=== PATIENT | female | born 1960 | race Caucasian/White ===

== ENCOUNTER → 2016-09-12 | Outpatient (CLI) | payer OTHER ==
[2014-12-31 11:00] VITALS: BP 121/77
[~2016-09-12] MED LIST: SULF1TAB24 PO
--- NOTE | 2016-09-12 13:11 | KCIC ---
Left breast ultrasound: Reason for examination: Followup nodule. Comparison is made to previous study dated 10/10/2015. Ultrasound examination of the left breast was performed in the area of previous sonographic concern. At the 2 o'clock position 7 centimeters from the nipple, there continues to be a small 3.1 millimeter hypoechoic lesion consistent with some focal fibrocystic changes showing a decrease in size since previous exam. No other nodules are seen. No abnormal appearing lymph nodes are seen in the axilla. Impression: Continued presence of a small nodular lesion at the 2 o'clock position consistent with fibrocystic change and showing a slight decrease in overall size. No suspicious abnormalities were seen. Recommend routine mammographic followup. BI-RADS category 2: Benign. This patient's information has been entered into a reminder system for the patient to be notified with the results of this examination and a target date for her next mammograms. Electronically signed by: Elayne Riley MD (September 12, 2016 13:10:13)
--- NOTE | 2016-09-12 14:05 | KCIC ---
PQRS STATEMENT One or more of the following individualized dose reduction techniques were utilized for this study:1.Automated exposure control. 2.Adjustment of the mA and/orkVaccording to patient size. 3.Use of iterative reconstruction technique CT chest. Indication: Reason For Study Reason: CHRONIC SMOKER, COUGH, EVALUATE FOR LUNG CANCER / Spl. Instructions: PRIOR CTA CHEST SENT 12/28/14 / History: TECHNIQUE Multiple contiguous axial images were obtained through the chest. Coronal reformations were created. Comparison: None Findings: There is no axillary adenopathy. Evaluation of the mediastinum and day are limited in the absence of IV contrast but no gross adenopathy is identified. The heart size is normal. Coronary artery calcifications are noted. There is no pericardial effusion. The thoracic aorta is normal in caliber. There is centrilobular emphysema. The lungs are clear with no evidence for infiltrate or consolidation. There is no pleural effusion or pneumothorax. Limited subdiaphragmatic evaluation shows diffuse fatty infiltration of the liver. No destructive osseous lesion is identified. Impression: - Centrilobular emphysema. - Coronary artery disease - Diffuse fatty infiltration of the liver. Electronically signed by: Ramana Pineda (September 12, 2016 14:03:17)
== END | disposition home or self-care (01) ==
LOC: KCIC CT 12:23
PROVIDERS: ATTEND Family Medicine
DX: N63 Unspecified lump in breast (principal); F17.200 Nicotine dependence, unspecified, uncomplicated; R05 Cough; C34.90 Malignant neoplasm of unspecified part of unspecified bronchus or lung
CPT/HCPCS: 71250; 76641

== ENCOUNTER → 2016-10-22 | Outpatient (CLI) | payer OTHER ==
[2014-12-31 11:00] VITALS: BP 121/77
--- NOTE | 2016-10-22 22:10 | KCIC ---
Bilateral digital screening mammograms: Reason for examination: Routine screening. Comparison is made to previous studies dated 10/10/2015 08/16/2015. The skin and nipples show no abnormalities. No abnormal axillary lymph nodes are seen. The breast parenchyma shows scattered fibroglandular density. (Breast density: Category B.) There continues to be a small nodule posterior laterally in the left breast at the 2:00 position which has not changed. There are no new dominant masses, suspicious calcifications or architectural distortions. Impression: No evidence of malignancy. Recommend routine screening. BI-RADS Category 2: Benign. "Our facility is accredited by the [employer] Mammography Program." This patient's information has been entered into a reminder system for the patient to be notified with the results of her examination and a target date for the next mammogram. Electronically signed by: Vanessa Riley MD (10/22/2016 10:07 PM)
== END | disposition home or self-care (01) ==
LOC: KCIC MAMMO 12:33
PROVIDERS: ATTEND Family Medicine
DX: Z12.31 Encounter for screening mammogram for malignant neoplasm of breast (principal)
CPT/HCPCS: G0202; 77067

== ENCOUNTER → 2017-05-20 | Emergency (ER) | payer OTHER | END | disposition home or self-care (01) | LOC: ER 09:30 | DX: R11.0 Nausea (principal); R10.13 Epigastric pain; R13.10 Dysphagia, unspecified; J44.9 Chronic obstructive pulmonary disease, unspecified; F12.10 Cannabis abuse, uncomplicated; F10.20 Alcohol dependence, uncomplicated | CPT/HCPCS: 99283 ==

== ENCOUNTER 2018-02-25 12:10 | Inpatient (IN) | payer OTHER ==
[~2018-02-25] VITALS: Ht 154.9 cm; Wt 57.6 kg
[2018-02-25] MEDS ORDERED: IV NORMAL SALINE 1000ML BAG 1,000 ML IV ONE ×2 (12:45→14:30)
[2018-02-25] MEDS ORDERED: FAMOTIDINE 20 MG/2 ML VIAL IVP ONE (12:45)
[2018-02-25] MEDS ORDERED: HALOPERIDOL LACTATE 5 MG/ML VIAL. IVP ONE (12:45)
[2018-02-25 12:50] LABS: BASO # 0.1 x10^3/uL (0.0-0.2); BASO % 1 % (0-3); EOS % 0 % (0-3); HEMATOCRIT 43.1 % (36.0-47.0); HEMOGLOBIN 15.1 g/dL (12.0-15.5); LYMPH # 1.1 x10^3/uL (1.0-4.8); LYMPH % 4 % (24-48); MEAN CORPUSCULAR HEMOGLOBIN 33 pg (25-35); MEAN CORPUSCULAR HGB CONC 35 g/dL (31-37); MEAN CORPUSCULAR VOLUME 94 fL (79-100); MONO # 1.3 x10^3/uL (0.0-1.1); MONO % 5 % (0-9); NEUT # 23.1 x10^3uL (1.8-7.7); NEUT % 90 % (31-73); PLATELET COUNT 327 x10^3/uL (140-400); WHITE BLOOD COUNT 25.6 x10^3/uL (4.0-11.0)
--- NOTE | 2018-02-25 12:53 | PHYS DOC ---
Past Medical History Past Medical History: Asthma, COPD, Other Additional Past Medical Histor: chronic N/V seen by Dr. Suarez at [facility] Past Surgical History: Tonsillectomy, Other Additional Past Surgical Histo: L knee, infertility sx Alcohol Use: Heavy Drug Use: Marijuana Adult General Chief Complaint Chief Complaint: GI PROBLEM HPI HPI Patient is a 57 year old female with history of chronic abdominal pain, nausea and vomiting who presents with diffuse midabdominal pain for the past 3 days, daily nausea and vomiting with watery diarrhea for the past week. Patient denies fever chills, sweats. No hematemesis or coffee-ground emesis. No fever, flank pain, hematuria dysuria. Patient does report multiple episodes of watery diarrhea over the past week. No recent antibiotics. Reports generalized weakness and fatigue and poor tolerance of oral intake. Patient contacted her doctor today today see if she could be seen today was referred to the ED for further evaluation. [] Review of Systems Review of Systems Review symptoms as per history of present illness. All other review symptoms are negative. All other systems were reviewed and found to be within normal limits, except as documented in this note. Current Medications Current Medications Current Medications Medications (Trade) Dose Ordered Sig/Mohan Start Time Stop Time Status Last Admin Dose Admin Famotidine (Pepcid Vial) 20 mg 1X ONCE 02/25/18 12:45 02/25/18 12:46 DC 02/25/18 13:05 20 MG Fentanyl Citrate (Fentanyl 2ml Vial) 75 mcg 1X ONCE 02/25/18 13:45 02/25/18 13:46 DC 02/25/18 14:41 75 MCG Haloperidol Lactate (Haldol Inj) 2.5 mg 1X ONCE 02/25/18 12:45 02/25/18 12:46 DC 02/25/18 13:05 2.5 MG Info (CONTRAST GIVEN -- Rx MONITORING) 1 each PRN DAILY PRN 02/25/18 13:45 02/27/18 13:44 Iohexol (Omnipaque 300 Mg/ml) 75 ml 1X ONCE 02/25/18 13:45 02/25/18 13:46 DC 02/25/18 14:05 75 ML Potassium Chloride/Sodium Chloride 1,000 ml @ 75 mls/hr 1X ONCE 02/25/18 13:45 02/26/18 03:04 02/25/18 14:30 75 MLS/HR Sodium Chloride 1,000 ml @ 1,000 mls/hr 1X ONCE 02/25/18 14:30 02/25/18 15:29 DC 02/25/18 14:30 1,000 MLS/HR Allergies Allergies Allergies Coded Allergies Type Severity Reaction Last Updated Verified No Known Drug Allergies 12/28/14 No Physical Exam Physical Exam Constitutional: Well developed, well nourished, no acute distress, non-toxic appearance. [] HENT: Normocephalic, atraumatic, bilateral external ears normal, oropharynx moist, no oral exudates, nose normal. [] Eyes: PERRLA, EOMI, conjunctiva normal. [] Neck: Normal range of motion. [] Cardiovascular:Heart rate regular rhythm, no murmur. [] Lungs & Thorax: Bilateral breath sounds clear to auscultation. [] Abdomen: Bowel sounds normal, soft, midepigastric tenderness. [] Skin: Warm, dry. [] Back: No tenderness. [] Extremities: No tenderness. [] Neurologic: Alert and oriented X 3, normal motor function, normal sensory function, no focal deficits noted. [] Psychologic: Affect normal, judgement normal, mood normal. [] Current Patient Data Vital Signs Vital Signs Date Time Temp Pulse Resp B/P (MAP) Pulse Ox O2 Delivery O2 Flow Rate FiO2 02/25/18 13:00 80 27 151/85 (107) 95 Room Air 02/25/18 12:10 99.3 99.3 Lab Values Laboratory Tests Test 02/25/18 12:25 02/25/18 13:50 White Blood Count 25.6 x10^3/uL (4.0-11.0) H Red Blood Count 4.60 x10^6/uL (3.50-5.40) Hemoglobin 15.1 g/dL (12.0-15.5) Hematocrit 43.1 % (36.0-47.0) Mean Corpuscular Volume 94 fL (79-100) Mean Corpuscular Hemoglobin 33 pg (25-35) Mean Corpuscular Hemoglobin Concent 35 g/dL (31-37) Red Cell Distribution Width 17.0 % (11.5-14.5) H Platelet Count 327 x10^3/uL (140-400) Neutrophils (%) (Auto) 90 % (31-73) H Lymphocytes (%) (Auto) 4 % (24-48) L Monocytes (%) (Auto) 5 % (0-9) Eosinophils (%) (Auto) 0 % (0-3) Basophils (%) (Auto) 1 % (0-3) Neutrophils # (Auto) 23.1 x10^3uL (1.8-7.7) H Lymphocytes # (Auto) 1.1 x10^3/uL (1.0-4.8) Monocytes # (Auto) 1.3 x10^3/uL (0.0-1.1) H Eosinophils # (Auto) 0.0 x10^3/uL (0.0-0.7) Basophils # (Auto) 0.1 x10^3/uL (0.0-0.2) Segmented Neutrophils % 83 % (35-66) H Band Neutrophils % 5 % (0-9) Lymphocytes % 5 % (24-48) L Monocytes % 6 % (0-10) Basophils % 1 % (0-3) Platelet Estimate Adequate (ADEQUATE) Sodium Level 135 mmol/L (136-145) L Potassium Level 2.7 mmol/L (3.5-5.1) *L Chloride Level 94 mmol/L (98-107) L Carbon Dioxide Level 23 mmol/L (21-32) Anion Gap 18 (6-14) H Blood Urea Nitrogen 8 mg/dL (7-20) Creatinine 0.8 mg/dL (0.6-1.0) Estimated GFR (Cockcroft-Gault) 73.9 BUN/Creatinine Ratio 10 (6-20) Glucose Level 121 mg/dL (70-99) H Lactic Acid Level 1.4 mmol/L (0.4-2.0) Calcium Level 8.8 mg/dL (8.5-10.1) Total Bilirubin 1.2 mg/dL (0.2-1.0) H Aspartate Amino Transferase (AST) 15 U/L (15-37) Alanine Aminotransferase (ALT) 18 U/L (14-59) Alkaline Phosphatase 73 U/L (46-116) C-Reactive Protein, Quantitative 157.1 mg/L (0-3.3) H Total Protein 7.7 g/dL (6.4-8.2) Albumin 2.8 g/dL (3.4-5.0) L Albumin/Globulin Ratio 0.6 (1.0-1.7) L Lipase 78 U/L (73-393) Urine Collection Type U cath Urine Color Yellow Urine Clarity Clear Urine pH 7.0 Urine Specific [place] 1.010 Urine Protein 30 mg/dL (NEG-TRACE) Urine Glucose (UA) Negative mg/dL (NEG) Urine Ketones (Stick) 40 mg/dL (NEG) Urine Blood Negative (NEG) Urine Nitrite Negative (NEG) Urine Bilirubin Moderate (NEG) Urine Urobilinogen Dipstick 0.2 mg/dL (0.2 mg/dL) Urine Leukocyte Esterase Large (NEG) Urine RBC 0 /HPF (0-2) Urine WBC Tntc /HPF (0-4) Urine Bacteria Few /HPF (0-FEW) Urine Mucus Mod /LPF Laboratory Tests 02/25/18 12:25 Laboratory Tests 02/25/18 12:25 EKG EKG [] Radiology/Procedures Radiology/Procedures [CT abdomen/pelvis: Wall thickening involving the descending colon with sigmoid which may reflect colitis. Dilated fluid and air filled small bowel loops are seen throughout the abdomen with no definite evidence of bowel obstruction per radiology report] Course & Med Decision Making Course & Med Decision Making Pertinent Labs and Imaging studies reviewed. (See chart for details) [Patient afebrile with stable vital signs, abdomen soft with diffuse midabdominal pain, without guarding. Additional with elevated white blood cell count 26K with left shift, potassium at 2.7 with anion gap of 18. CT findings most consistent enteritis and colitis without evidence of obstruction. Cdif antigen pending. Patient also noted to have urinary tract infection. IV fluids, antibiotics given. Given the patient has poor oral tolerance and remains nauseated, IV fluids with potassium were administered. Given the totality the patient's presentation, ongoing symptoms, poor tolerance to oral intake likely failure and concern for worsening hypokalemia I feel the patient would benefit from hospital admission. Case reviewed including but not limited to vital signs , physical exam, all lab report values, CT imaging findings in detail with patient's primary care physician, Dr. Suarez with offer to treat and hold the patient in the emergency department to determine suitability of hospital admission an admission status. Dr. Suarez prefers instead to admit the patient. Case discussed with Osmin from utilization review who feels the patient qualifies for inpatient admission. Courtesy bridge orders provided. ] Dragon Disclaimer Dragon Disclaimer This electronic medical record was generated, in whole or in part, using a voice recognition dictation system. Departure Departure Impression: Primary Impression: Acute colitis Additional Impressions: Hypokalemia Urinary tract infection Condition: STABLE Referrals: MARIANA SUAREZ MD (PCP) Problem Qualifiers DHRUV MARINO DO Feb 25, 2018 12:53
[2018-02-25 13:03] LABS: ALBUMIN 2.8 g/dL (3.4-5.0); ALBUMIN/GLOBULIN RATIO 0.6 (1.0-1.7); C-REACTIVE PROTEIN 157.1 mg/L (0-3.3); CALCIUM 8.8 mg/dL (8.5-10.1); CREATININE 0.8 mg/dL (0.6-1.0); GFR 73.9; TOTAL BILIRUBIN 1.2 mg/dL (0.2-1.0); TOTAL PROTEIN 7.7 g/dL (6.4-8.2)
[2018-02-25 13:09] LABS: POTASSIUM 2.7 mmol/L (3.5-5.1)
[2018-02-25] MEDS ORDERED: fentaNYL PF VIAL 100 MCG/2 ML VIAL IV ONE (13:45)
[2018-02-25] MEDS ORDERED: IOHEXOL 300 MG/ML 100ML VIAL. IV ONE (13:45)
[2018-02-25] MEDS ORDERED: CONTRAST GIVEN. MC PRN (13:45)
[2018-02-25] MEDS ORDERED: POTASSIUM CL 40MEQ IN 0.9%NACL 1,000 ML IV ONE (13:45)
[2018-02-25 13:57] LABS: % BANDS 5 % (0-9); % BASOS 1 % (0-3); % LYMPHS 5 % (24-48); % MONOS 6 % (0-10); % SEGS 83 % (35-66); PLT ESTIMATE ADEQUATE (ADEQUATE)
[2018-02-25 14:10] LABS: BILIRUBIN,URINE MODERATE (NEG); CLARITY,URINE CLEAR; COLOR,URINE YELLOW; NITRITE,URINE NEGATIVE (NEG); PROTEIN,URINE 30 mg/dL (NEG-TRACE); UROBILINOGEN,URINE 0.2 mg/dL (0.2 mg/dL)
[2018-02-25 14:29] LABS: BACTERIA,URINE FEW /HPF (0-FEW); RBC,URINE 0 /HPF (0-2); WBC,URINE TNTC /HPF (0-4)
--- NOTE | 2018-02-25 14:30 | RAD ---
CT scan of the abdomen and pelvis with contrast 02/25/2018 CLINICAL HISTORY: Abdominal pain for one month. TECHNIQUE: After the intravenous administration of 75 cc of Omnipaque 300, contiguous, 5 mm axial sections were obtained through the abdomen and pelvis. One or more of the following individualized dose reduction techniques were utilized for this study: 1. Automated exposure control. 2. Adjustment of the mA and/or kV according to patient size. 3. Use of iterative reconstruction technique. FINDINGS: Images through the lung bases demonstrate minimal dependent subsegmental atelectasis bilaterally. The liver parenchyma has a decreased attenuation consistent with fatty infiltration. The spleen, pancreas, adrenal glands and kidneys are within normal limits. Atherosclerotic calcification of the abdominal aorta is seen. The abdominal aorta tapers normally. The gallbladder is well-distended. No free fluid or free air is seen within the abdomen. The bowel is difficult to evaluate without oral contrast. Dilated air and fluid filled small bowel loops are seen throughout the abdomen without definite evidence of bowel obstruction. Scattered diverticula are seen involving the descending and throughout the sigmoid colon. No inflammatory changes are seen in the adjacent fat. Diffuse wall thickening of the sigmoid colon is seen. This is seen to lesser extent involving the descending colon. These findings may reflect a colitis. No abnormal fluid collection is seen suggest evidence of an abscess. The appendix is not visualized. No inflammatory changes are seen adjacent to the cecum. Images through the pelvis demonstrate the urinary bladder distended with urine. Calcifications are seen within the pelvis consistent with phleboliths. No free fluid is seen. No adnexal mass is noted. Mild S-shaped curvature of the thoracolumbar spine is seen. Degenerative changes are seen involving lower thoracic and throughout the lumbar spine and both hips. IMPRESSION: Wall thickening is seen involving the descending colon along with the sigmoid colon which may reflect a colitis. Clinical correlation is recommended. Dilated fluid and air filled small bowel loops are seen throughout the abdomen without definite evidence of bowel obstruction. Electronically signed by: John Norris MD (02/25/2018 2:27 PM) [facility]-[email or web address]
[2018-02-25] MEDS ORDERED: cefTRIAXone IV Push 1 GM VIAL. IVP SCH (16:00)
--- NOTE | 2018-02-25 16:26 | EKG ---
[facility] [address] [place] [address] Test Date: 2018-02-25 Test Time: 16:21:48 Pat Name: BRITNI RAZA Department: Room: 528 1 Gender: F Cripple Chaser: : 1960 Requested By: DHRUV MARINO Order Number: [id number] Reading MD: Zan Banegas MD Measurements Intervals [place] Rate: 80 P: 0 [place]: 128 QRS: 43 QRSD: 78 T: 26 QT: 400 QTc: 465 Interpretive Statements SINUS RHYTHM Electronically Signed On 03-01-2018 11:02:49 CDT by Zan Banegas MD
[2018-02-25] MEDS ORDERED: ONDANSETRON PF 4 MG/2 ML VIAL. IV PRN (16:30)
[2018-02-25] MEDS: POTASSIUM CHLORIDE 20 MEQ in IV NORMAL SALINE 250ML 250 ML IV SCH ×2 (17:10→21:10)
[2018-02-25] MEDS: fentaNYL PF VIAL 100 MCG/2 ML VIAL IV PRN (17:31)
[2018-02-25] MEDS ORDERED: OMEP40CA5 PO (18:04)
[2018-02-25] MEDS ORDERED: BUDE10.2 IH (18:05)
[2018-02-25] MEDS ORDERED: PROAIR HFA8.5 GM INH (18:05)
[2018-02-25] MEDS ORDERED: ONDA8TAB12 PO (18:06)
[2018-02-25 18:48] VITALS: BP 144/72
[2018-02-25 19:00] VITALS: BP 117/68
[2018-02-25 23:00] VITALS: BP 151/87
[2018-02-26] MEDS: fentaNYL PF VIAL 100 MCG/2 ML VIAL IV PRN ×2 (00:35→09:47)
[2018-02-26 02:55] VITALS: BP 142/89
[2018-02-26 07:00] VITALS: BP 156/82
--- NOTE | 2018-02-26 08:58 | PDOC1 ---
History and Physical Date of Admission Date of Admission 02/25/18 Identification/Chief Complaint Chief Complaint Diarrhea Problems: (1) Acute colitis (2) Vomiting and diarrhea (3) COPD with acute exacerbation (4) Hypokalemia (5) Urinary tract infection Source Source: Patient History of Present Illness History of Present Illness Patient presents with 1 month history of vomiting and diarrhea, worsening in the last 1 week. Patient states for the last month, she has vomiting 3-4 times a day and has had profuse diarrhea, upward of >10 times per day. She did have one episode of coffee ground emesis 1 month ago along with dark tarry stools 1 month ago, but that was the only episode. Mild abdominal pain is associated with diarrhea. She has no idea how she got sick; she has had no sick contacts. She lives alone and hasn't traveled recently. She states she has had problems with nausea and vomiting for about 1 year. She was diagnosed with H.pylori about 1 year ago and was treated twice. After being treated, symptoms improved but she hasn't taken her Omeprazole in "a long time." Last alcoholic drink was 1 month ago. She does endorse dysuria and decreased urine flow. She hasn't had a normal meal in 1 week but has tried to drink water. Patient also is short of breath, slight increase in cough but without fever. Current Problem List Problem List Problems Medical Problems: (1) Hypokalemia Status: Acute (2) Urinary tract infection Status: Acute Current Medications Current Medications Current Medications Medications (Trade) Dose Ordered Sig/Mohan Start Time Stop Time Status Last Admin Dose Admin Ceftriaxone Sodium 1 gm/ Dextrose 50 ml @ 100 mls/hr Q24H 02/25/18 15:45 UNV Ceftriaxone Sodium (Rocephin) 1 gm Q24H 02/26/18 16:30 Famotidine (Pepcid Vial) 20 mg 1X ONCE 02/25/18 12:45 02/25/18 12:46 DC 02/25/18 13:05 20 MG Fentanyl Citrate (Fentanyl 2ml Vial) 50 mcg PRN Q2HR PRN 02/25/18 16:30 02/26/18 16:29 02/26/18 00:35 50 MCG Haloperidol Lactate (Haldol Inj) 2.5 mg 1X ONCE 02/25/18 12:45 02/25/18 12:46 DC 02/25/18 13:05 2.5 MG Influenza Virus Vaccine (Afluria Trivalent [id number] Syringe) 0.5 ml ONCE ONCE 02/25/18 18:00 02/25/18 18:05 DC Info (CONTRAST GIVEN -- Rx MONITORING) 1 each PRN DAILY PRN 02/25/18 13:45 02/27/18 13:44 Iohexol (Omnipaque 300 Mg/ml) 75 ml 1X ONCE 02/25/18 13:45 02/25/18 13:46 DC 02/25/18 14:05 75 ML Ondansetron HCl (Zofran) 4 mg PRN Q8HRS PRN 02/25/18 16:30 02/26/18 16:29 02/25/18 17:30 4 MG Potassium Chloride 20 meq/ Sodium Chloride 260 ml @ 130 mls/hr BID 02/25/18 17:00 02/25/18 21:10 130 MLS/HR Potassium Chloride/Sodium Chloride 1,000 ml @ 75 mls/hr 1X ONCE 02/25/18 13:45 02/26/18 03:04 DC 02/25/18 14:30 75 MLS/HR Sodium Chloride 1,000 ml @ 1,000 mls/hr 1X ONCE 02/25/18 14:30 02/25/18 15:29 DC 02/25/18 14:30 1,000 MLS/HR Allergies Allergies Allergies Coded Allergies Type Severity Reaction Last Updated Verified No Known Drug Allergies 12/28/14 No ROS Review of System CONSTITUTIONAL: No fever or chills EYES: No recent changes SKIN: No rash or itching CARDIOVASCULAR: No chest pain, syncope, palpitations, or edema RESPIRATORY: Cough and short of breath GASTROINTESTINAL: + nausea, vomiting and abdominal pain NEUROLOGICAL: No headaches or weakness ENDOCRINE: No cold or heat intolerance GENITOURINARY: +dysuria and decrease urine freq MUSCULOSKELETAL: No back pain or joint pain LYMPHATICS: No enlarged lymph nodes PSYCHIATRIC: +anxiety and depression Physical Exam Physical Exam GEN.: No apparent distress. Alert and oriented. HEENT: Head is normocephalic, atraumatic NECK: Supple. LUNGS: Diffuse wheeze bilaterally HEART: RRR, S1, S2 present. Peripheral pulses intact ABDOMEN: Soft, nontender. Positive bowel sounds. EXTREMITIES: Without any cyanosis. NEUROLOGIC: Normal speech, normal tone PSYCHIATRIC: Labile affect, anxious, emotional, depressed SKIN: No ulcerations Vitals Vitals Vital Signs Date Time Temp Pulse Resp B/P (MAP) Pulse Ox O2 Delivery O2 Flow Rate FiO2 02/26/18 02:55 98.9 76 18 142/89 (106) 96 Room Air 98.9 02/25/18 16:30 1.0 Labs Labs Laboratory Tests Test 02/25/18 12:25 02/25/18 13:50 White Blood Count 25.6 x10^3/uL (4.0-11.0) Red Blood Count 4.60 x10^6/uL (3.50-5.40) Hemoglobin 15.1 g/dL (12.0-15.5) Hematocrit 43.1 % (36.0-47.0) Mean Corpuscular Volume 94 fL (79-100) Mean Corpuscular Hemoglobin 33 pg (25-35) Mean Corpuscular Hemoglobin Concent 35 g/dL (31-37) Red Cell Distribution Width 17.0 % (11.5-14.5) Platelet Count 327 x10^3/uL (140-400) Neutrophils (%) (Auto) 90 % (31-73) Lymphocytes (%) (Auto) 4 % (24-48) Monocytes (%) (Auto) 5 % (0-9) Eosinophils (%) (Auto) 0 % (0-3) Basophils (%) (Auto) 1 % (0-3) Neutrophils # (Auto) 23.1 x10^3uL (1.8-7.7) Lymphocytes # (Auto) 1.1 x10^3/uL (1.0-4.8) Monocytes # (Auto) 1.3 x10^3/uL (0.0-1.1) Eosinophils # (Auto) 0.0 x10^3/uL (0.0-0.7) Basophils # (Auto) 0.1 x10^3/uL (0.0-0.2) Segmented Neutrophils % 83 % (35-66) Band Neutrophils % 5 % (0-9) Lymphocytes % 5 % (24-48) Monocytes % 6 % (0-10) Basophils % 1 % (0-3) Platelet Estimate Adequate (ADEQUATE) Sodium Level 135 mmol/L (136-145) Potassium Level 2.7 mmol/L (3.5-5.1) Chloride Level 94 mmol/L (98-107) Carbon Dioxide Level 23 mmol/L (21-32) Anion Gap 18 (6-14) Blood Urea Nitrogen 8 mg/dL (7-20) Creatinine 0.8 mg/dL (0.6-1.0) Estimated GFR (Cockcroft-Gault) 73.9 BUN/Creatinine Ratio 10 (6-20) Glucose Level 121 mg/dL (70-99) Lactic Acid Level 1.4 mmol/L (0.4-2.0) Calcium Level 8.8 mg/dL (8.5-10.1) Total Bilirubin 1.2 mg/dL (0.2-1.0) Aspartate Amino Transf (AST/SGOT) 15 U/L (15-37) Alanine Aminotransferase (ALT/SGPT) 18 U/L (14-59) Alkaline Phosphatase 73 U/L (46-116) C-Reactive Protein, Quantitative 157.1 mg/L (0-3.3) Total Protein 7.7 g/dL (6.4-8.2) Albumin 2.8 g/dL (3.4-5.0) Albumin/Globulin Ratio 0.6 (1.0-1.7) Lipase 78 U/L (73-393) Urine Collection Type U cath Urine Color Yellow Urine Clarity Clear Urine pH 7.0 Urine Specific [place] 1.010 Urine Protein 30 mg/dL (NEG-TRACE) Urine Glucose (UA) Negative mg/dL (NEG) Urine Ketones (Stick) 40 mg/dL (NEG) Urine Blood Negative (NEG) Urine Nitrite Negative (NEG) Urine Bilirubin Moderate (NEG) Urine Urobilinogen Dipstick 0.2 mg/dL (0.2 mg/dL) Urine Leukocyte Esterase Large (NEG) Urine RBC 0 /HPF (0-2) Urine WBC Tntc /HPF (0-4) Urine Bacteria Few /HPF (0-FEW) Urine Mucus Mod /LPF Laboratory Tests Test 02/25/18 12:25 02/25/18 13:50 White Blood Count 25.6 x10^3/uL (4.0-11.0) Red Blood Count 4.60 x10^6/uL (3.50-5.40) Hemoglobin 15.1 g/dL (12.0-15.5) Hematocrit 43.1 % (36.0-47.0) Mean Corpuscular Volume 94 fL (79-100) Mean Corpuscular Hemoglobin 33 pg (25-35) Mean Corpuscular Hemoglobin Concent 35 g/dL (31-37) Red Cell Distribution Width 17.0 % (11.5-14.5) Platelet Count 327 x10^3/uL (140-400) Neutrophils (%) (Auto) 90 % (31-73) Lymphocytes (%) (Auto) 4 % (24-48) Monocytes (%) (Auto) 5 % (0-9) Eosinophils (%) (Auto) 0 % (0-3) Basophils (%) (Auto) 1 % (0-3) Neutrophils # (Auto) 23.1 x10^3uL (1.8-7.7) Lymphocytes # (Auto) 1.1 x10^3/uL (1.0-4.8) Monocytes # (Auto) 1.3 x10^3/uL (0.0-1.1) Eosinophils # (Auto) 0.0 x10^3/uL (0.0-0.7) Basophils # (Auto) 0.1 x10^3/uL (0.0-0.2) Segmented Neutrophils % 83 % (35-66) Band Neutrophils % 5 % (0-9) Lymphocytes % 5 % (24-48) Monocytes % 6 % (0-10) Basophils % 1 % (0-3) Platelet Estimate Adequate (ADEQUATE) Sodium Level 135 mmol/L (136-145) Potassium Level 2.7 mmol/L (3.5-5.1) Chloride Level 94 mmol/L (98-107) Carbon Dioxide Level 23 mmol/L (21-32) Anion Gap 18 (6-14) Blood Urea Nitrogen 8 mg/dL (7-20) Creatinine 0.8 mg/dL (0.6-1.0) Estimated GFR (Cockcroft-Gault) 73.9 BUN/Creatinine Ratio 10 (6-20) Glucose Level 121 mg/dL (70-99) Lactic Acid Level 1.4 mmol/L (0.4-2.0) Calcium Level 8.8 mg/dL (8.5-10.1) Total Bilirubin 1.2 mg/dL (0.2-1.0) Aspartate Amino Transf (AST/SGOT) 15 U/L (15-37) Alanine Aminotransferase (ALT/SGPT) 18 U/L (14-59) Alkaline Phosphatase 73 U/L (46-116) C-Reactive Protein, Quantitative 157.1 mg/L (0-3.3) Total Protein 7.7 g/dL (6.4-8.2) Albumin 2.8 g/dL (3.4-5.0) Albumin/Globulin Ratio 0.6 (1.0-1.7) Lipase 78 U/L (73-393) Urine Collection Type U cath Urine Color Yellow Urine Clarity Clear Urine pH 7.0 Urine Specific [place] 1.010 Urine Protein 30 mg/dL (NEG-TRACE) Urine Glucose (UA) Negative mg/dL (NEG) Urine Ketones (Stick) 40 mg/dL (NEG) Urine Blood Negative (NEG) Urine Nitrite Negative (NEG) Urine Bilirubin Moderate (NEG) Urine Urobilinogen Dipstick 0.2 mg/dL (0.2 mg/dL) Urine Leukocyte Esterase Large (NEG) Urine RBC 0 /HPF (0-2) Urine WBC Tntc /HPF (0-4) Urine Bacteria Few /HPF (0-FEW) Urine Mucus Mod /LPF VTE Prophylaxis Ordered VTE Prophylaxis Devices: No VTE Pharmacological Prophylaxi: Yes Assessment/Plan Assessment/Plan 57yo F with history of depression, anxiety, COPD, GERD presents with 1 month of intractable vomiting, diarrhea, found to have acute colitis, COPD exacerbation, sepsis from UTI and severe hypokalemia. 1. Acute colitis: bowel rest, consult GI - appreciate recs, ADAT, r/o c.diff 2. Sepsis: resolved, source is UTI 3. UTI: cont ceftriaxone 4. Severe HypoK: replaced 5. COPD exacerbation: will order aerosols, prednisone burst 6. GERD: restarted pantoprazole 7. Depression/anxiety: restart her Duloxetine as outpt FEN: replete NABEEL lang PPx: LMWH Dispo: admit, cont inpt care MARIANA LÓPEZ MD Feb 26, 2018 08:58
[2018-02-26 09:24] LABS: BASO % 0 % (0-3); EOS % 0 % (0-3); HEMATOCRIT 40.3 % (36.0-47.0); HEMOGLOBIN 13.5 g/dL (12.0-15.5); LYMPH # 1.4 x10^3/uL (1.0-4.8); LYMPH % 10 % (24-48); MEAN CORPUSCULAR HEMOGLOBIN 32 pg (25-35); MEAN CORPUSCULAR HGB CONC 33 g/dL (31-37); MEAN CORPUSCULAR VOLUME 95 fL (79-100); MONO # 0.9 x10^3/uL (0.0-1.1); MONO % 6 % (0-9); NEUT # 11.4 x10^3uL (1.8-7.7); NEUT % 83 % (31-73); PLATELET COUNT 291 x10^3/uL (140-400); RED BLOOD COUNT 4.23 x10^6/uL (3.50-5.40); RED CELL DISTRIBUTION WIDTH 16.9 % (11.5-14.5); WHITE BLOOD COUNT 13.7 x10^3/uL (4.0-11.0)
[2018-02-26] MEDS: POTASSIUM CHLORIDE 20 MEQ in IV NORMAL SALINE 250ML 250 ML IV SCH ×2 (09:37→21:34)
[2018-02-26 09:41] LABS: CALCIUM 8.1 mg/dL (8.5-10.1); CREATININE 0.6 mg/dL (0.6-1.0); POTASSIUM 3.6 mmol/L (3.5-5.1)
[2018-02-26 11:00] VITALS: BP 142/83
[2018-02-26] MEDS: BUDESONIDE 0.5 MG/2 ML NEBU. NEB SCH ×2 (12:38→19:41)
[2018-02-26] MEDS: IPRATRPIUM/ALBUTEROL 0.5/2.5MG 3 ML NEBU. NEB SCH ×3 (12:38→19:40)
[2018-02-26] MEDS: predniSONE 20 MG TABLET PO SCH (12:50)
[2018-02-26] MEDS: PANTOPRAZOLE 40 MG TABLET.DR. PO SCH (12:50)
[2018-02-26] MEDS: ENOXAPARIN 40 MG/0.4 ML SYRINGE. SQ SCH (12:51)
--- NOTE | 2018-02-26 12:57 | PDOC2 ---
GI CONSULT Reason For Consult: Acute colitis HPI: HPI: 57 y/o female admitted through ER yesterday. Tells me has been ill off and on over the past 1.5 years w/ epigastric pain (ache) associated w/ vomiting. Says she tried Prilosec and two rounds of antibiotics w/ her PCP for "an intestinal infection" (?H. pylori). Hasn't taken Prilosec in awhile. Says she doesn't know what heartburn or reflux is, but does describe "vomiting acid." After taking antibiotics, had some diarrhea. This became much worse ~4 weeks ago w/o precipitating events. 10 -20 watery brown stools daily. Associated w/ BLQ pain - constant. Might have had an episode of dark emesis and dark stool prior to admission. Denies hematochezia. Has not lost weight. Has occasional dysphagia w/ solids. No previous EGD or colonoscopy. No GB or pancreas history. Thinks some chest imaging suggested fatty liver at one point. Has a tattoo, no h/o IVDU or Hepatitis. A lot of her friends have/had Hep C. Drinks a pint of straight vodka every week (usually two days). Lives alone - on disability for left knee injury. Says doesn't take any pain meds for left knee, but has been taking ibuprofen 800mg TID for epigastric pain (but stopped when diarrhea began). Crying - says she really wants 'scopes while she's here. Is on Rocephin for possible UTI. PO prednisone, and PO PPI. PMH: PMH: COPD, GERD, diverticulosis, tonsillectomy, left knee surgery x 4 FH: Family History: Cancer (mother - esophageal, breast, ?uterine) Social History: Smoke: <1 pack per day ALCOHOL: other (1 pint of vodka weekly) Drugs: Marijuana ROS: GEN: Denies fevers, chills, sweats HEENT: Denies blurred vision, sore throat CV: Denies chest pain RESP: +chronic cough GI: Per HPI : Denies hematuria, dysuria ENDO: Denies weight changes NEURO: Denies confusion, dizziness MSK: +left knee pain SKIN: Denies jaundice, pruritus Vitals: Vitals: Vital Signs Date Time Temp Pulse Resp B/P (MAP) Pulse Ox O2 Delivery O2 Flow Rate FiO2 02/26/18 12:39 95 Room Air 02/26/18 09:47 1.0 02/26/18 07:00 98.9 71 20 156/82 (106) 98.9 Labs: Labs: Laboratory Tests Test 02/25/18 13:50 02/26/18 08:35 Urine Collection Type U cath Urine Color Yellow Urine Clarity Clear Urine pH 7.0 Urine Specific [place] 1.010 Urine Protein 30 mg/dL (NEG-TRACE) Urine Glucose (UA) Negative mg/dL (NEG) Urine Ketones (Stick) 40 mg/dL (NEG) Urine Blood Negative (NEG) Urine Nitrite Negative (NEG) Urine Bilirubin Moderate (NEG) Urine Urobilinogen Dipstick 0.2 mg/dL (0.2 mg/dL) Urine Leukocyte Esterase Large (NEG) Urine RBC 0 /HPF (0-2) Urine WBC Tntc /HPF (0-4) Urine Bacteria Few /HPF (0-FEW) Urine Mucus Mod /LPF White Blood Count 13.7 x10^3/uL (4.0-11.0) Red Blood Count 4.23 x10^6/uL (3.50-5.40) Hemoglobin 13.5 g/dL (12.0-15.5) Hematocrit 40.3 % (36.0-47.0) Mean Corpuscular Volume 95 fL (79-100) Mean Corpuscular Hemoglobin 32 pg (25-35) Mean Corpuscular Hemoglobin Concent 33 g/dL (31-37) Red Cell Distribution Width 16.9 % (11.5-14.5) Platelet Count 291 x10^3/uL (140-400) Neutrophils (%) (Auto) 83 % (31-73) Lymphocytes (%) (Auto) 10 % (24-48) Monocytes (%) (Auto) 6 % (0-9) Eosinophils (%) (Auto) 0 % (0-3) Basophils (%) (Auto) 0 % (0-3) Neutrophils # (Auto) 11.4 x10^3uL (1.8-7.7) Lymphocytes # (Auto) 1.4 x10^3/uL (1.0-4.8) Monocytes # (Auto) 0.9 x10^3/uL (0.0-1.1) Eosinophils # (Auto) 0.0 x10^3/uL (0.0-0.7) Basophils # (Auto) 0.0 x10^3/uL (0.0-0.2) Sodium Level 143 mmol/L (136-145) Potassium Level 3.6 mmol/L (3.5-5.1) Chloride Level 106 mmol/L (98-107) Carbon Dioxide Level 27 mmol/L (21-32) Anion Gap 10 (6-14) Blood Urea Nitrogen 2 mg/dL (7-20) Creatinine 0.6 mg/dL (0.6-1.0) Estimated GFR (Cockcroft-Gault) 103.0 Glucose Level 116 mg/dL (70-99) Calcium Level 8.1 mg/dL (8.5-10.1) Allergies: Coded Allergies: No Known Drug Allergies (Unverified , 12/28/14) Medications: Current Medications Medications (Trade) Dose Ordered Sig/Mohan Route PRN Reason Start Time Stop Time Status Last Admin Dose Admin Haloperidol Lactate (Haldol Inj) 2.5 mg 1X ONCE IVP 02/25/18 12:45 02/25/18 12:46 DC 02/25/18 13:05 Famotidine (Pepcid Vial) 20 mg 1X ONCE IVP 02/25/18 12:45 02/25/18 12:46 DC 02/25/18 13:05 Sodium Chloride 1,000 ml @ 1,000 mls/hr 1X ONCE IV 02/25/18 12:45 02/25/18 16:17 DC 02/25/18 13:05 Fentanyl Citrate (Fentanyl 2ml Vial) 75 mcg 1X ONCE IV 02/25/18 13:45 02/25/18 13:46 DC 02/25/18 14:41 Potassium Chloride/Sodium Chloride 1,000 ml @ 75 mls/hr 1X ONCE IV 02/25/18 13:45 02/26/18 03:04 DC 02/25/18 14:30 Iohexol (Omnipaque 300 Mg/ml) 75 ml 1X ONCE IV 02/25/18 13:45 02/25/18 13:46 DC 02/25/18 14:05 Sodium Chloride 1,000 ml @ 1,000 mls/hr 1X ONCE IV 02/25/18 14:30 02/25/18 15:29 DC 02/25/18 14:30 Ondansetron HCl (Zofran) 4 mg PRN Q8HRS PRN IV NAUSEA/VOMITING 02/25/18 16:30 02/26/18 16:29 02/25/18 17:30 Fentanyl Citrate (Fentanyl 2ml Vial) 50 mcg PRN Q2HR PRN IV PAIN 02/25/18 16:30 02/26/18 10:43 DC 02/26/18 09:47 Ceftriaxone Sodium 50 ml @ 100 mls/hr 1X ONCE IV 02/25/18 16:30 02/25/18 16:59 DC 02/25/18 16:31 Potassium Chloride 20 meq/ Sodium Chloride 260 ml @ 130 mls/hr BID IV 02/25/18 17:00 02/26/18 09:37 Albuterol/ Ipratropium (Duoneb) 3 ml RTQID NEB 02/26/18 12:00 02/26/18 12:38 Budesonide (Pulmicort) 0.5 mg RTBID NEB 02/26/18 12:00 02/26/18 12:38 Imaging: Imaging: CT A/P IMPRESSION: Wall thickening is seen involving the descending colon along with the sigmoid colon which may reflect a colitis. Clinical correlation is recommended. Dilated fluid and air filled small bowel loops are seen throughout the abdomen without definite evidence of bowel obstruction. PE: GEN: NAD HEENT: Atraumatic, PERRL LUNGS: CTAB HEART: RRR ABD: BS+, soft, maybe distended, tender to light touch BLQ, some epigastric discomfort EXTREMITY: No edema SKIN: bruising BLQ - says from heating pad NEURO/PSYCH: A & O 3, tearful, also quite short w/ staff delivering lunch tray A/P: A/P: Chronic upper abd pain and vomiting Diarrhea and lower abd pain - onset [address] - wall thickening in descending and sigmoid colon, dilated SB loops w/o obstruction Leukocytosis (better), hypokalemia (resolved), elevated CRP GERD w/ occasional dysphagia - has been on PPI in the past ?h/o H. pylori - describes atbx x 2 w/ PCP for "intestinal infection" CRC screen - none Diverticulosis ?h/o fatty liver NSAID use - 800mg ibuprofen TID (stopped a few weeks ago) Substance abuse COPD FH esophageal cancer -- Reviewed w/ Dr. Henderson - await stool tests, add Flagyl for now. Agree w/ PPI. Would benefit from EGD and colonoscopy at some point - either intpt or outpt depending on clinical course. MAC KNOX Feb 26, 2018 12:57
[2018-02-26 15:00] VITALS: BP 150/80
[2018-02-26] MEDS: HYDROcodone/APAP 5/325MG 1 TAB TABLET PO PRN ×2 (15:25→21:27)
[2018-02-26] MEDS: VANCOMYCIN 125 MG/2.5 ML ORAL SOLUTION. PO SCH ×3 (15:25→21:26)
[2018-02-26] MEDS: cefTRIAXone IV Push 1 GM VIAL. IVP SCH (17:27)
[2018-02-26 19:00] VITALS: BP 106/67
[2018-02-26] MEDS: LACTOBACILLUS RHAMNOSUS GG 1 CAPSULE. PO SCH (21:26)
[2018-02-26 23:00] VITALS: BP 142/77
[2018-02-27 03:00] VITALS: BP 132/69
[2018-02-27 07:00] VITALS: BP 183/111
[2018-02-27 08:10] LABS: BASO # 0.1 x10^3/uL (0.0-0.2); BASO % 1 % (0-3); EOS % 1 % (0-3); HEMATOCRIT 35.3 % (36.0-47.0); LYMPH # 1.5 x10^3/uL (1.0-4.8); LYMPH % 18 % (24-48); MEAN CORPUSCULAR HEMOGLOBIN 33 pg (25-35); MEAN CORPUSCULAR HGB CONC 34 g/dL (31-37); MEAN CORPUSCULAR VOLUME 95 fL (79-100); MONO # 0.5 x10^3/uL (0.0-1.1); MONO % 6 % (0-9); NEUT # 6.3 x10^3uL (1.8-7.7); NEUT % 75 % (31-73); PLATELET COUNT 223 x10^3/uL (140-400); RED BLOOD COUNT 3.69 x10^6/uL (3.50-5.40); WHITE BLOOD COUNT 8.4 x10^3/uL (4.0-11.0)
[2018-02-27] MEDS: VANCOMYCIN 125 MG/2.5 ML ORAL SOLUTION. PO SCH ×4 (08:18→21:53)
[2018-02-27] MEDS: predniSONE 20 MG TABLET PO SCH (08:18)
[2018-02-27] MEDS: PANTOPRAZOLE 40 MG TABLET.DR. PO SCH (08:18)
[2018-02-27] MEDS: HYDROcodone/APAP 5/325MG 1 TAB TABLET PO PRN (08:18)
[2018-02-27] MEDS: LACTOBACILLUS RHAMNOSUS GG 1 CAPSULE. PO SCH ×2 (08:18→21:53)
[2018-02-27 08:29] LABS: ALBUMIN 2.1 g/dL (3.4-5.0); ALBUMIN/GLOBULIN RATIO 0.6 (1.0-1.7); CALCIUM 8.2 mg/dL (8.5-10.1); CREATININE 0.5 mg/dL (0.6-1.0); GFR 127.2; POTASSIUM 3.4 mmol/L (3.5-5.1); TOTAL BILIRUBIN 0.2 mg/dL (0.2-1.0); TOTAL PROTEIN 5.9 g/dL (6.4-8.2)
[2018-02-27] MEDS: IPRATRPIUM/ALBUTEROL 0.5/2.5MG 3 ML NEBU. NEB SCH ×4 (09:42→20:00)
[2018-02-27] MEDS: BUDESONIDE 0.5 MG/2 ML NEBU. NEB SCH ×2 (09:42→20:00)
[2018-02-27] MEDS ORDERED: POTASSIUM CHLORIDE 20MEQ 50 ML IV SCH (10:00)
--- NOTE | 2018-02-27 10:12 | PDOC ---
PROGRESS NOTES Subjective Subjective Patient did not sleep well last night, in a lot of pain. Diarrhea persisting but improved. Abdominal pain slightly improved but still bloated. Cough and shortness of breath improved. No urinary symptoms. Still very depressed Review of System CONSTITUTIONAL: No fever or chills CARDIOVASCULAR: No chest pain, syncope, palpitations, or edema RESPIRATORY: Cough and short of breath GASTROINTESTINAL: + nausea, vomiting and abdominal pain NEUROLOGICAL: No headaches or weakness GENITOURINARY: +dysuria and decrease urine freq PSYCHIATRIC: +anxiety and depression Objective Objective Vital Signs Date Time Temp Pulse Resp B/P (MAP) Pulse Ox O2 Delivery O2 Flow Rate FiO2 02/27/18 09:42 96 Room Air 02/27/18 03:00 98.9 81 18 132/69 (90) 2.0 98.9 Intake and Output 02/27/18 07:00 Intake Total 720 ml Balance 720 ml Intake Oral 720 ml # Voids 2 Physical Exam Physical Exam Physical Exam GEN.: No apparent distress. Alert and oriented. HEENT: Head is normocephalic, atraumatic NECK: Supple. LUNGS: Mild wheeze bilaterally HEART: RRR, S1, S2 present. Peripheral pulses intact ABDOMEN: Soft, nontender. Positive bowel sounds. EXTREMITIES: Without any cyanosis. NEUROLOGIC: Normal speech, normal tone PSYCHIATRIC: Labile affect, anxious, emotional, depressed SKIN: No ulcerations Assessment Assessment Problems Medical Problems: (1) Hypokalemia Status: Acute (2) Urinary tract infection Status: Acute Plan Plan of Care Assessment/Plan 57yo F with history of depression, anxiety, COPD, GERD presents with 1 month of intractable vomiting, diarrhea, found to have acute colitis, COPD exacerbation, sepsis from UTI and severe hypokalemia. 1. Acute c.diff colitis: bowel rest ADAT, consult GI - appreciate recs, Vanc po started 02/26/18 2. Sepsis: resolved, source is UTI/c.diff colitis 3. UTI: cont ceftriaxone 4. Severe HypoK: replaced 5. COPD exacerbation: improved, will order aerosols, prednisone burst 6. GERD: restarted pantoprazole 7. Depression/anxiety: restart her Duloxetine FEN: replete lytes, FLD - ADAT PPx: LMWH Dispo: cont inpt care Comment Review of Relevant I have reviewed the following items eagle (where applicable) has been applied. Labs Laboratory Tests Test 02/25/18 12:25 02/25/18 13:50 02/25/18 17:00 02/26/18 08:35 White Blood Count 25.6 x10^3/uL (4.0-11.0) 13.7 x10^3/uL (4.0-11.0) Red Blood Count 4.60 x10^6/uL (3.50-5.40) 4.23 x10^6/uL (3.50-5.40) Hemoglobin 15.1 g/dL (12.0-15.5) 13.5 g/dL (12.0-15.5) Hematocrit 43.1 % (36.0-47.0) 40.3 % (36.0-47.0) Mean Corpuscular Volume 94 fL (79-100) 95 fL (79-100) Mean Corpuscular Hemoglobin 33 pg (25-35) 32 pg (25-35) Mean Corpuscular Hemoglobin Concent 35 g/dL (31-37) 33 g/dL (31-37) Red Cell Distribution Width 17.0 % (11.5-14.5) 16.9 % (11.5-14.5) Platelet Count 327 x10^3/uL (140-400) 291 x10^3/uL (140-400) Neutrophils (%) (Auto) 90 % (31-73) 83 % (31-73) Lymphocytes (%) (Auto) 4 % (24-48) 10 % (24-48) Monocytes (%) (Auto) 5 % (0-9) 6 % (0-9) Eosinophils (%) (Auto) 0 % (0-3) 0 % (0-3) Basophils (%) (Auto) 1 % (0-3) 0 % (0-3) Neutrophils # (Auto) 23.1 x10^3uL (1.8-7.7) 11.4 x10^3uL (1.8-7.7) Lymphocytes # (Auto) 1.1 x10^3/uL (1.0-4.8) 1.4 x10^3/uL (1.0-4.8) Monocytes # (Auto) 1.3 x10^3/uL (0.0-1.1) 0.9 x10^3/uL (0.0-1.1) Eosinophils # (Auto) 0.0 x10^3/uL (0.0-0.7) 0.0 x10^3/uL (0.0-0.7) Basophils # (Auto) 0.1 x10^3/uL (0.0-0.2) 0.0 x10^3/uL (0.0-0.2) Segmented Neutrophils % 83 % (35-66) Band Neutrophils % 5 % (0-9) Lymphocytes % 5 % (24-48) Monocytes % 6 % (0-10) Basophils % 1 % (0-3) Platelet Estimate Adequate (ADEQUATE) Sodium Level 135 mmol/L (136-145) 143 mmol/L (136-145) Potassium Level 2.7 mmol/L (3.5-5.1) 3.6 mmol/L (3.5-5.1) Chloride Level 94 mmol/L (98-107) 106 mmol/L (98-107) Carbon Dioxide Level 23 mmol/L (21-32) 27 mmol/L (21-32) Anion Gap 18 (6-14) 10 (6-14) Blood Urea Nitrogen 8 mg/dL (7-20) 2 mg/dL (7-20) Creatinine 0.8 mg/dL (0.6-1.0) 0.6 mg/dL (0.6-1.0) Estimated GFR (Cockcroft-Gault) 73.9 103.0 BUN/Creatinine Ratio 10 (6-20) Glucose Level 121 mg/dL (70-99) 116 mg/dL (70-99) Lactic Acid Level 1.4 mmol/L (0.4-2.0) Calcium Level 8.8 mg/dL (8.5-10.1) 8.1 mg/dL (8.5-10.1) Total Bilirubin 1.2 mg/dL (0.2-1.0) Aspartate Amino Transf (AST/SGOT) 15 U/L (15-37) Alanine Aminotransferase (ALT/SGPT) 18 U/L (14-59) Alkaline Phosphatase 73 U/L (46-116) C-Reactive Protein, Quantitative 157.1 mg/L (0-3.3) Total Protein 7.7 g/dL (6.4-8.2) Albumin 2.8 g/dL (3.4-5.0) Albumin/Globulin Ratio 0.6 (1.0-1.7) Lipase 78 U/L (73-393) Urine Collection Type U cath Urine Color Yellow Urine Clarity Clear Urine pH 7.0 Urine Specific [place] 1.010 Urine Protein 30 mg/dL (NEG-TRACE) Urine Glucose (UA) Negative mg/dL (NEG) Urine Ketones (Stick) 40 mg/dL (NEG) Urine Blood Negative (NEG) Urine Nitrite Negative (NEG) Urine Bilirubin Moderate (NEG) Urine Urobilinogen Dipstick 0.2 mg/dL (0.2 mg/dL) Urine Leukocyte Esterase Large (NEG) Urine RBC 0 /HPF (0-2) Urine WBC Tntc /HPF (0-4) Urine Bacteria Few /HPF (0-FEW) Urine Mucus Mod /LPF Clostridium difficile Toxin (PCR) Positive (Negative) Test 02/27/18 07:55 White Blood Count 8.4 x10^3/uL (4.0-11.0) Red Blood Count 3.69 x10^6/uL (3.50-5.40) Hemoglobin 12.0 g/dL (12.0-15.5) Hematocrit 35.3 % (36.0-47.0) Mean Corpuscular Volume 95 fL (79-100) Mean Corpuscular Hemoglobin 33 pg (25-35) Mean Corpuscular Hemoglobin Concent 34 g/dL (31-37) Red Cell Distribution Width 17.0 % (11.5-14.5) Platelet Count 223 x10^3/uL (140-400) Neutrophils (%) (Auto) 75 % (31-73) Lymphocytes (%) (Auto) 18 % (24-48) Monocytes (%) (Auto) 6 % (0-9) Eosinophils (%) (Auto) 1 % (0-3) Basophils (%) (Auto) 1 % (0-3) Neutrophils # (Auto) 6.3 x10^3uL (1.8-7.7) Lymphocytes # (Auto) 1.5 x10^3/uL (1.0-4.8) Monocytes # (Auto) 0.5 x10^3/uL (0.0-1.1) Eosinophils # (Auto) 0.0 x10^3/uL (0.0-0.7) Basophils # (Auto) 0.1 x10^3/uL (0.0-0.2) Sodium Level 142 mmol/L (136-145) Potassium Level 3.4 mmol/L (3.5-5.1) Chloride Level 106 mmol/L (98-107) Carbon Dioxide Level 26 mmol/L (21-32) Anion Gap 10 (6-14) Blood Urea Nitrogen 4 mg/dL (7-20) Creatinine 0.5 mg/dL (0.6-1.0) Estimated GFR (Cockcroft-Gault) 127.2 BUN/Creatinine Ratio 8 (6-20) Glucose Level 108 mg/dL (70-99) Calcium Level 8.2 mg/dL (8.5-10.1) Total Bilirubin 0.2 mg/dL (0.2-1.0) Aspartate Amino Transf (AST/SGOT) 29 U/L (15-37) Alanine Aminotransferase (ALT/SGPT) 22 U/L (14-59) Alkaline Phosphatase 57 U/L (46-116) Total Protein 5.9 g/dL (6.4-8.2) Albumin 2.1 g/dL (3.4-5.0) Albumin/Globulin Ratio 0.6 (1.0-1.7) Laboratory Tests Test 02/27/18 07:55 White Blood Count 8.4 x10^3/uL (4.0-11.0) Red Blood Count 3.69 x10^6/uL (3.50-5.40) Hemoglobin 12.0 g/dL (12.0-15.5) Hematocrit 35.3 % (36.0-47.0) Mean Corpuscular Volume 95 fL (79-100) Mean Corpuscular Hemoglobin 33 pg (25-35) Mean Corpuscular Hemoglobin Concent 34 g/dL (31-37) Red Cell Distribution Width 17.0 % (11.5-14.5) Platelet Count 223 x10^3/uL (140-400) Neutrophils (%) (Auto) 75 % (31-73) Lymphocytes (%) (Auto) 18 % (24-48) Monocytes (%) (Auto) 6 % (0-9) Eosinophils (%) (Auto) 1 % (0-3) Basophils (%) (Auto) 1 % (0-3) Neutrophils # (Auto) 6.3 x10^3uL (1.8-7.7) Lymphocytes # (Auto) 1.5 x10^3/uL (1.0-4.8) Monocytes # (Auto) 0.5 x10^3/uL (0.0-1.1) Eosinophils # (Auto) 0.0 x10^3/uL (0.0-0.7) Basophils # (Auto) 0.1 x10^3/uL (0.0-0.2) Sodium Level 142 mmol/L (136-145) Potassium Level 3.4 mmol/L (3.5-5.1) Chloride Level 106 mmol/L (98-107) Carbon Dioxide Level 26 mmol/L (21-32) Anion Gap 10 (6-14) Blood Urea Nitrogen 4 mg/dL (7-20) Creatinine 0.5 mg/dL (0.6-1.0) Estimated GFR (Cockcroft-Gault) 127.2 BUN/Creatinine Ratio 8 (6-20) Glucose Level 108 mg/dL (70-99) Calcium Level 8.2 mg/dL (8.5-10.1) Total Bilirubin 0.2 mg/dL (0.2-1.0) Aspartate Amino Transf (AST/SGOT) 29 U/L (15-37) Alanine Aminotransferase (ALT/SGPT) 22 U/L (14-59) Alkaline Phosphatase 57 U/L (46-116) Total Protein 5.9 g/dL (6.4-8.2) Albumin 2.1 g/dL (3.4-5.0) Albumin/Globulin Ratio 0.6 (1.0-1.7) Medications Current Medications Haloperidol Lactate (Haldol Inj) 2.5 mg 1X ONCE IVP Last administered on 02/25at 13:05; Start 02/25/18 at 12:45; Stop 02/25/18 at 12:46; Status DC Famotidine (Pepcid Vial) 20 mg 1X ONCE IVP Last administered on 02/25/18at 13: 05; Start 02/25/18 at 12:45; Stop 02/25/18 at 12:46; Status DC Sodium Chloride 1,000 ml @ 1,000 mls/hr 1X ONCE IV Last administered on 02/25at 13:05; Start 02/25/18 at 12:45; Stop 02/25/18 at 16:17; Status DC Fentanyl Citrate (Fentanyl 2ml Vial) 75 mcg 1X ONCE IV Last administered on at 14:41; Start 02/25/18 at 13:45; Stop 02/25/18 at 13:46; Status DC Potassium Chloride/Sodium Chloride 1,000 ml @ 75 mls/hr 1X ONCE IV Last administered on 02/25/18at 14:30; Start 02/25/18 at 13:45; Stop 02/26/18 at 03 :04; Status DC Iohexol (Omnipaque 300 Mg/ml) 75 ml 1X ONCE IV Last administered on at 14:05; Start 02/25/18 at 13:45; Stop 02/25/18 at 13:46; Status DC Info (CONTRAST GIVEN -- Rx MONITORING) 1 each PRN DAILY PRN MC SEE COMMENTS; Start 02/25/18 at 13:45; Stop 02/27/18 at 13:44 Sodium Chloride 1,000 ml @ 1,000 mls/hr 1X ONCE IV Last administered on 02/25at 14:30; Start 02/25/18 at 14:30; Stop 02/25/18 at 15:29; Status DC Ceftriaxone Sodium 1 gm/ Dextrose 50 ml @ 100 mls/hr Q24H IV ; Start 02/25/18 at 15:45; Status UNV Ceftriaxone Sodium (Rocephin) 1 gm Q24H IVP ; Start 02/25/18 at 16:00; Stop at 16:21; Status DC Ceftriaxone Sodium 50 ml @ As Directed STK-MED ONCE IV ; Start 02/25/18 at 16: 11; Stop 02/25/18 at 16:12; Status DC Ondansetron HCl (Zofran) 4 mg PRN Q8HRS PRN IV NAUSEA/VOMITING Last administered on 02/25/18at 17:30; Start 02/25/18 at 16:30; Stop 02/26/18 at 16 :29; Status DC Fentanyl Citrate (Fentanyl 2ml Vial) 50 mcg PRN Q2HR PRN IV PAIN Last administered on 02/26/18at 09:47; Start 02/25/18 at 16:30; Stop 02/26/18 at 10 :43; Status DC Ceftriaxone Sodium 50 ml @ 100 mls/hr 1X ONCE IV Last administered on at 16:31; Start 02/25/18 at 16:30; Stop 02/25/18 at 16:59; Status DC Ceftriaxone Sodium (Rocephin) 1 gm Q24H IVP Last administered on 02/26/18at 17: 27; Start 02/26/18 at 16:30 Potassium Chloride 20 meq/ Sodium Chloride 260 ml @ 130 mls/hr BID IV Last administered on 02/26/18at 21:34; Start 02/25/18 at 17:00; Stop 02/27/18 at 06 :47; Status DC Influenza Virus Vaccine (Afluria Trivalent [id number] Syringe) 0.5 ml ONCE ONCE VAX IM Last administered on 02/26/18at 12:57; Start 02/25/18 at 18:00; Stop 02/25/18 at 18:05; Status DC Albuterol/ Ipratropium (Duoneb) 3 ml RTQID NEB Last administered on 02/27/18at 09:42; Start 02/26/18 at 12:00 Prednisone (Prednisone) 40 mg DAILY PO Last administered on 02/27/18at 08:18; Start 02/26/18 at 12:00 Budesonide (Pulmicort) 0.5 mg RTBID NEB Last administered on 02/27/18at 09:42; Start 02/26/18 at 12:00 Pantoprazole Sodium (Protonix) 40 mg DAILYAC PO Last administered on at 08:18; Start 02/26/18 at 12:00 Enoxaparin Sodium (Lovenox 40mg Syringe) 40 mg Q24H SQ Last administered on at 12:51; Start 02/26/18 at 12:00 Metronidazole 100 ml @ 100 mls/hr Q12HR IV ; Start 02/26/18 at 13:00; Stop at 14:06; Status DC Lactobacillus Rhamnosus (Culturelle) 1 cap BID PO Last administered on at 08:18; Start 02/26/18 at 21:00 Acetaminophen/ Hydrocodone Bitart (Lortab 5/325) 1 tab PRN Q6HRS PRN PO MODERATE PAIN Last administered on 02/27/18at 08:18; Start 02/26/18 at 13:30 Morphine Sulfate (Morphine Sulfate) 2 mg PRN Q6HRS PRN IV MODERATE TO SEVERE PAIN; Start 02/26/18 at 13:30 Vancomycin HCl (Vancomycin Oral Solution) 125 mg [id number] PO Last administered on 02/27/18at 08:18; Start 02/26/18 at 14:00 Potassium Chloride/Water 50 ml @ 50 mls/hr Q1H IV ; Start 02/27/18 at 10:00; Stop 02/27/18 at 11:59; Status UNV Potassium Chloride/Water 100 ml @ 100 mls/hr Q1H IV ; Start 02/27/18 at 10:30 ; Stop 02/27/18 at 14:29 Active Scripts Active Reported Zofran Odt (Ondansetron) 8 Mg Tab.rapdis 1 Tab PO Q6HRS PRN Symbicort 160-4.5 Mcg Inhaler (Budesonide/Formoterol Fumarate) 10.2 Gm Hfa.aer.ad 2 Puff IH DAILY Proair Hfa Inhaler (Albuterol Sulfate) 8.5 Gm Hfa.aer.ad 2 Puff INH DAILY PRN Omeprazole 40 Mg Capsule. 1 Cap PO DAILY Vitals/I & O Vital Sign - Last 24 Hours 02/26/18 02/26/18 02/26/18 02/26/18 11:00 12:39 15:00 15:25 Temp 98.4 98.5 98.4 98.5 Pulse 77 75 Resp 20 20 B/P (MAP) 142/83 (102) 150/80 (103) Pulse Ox 97 95 97 95 O2 Delivery Room Air Room Air Room Air Room Air O2 Flow Rate 1.0 02/26/18 02/26/18 02/26/18 02/26/18 16:25 17:07 19:00 19:42 Temp 98.4 98.4 Pulse 81 Resp 18 B/P (MAP) 106/67 (80) Pulse Ox 95 95 98 O2 Delivery Nasal Cannula Nasal Cannula Nasal Cannula O2 Flow Rate 1.0 2.0 2.0 2.0 02/26/18 02/26/18 02/26/18 02/26/18 19:43 20:00 21:27 22:49 O2 Delivery Nasal Cannula Room Air Room Air Room Air O2 Flow Rate 2.0 1.0 02/26/18 02/27/18 02/27/18 02/27/18 23:00 03:00 08:18 09:42 Temp 99.1 98.9 99.1 98.9 Pulse 93 81 Resp 18 18 B/P (MAP) 142/77 (98) 132/69 (90) Pulse Ox 98 96 96 O2 Delivery Nasal Cannula Nasal Cannula Room Air Room Air O2 Flow Rate 2.0 2.0 Intake and Output 02/26/18 02/26/18 02/27/18 15:00 23:00 07:00 Intake Total 540 ml 180 ml 0 ml Balance 540 ml 180 ml 0 ml MARIANA LÓPEZ MD Feb 27, 2018 10:12
[2018-02-27] MEDS ORDERED: POTASSIUM CHLORIDE 10MEQ 100 ML IV SCH (10:30)
[2018-02-27 11:00] VITALS: BP 139/86
[2018-02-27] MEDS ORDERED: POTASSIUM CHLORIDE 20 MEQ TABLET.ER. PO ONE (11:15)
[2018-02-27] MEDS: ENOXAPARIN 40 MG/0.4 ML SYRINGE. SQ SCH (12:15)
[2018-02-27] MEDS: MORPHINE SULFATE 2 MG/ML VIAL. IV PRN (12:22)
[2018-02-27] MEDS: DULoxetine HCL 30 MG CAPSULE.DR PO SCH (14:43)
[2018-02-27] MEDS: NICOTINE 21MG PATCH. TD SCH (14:43)
[2018-02-27] MEDS: HYDROcodone/APAP 7.5/325MG 1 TAB TABLET PO PRN ×2 (14:44→22:01)
[2018-02-27 15:00] VITALS: BP 150/87
[2018-02-27] MEDS: cefTRIAXone IV Push 1 GM VIAL. IVP SCH (16:28)
[2018-02-27 19:00] VITALS: BP 160/116
--- NOTE | 2018-02-27 20:36 | PDOC ---
GI PROGRESS NOTES Date Date/Time DATE: 02/27/18 TIME: 20:34 Subjective Subjective acute n/v diarrhea chronic dyspepsia stool + for C diff Objective Vitals Vital Signs Date Time Temp Pulse Resp B/P (MAP) Pulse Ox O2 Delivery O2 Flow Rate FiO2 02/27/18 20:04 Room Air 02/27/18 16:04 98 Nasal Cannula 2.0 02/27/18 15:44 Room Air 02/27/18 15:00 98.8 85 18 150/87 (108) 98 Nasal Cannula 2.0 98.8 02/27/18 14:44 Room Air 02/27/18 13:11 96 Room Air 02/27/18 12:52 Room Air 02/27/18 12:22 Room Air 02/27/18 11:00 98.3 96 20 139/86 (103) 96 Nasal Cannula 2.0 98.3 02/27/18 09:42 96 Room Air 02/27/18 09:18 Room Air 02/27/18 08:18 Room Air 02/27/18 08:00 Room Air 02/27/18 07:00 98.5 89 24 183/111 (135) 99 Nasal Cannula 2.0 98.5 02/27/18 03:00 98.9 81 18 132/69 (90) 96 Nasal Cannula 2.0 98.9 02/26/18 23:00 99.1 93 18 142/77 (98) 98 Nasal Cannula 2.0 99.1 02/26/18 21:27 Room Air Labs Labs Laboratory Tests Test 02/27/18 07:55 White Blood Count 8.4 x10^3/uL (4.0-11.0) Red Blood Count 3.69 x10^6/uL (3.50-5.40) Hemoglobin 12.0 g/dL (12.0-15.5) Hematocrit 35.3 % (36.0-47.0) Mean Corpuscular Volume 95 fL (79-100) Mean Corpuscular Hemoglobin 33 pg (25-35) Mean Corpuscular Hemoglobin Concent 34 g/dL (31-37) Red Cell Distribution Width 17.0 % (11.5-14.5) Platelet Count 223 x10^3/uL (140-400) Neutrophils (%) (Auto) 75 % (31-73) Lymphocytes (%) (Auto) 18 % (24-48) Monocytes (%) (Auto) 6 % (0-9) Eosinophils (%) (Auto) 1 % (0-3) Basophils (%) (Auto) 1 % (0-3) Neutrophils # (Auto) 6.3 x10^3uL (1.8-7.7) Lymphocytes # (Auto) 1.5 x10^3/uL (1.0-4.8) Monocytes # (Auto) 0.5 x10^3/uL (0.0-1.1) Eosinophils # (Auto) 0.0 x10^3/uL (0.0-0.7) Basophils # (Auto) 0.1 x10^3/uL (0.0-0.2) Sodium Level 142 mmol/L (136-145) Potassium Level 3.4 mmol/L (3.5-5.1) Chloride Level 106 mmol/L (98-107) Carbon Dioxide Level 26 mmol/L (21-32) Anion Gap 10 (6-14) Blood Urea Nitrogen 4 mg/dL (7-20) Creatinine 0.5 mg/dL (0.6-1.0) Estimated GFR (Cockcroft-Gault) 127.2 BUN/Creatinine Ratio 8 (6-20) Glucose Level 108 mg/dL (70-99) Calcium Level 8.2 mg/dL (8.5-10.1) Total Bilirubin 0.2 mg/dL (0.2-1.0) Aspartate Amino Transf (AST/SGOT) 29 U/L (15-37) Alanine Aminotransferase (ALT/SGPT) 22 U/L (14-59) Alkaline Phosphatase 57 U/L (46-116) Total Protein 5.9 g/dL (6.4-8.2) Albumin 2.1 g/dL (3.4-5.0) Albumin/Globulin Ratio 0.6 (1.0-1.7) Physical Exam Physical Exam chest -clear cor- rrr abd soft good bowel sounds little tenderness Assessment Assessment C diff colitis- clinically improving- less diarrhea, less nausea Chronic dyspepsia Plan Plan continue abx treatment will need elective EGD and colonoscopy- colonoscopy should wait until after infection has cleared BLAS FIGUEROA MD Feb 27, 2018 20:36
[2018-02-27 23:00] VITALS: BP 157/88
[2018-02-28 03:00] VITALS: BP 140/81
[2018-02-28] MEDS: HYDROcodone/APAP 7.5/325MG 1 TAB TABLET PO PRN ×3 (04:37→21:03)
[2018-02-28 05:21] LABS: BASO % 0 % (0-3); EOS % 0 % (0-3); HEMATOCRIT 34.9 % (36.0-47.0); HEMOGLOBIN 11.8 g/dL (12.0-15.5); LYMPH # 1.7 x10^3/uL (1.0-4.8); LYMPH % 26 % (24-48); MEAN CORPUSCULAR HEMOGLOBIN 33 pg (25-35); MEAN CORPUSCULAR HGB CONC 34 g/dL (31-37); MEAN CORPUSCULAR VOLUME 96 fL (79-100); MONO # 0.5 x10^3/uL (0.0-1.1); MONO % 8 % (0-9); NEUT # 4.4 x10^3uL (1.8-7.7); NEUT % 66 % (31-73); PLATELET COUNT 246 x10^3/uL (140-400); RED BLOOD COUNT 3.63 x10^6/uL (3.50-5.40); RED CELL DISTRIBUTION WIDTH 17.1 % (11.5-14.5); WHITE BLOOD COUNT 6.7 x10^3/uL (4.0-11.0)
[2018-02-28 05:36] LABS: CALCIUM 8.6 mg/dL (8.5-10.1); CREATININE 0.6 mg/dL (0.6-1.0); POTASSIUM 3.8 mmol/L (3.5-5.1)
[2018-02-28] MEDS: PANTOPRAZOLE 40 MG TABLET.DR. PO SCH (06:19)
[2018-02-28 07:00] VITALS: BP 171/106
[2018-02-28] MEDS: MORPHINE SULFATE 2 MG/ML VIAL. IV PRN (07:21)
[2018-02-28] MEDS: IPRATRPIUM/ALBUTEROL 0.5/2.5MG 3 ML NEBU. NEB SCH ×4 (08:01→20:01)
[2018-02-28] MEDS: BUDESONIDE 0.5 MG/2 ML NEBU. NEB SCH ×2 (08:01→20:01)
[2018-02-28] MEDS: predniSONE 20 MG TABLET PO SCH (09:29)
[2018-02-28] MEDS: VANCOMYCIN 125 MG/2.5 ML ORAL SOLUTION. PO SCH ×4 (09:29→20:45)
[2018-02-28] MEDS: LACTOBACILLUS RHAMNOSUS GG 1 CAPSULE. PO SCH ×2 (09:29→20:44)
[2018-02-28] MEDS: DULoxetine HCL 30 MG CAPSULE.DR PO SCH (09:29)
[2018-02-28] MEDS: NICOTINE 21MG PATCH. TD SCH (09:30)
--- NOTE | 2018-02-28 10:37 | PDOC ---
PROGRESS NOTES Subjective Subjective Patient improved, less nausea and diarrhea. Persistent abdominal pain but better. Had a solid stool and was able to keep her food down. Breathing better, no more cough or dyspnea. Review of System CONSTITUTIONAL: No fever or chills CARDIOVASCULAR: No chest pain, syncope, palpitations, or edema RESPIRATORY: No cough or short of breath GASTROINTESTINAL: nausea, no vomiting but abdominal pain NEUROLOGICAL: No headaches or weakness GENITOURINARY: No dysuria or change in urine freq PSYCHIATRIC: +anxiety and depression Objective Objective Vital Signs Date Time Temp Pulse Resp B/P (MAP) Pulse Ox O2 Delivery O2 Flow Rate FiO2 02/28/18 08:01 97 Room Air 02/28/18 07:21 20 2.0 02/28/18 07:00 96.6 67 171/106 (127) 96.6 Intake and Output 02/28/18 07:00 Intake Total 1140 ml Balance 1140 ml Intake Oral 1140 ml # Voids 9 Physical Exam Physical Exam Physical Exam GEN.: No apparent distress. Alert and oriented. HEENT: Head is normocephalic, atraumatic NECK: Supple. LUNGS: Mild wheeze bilaterally HEART: RRR, S1, S2 present. Peripheral pulses intact ABDOMEN: Soft, nontender. Positive bowel sounds. EXTREMITIES: Without any cyanosis. NEUROLOGIC: Normal speech, normal tone PSYCHIATRIC: Labile affect, anxious, emotional, depressed SKIN: No ulcerations Assessment Assessment Problems Medical Problems: (1) Hypokalemia Status: Acute (2) Urinary tract infection Status: Acute Plan Plan of Care Assessment/Plan 57yo F with history of depression, anxiety, COPD, GERD presents with 1 month of intractable vomiting, diarrhea, found to have acute colitis, COPD exacerbation, sepsis from UTI and severe hypokalemia. 1. Acute c.diff colitis: bowel rest ADAT, consult GI - appreciate recs, Vanc po started 02/26/18 2. Sepsis: resolved, source is UTI/c.diff colitis 3. UTI: cont ceftriaxone 4. Severe HypoK: replaced 5. COPD exacerbation: improved, will order aerosols, prednisone burst 6. GERD: restarted pantoprazole 7. Depression/anxiety: restart her Duloxetine FEN: replete lytes, FLD - ADAT PPx: LMWH Dispo: cont inpt care, anticipate dc tomorrow after possible EGD Comment Review of Relevant I have reviewed the following items eagle (where applicable) has been applied. Labs Laboratory Tests Test 02/27/18 07:55 02/28/18 04:10 White Blood Count 8.4 x10^3/uL (4.0-11.0) 6.7 x10^3/uL (4.0-11.0) Red Blood Count 3.69 x10^6/uL (3.50-5.40) 3.63 x10^6/uL (3.50-5.40) Hemoglobin 12.0 g/dL (12.0-15.5) 11.8 g/dL (12.0-15.5) Hematocrit 35.3 % (36.0-47.0) 34.9 % (36.0-47.0) Mean Corpuscular Volume 95 fL (79-100) 96 fL (79-100) Mean Corpuscular Hemoglobin 33 pg (25-35) 33 pg (25-35) Mean Corpuscular Hemoglobin Concent 34 g/dL (31-37) 34 g/dL (31-37) Red Cell Distribution Width 17.0 % (11.5-14.5) 17.1 % (11.5-14.5) Platelet Count 223 x10^3/uL (140-400) 246 x10^3/uL (140-400) Neutrophils (%) (Auto) 75 % (31-73) 66 % (31-73) Lymphocytes (%) (Auto) 18 % (24-48) 26 % (24-48) Monocytes (%) (Auto) 6 % (0-9) 8 % (0-9) Eosinophils (%) (Auto) 1 % (0-3) 0 % (0-3) Basophils (%) (Auto) 1 % (0-3) 0 % (0-3) Neutrophils # (Auto) 6.3 x10^3uL (1.8-7.7) 4.4 x10^3uL (1.8-7.7) Lymphocytes # (Auto) 1.5 x10^3/uL (1.0-4.8) 1.7 x10^3/uL (1.0-4.8) Monocytes # (Auto) 0.5 x10^3/uL (0.0-1.1) 0.5 x10^3/uL (0.0-1.1) Eosinophils # (Auto) 0.0 x10^3/uL (0.0-0.7) 0.0 x10^3/uL (0.0-0.7) Basophils # (Auto) 0.1 x10^3/uL (0.0-0.2) 0.0 x10^3/uL (0.0-0.2) Sodium Level 142 mmol/L (136-145) 142 mmol/L (136-145) Potassium Level 3.4 mmol/L (3.5-5.1) 3.8 mmol/L (3.5-5.1) Chloride Level 106 mmol/L (98-107) 106 mmol/L (98-107) Carbon Dioxide Level 26 mmol/L (21-32) 31 mmol/L (21-32) Anion Gap 10 (6-14) 5 (6-14) Blood Urea Nitrogen 4 mg/dL (7-20) 12 mg/dL (7-20) Creatinine 0.5 mg/dL (0.6-1.0) 0.6 mg/dL (0.6-1.0) Estimated GFR (Cockcroft-Gault) 127.2 103.0 BUN/Creatinine Ratio 8 (6-20) Glucose Level 108 mg/dL (70-99) 103 mg/dL (70-99) Calcium Level 8.2 mg/dL (8.5-10.1) 8.6 mg/dL (8.5-10.1) Total Bilirubin 0.2 mg/dL (0.2-1.0) Aspartate Amino Transf (AST/SGOT) 29 U/L (15-37) Alanine Aminotransferase (ALT/SGPT) 22 U/L (14-59) Alkaline Phosphatase 57 U/L (46-116) Total Protein 5.9 g/dL (6.4-8.2) Albumin 2.1 g/dL (3.4-5.0) Albumin/Globulin Ratio 0.6 (1.0-1.7) Laboratory Tests Test 02/28/18 04:10 White Blood Count 6.7 x10^3/uL (4.0-11.0) Red Blood Count 3.63 x10^6/uL (3.50-5.40) Hemoglobin 11.8 g/dL (12.0-15.5) Hematocrit 34.9 % (36.0-47.0) Mean Corpuscular Volume 96 fL (79-100) Mean Corpuscular Hemoglobin 33 pg (25-35) Mean Corpuscular Hemoglobin Concent 34 g/dL (31-37) Red Cell Distribution Width 17.1 % (11.5-14.5) Platelet Count 246 x10^3/uL (140-400) Neutrophils (%) (Auto) 66 % (31-73) Lymphocytes (%) (Auto) 26 % (24-48) Monocytes (%) (Auto) 8 % (0-9) Eosinophils (%) (Auto) 0 % (0-3) Basophils (%) (Auto) 0 % (0-3) Neutrophils # (Auto) 4.4 x10^3uL (1.8-7.7) Lymphocytes # (Auto) 1.7 x10^3/uL (1.0-4.8) Monocytes # (Auto) 0.5 x10^3/uL (0.0-1.1) Eosinophils # (Auto) 0.0 x10^3/uL (0.0-0.7) Basophils # (Auto) 0.0 x10^3/uL (0.0-0.2) Sodium Level 142 mmol/L (136-145) Potassium Level 3.8 mmol/L (3.5-5.1) Chloride Level 106 mmol/L (98-107) Carbon Dioxide Level 31 mmol/L (21-32) Anion Gap 5 (6-14) Blood Urea Nitrogen 12 mg/dL (7-20) Creatinine 0.6 mg/dL (0.6-1.0) Estimated GFR (Cockcroft-Gault) 103.0 Glucose Level 103 mg/dL (70-99) Calcium Level 8.6 mg/dL (8.5-10.1) Microbiology 02/25/18 Urine Culture - Final, Complete 02/25/18 Urine Culture Result 1 (KUSUM) - Final, Complete Medications Current Medications Haloperidol Lactate (Haldol Inj) 2.5 mg 1X ONCE IVP Last administered on 02/25at 13:05; Start 02/25/18 at 12:45; Stop 02/25/18 at 12:46; Status DC Famotidine (Pepcid Vial) 20 mg 1X ONCE IVP Last administered on 02/25/18at 13: 05; Start 02/25/18 at 12:45; Stop 02/25/18 at 12:46; Status DC Sodium Chloride 1,000 ml @ 1,000 mls/hr 1X ONCE IV Last administered on 02/25at 13:05; Start 02/25/18 at 12:45; Stop 02/25/18 at 16:17; Status DC Fentanyl Citrate (Fentanyl 2ml Vial) 75 mcg 1X ONCE IV Last administered on at 14:41; Start 02/25/18 at 13:45; Stop 02/25/18 at 13:46; Status DC Potassium Chloride/Sodium Chloride 1,000 ml @ 75 mls/hr 1X ONCE IV Last administered on 02/25/18at 14:30; Start 02/25/18 at 13:45; Stop 02/26/18 at 03 :04; Status DC Iohexol (Omnipaque 300 Mg/ml) 75 ml 1X ONCE IV Last administered on at 14:05; Start 02/25/18 at 13:45; Stop 02/25/18 at 13:46; Status DC Info (CONTRAST GIVEN -- Rx MONITORING) 1 each PRN DAILY PRN MC SEE COMMENTS; Start 02/25/18 at 13:45; Stop 02/27/18 at 13:44; Status DC Sodium Chloride 1,000 ml @ 1,000 mls/hr 1X ONCE IV Last administered on 02/25at 14:30; Start 02/25/18 at 14:30; Stop 02/25/18 at 15:29; Status DC Ceftriaxone Sodium 1 gm/ Dextrose 50 ml @ 100 mls/hr Q24H IV ; Start 02/25/18 at 15:45; Status UNV Ceftriaxone Sodium (Rocephin) 1 gm Q24H IVP ; Start 02/25/18 at 16:00; Stop at 16:21; Status DC Ceftriaxone Sodium 50 ml @ As Directed STK-MED ONCE IV ; Start 02/25/18 at 16: 11; Stop 02/25/18 at 16:12; Status DC Ondansetron HCl (Zofran) 4 mg PRN Q8HRS PRN IV NAUSEA/VOMITING Last administered on 02/25/18at 17:30; Start 02/25/18 at 16:30; Stop 02/26/18 at 16 :29; Status DC Fentanyl Citrate (Fentanyl 2ml Vial) 50 mcg PRN Q2HR PRN IV PAIN Last administered on 02/26/18at 09:47; Start 02/25/18 at 16:30; Stop 02/26/18 at 10 :43; Status DC Ceftriaxone Sodium 50 ml @ 100 mls/hr 1X ONCE IV Last administered on at 16:31; Start 02/25/18 at 16:30; Stop 02/25/18 at 16:59; Status DC Ceftriaxone Sodium (Rocephin) 1 gm Q24H IVP Last administered on 02/27/18at 16: 28; Start 02/26/18 at 16:30 Potassium Chloride 20 meq/ Sodium Chloride 260 ml @ 130 mls/hr BID IV Last administered on 02/26/18at 21:34; Start 02/25/18 at 17:00; Stop 02/27/18 at 06 :47; Status DC Influenza Virus Vaccine (Afluria Trivalent [id number] Syringe) 0.5 ml ONCE ONCE VAX IM Last administered on 02/26/18at 12:57; Start 02/25/18 at 18:00; Stop 02/25/18 at 18:05; Status DC Albuterol/ Ipratropium (Duoneb) 3 ml RTQID NEB Last administered on 02/28/18at 08:01; Start 02/26/18 at 12:00 Prednisone (Prednisone) 40 mg DAILY PO Last administered on 02/28/18at 09:29; Start 02/26/18 at 12:00 Budesonide (Pulmicort) 0.5 mg RTBID NEB Last administered on 02/28/18at 08:01; Start 02/26/18 at 12:00 Pantoprazole Sodium (Protonix) 40 mg DAILYAC PO Last administered on 06:19; Start 02/26/18 at 12:00 Enoxaparin Sodium (Lovenox 40mg Syringe) 40 mg Q24H SQ Last administered on at 12:15; Start 02/26/18 at 12:00 Metronidazole 100 ml @ 100 mls/hr Q12HR IV ; Start 02/26/18 at 13:00; Stop at 14:06; Status DC Lactobacillus Rhamnosus (Culturelle) 1 cap BID PO Last administered on at 09:29; Start 02/26/18 at 21:00 Acetaminophen/ Hydrocodone Bitart (Lortab 5/325) 1 tab PRN Q6HRS PRN PO MODERATE PAIN Last administered on 02/27/18at 08:18; Start 02/26/18 at 13:30; Stop 02/27/18 at 14:31; Status DC Morphine Sulfate (Morphine Sulfate) 2 mg PRN Q6HRS PRN IV MODERATE TO SEVERE PAIN Last administered on 02/28/18at 07:21; Start 02/26/18 at 13:30 Vancomycin HCl (Vancomycin Oral Solution) 125 mg [id number] PO Last administered on 02/28/18at 09:29; Start 02/26/18 at 14:00 Potassium Chloride/Water 50 ml @ 50 mls/hr Q1H IV ; Start 02/27/18 at 10:00; Stop 02/27/18 at 11:59; Status UNV Potassium Chloride/Water 100 ml @ 100 mls/hr Q1H IV ; Start 02/27/18 at 10:30 ; Stop 02/27/18 at 11:00; Status DC Potassium Chloride (Klor-Con) 40 meq ONCE ONCE PO Last administered on at 12:14; Start 02/27/18 at 11:15; Stop 02/27/18 at 11:16; Status DC Acetaminophen/ Hydrocodone Bitart (Lortab 7.5/325) 1 tab PRN Q6HRS PRN PO PAIN Last administered on 02/28/18at 04:37; Start 02/27/18 at 14:30 Nicotine (Nicoderm Cq 21mg) 1 patch DAILY TD Last administered on 02/28/18at 09 :30; Start 02/27/18 at 14:30 Duloxetine HCl (Cymbalta) 30 mg DAILY PO Last administered on 02/28/18at 09:29 ; Start 02/27/18 at 14:30 Active Scripts Active Reported Zofran Odt (Ondansetron) 8 Mg Tab.rapdis 1 Tab PO Q6HRS PRN Symbicort 160-4.5 Mcg Inhaler (Budesonide/Formoterol Fumarate) 10.2 Gm Hfa.aer.ad 2 Puff IH DAILY Proair Hfa Inhaler (Albuterol Sulfate) 8.5 Gm Hfa.aer.ad 2 Puff INH DAILY PRN Omeprazole 40 Mg Capsule. 1 Cap PO DAILY Vitals/I & O Vital Sign - Last 24 Hours 02/27/18 02/27/18 02/27/18 02/27/18 11:00 12:22 13:11 14:44 Temp 98.3 98.3 Pulse 96 Resp 20 B/P (MAP) 139/86 (103) Pulse Ox 96 96 O2 Delivery Nasal Cannula Room Air Room Air Room Air O2 Flow Rate 2.0 02/27/18 02/27/18 02/27/18 02/27/18 15:00 16:04 19:00 20:00 Temp 98.8 97.7 98.8 97.7 Pulse 85 79 Resp 18 18 B/P (MAP) 150/87 (108) 160/116 (131) Pulse Ox 98 98 96 O2 Delivery Nasal Cannula Nasal Cannula Nasal Cannula Room Air O2 Flow Rate 2.0 2.0 2.0 02/27/18 02/27/18 02/27/18 02/28/18 20:04 22:01 23:00 03:00 Temp 98.8 98.8 98.8 98.8 Pulse 95 90 Resp 20 18 18 B/P (MAP) 157/88 (111) 140/81 (100) Pulse Ox 96 93 94 O2 Delivery Room Air Room Air Nasal Cannula Nasal Cannula O2 Flow Rate 2.0 2.0 02/28/18 02/28/18 02/28/18 02/28/18 04:37 05:37 07:00 07:21 Temp 96.6 96.6 Pulse 67 Resp 20 18 20 20 B/P (MAP) 171/106 (127) Pulse Ox 93 93 100 93 O2 Delivery Room Air Room Air Breathing Rx Room Air O2 Flow Rate 2.0 2.0 2.0 02/28/18 02/28/18 07:51 08:01 Pulse Ox 97 O2 Delivery Room Air Room Air Intake and Output 02/27/18 02/27/18 02/28/18 15:00 23:00 07:00 Intake Total 600 ml 420 ml 120 ml Balance 600 ml 420 ml 120 ml MARIANA LÓPEZ MD Feb 28, 2018 10:37
[2018-02-28 11:00] VITALS: BP 158/86
--- NOTE | 2018-02-28 11:33 | PDOC ---
GI PROGRESS NOTES Date Date/Time DATE: 02/28/18 TIME: 11:30 Subjective Subjective improved- some mild abd pain but decreased diarrhea and no n/v Objective Vitals Vital Signs Date Time Temp Pulse Resp B/P (MAP) Pulse Ox O2 Delivery O2 Flow Rate FiO2 02/28/18 08:01 97 Room Air 02/28/18 08:00 Room Air 02/28/18 07:51 Room Air 02/28/18 07:21 20 93 Room Air 2.0 02/28/18 07:00 96.6 67 20 171/106 (127) 100 Breathing Rx 96.6 02/28/18 05:37 18 93 Room Air 2.0 02/28/18 04:37 20 93 Room Air 2.0 02/28/18 03:00 98.8 90 18 140/81 (100) 94 Nasal Cannula 2.0 98.8 02/27/18 23:00 98.8 95 18 157/88 (111) 93 Nasal Cannula 2.0 98.8 02/27/18 22:01 20 96 Room Air 02/27/18 20:04 Room Air 02/27/18 20:00 Room Air 02/27/18 19:00 97.7 79 18 160/116 (131) 96 Nasal Cannula 2.0 97.7 02/27/18 16:04 98 Nasal Cannula 2.0 02/27/18 15:00 98.8 85 18 150/87 (108) 98 Nasal Cannula 2.0 98.8 02/27/18 14:44 Room Air 02/27/18 13:11 96 Room Air 02/27/18 12:22 Room Air Labs Labs Laboratory Tests Test 02/28/18 04:10 White Blood Count 6.7 x10^3/uL (4.0-11.0) Red Blood Count 3.63 x10^6/uL (3.50-5.40) Hemoglobin 11.8 g/dL (12.0-15.5) Hematocrit 34.9 % (36.0-47.0) Mean Corpuscular Volume 96 fL (79-100) Mean Corpuscular Hemoglobin 33 pg (25-35) Mean Corpuscular Hemoglobin Concent 34 g/dL (31-37) Red Cell Distribution Width 17.1 % (11.5-14.5) Platelet Count 246 x10^3/uL (140-400) Neutrophils (%) (Auto) 66 % (31-73) Lymphocytes (%) (Auto) 26 % (24-48) Monocytes (%) (Auto) 8 % (0-9) Eosinophils (%) (Auto) 0 % (0-3) Basophils (%) (Auto) 0 % (0-3) Neutrophils # (Auto) 4.4 x10^3uL (1.8-7.7) Lymphocytes # (Auto) 1.7 x10^3/uL (1.0-4.8) Monocytes # (Auto) 0.5 x10^3/uL (0.0-1.1) Eosinophils # (Auto) 0.0 x10^3/uL (0.0-0.7) Basophils # (Auto) 0.0 x10^3/uL (0.0-0.2) Sodium Level 142 mmol/L (136-145) Potassium Level 3.8 mmol/L (3.5-5.1) Chloride Level 106 mmol/L (98-107) Carbon Dioxide Level 31 mmol/L (21-32) Anion Gap 5 (6-14) Blood Urea Nitrogen 12 mg/dL (7-20) Creatinine 0.6 mg/dL (0.6-1.0) Estimated GFR (Cockcroft-Gault) 103.0 Glucose Level 103 mg/dL (70-99) Calcium Level 8.6 mg/dL (8.5-10.1) Physical Exam Physical Exam chest -clear cor- rrr abd soft good bowel sounds little tenderness Assessment Assessment C diff colitis- clinically improving- less diarrhea, less nausea Chronic dyspepsia Plan Plan continue abx treatment\continue PPI will need elective EGD and colonoscopy- colonoscopy should wait until after infection has cleared I will discuss with Dr. Beatriz lundberg on timing of EGD- either as outpt with colonoscopy in a few weeks or tomorrow before planned d/c BLAS FIGUEROA MD Feb 28, 2018 11:33
[2018-02-28] MEDS: ENOXAPARIN 40 MG/0.4 ML SYRINGE. SQ SCH (12:02)
[2018-02-28 15:00] VITALS: BP 171/108
[2018-02-28] MEDS: cefTRIAXone IV Push 1 GM VIAL. IVP SCH (16:42)
[2018-02-28 19:00] VITALS: BP 177/106
[2018-02-28] MEDS ORDERED: LABETALOL 20 MG/4 ML DISP.SYRIN. IVP PRN (21:30)
[2018-02-28] MEDS: LISINOPRIL 10 MG TABLET PO SCH (22:56)
[2018-02-28 23:00] VITALS: BP 170/109
[2018-03-01 03:00] VITALS: BP 184/106
[2018-03-01] MEDS: MORPHINE SULFATE 2 MG/ML VIAL. IV PRN (04:30)
[2018-03-01 07:00] VITALS: BP 150/90
[2018-03-01] MEDS: IPRATRPIUM/ALBUTEROL 0.5/2.5MG 3 ML NEBU. NEB SCH ×2 (07:54→11:36)
[2018-03-01] MEDS: BUDESONIDE 0.5 MG/2 ML NEBU. NEB SCH (07:54)
[2018-03-01] MEDS: LACTOBACILLUS RHAMNOSUS GG 1 CAPSULE. PO SCH (09:19)
[2018-03-01] MEDS: predniSONE 20 MG TABLET PO SCH (09:19)
[2018-03-01] MEDS: PANTOPRAZOLE 40 MG TABLET.DR. PO SCH (09:19)
[2018-03-01] MEDS: NICOTINE 21MG PATCH. TD SCH (09:20)
[2018-03-01] MEDS: DULoxetine HCL 30 MG CAPSULE.DR PO SCH (09:20)
[2018-03-01] MEDS: VANCOMYCIN 125 MG/2.5 ML ORAL SOLUTION. PO SCH ×2 (09:20→12:52)
[2018-03-01] MEDS: LISINOPRIL 10 MG TABLET PO SCH (09:20)
[2018-03-01] MEDS: HYDROcodone/APAP 7.5/325MG 1 TAB TABLET PO PRN (09:25)
--- NOTE | 2018-03-01 10:29 | PDOC ---
Subjective: Subjective: Better overall. Thinks she could go home tomorrow. Tolerating GI soft - wants regular food including dairy products - says she tolerates dairy but just doesn't like drinking a glass of milk. No n/v. Last stool was yesterday - not diarrhea, just soft. Lower abd pain better. Objective: Objective: D/w RN earlier - kept NPO this morning in case of EGD, no procedure scheduled per GI lab - gave okay to eat. Vital Signs: Vital Signs Date Time Temp Pulse Resp B/P (MAP) Pulse Ox O2 Delivery O2 Flow Rate FiO2 03/01/18 09:25 Room Air 03/01/18 09:20 66 150/90 03/01/18 07:54 97 03/01/18 07:00 97.1 18 97.1 02/28/18 07:21 2.0 Labs: URINE CULTURE Final Final report URINE CULTURE RES 1 Final No growth PE: GEN: NAD LUNGS: CTAB HEART: RRR ABD: less BLQ soreness NEURO/PSYCH: A & O 3, tearful A/P: C Diff -vanco started 02/26 - diarrhea resolved -on CT: wall thickening in descending and sigmoid colon Chronic abd pain, vomiting/dyspepsia - better -- Advance to regular diet including dairy per her request. Continue vanco. 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 Avoid NSAIDs. Urine culture negative - stop Rocephin? Defer to primary. Improved GI-nj - DC per primary. Will plan for outpt EGD and colonoscopy after C Diff treatment complete - our office will contact to arrange as was discussed with her today. MAC KNOX Mar 01, 2018 10:29
[2018-03-01 11:00] VITALS: BP 144/78
--- NOTE | 2018-03-01 11:11 | PDOC ---
PROGRESS NOTES Subjective Subjective Patient doing well, back to baseline. Improved abdominal pain, slight nausea, no vomiting, no diarrhea. Able to keep food down. Agreeable to go home Review of System CONSTITUTIONAL: No fever or chills CARDIOVASCULAR: No chest pain, syncope, palpitations, or edema RESPIRATORY: No cough or short of breath GASTROINTESTINAL: nausea, no vomiting but abdominal pain NEUROLOGICAL: No headaches or weakness GENITOURINARY: No dysuria or change in urine freq PSYCHIATRIC: +anxiety and depression . Objective Objective Vital Signs Date Time Temp Pulse Resp B/P (MAP) Pulse Ox O2 Delivery O2 Flow Rate FiO2 03/01/18 11:07 Room Air 03/01/18 09:20 66 150/90 03/01/18 07:54 97 03/01/18 07:00 97.1 18 97.1 02/28/18 07:21 2.0 Intake and Output 03/01/18 07:00 Intake Total 690 ml Balance 690 ml Intake Oral 690 ml # Voids 5 Physical Exam Physical Exam GEN.: No apparent distress. Alert and oriented. HEENT: Head is normocephalic, atraumatic NECK: Supple. LUNGS: Mild wheeze bilaterally HEART: RRR, S1, S2 present. Peripheral pulses intact ABDOMEN: Soft, nontender. Positive bowel sounds. EXTREMITIES: Without any cyanosis. NEUROLOGIC: Normal speech, normal tone PSYCHIATRIC: Labile affect, anxious, emotional, depressed SKIN: No ulcerations Assessment Assessment Problems Medical Problems: (1) Hypokalemia Status: Acute (2) Urinary tract infection Status: Acute Plan Plan of Care Assessment/Plan 57yo F with history of depression, anxiety, COPD, GERD presents with 1 month of intractable vomiting, diarrhea, found to have acute colitis, COPD exacerbation, sepsis from UTI and severe hypokalemia. 1. Acute c.diff colitis: ADAT, consult GI - appreciate recs, Vanc po started 2. Sepsis: resolved, source is UTI/c.diff colitis 3. UTI: dc Ceftriaxone upon discharge 4. Severe HypoK: replaced 5. COPD exacerbation: improved, will order aerosols, prednisone burst 6. GERD: restarted pantoprazole 7. Depression/anxiety: restart her Duloxetine FEN: replete lytes, Reg diet PPx: LMWH Dispo: anticipate dc today Comment Review of Relevant I have reviewed the following items eagle (where applicable) has been applied. Labs Laboratory Tests Test 02/28/18 04:10 White Blood Count 6.7 x10^3/uL (4.0-11.0) Red Blood Count 3.63 x10^6/uL (3.50-5.40) Hemoglobin 11.8 g/dL (12.0-15.5) Hematocrit 34.9 % (36.0-47.0) Mean Corpuscular Volume 96 fL (79-100) Mean Corpuscular Hemoglobin 33 pg (25-35) Mean Corpuscular Hemoglobin Concent 34 g/dL (31-37) Red Cell Distribution Width 17.1 % (11.5-14.5) Platelet Count 246 x10^3/uL (140-400) Neutrophils (%) (Auto) 66 % (31-73) Lymphocytes (%) (Auto) 26 % (24-48) Monocytes (%) (Auto) 8 % (0-9) Eosinophils (%) (Auto) 0 % (0-3) Basophils (%) (Auto) 0 % (0-3) Neutrophils # (Auto) 4.4 x10^3uL (1.8-7.7) Lymphocytes # (Auto) 1.7 x10^3/uL (1.0-4.8) Monocytes # (Auto) 0.5 x10^3/uL (0.0-1.1) Eosinophils # (Auto) 0.0 x10^3/uL (0.0-0.7) Basophils # (Auto) 0.0 x10^3/uL (0.0-0.2) Sodium Level 142 mmol/L (136-145) Potassium Level 3.8 mmol/L (3.5-5.1) Chloride Level 106 mmol/L (98-107) Carbon Dioxide Level 31 mmol/L (21-32) Anion Gap 5 (6-14) Blood Urea Nitrogen 12 mg/dL (7-20) Creatinine 0.6 mg/dL (0.6-1.0) Estimated GFR (Cockcroft-Gault) 103.0 Glucose Level 103 mg/dL (70-99) Calcium Level 8.6 mg/dL (8.5-10.1) Microbiology 02/25/18 Urine Culture - Final, Complete 02/25/18 Urine Culture Result 1 (KUSUM) - Final, Complete Medications Current Medications Haloperidol Lactate (Haldol Inj) 2.5 mg 1X ONCE IVP Last administered on 02/25at 13:05; Start 02/25/18 at 12:45; Stop 02/25/18 at 12:46; Status DC Famotidine (Pepcid Vial) 20 mg 1X ONCE IVP Last administered on 02/25/18at 13: 05; Start 02/25/18 at 12:45; Stop 02/25/18 at 12:46; Status DC Sodium Chloride 1,000 ml @ 1,000 mls/hr 1X ONCE IV Last administered on 02/25at 13:05; Start 02/25/18 at 12:45; Stop 02/25/18 at 16:17; Status DC Fentanyl Citrate (Fentanyl 2ml Vial) 75 mcg 1X ONCE IV Last administered on at 14:41; Start 02/25/18 at 13:45; Stop 02/25/18 at 13:46; Status DC Potassium Chloride/Sodium Chloride 1,000 ml @ 75 mls/hr 1X ONCE IV Last administered on 02/25/18at 14:30; Start 02/25/18 at 13:45; Stop 02/26/18 at 03 :04; Status DC Iohexol (Omnipaque 300 Mg/ml) 75 ml 1X ONCE IV Last administered on at 14:05; Start 02/25/18 at 13:45; Stop 02/25/18 at 13:46; Status DC Info (CONTRAST GIVEN -- Rx MONITORING) 1 each PRN DAILY PRN MC SEE COMMENTS; Start 02/25/18 at 13:45; Stop 02/27/18 at 13:44; Status DC Sodium Chloride 1,000 ml @ 1,000 mls/hr 1X ONCE IV Last administered on 02/25at 14:30; Start 02/25/18 at 14:30; Stop 02/25/18 at 15:29; Status DC Ceftriaxone Sodium 1 gm/ Dextrose 50 ml @ 100 mls/hr Q24H IV ; Start 02/25/18 at 15:45; Status UNV Ceftriaxone Sodium (Rocephin) 1 gm Q24H IVP ; Start 02/25/18 at 16:00; Stop at 16:21; Status DC Ceftriaxone Sodium 50 ml @ As Directed STK-MED ONCE IV ; Start 02/25/18 at 16: 11; Stop 02/25/18 at 16:12; Status DC Ondansetron HCl (Zofran) 4 mg PRN Q8HRS PRN IV NAUSEA/VOMITING Last administered on 02/25/18at 17:30; Start 02/25/18 at 16:30; Stop 02/26/18 at 16 :29; Status DC Fentanyl Citrate (Fentanyl 2ml Vial) 50 mcg PRN Q2HR PRN IV PAIN Last administered on 02/26/18at 09:47; Start 02/25/18 at 16:30; Stop 02/26/18 at 10 :43; Status DC Ceftriaxone Sodium 50 ml @ 100 mls/hr 1X ONCE IV Last administered on at 16:31; Start 02/25/18 at 16:30; Stop 02/25/18 at 16:59; Status DC Ceftriaxone Sodium (Rocephin) 1 gm Q24H IVP Last administered on 02/28/18at 16: 42; Start 02/26/18 at 16:30 Potassium Chloride 20 meq/ Sodium Chloride 260 ml @ 130 mls/hr BID IV Last administered on 02/26/18at 21:34; Start 02/25/18 at 17:00; Stop 02/27/18 at 06 :47; Status DC Influenza Virus Vaccine (Afluria Trivalent [id number] Syringe) 0.5 ml ONCE ONCE VAX IM Last administered on 02/26/18at 12:57; Start 02/25/18 at 18:00; Stop 02/25/18 at 18:05; Status DC Albuterol/ Ipratropium (Duoneb) 3 ml RTQID NEB Last administered on 03/01/18at 07:54; Start 02/26/18 at 12:00 Prednisone (Prednisone) 40 mg DAILY PO Last administered on 03/01/18 09:19; Start 02/26/18 at 12:00 Budesonide (Pulmicort) 0.5 mg RTBID NEB Last administered on 03/01/18at 07:54; Start 02/26/18 at 12:00 Pantoprazole Sodium (Protonix) 40 mg DAILYAC PO Last administered on at 09:19; Start 02/26/18 at 12:00 Enoxaparin Sodium (Lovenox 40mg Syringe) 40 mg Q24H SQ Last administered on at 12:02; Start 02/26/18 at 12:00 Metronidazole 100 ml @ 100 mls/hr Q12HR IV ; Start 02/26/18 at 13:00; Stop at 14:06; Status DC Lactobacillus Rhamnosus (Culturelle) 1 cap BID PO Last administered on at 09:19; Start 02/26/18 at 21:00 Acetaminophen/ Hydrocodone Bitart (Lortab 5/325) 1 tab PRN Q6HRS PRN PO MODERATE PAIN Last administered on 02/27/18at 08:18; Start 02/26/18 at 13:30; Stop 02/27/18 at 14:31; Status DC Morphine Sulfate (Morphine Sulfate) 2 mg PRN Q6HRS PRN IV MODERATE TO SEVERE PAIN Last administered on 03/01/18at 04:30; Start 02/26/18 at 13:30 Vancomycin HCl (Vancomycin Oral Solution) 125 mg [id number] PO Last administered on 03/01/18at 09:20; Start 02/26/18 at 14:00 Potassium Chloride/Water 50 ml @ 50 mls/hr Q1H IV ; Start 02/27/18 at 10:00; Stop 02/27/18 at 11:59; Status UNV Potassium Chloride/Water 100 ml @ 100 mls/hr Q1H IV ; Start 02/27/18 at 10:30 ; Stop 02/27/18 at 11:00; Status DC Potassium Chloride (Klor-Con) 40 meq ONCE ONCE PO Last administered on at 12:14; Start 02/27/18 at 11:15; Stop 02/27/18 at 11:16; Status DC Acetaminophen/ Hydrocodone Bitart (Lortab 7.5/325) 1 tab PRN Q6HRS PRN PO PAIN Last administered on 03/01/18at 09:25; Start 02/27/18 at 14:30 Nicotine (Nicoderm Cq 21mg) 1 patch DAILY TD Last administered on 03/01/18 09 :20; Start 02/27/18 at 14:30 Duloxetine HCl (Cymbalta) 30 mg DAILY PO Last administered on 03/01/18at 09:20 ; Start 02/27/18 at 14:30 Labetalol HCl (Normodyne Iv Push) 20 mg PRN Q2HR PRN IVP HYPERTENSION, SEE COMMENTS Last administered on 03/01/18at 04:28; Start 02/28/18 at 21:30 Lisinopril (Prinivil) 10 mg DAILY PO Last administered on 03/01/18at 09:20; Start 02/28/18 at 21:30 Active Scripts Active Reported Zofran Odt (Ondansetron) 8 Mg Tab.rapdis 1 Tab PO Q6HRS PRN Symbicort 160-4.5 Mcg Inhaler (Budesonide/Formoterol Fumarate) 10.2 Gm Hfa.aer.ad 2 Puff IH DAILY Proair Hfa Inhaler (Albuterol Sulfate) 8.5 Gm Hfa.aer.ad 2 Puff INH DAILY PRN Omeprazole 40 Mg Capsule. 1 Cap PO DAILY Vitals/I & O Vital Sign - Last 24 Hours 02/28/18 02/28/18 02/28/18 02/28/18 11:41 12:00 15:00 15:42 Temp 98.5 98.5 Pulse 85 Resp 16 20 B/P (MAP) 171/108 (129) Pulse Ox 96 95 97 O2 Delivery Room Air Room Air Room Air Room Air 02/28/18 02/28/18 02/28/18 02/28/18 19:00 20:00 20:01 21:03 Temp 98.6 98.6 Pulse 84 Resp 20 17 B/P (MAP) 177/106 (129) Pulse Ox 95 O2 Delivery Room Air Room Air Room Air Room Air 02/28/18 02/28/18 02/28/18 03/01/18 22:05 22:56 23:00 03:00 Temp 98.5 98.5 98.5 98.5 Pulse 84 80 82 Resp 17 20 20 B/P (MAP) 177/106 170/109 (129) 184/106 (132) Pulse Ox 94 95 O2 Delivery Room Air Room Air 03/01/18 03/01/18 03/01/18 03/01/18 04:28 04:30 05:00 07:00 Temp 97.1 97.1 Pulse 82 66 Resp 17 17 18 B/P (MAP) 184/106 150/90 (110) Pulse Ox 91 O2 Delivery Room Air Room Air Room Air 03/01/18 03/01/18 03/01/18 03/01/18 07:54 08:30 09:20 09:25 Pulse 66 B/P (MAP) 150/90 Pulse Ox 97 O2 Delivery Room Air Room Air Room Air 03/01/18 11:07 O2 Delivery Room Air Intake and Output 02/28/18 02/28/18 03/01/18 15:00 23:00 07:00 Intake Total 360 ml 180 ml 150 ml Balance 360 ml 180 ml 150 ml MARIANA LÓPEZ MD Mar 01, 2018 11:11
[2018-03-01] MEDS: ENOXAPARIN 40 MG/0.4 ML SYRINGE. SQ SCH (12:00)
--- NOTE | 2018-03-01 13:05 | DISCH ---
DISCHARGE WITH HOME HEALTH DISCHARGE INFORMATION: Discharge Date: Mar 01, 2018 Final Diagnosis: Problems Medical Problems: (1) Hypokalemia Status: Acute (2) Urinary tract infection Status: Acute Condition on Discharge: Stable CODE STATUS: Code Status: Full HOME HEALTH: Face to Face: I certify this patient is under my care and that I, or a nurse practitioner or physician's sociology research assistant working with me, had a face to face encounter that meets the physician face to face encounter requirements with this patient on []. Medical Complications: COPD, HTN POST DISCHARGE ORDERS: Activity Instructions for Disc: No restrictions Weight Bearing Status after Di: No restrictions DIET AFTER DISCHARGE: Regular FOLLOW-UP: Follow up with: Dr. Hernando Suarez @ [facility]. Appt 03/08/18 @ 10:15am CERTIFICATION STATEMENT: Certification Statement: Certification Statement: Based on the above finding, I certify that this patient is confined to the home and needs intermittent halfway care, physical therapy and/or speech therapy, or continues to need occupational therapy.~ This patient is under my care, and I have initiated the establishment of the plan of care.~ This patient will be followed by myself or a community physician who will periodically review the plan of care. Home Meds Reported Medications Ondansetron (ZOFRAN ODT) 8 Mg Tab.rapdis, 1 TAB PO Q6HRS PRN for NAUSEA, #30 TAB 02/25/18 Budesonide/Formoterol Fumarate (SYMBICORT 160-4.5 MCG INHALER) 10.2 Gm Hfa.aer.ad, 2 PUFF IH DAILY, #10.6 GM 3 Refills 02/25/18 Albuterol Sulfate (PROAIR HFA INHALER) 8.5 Gm Hfa.aer.ad, 2 PUFF INH DAILY PRN for SHORTNESS OF BREATH, INHALER 0 Refills 02/25/18 Omeprazole (OMEPRAZOLE) 40 Mg Capsule., 1 CAP PO DAILY, #30 CAP 3 Refills 02/25/18 MARIANA SUAREZ MD Mar 01, 2018 13:05
[2018-03-01] MEDS ORDERED: DULO30CA2 PO (13:10)
[2018-03-01] MEDS ORDERED: LISI10TA2 PO (13:10)
[2018-03-01] MEDS ORDERED: VANC500V PO (13:10)
--- NOTE | 2018-03-01 21:49 | PDOC3 ---
Discharge Summary Visit Information Date of Admission: Feb 25, 2018 Date of Discharge: Mar 01, 2018 Admitting Diagnosis: Acute colitis, Urinary tract infection, hypokalemia Final Diagnosis Brief Hospital Course Allergies Allergies Coded Allergies Type Severity Reaction Last Updated Verified No Known Drug Allergies 12/28/14 No Vital Signs Vital Signs Date Time Temp Pulse Resp B/P (MAP) Pulse Ox O2 Delivery O2 Flow Rate FiO2 03/01/18 11:37 93 Room Air 03/01/18 11:00 97.9 72 18 144/78 (100) 97.9 02/28/18 07:21 2.0 Lab Results Laboratory Tests Test 02/28/18 04:10 White Blood Count 6.7 x10^3/uL (4.0-11.0) Red Blood Count 3.63 x10^6/uL (3.50-5.40) Hemoglobin 11.8 g/dL (12.0-15.5) Hematocrit 34.9 % (36.0-47.0) Mean Corpuscular Volume 96 fL (79-100) Mean Corpuscular Hemoglobin 33 pg (25-35) Mean Corpuscular Hemoglobin Concent 34 g/dL (31-37) Red Cell Distribution Width 17.1 % (11.5-14.5) Platelet Count 246 x10^3/uL (140-400) Neutrophils (%) (Auto) 66 % (31-73) Lymphocytes (%) (Auto) 26 % (24-48) Monocytes (%) (Auto) 8 % (0-9) Eosinophils (%) (Auto) 0 % (0-3) Basophils (%) (Auto) 0 % (0-3) Neutrophils # (Auto) 4.4 x10^3uL (1.8-7.7) Lymphocytes # (Auto) 1.7 x10^3/uL (1.0-4.8) Monocytes # (Auto) 0.5 x10^3/uL (0.0-1.1) Eosinophils # (Auto) 0.0 x10^3/uL (0.0-0.7) Basophils # (Auto) 0.0 x10^3/uL (0.0-0.2) Sodium Level 142 mmol/L (136-145) Potassium Level 3.8 mmol/L (3.5-5.1) Chloride Level 106 mmol/L (98-107) Carbon Dioxide Level 31 mmol/L (21-32) Anion Gap 5 (6-14) Blood Urea Nitrogen 12 mg/dL (7-20) Creatinine 0.6 mg/dL (0.6-1.0) Estimated GFR (Cockcroft-Gault) 103.0 Glucose Level 103 mg/dL (70-99) Calcium Level 8.6 mg/dL (8.5-10.1) Brief Hospital Course 57yo F with history of depression, anxiety, COPD, GERD presents with 1 month of intractable vomiting, diarrhea, found to have acute colitis, COPD exacerbation, sepsis from UTI and severe hypokalemia. 1. Acute c.diff colitis: GI consulted. Vanc po started 02/26/18. Patient's symptoms of vomiting, nausea and diarrhea resolved prior to discharge 2. Sepsis: tachycardia, tachypneic and leukocytosis with known infection. Later finding that patient was hypotensive on admission as she started having hypertension after a few doses of antibiotics. Sepsis resolved, source is UTI/ c.diff colitis 3. UTI: Ceftriaxone x 3 days and discontinued upon discharge 4. Severe HypoK: replaced 5. COPD exacerbation: resolved, pt completed prednisone burst while inpt 6. 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 Depression/anxiety: restarted her Duloxetine Discharge Information Condition at Discharge: Stable Follow Up: Weeks Disposition/Orders: D/C to Home Scheduled Duloxetine Hcl (Cymbalta) 30 Mg Capsule.dr, 30 MG PO DAILY for 30 Days, #30 Prescribed by: MARIANA LÓPEZ MD on 03/01/18 1310 Lisinopril (Lisinopril) 10 Mg Tablet, 10 MG PO DAILY for 30 Days, #30 Prescribed by: MARIANA LÓPEZ MD on 03/01/18 1310 Omeprazole (Omeprazole) 40 Mg Capsule.dr, 1 CAP PO DAILY, #30 Ref 3 (Reported) Entered as Reported by: MADALYN OVIEDO on 02/25/181803 Last Action: New Order on 02/25/181803 by MADALYN OVIEDO Vancomycin Hcl (Vancomycin Hcl) 500 Mg Vial, 125 MG PO [id number] for 7 Days, #28 Prescribed by: MARIANA LÓPEZ MD on 03/01/18 1310 Scheduled PRN Albuterol Sulfate (Proair Hfa Inhaler) 8.5 Gm Hfa.aer.ad, 2 PUFF INH DAILY PRN for SHORTNESS OF BREATH, Ref 0 (Reported) Entered as Reported by: MADALYN OVIEDO on 02/25/181804 Last Action: New Order on 02/25/181804 by MADALYN OVIEDO Discontinued Medications Budesonide/Formoterol Fumarate (Symbicort 160-4.5 Mcg Inhaler) 10.2 Gm Hfa.aer.ad, 2 PUFF IH DAILY, #10.6 Ref 3 (Reported) Entered as Reported by: MADALYN OVIEDO on 02/25/181804 Last Action: New Order on 02/25/181804 by MADALYN OVIEDO Ondansetron (Zofran Odt) 8 Mg Tab.rapdis, 1 TAB PO Q6HRS PRN for NAUSEA, #30 ( Reported) Entered as Reported by: MADALYN OVIEDO on 02/25/181805 Last Action: New Order on 02/25/181805 by MARIANA WHITMAN MD Mar 01, 2018 21:49
== END 2018-03-01 14:34 | disposition home or self-care (01) | DRG 871 ==
LOC: ER 12:10 → 5 NORTH 14:30
PROVIDERS: ADMIT Family Medicine; ATTEND Family Medicine
DX: A41.9 Sepsis, unspecified organism (principal); E43 Unspecified severe protein-calorie malnutrition; A04.72 Enterocolitis due to Clostridium difficile, not specified as recurrent; K55.9 Vascular disorder of intestine, unspecified; J44.1 Chronic obstructive pulmonary disease with (acute) exacerbation; N39.0 Urinary tract infection, site not specified; F32.9 Major depressive disorder, single episode, unspecified; F41.9 Anxiety disorder, unspecified; K21.9 Gastro-esophageal reflux disease without esophagitis; E87.6 Hypokalemia; R13.10 Dysphagia, unspecified; F17.210 Nicotine dependence, cigarettes, uncomplicated; G89.29 Other chronic pain; I10 Essential (primary) hypertension; K57.90 Diverticulosis of intestine, part unspecified, without perforation or abscess without bleeding; F19.10 Other psychoactive substance abuse, uncomplicated; R10.13 Epigastric pain; Z68.24 Body mass index [BMI] 24.0-24.9, adult; Z80.3 Family history of malignant neoplasm of breast; Z80.0 Family history of malignant neoplasm of digestive organs
CPT/HCPCS: 36415; 74177; 80048; 80053; 81001; 83605; 83690; 85007; 85025; 86140; 86803; 87045; 87086; 87493; 90471; 90756; 93005; 94640; 94760; 96361; 96365; 96375; J0690; J0696; J1630; J1650; J2270; J2405; J3010; J3480; J3490; J7030; J7050; J7512; J7620; J7626; Q9967; 99285-25; Q2035

== ENCOUNTER → 2018-07-08 | Outpatient (CLI) | payer OTHER ==
[~2018-07-08] MED LIST changes: +ALBU1.25 NEB; +ALBU2.5V8 INH; +BUDE10.2 IH; +CELE100C PO; +DULO30CA2 PO; +DULO60CA6 PO; +ERYT250T14 PO; +LISI-334 PO; +LISI10TA2 PO; +OMEP40CA5 PO; +ONDA4TAB12 PO; +ONDA8TAB12 PO; +QUET50TA5 PO; +QUET50TA79 PO; +SINCALIDE 1.22 MCG in IV NORMAL SALINE 50ML 30 ML IV ONE; +TIOT18CA IH; +TRAZ-118 PO; +TRAZ-86 PO; +VANC500V PO
--- NOTE | 2018-07-08 11:48 | RAD ---
Indication:Epigastric pain, nausea and vomiting. TECHNIQUE: Grayscale, color Doppler and spectral waveform is of the abdomen obtained. COMPARISON: CT abdomen pelvis from 02/25/2018. FINDINGS: The visualized pancreas is within normal limits. Pancreatic tail not visualized due to overlying bowel gas. IVC within normal limits. No aortic aneurysm. Liver measures 16 cm in longest dimension diffuse increased echogenicity. Main portal vein is patent with hepatopedal flow. No gallstones, pericholecystic fluid or gallbladder wall thickening. CBD measures 5 mm in diameter and is within normal limits. Right kidney measures 11 cm in length without hydronephrosis. 1.3 cm simple appearing cyst is seen in the upper pole of the right kidney. Spleen measures 9.7 cm in length and is normal in size. Left kidney measures 10.8 cm in length without hydronephrosis. IMPRESSION: 1. Hepatic steatosis. 2. No cholelithiasis or sonographic evidence of acute cholecystitis. Electronically signed by: Onur Francois DO (07/08/2018 11:45 AM) [id number]
--- NOTE | 2018-07-12 12:16 | RAD ---
EXAM: Nuclear hepatobiliary scan. HISTORY: Pain. TECHNIQUE: Following intravenous administration of 5.5 mCi Tc 99m Choletec, anterior images of the abdomen were obtained at five minute intervals through one hour. Subsequently, 1.22 mcg CCK was administered and additional images to assess gallbladder ejection fraction were obtained. FINDINGS: There is prompt radiotracer uptake by the liver. No focal defect is seen. There is normal excretion into the biliary tree. The gallbladder is visualized within 15 minutes and there is free flow into the duodenum. The gallbladder ejection fraction is 97 percent. IMPRESSION: Normal radionuclide biliary scan. Electronically signed by: Luisa Damon MD (07/12/2018 12:13 PM) [id number]
== END | disposition home or self-care (01) ==
LOC: US 09:21
PROVIDERS: ATTEND Internal Medicine Gastroenterology
DX: K76.0 Fatty (change of) liver, not elsewhere classified (principal); R11.2 Nausea with vomiting, unspecified
CPT/HCPCS: 76700; 78227; A9537; J2805

== ENCOUNTER → 2018-08-13 | Day surgery (SDC) | payer OTHER ==
[~2018-08-13] MED LIST changes: +HYDROmorphone 2 MG/ML VIAL IV PRN; +IV RINGERS,LACTATED 1000ML 1,000 ML IV SCH; +LIDOCAINE 1% PF 2 ML VIAL. ID PRN; +LIDOCAINE 2% PF 5 ML VIAL. ONE; +MORPHINE SULFATE 2 MG/ML VIAL. IV PRN; +ONDANSETRON PF 4 MG/2 ML VIAL. IV PRN; +PROCHLORPERAZINE 10 MG/2 ML VIAL. IV PRN; +PROPOFOL 60 ML IV ONE; -SINCALIDE 1.22 MCG in IV NORMAL SALINE 50ML 30 ML IV ONE; +VANCOMYCIN 1 GM VIAL. ONE; +fentaNYL PF VIAL 100 MCG/2 ML VIAL IV PRN
[2018-08-13 10:02] VITALS: BP 149/96
--- NOTE | 2018-08-14 15:23 | HP ---
ADMIT DATE: 08/13/2018 UPDATED HISTORY AND PHYSICAL: REFERRING PHYSICIAN: Santi Suarez MD. REASON: Nausea, vomiting, and abdominal pain as well as colorectal screening. HISTORY OF PRESENT ILLNESS: This is a 58-year-old female with past medical history significant for C. diff, asthma, depression, epigastric pain, hypertension, who is seen with persistent nausea and vomiting. She has an increase in her reflux as well as alcohol and nicotine use. There is a positive family history of esophageal cancer with her mother. No dysphagia is noted at this time. In addition, she has had C. diff colitis, treated back in 02/2018, continues to have several semi-formed stools daily between 2 and 3. No bleeding was encountered. Otherwise, she has been improved since hospital release. PAST MEDICAL HISTORY: Hypertension, GERD, asthma, depression. ALLERGIES: None. MEDICATIONS: Include albuterol, budesonide, Celebrex, Cymbalta, lisinopril, omeprazole, Zofran, Spiriva, vancomycin. FAMILY AND SOCIAL HISTORY: Significant for breast cancer, stomach cancer/esophageal cancer with her mother. SOCIAL HISTORY: She is a smoker and drinker. PAST SURGICAL HISTORY: Knee surgeries x 4. REVIEW OF SYSTEMS: Per records. PHYSICAL EXAMINATION: GENERAL: Reveals a well-nourished, well-developed female, who is alert and cooperative, in no acute distress. VITAL SIGNS: Temperature 99.2, pulse 68, respiratory rate 20. HEENT: Normocephalic and atraumatic head. Pupils and extraocular muscles are not tested. Sclerae anicteric. NECK: Supple. LUNGS: Clear. CARDIOVASCULAR: Reveals S1, S2 without S3, S4 or appreciable murmur. ABDOMEN: Soft abdomen, normal bowel sounds, without appreciable hepatosplenomegaly. Epigastric tenderness to deep palpation. EXTREMITIES: Reveals no cyanosis, clubbing, or edema. IMPRESSION: 1. Nausea and vomiting with reflux and family history of esophageal cancer. Upper endoscopy is recommended to further assess. Risks and benefits have been discussed. The patient is willing to proceed at this time. 2. Colorectal screening is warranted with past history of C. diff colitis, additional mucosal lesions will be searched for. Risks and benefits have been discussed with the patient including risk of hemorrhage and perforation and she is willing to proceed. ADAM VELEZ MD DR: SHEA/danica JOB#: [id number] / [id number]
--- NOTE | 2018-08-16 16:05 | PATHOLOGY ---
[facility] Accession Number: [id number] . 01 Material submitted: . PART A: esophagus - DISTAL ESOPHAGUS. Modifiers: distal PART B: colon - SIGMOID COLON POLYP. Modifiers: sigmoid . 01 Clinical history: . Pre-OP DX: Abdominal pain Post-OP DX: Reflux, rule out Johnson's . 02 Diagnosis: A. Esophageal biopsies, distal esophagus: - Segments of hyperplastic squamous esophageal mucosa consistent with reflux esophagitis. . B. Colon biopsy, sigmoid colon polyp: - Tubular adenoma. . (JPM:mm; 08/16/2018) [facility]/08/16/2018 . 02 Comment: Sections of the distal esophageal biopsy reveal segments of tangentially-oriented, hyperplastic squamous esophageal mucosa. The findings are consistent with reflux esophagitis. There is no evidence of Johnson's change, dysplasia, or malignancy. . Sections of the sigmoid colon biopsy reveal a tubular adenoma showing no high grade dysplasia or evidence of malignancy. . (JPM:mml; 08/16/2018) . 02 Electronically signed: . Luis Alberto Fajardo MD, Pathologist NPI- [id number] . 01 Gross description: . A. Received in formalin labeled "Erica, Cherie, distal esophagus," are 3 segments of hagan soft tissue measuring 1.0 x 0.9 x 0.1 cm in aggregate dimensions and ranging from 0.3 to 0.6 cm in maximum dimension. The specimen is submitted entirely in cassette A1. . B. Received in formalin labeled "Growney, Cherie, sigmoid polyp," is a single segment of hagan soft tissue measuring 0.3 cm in maximum dimension. The specimen is entirely submitted in cassette B1. (TSD; 08/13/2018) TOB/TOB . 02 Pathologist provided ICD-10: K21.0, D12.5 . 02 CPT . 542347, 016548 Specimen Comment: A courtesy copy of this report has been sent to Specimen Comment: [phone], , . Specimen Comment: Report sent to ,DR LÓPEZ / DR MARIA Performed at: 01 [facility] [address] [place] [address] [address], [place], [place] [id number] MD Garfield Noel MD Phone: [phone] Performed at: 02 [facility] [address], [place] [id number] MD Luis Alberto Fajardo MD Phone: [phone]
== END | disposition home or self-care (01) ==
LOC: ENDOS 08:24
PROVIDERS: ATTEND Internal Medicine Gastroenterology
DX: Z12.11 Encounter for screening for malignant neoplasm of colon (principal); D12.5 Benign neoplasm of sigmoid colon; K57.30 Diverticulosis of large intestine without perforation or abscess without bleeding; K64.0 First degree hemorrhoids; K21.0 Gastro-esophageal reflux disease with esophagitis; J45.909 Unspecified asthma, uncomplicated; F32.9 Major depressive disorder, single episode, unspecified; I10 Essential (primary) hypertension; Z72.89 Other problems related to lifestyle; Z80.0 Family history of malignant neoplasm of digestive organs; Z79.899 Other long term (current) drug therapy; F17.210 Nicotine dependence, cigarettes, uncomplicated; Z98.890 Other specified postprocedural states; Z80.3 Family history of malignant neoplasm of breast
CPT/HCPCS: 43239; 45380; 88305; J2001; J2704; J3370

== ENCOUNTER 2018-09-19 14:04 | Inpatient (IN) | payer OTHER ==
[~2018-09-19] VITALS: Ht 154.9 cm; Wt 62.3 kg
[~2018-09-19 14:04] MED LIST changes: -ALBU1.25 NEB; -DULO60CA6 PO; -ERYT250T14 PO; -HYDROmorphone 2 MG/ML VIAL IV PRN; -IV RINGERS,LACTATED 1000ML 1,000 ML IV SCH; -LIDOCAINE 1% PF 2 ML VIAL. ID PRN; -LIDOCAINE 2% PF 5 ML VIAL. ONE; -LISI-334 PO; -MORPHINE SULFATE 2 MG/ML VIAL. IV PRN; -ONDANSETRON PF 4 MG/2 ML VIAL. IV PRN; -PROCHLORPERAZINE 10 MG/2 ML VIAL. IV PRN; -PROPOFOL 60 ML IV ONE; -QUET50TA79 PO; -TRAZ-86 PO; -VANCOMYCIN 1 GM VIAL. ONE; -fentaNYL PF VIAL 100 MCG/2 ML VIAL IV PRN
[2018-09-19] MEDS ORDERED: IV NORMAL SALINE 1000ML BAG 1,000 ML IV SCH (14:20)
[2018-09-19 14:39] LABS: BASO % 0 % (0-3); EOS % 0 % (0-3); HEMATOCRIT 44.1 % (36.0-47.0); HEMOGLOBIN 15.2 g/dL (12.0-15.5); LYMPH # 1.4 x10^3/uL (1.0-4.8); LYMPH % 12 % (24-48); MEAN CORPUSCULAR HEMOGLOBIN 32 pg (25-35); MEAN CORPUSCULAR HGB CONC 34 g/dL (31-37); MEAN CORPUSCULAR VOLUME 92 fL (79-100); MONO # 1.1 x10^3/uL (0.0-1.1); MONO % 10 % (0-9); NEUT # 8.6 x10^3uL (1.8-7.7); NEUT % 77 % (31-73); PLATELET COUNT 182 x10^3/uL (140-400); RED CELL DISTRIBUTION WIDTH 16.3 % (11.5-14.5); WHITE BLOOD COUNT 11.1 x10^3/uL (4.0-11.0)
[2018-09-19 14:49] LABS: PROTHROMBIN TIME PATIENT 12.3 SEC (11.7-14.0)
[2018-09-19 14:54] LABS: ALBUMIN 3.7 g/dL (3.4-5.0); CREATININE 7.1 mg/dL (0.6-1.0); GFR 5.9; TOTAL BILIRUBIN 0.9 mg/dL (0.2-1.0); TOTAL PROTEIN 7.4 g/dL (6.4-8.2)
[2018-09-19 14:55] LABS: MAGNESIUM 1.7 mg/dL (1.8-2.4)
[2018-09-19 14:58] LABS: POTASSIUM 2.7 mmol/L (3.5-5.1)
--- NOTE | 2018-09-19 14:58 | RAD ---
EXAM: CHEST 1 VIEW History: Generalized weakness COMPARISON: 12/28/2014 TECHNIQUE: Single portable radiograph of the chest FINDINGS: The cardiac silhouette is unremarkable. The lungs are clear bilaterally. The costophrenic sulci are clear and well demarcated. IMPRESSION: No radiographic evidence of an acute cardiopulmonary process. Electronically signed by: Nils Reed MD (09/19/2018 2:55 PM) [facility]
--- NOTE | 2018-09-19 15:07 | PHYS DOC ---
Past Medical History Past Medical History: Asthma, COPD, Hypertension, Other Additional Past Medical Histor: chronic N/V seen by Dr. Suarez at [facility] Past Surgical History: Tonsillectomy, Other Additional Past Surgical Histo: L knee, infertility sx Smoking: Cigarettes Alcohol Use: Heavy Drug Use: Marijuana Adult General Chief Complaint Chief Complaint: HYPOTENSION HPI HPI Patient is a 58 year old female who brought in by EMS because of nausea and vomiting and weakness and low blood pressure. Patient states she had nausea and vomiting for the last 1 week and was not able to eat or drink anything and had no bowel movement or urine output for several days. Patient complaining of general weakness and dizziness. EMS was reported that patient had blood pressure as low as 40/20 IV fluid was started. Patient had blood pressure of 70s over 40s at arrival to ER that improved to more than 90s in a short time after IV fluid. Patient has history of COPD without having home oxygen and currently smoking one pack a day. Review of Systems Review of Systems Constitutional: Denies fever or chills [] Eyes: Denies change in visual acuity, redness, or eye pain [] HENT: Denies nasal congestion or sore throat [] Respiratory: Denies cough or shortness of breath [] Cardiovascular: No additional information not addressed in HPI [] GI: Denies abdominal pain,bloody stools or diarrhea, reports nausea and vomiting [] : Denies dysuria or hematuria [] Musculoskeletal: Denies back pain or joint pain [] Integument: Denies rash or skin lesions [] Neurologic: Denies headache, focal weakness or sensory changes [] Endocrine: Denies polyuria or polydipsia [] All other systems were reviewed and found to be within normal limits, except as documented in this note. Current Medications Current Medications Current Medications Medications (Trade) Dose Ordered Sig/Mohan Start Time Stop Time Status Last Admin Dose Admin Sodium Chloride 1,000 ml @ 1,000 mls/hr Q1H 09/19/18 14:20 09/19/18 15:19 DC 09/19/18 14:51 1,000 MLS/HR Allergies Allergies Allergies Coded Allergies Type Severity Reaction Last Updated Verified No Known Drug Allergies 08/13/18 No Physical Exam Physical Exam Constitutional: Well developed, moderate distress, non-toxic appearance. [] HENT: Normocephalic, atraumatic, oropharynx dry. Eyes: PERRLA, EOMI, conjunctiva normal, no discharge. [] Neck: Normal range of motion, no tenderness, supple, no stridor. [] Cardiovascular: Tachycardia, no murmur [] Lungs & Thorax: Decreased bilateral air movement without respiratory distress Abdomen: Bowel sounds normal, soft, no tenderness, no masses, no pulsatile masses. [] Skin: Warm, dry, no erythema, no rash. [] Back: No tenderness, no CVA tenderness. [] Extremities: No tenderness, no cyanosis, no clubbing, ROM intact, no edema. [] Neurologic: Alert and oriented X 3, normal motor function, normal sensory function, no focal deficits noted. [] Psychologic: Affect normal, judgement normal, mood normal. [] Current Patient Data Vital Signs Vital Signs Date Time Temp Pulse Resp B/P (MAP) Pulse Ox O2 Delivery O2 Flow Rate FiO2 09/19/18 14:46 94 22 94/57 (69) 92 Room Air 09/19/18 14:04 98.0 98.0 Lab Values Laboratory Tests Test 09/19/18 14:04 White Blood Count 11.1 x10^3/uL (4.0-11.0) H Red Blood Count 4.80 x10^6/uL (3.50-5.40) Hemoglobin 15.2 g/dL (12.0-15.5) Hematocrit 44.1 % (36.0-47.0) Mean Corpuscular Volume 92 fL (79-100) Mean Corpuscular Hemoglobin 32 pg (25-35) Mean Corpuscular Hemoglobin Concent 34 g/dL (31-37) Red Cell Distribution Width 16.3 % (11.5-14.5) H Platelet Count 182 x10^3/uL (140-400) Neutrophils (%) (Auto) 77 % (31-73) H Lymphocytes (%) (Auto) 12 % (24-48) L Monocytes (%) (Auto) 10 % (0-9) H Eosinophils (%) (Auto) 0 % (0-3) Basophils (%) (Auto) 0 % (0-3) Neutrophils # (Auto) 8.6 x10^3uL (1.8-7.7) H Lymphocytes # (Auto) 1.4 x10^3/uL (1.0-4.8) Monocytes # (Auto) 1.1 x10^3/uL (0.0-1.1) Eosinophils # (Auto) 0.0 x10^3/uL (0.0-0.7) Basophils # (Auto) 0.0 x10^3/uL (0.0-0.2) Prothrombin Time 12.3 SEC (11.7-14.0) Prothrombin Time INR 0.9 (0.8-1.1) Sodium Level 131 mmol/L (136-145) L Potassium Level 2.7 mmol/L (3.5-5.1) *L Chloride Level 89 mmol/L (98-107) L Carbon Dioxide Level 25 mmol/L (21-32) Anion Gap 17 (6-14) H Blood Urea Nitrogen 60 mg/dL (7-20) H Creatinine 7.1 mg/dL (0.6-1.0) H Estimated GFR (Cockcroft-Gault) 5.9 BUN/Creatinine Ratio 8 (6-20) Glucose Level 110 mg/dL (70-99) H Lactic Acid Level 2.6 mmol/L (0.4-2.0) H Calcium Level 8.0 mg/dL (8.5-10.1) L Phosphorus Level 6.9 mg/dL (2.6-4.7) H Magnesium Level 1.7 mg/dL (1.8-2.4) L Total Bilirubin 0.9 mg/dL (0.2-1.0) Aspartate Amino Transferase (AST) 20 U/L (15-37) Alanine Aminotransferase (ALT) 28 U/L (14-59) Alkaline Phosphatase 67 U/L (46-116) Creatine Kinase 190 U/L (26-192) Troponin I Quantitative 0.028 ng/mL (0.000-0.055) Total Protein 7.4 g/dL (6.4-8.2) Albumin 3.7 g/dL (3.4-5.0) Albumin/Globulin Ratio 1.0 (1.0-1.7) Lipase 163 U/L (73-393) Ethyl Alcohol Level < 10 mg/dL (0-10) Laboratory Tests 09/19/18 14:04 Laboratory Tests 09/19/18 14:04 EKG EKG EKG Interpreted by me. EKG at 1404 showed sinus tachycardia at rate of 110 and drainage, normal MI and QT intervals, no acute ST and T-wave abnormalities. Radiology/Procedures Radiology/Procedures [id number] [place] [address] IMAGING REPORT Signed PATIENT: BRITNI RAZA ACCOUNT: [id number] : 1960 LOCATION: ER AGE: 58 SEX: F EXAM STATUS: REG ER ORD. PHYSICIAN: WILIAN UMANZOR MD REASON: generalized weakness PROCEDURE: PORTABLE CHEST 1V EXAM: CHEST 1 VIEW History: Generalized weakness COMPARISON: 12/28/2014 TECHNIQUE: Single portable radiograph of the chest FINDINGS: The cardiac silhouette is unremarkable. The lungs are clear bilaterally. The costophrenic sulci are clear and well demarcated. IMPRESSION: No radiographic evidence of an acute cardiopulmonary process. Electronically signed by: Nils Reed MD (09/19/2018 2:55 PM) [facility] DICTATED and SIGNED BY: NILS REED MD DATE: 09/19/18 1455 [facility] [address] [place] [address] IMAGING REPORT Signed PATIENT: BRITNI RAZA ACCOUNT: [id number] : 1960 LOCATION: [address] [place] [address] AGE: 58 SEX: F EXAM STATUS: ADM IN ORD. PHYSICIAN: WILIAN UMANZOR MD REASON: abdominal pain PROCEDURE: CT ABDOMEN PELVIS WO CONTRAST Examination: CT of the abdomen pelvis without contrast HISTORY: History of abdominal pain COMPARISON: 02/25/2018 TECHNIQUE: Axial CT images of the abdomen pelvis were performed without contrast. Coronal and sagittal reformats are performed. Exposure: One or more of the following individualized dose reduction techniques were utilized for this examination: 1. Automated exposure control 2. Adjustment of the mA and/or kV according to patient size 3. Use of iterative reconstruction technique FINDINGS: Minimal left lung base atelectasis. No evidence of free air identified in the abdomen. The evaluation of the solid organs is limited due to lack of IV contrast. The evaluation of bowel is limited due to lack of oral contrast. The visualized noncontrasted liver demonstrates mild decreased attenuation likely mild hepatic steatosis. The visualized spleen, adrenals grossly appears unremarkable. The gallbladder is mildly distended. The stomach is mildly distended. The visualized pancreas grossly appears unremarkable few fluid distended small bowel loops identified in the abdomen. The appendix is normal. Feces and gas noted in the colon. Multiple sigmoid colon diverticulosis identified. Goldstein catheter balloon identified in the urinary bladder. No evidence of intrarenal collecting system calculi or hydronephrosis. Moderate degenerative changes lumbar spine. IMPRESSION: 1. Few fluid distended small bowel loops identified in the abdomen, nonspecific, mild enteritis is a possibility. 2. Sigmoid colon diverticulosis. 3. Hepatic steatosis. Electronically signed by: Nils Reed MD (09/19/2018 3:42 PM) [facility] DICTATED and SIGNED BY: NILS REED MD DATE: 09/19/18 154 Course & Med Decision Making Course & Med Decision Making Pertinent Labs and Imaging studies reviewed. (See chart for details) . Evaluation of the patient in ER showed 58-year-old male patient brought in by EMS because of nausea and vomiting and hypertension and generalized weakness. Patient had blood pressure of 70s and after IV fluids more than 90s in ER with tachycardia. Patient had potassium of 2.7 and elevation of creatinine of 7.1 albumin of 60 without history of renal insufficiency. Patient treated with oral potassium and IV fluid. She had mild elevation of lactic acid was related to elevation of lactic acid could be related to acute renal year. Patient requiring admission for further evaluation and treatment. Discussed with Dr. Costello who is in agreement with admission. Discussed findings and plan with patient and family, who acknowledge understanding and agreement. Admitting physician did not comment nephrology consult at this time. Dragon Disclaimer Dragon Disclaimer This electronic medical record was generated, in whole or in part, using a voice recognition dictation system. Departure Departure Impression: Primary Impression: Acute renal failure Additional Impressions: Nausea and vomiting Hypotension Hyponatremia SIRS (systemic inflammatory response syndrome) Tobacco abuse Tobacco abuse counseling Disposition: 09 ADMITTED INPATIENT (at 1510) Admitting Physician: Marie Costello (accepted admission at 1509) Condition: GUARDED Referrals: JULIUS MARIA MD (PCP) Critical Care Time Critical care time was 70 minutes exclusive of procedures. Problem Qualifiers Primary Impression: Acute renal failure Acute renal failure type: unspecified Qualified Codes: N17.9 - Acute kidney failure, unspecified Additional Impressions: Nausea and vomiting Vomiting type: unspecified Vomiting Intractability: unspecified Qualified Codes: R11.2 - Nausea with vomiting, unspecified Hypotension Hypotension type: unspecified hypotension type Qualified Codes: I95.9 - Hypotension, unspecified WILIAN UMANZOR MD September 19, 2018 15:07
[2018-09-19] MEDS ORDERED: POTASSIUM CHLORIDE 20 MEQ/15 ML ORAL LIQUID. PO ONE (15:15)
[2018-09-19] MEDS ORDERED: IV NORMAL SALINE 1000ML BAG 1,000 ML IV ONE (15:15)
[2018-09-19 15:28] LABS: BILIRUBIN,URINE MODERATE (NEG); CLARITY,URINE CLOUDY; COLOR,URINE AMBER; NITRITE,URINE NEGATIVE (NEG); PH,URINE 5.5; PROTEIN,URINE 100 mg/dL (NEG-TRACE)
[2018-09-19 15:33] LABS: AMPHETAMINE/METHAMPHETAMINE NEG (NEG); BARBITURATES NEG (NEG); BENZODIAZEPINES NEG (NEG); CANNABINOIDS POS (NEG); COCAINE NEG (NEG); METHADONE NEG (NEG); OPIATES NEG (NEG); PHENCYCLIDINE NEG (NEG)
[2018-09-19 15:36] LABS: RBC,URINE 0 /HPF (0-2)
[2018-09-19 15:37] LABS: BACTERIA,URINE 0 /HPF (0-FEW); HYALINE CASTS, URINE MANY /HPF; SQUAMOUS EPITHELIAL CELL,UR OCC /LPF; WBC,URINE OCC /HPF (0-4)
[2018-09-19 15:38] LABS: AMORPHOUS SEDIMENT,UR PRESENT /HPF
[2018-09-19] MEDS: ONDANSETRON PF 4 MG/2 ML VIAL. IV PRN (15:38)
[2018-09-19] MEDS: IV NORMAL SALINE 1000ML BAG 1,000 ML IV SCH ×4 (15:39→23:55)
--- NOTE | 2018-09-19 15:44 | RAD ---
Examination: CT of the abdomen pelvis without contrast HISTORY: History of abdominal pain COMPARISON: 02/25/2018 TECHNIQUE: Axial CT images of the abdomen pelvis were performed without contrast. Coronal and sagittal reformats are performed. Exposure: One or more of the following individualized dose reduction techniques were utilized for this examination: 1. Automated exposure control 2. Adjustment of the mA and/or kV according to patient size 3. Use of iterative reconstruction technique FINDINGS: Minimal left lung base atelectasis. No evidence of free air identified in the abdomen. The evaluation of the solid organs is limited due to lack of IV contrast. The evaluation of bowel is limited due to lack of oral contrast. The visualized noncontrasted liver demonstrates mild decreased attenuation likely mild hepatic steatosis. The visualized spleen, adrenals grossly appears unremarkable. The gallbladder is mildly distended. The stomach is mildly distended. The visualized pancreas grossly appears unremarkable few fluid distended small bowel loops identified in the abdomen. The appendix is normal. Feces and gas noted in the colon. Multiple sigmoid colon diverticulosis identified. Goldstein catheter balloon identified in the urinary bladder. No evidence of intrarenal collecting system calculi or hydronephrosis. Moderate degenerative changes lumbar spine. IMPRESSION: 1. Few fluid distended small bowel loops identified in the abdomen, nonspecific, mild enteritis is a possibility. 2. Sigmoid colon diverticulosis. 3. Hepatic steatosis. Electronically signed by: Nils Reed MD (09/19/2018 3:42 PM) [facility]
[2018-09-19 16:36] LABS: BASE EXCESS ABG -5 mmol/L (-3-3); HCO3 ABG 19 mmol/L (21-28); PCO2 ABG 35 mmHg (35-46); PO2 ABG 60 mmHg (75-108); SAT O2 ABG 89 % (92-99)
[2018-09-19] MEDS ORDERED: DULO60CA6 PO ×2 (16:53→22:47)
[2018-09-19] MEDS ORDERED: LISI-334 PO (16:53)
[2018-09-19 17:05] LABS: FIO2 ABG 21
[2018-09-19 17:34] LABS: FECAL OB PT NEGATIVE (NEG)
[2018-09-19] MEDS: ONDANSETRON ODT 4 MG TAB.RAPDIS. PO PRN (18:05)
[2018-09-19 18:22] VITALS: BP 111/73
[2018-09-19 19:40] VITALS: BP 92/55
[2018-09-19] MEDS ORDERED: BUDE10.2 IH (22:47)
[2018-09-19] MEDS ORDERED: ALBU1.25 NEB (22:47)
[2018-09-19] MEDS ORDERED: QUET50TA79 PO (22:47)
[2018-09-19] MEDS ORDERED: TRAZ-86 PO (22:47)
[2018-09-19 22:50] VITALS: BP 96/46
[2018-09-19] MEDS ORDERED: ALBUTEROL SULFATE 2.5 MG/3 ML NEBU. INH PRN (23:15)
[2018-09-19] MEDS ORDERED: QUEtiapine 25 MG TABLET. PO ONE (23:45)
[2018-09-19] MEDS ORDERED: traZODone 100 MG TABLET. PO ONE (23:45)
[2018-09-20] MEDS: IV NORMAL SALINE 1000ML BAG 1,000 ML IV SCH ×6 (03:10→16:11)
[2018-09-20 03:45] VITALS: BP 99/57
[2018-09-20 05:35] LABS: CALCIUM 7.4 mg/dL (8.5-10.1); POTASSIUM 3.3 mmol/L (3.5-5.1)
--- NOTE | 2018-09-20 06:58 | EKG ---
[facility] [address] [place] [address] Test Date: 2018-09-19 Test Time: 14:04:03 Pat Name: BRITNI RAZA Department: Room: 262 1 Gender: F [employer]: : 1960 Requested By: WILIAN UMANZOR Order Number: [id number] Reading MD: Kike Carson Measurements Intervals [place] Rate: 110 P: 40 IN: 134 QRS: 72 QRSD: 96 T: 59 QT: 344 QTc: 471 Interpretive Statements SINUS TACHYCARDIA Electronically Signed On 10-08-2018 12:48:49 CDT by Kike Carson
[2018-09-20 07:00] VITALS: BP 115/61
--- NOTE | 2018-09-20 07:41 | PDOC1 ---
History and Physical Date of Admission Date of Admission 09/19/18 Identification/Chief Complaint Chief Complaint Nausea, vomiting Source Source: Patient History of Present Illness History of Present Illness Pt has been seen by myself once at the end of July. She has a 2 year history of ongoing nausea and vomiting. Pt states that she had recent upper and lower GI by Dr. Henderson and was told that everything was okay. She was supposed to f/u with him 2 weeks ago but was not feeling well so canceled her appointment. She says that she can sometimes go a month and do well, but then starts to get epigastric pain and the nausea and vomiting starts. This last bout started about a week ago. Says that she has not really eaten anything for the past week. Tried to wait it out at home. By Thursday morning pt was feeling very weak, dizzy and having muscle cramps. Called EMS; pt had BP reportedly in the 40s-60s systolic. Said that she had not urinated for 24 hours or really had a bowel movement. Starting to have diarrhea now. Starting to feel hungry, would like to try eating. Past Medical History Cardiovascular: HTN Pulmonary: COPD GI: GERD Heme/Onc: No pertinent hx Hepatobiliary: No pertinent hx Psych: Anxiety, Depression Rheumatologic: No pertinent hx Infectious disease: No pertinent hx ENT: No pertinent hx Renal/: No pertinent hx Endocrine: No pertinent hx Dermatology: No pertinent hx Past Surgical History Past Surgical History: Total knee replacement, Tonsillectomy, Other (Endometriosis) Family History Family History: Cancer (Breast cancer, esophageal cancer), Other (Suicide) Social History Smoke: 1 pack per day ALCOHOL: other Drugs: Marijuana Current Problem List Problem List Problems Medical Problems: (1) Acute renal failure Status: Acute (2) Hyponatremia Status: Acute (3) Hypotension Status: Acute (4) Nausea and vomiting Status: Acute (5) SIRS (systemic inflammatory response syndrome) Status: Acute (6) Tobacco abuse Status: Acute (7) Tobacco abuse counseling Status: Acute Current Medications Current Medications Current Medications Medications (Trade) Dose Ordered Sig/Mohan Start Time Stop Time Status Last Admin Dose Admin Albuterol Sulfate (Ventolin Neb Soln) 2.5 mg RTQID 09/20/18 08:00 Budesonide (Pulmicort) 0.5 mg RTBID 09/20/18 08:00 Non-Formulary Medication (Budesonide/ Formoterol Fumarate (Symbicort 160-4.5 Mcg Inhaler)) 2 puff BID 09/20/18 09:00 UNV Ondansetron HCl (Zofran Odt) 8 mg PRN Q6HRS PRN 09/19/18 17:15 09/19/18 18:05 8 MG Ondansetron HCl (Zofran) 4 mg PRN Q8HRS PRN 09/19/18 15:15 09/20/18 15:14 09/19/18 15:38 4 MG Potassium Chloride (KCl Oral Soln) 40 meq 1X ONCE 09/19/18 15:15 09/19/18 15:16 DC 09/19/18 15:38 40 MEQ Quetiapine Fumarate (SEROquel) 50 mg 1X ONCE 09/19/18 23:45 09/19/18 23:46 DC 09/19/18 23:52 50 MG Sodium Chloride 1,000 ml @ 100 mls/hr Q10H 09/19/18 17:15 09/20/18 03:22 100 MLS/HR Trazodone HCl (Desyrel) 100 mg 1X ONCE 09/19/18 23:45 09/19/18 23:46 DC 09/19/18 23:52 100 MG Allergies Allergies Allergies Coded Allergies Type Severity Reaction Last Updated Verified No Known Drug Allergies 08/13/18 No ROS Review of System CONSTITUTIONAL: + fever/chills when she gets abdominal pain EYES: No recent changes SKIN: No rash or itching CARDIOVASCULAR: No chest pain, syncope, palpitations, or edema RESPIRATORY: No SOB, chronic cough with clear sputum GASTROINTESTINAL: No current nausea, vomiting or abdominal pain NEUROLOGICAL: No headaches or weakness ENDOCRINE: No cold or heat intolerance GENITOURINARY: No urgency or frequency of urination MUSCULOSKELETAL: No back pain or joint pain LYMPHATICS: No enlarged lymph nodes PSYCHIATRIC: + anxiety/depression Physical Exam Physical Exam GEN.: Mild distress. Alert and oriented. HEENT: Head is normocephalic, atraumatic NECK: Supple. LUNGS: coarse end expiratory wheezing in bases HEART: RRR, S1, S2 present. Peripheral pulses intact ABDOMEN: Soft, nontender. Positive bowel sounds. EXTREMITIES: Without any cyanosis. NEUROLOGIC: Normal speech, normal tone PSYCHIATRIC: Normal affect, normal mood. SKIN: No ulcerations Vitals Vitals Vital Signs Date Time Temp Pulse Resp B/P (MAP) Pulse Ox O2 Delivery O2 Flow Rate FiO2 09/20/18 03:45 98.5 70 18 99/57 (71) 92 Room Air 98.5 Labs Labs Laboratory Tests Test 09/19/18 14:04 09/19/18 15:18 09/19/18 16:15 09/19/18 17:00 White Blood Count 11.1 x10^3/uL (4.0-11.0) Red Blood Count 4.80 x10^6/uL (3.50-5.40) Hemoglobin 15.2 g/dL (12.0-15.5) Hematocrit 44.1 % (36.0-47.0) Mean Corpuscular Volume 92 fL (79-100) Mean Corpuscular Hemoglobin 32 pg (25-35) Mean Corpuscular Hemoglobin Concent 34 g/dL (31-37) Red Cell Distribution Width 16.3 % (11.5-14.5) Platelet Count 182 x10^3/uL (140-400) Neutrophils (%) (Auto) 77 % (31-73) Lymphocytes (%) (Auto) 12 % (24-48) Monocytes (%) (Auto) 10 % (0-9) Eosinophils (%) (Auto) 0 % (0-3) Basophils (%) (Auto) 0 % (0-3) Neutrophils # (Auto) 8.6 x10^3uL (1.8-7.7) Lymphocytes # (Auto) 1.4 x10^3/uL (1.0-4.8) Monocytes # (Auto) 1.1 x10^3/uL (0.0-1.1) Eosinophils # (Auto) 0.0 x10^3/uL (0.0-0.7) Basophils # (Auto) 0.0 x10^3/uL (0.0-0.2) Prothrombin Time 12.3 SEC (11.7-14.0) Prothromb Time International Ratio 0.9 (0.8-1.1) Sodium Level 131 mmol/L (136-145) Potassium Level 2.7 mmol/L (3.5-5.1) Chloride Level 89 mmol/L (98-107) Carbon Dioxide Level 25 mmol/L (21-32) Anion Gap 17 (6-14) Blood Urea Nitrogen 60 mg/dL (7-20) Creatinine 7.1 mg/dL (0.6-1.0) Estimated GFR (Cockcroft-Gault) 5.9 BUN/Creatinine Ratio 8 (6-20) Glucose Level 110 mg/dL (70-99) Lactic Acid Level 2.6 mmol/L (0.4-2.0) 1.3 mmol/L (0.4-2.0) Calcium Level 8.0 mg/dL (8.5-10.1) Phosphorus Level 6.9 mg/dL (2.6-4.7) Magnesium Level 1.7 mg/dL (1.8-2.4) Total Bilirubin 0.9 mg/dL (0.2-1.0) Aspartate Amino Transf (AST/SGOT) 20 U/L (15-37) Alanine Aminotransferase (ALT/SGPT) 28 U/L (14-59) Alkaline Phosphatase 67 U/L (46-116) Creatine Kinase 190 U/L (26-192) Troponin I Quantitative 0.028 ng/mL (0.000-0.055) Total Protein 7.4 g/dL (6.4-8.2) Albumin 3.7 g/dL (3.4-5.0) Albumin/Globulin Ratio 1.0 (1.0-1.7) Lipase 163 U/L (73-393) Ethyl Alcohol Level < 10 mg/dL (0-10) Urine Collection Type Unknown Urine Color Faviola Urine Clarity Cloudy Urine pH 5.5 Urine Specific [place] 1.020 Urine Protein 100 mg/dL (NEG-TRACE) Urine Glucose (UA) Negative mg/dL (NEG) Urine Ketones (Stick) Negative mg/dL (NEG) Urine Blood Moderate (NEG) Urine Nitrite Negative (NEG) Urine Bilirubin Moderate (NEG) Urine Urobilinogen Dipstick 1.0 mg/dL (0.2 mg/dL) Urine Leukocyte Esterase Small (NEG) Urine RBC 0 /HPF (0-2) Urine WBC Occ /HPF (0-4) Urine Squamous Epithelial Cells Occ /LPF Urine Amorphous Sediment Present /HPF Urine Bacteria 0 /HPF (0-FEW) Urine Hyaline Casts Many /HPF Urine Opiates Screen Neg (NEG) Urine Methadone Screen Neg (NEG) Urine Barbiturates Neg (NEG) Urine Phencyclidine Screen Neg (NEG) Urine Amphetamine/Methamphetamine Neg (NEG) Urine Benzodiazepines Screen Neg (NEG) Urine Cocaine Screen Neg (NEG) Urine Cannabinoids Screen Pos (NEG) Urine Ethyl Alcohol Neg (NEG) O2 Saturation 89 % (92-99) Arterial Blood pH 7.36 (7.35-7.45) Arterial Blood pCO2 at Patient Temp 35 mmHg (35-46) Arterial Blood pO2 at Patient Temp 60 mmHg (75-108) Arterial Blood HCO3 19 mmol/L (21-28) Arterial Blood Base Excess -5 mmol/L (-3-3) FiO2 21 Test 09/19/18 17:16 09/20/18 04:05 Stool Occult Blood Negative (NEG) Sodium Level 139 mmol/L (136-145) Potassium Level 3.3 mmol/L (3.5-5.1) Chloride Level 104 mmol/L (98-107) Carbon Dioxide Level 22 mmol/L (21-32) Anion Gap 13 (6-14) Blood Urea Nitrogen 46 mg/dL (7-20) Creatinine 3.0 mg/dL (0.6-1.0) Estimated GFR (Cockcroft-Gault) 16.0 Glucose Level 98 mg/dL (70-99) Calcium Level 7.4 mg/dL (8.5-10.1) Laboratory Tests Test 09/19/18 14:04 09/19/18 15:18 09/19/18 16:15 09/19/18 17:00 White Blood Count 11.1 x10^3/uL (4.0-11.0) Red Blood Count 4.80 x10^6/uL (3.50-5.40) Hemoglobin 15.2 g/dL (12.0-15.5) Hematocrit 44.1 % (36.0-47.0) Mean Corpuscular Volume 92 fL (79-100) Mean Corpuscular Hemoglobin 32 pg (25-35) Mean Corpuscular Hemoglobin Concent 34 g/dL (31-37) Red Cell Distribution Width 16.3 % (11.5-14.5) Platelet Count 182 x10^3/uL (140-400) Neutrophils (%) (Auto) 77 % (31-73) Lymphocytes (%) (Auto) 12 % (24-48) Monocytes (%) (Auto) 10 % (0-9) Eosinophils (%) (Auto) 0 % (0-3) Basophils (%) (Auto) 0 % (0-3) Neutrophils # (Auto) 8.6 x10^3uL (1.8-7.7) Lymphocytes # (Auto) 1.4 x10^3/uL (1.0-4.8) Monocytes # (Auto) 1.1 x10^3/uL (0.0-1.1) Eosinophils # (Auto) 0.0 x10^3/uL (0.0-0.7) Basophils # (Auto) 0.0 x10^3/uL (0.0-0.2) Prothrombin Time 12.3 SEC (11.7-14.0) Prothromb Time International Ratio 0.9 (0.8-1.1) Sodium Level 131 mmol/L (136-145) Potassium Level 2.7 mmol/L (3.5-5.1) Chloride Level 89 mmol/L (98-107) Carbon Dioxide Level 25 mmol/L (21-32) Anion Gap 17 (6-14) Blood Urea Nitrogen 60 mg/dL (7-20) Creatinine 7.1 mg/dL (0.6-1.0) Estimated GFR (Cockcroft-Gault) 5.9 BUN/Creatinine Ratio 8 (6-20) Glucose Level 110 mg/dL (70-99) Lactic Acid Level 2.6 mmol/L (0.4-2.0) 1.3 mmol/L (0.4-2.0) Calcium Level 8.0 mg/dL (8.5-10.1) Phosphorus Level 6.9 mg/dL (2.6-4.7) Magnesium Level 1.7 mg/dL (1.8-2.4) Total Bilirubin 0.9 mg/dL (0.2-1.0) Aspartate Amino Transf (AST/SGOT) 20 U/L (15-37) Alanine Aminotransferase (ALT/SGPT) 28 U/L (14-59) Alkaline Phosphatase 67 U/L (46-116) Creatine Kinase 190 U/L (26-192) Troponin I Quantitative 0.028 ng/mL (0.000-0.055) Total Protein 7.4 g/dL (6.4-8.2) Albumin 3.7 g/dL (3.4-5.0) Albumin/Globulin Ratio 1.0 (1.0-1.7) Lipase 163 U/L (73-393) Ethyl Alcohol Level < 10 mg/dL (0-10) Urine Collection Type Unknown Urine Color [place]aviola Urine Clarity Cloudy Urine pH 5.5 Urine Specific [place] 1.020 Urine Protein 100 mg/dL (NEG-TRACE) Urine Glucose (UA) Negative mg/dL (NEG) Urine Ketones (Stick) Negative mg/dL (NEG) Urine Blood Moderate (NEG) Urine Nitrite Negative (NEG) Urine Bilirubin Moderate (NEG) Urine Urobilinogen Dipstick 1.0 mg/dL (0.2 mg/dL) Urine Leukocyte Esterase Small (NEG) Urine RBC 0 /HPF (0-2) Urine WBC Occ /HPF (0-4) Urine Squamous Epithelial Cells Occ /LPF Urine Amorphous Sediment Present /HPF Urine Bacteria 0 /HPF (0-FEW) Urine Hyaline Casts Many /HPF Urine Opiates Screen Neg (NEG) Urine Methadone Screen Neg (NEG) Urine Barbiturates Neg (NEG) Urine Phencyclidine Screen Neg (NEG) Urine Amphetamine/Methamphetamine Neg (NEG) Urine Benzodiazepines Screen Neg (NEG) Urine Cocaine Screen Neg (NEG) Urine Cannabinoids Screen Pos (NEG) Urine Ethyl Alcohol Neg (NEG) O2 Saturation 89 % (92-99) Arterial Blood pH 7.36 (7.35-7.45) Arterial Blood pCO2 at Patient Temp 35 mmHg (35-46) Arterial Blood pO2 at Patient Temp 60 mmHg (75-108) Arterial Blood HCO3 19 mmol/L (21-28) Arterial Blood Base Excess -5 mmol/L (-3-3) FiO2 21 Test 09/19/18 17:16 09/20/18 04:05 Stool Occult Blood Negative (NEG) Sodium Level 139 mmol/L (136-145) Potassium Level 3.3 mmol/L (3.5-5.1) Chloride Level 104 mmol/L (98-107) Carbon Dioxide Level 22 mmol/L (21-32) Anion Gap 13 (6-14) Blood Urea Nitrogen 46 mg/dL (7-20) Creatinine 3.0 mg/dL (0.6-1.0) Estimated GFR (Cockcroft-Gault) 16.0 Glucose Level 98 mg/dL (70-99) Calcium Level 7.4 mg/dL (8.5-10.1) VTE Prophylaxis Ordered VTE Prophylaxis Devices: Yes VTE Pharmacological Prophylaxi: No Assessment/Plan Assessment/Plan Pt is a 58yo CF admitted with hypotension 1)Hypotension- 2/2 dehydration. Improving with IVF hydration. Pt currently has zofran available for nausea. Will consult Dr. Henderson for continued input on pt's chronic nausea and vomiting 2)Hx of hypertension- Lisinopril being held 3)CATHY- prerenal, improving with IVF hydration. 4)Hypokalemia- improving. Continue with replacement 5)SIRS- with no current source of infection. CTM 6)COPD- with current wheezing. Pt is asymptomatic. Has breathing treatments available, CTM 7)Hyponatremia- resolved with IVF hydration 8)Lactic acidosis- resolved 9)Depression/Anxiety- pt continued on Seroquel and duloxetine JULIUS MARIA MD September 20, 2018 07:41
[2018-09-20] MEDS ORDERED: POTASSIUM CHLORIDE 20 MEQ TABLET.ER. PO ONE (07:45)
[2018-09-20] MEDS ORDERED: PANTOPRAZOLE 40 MG TABLET.DR. PO SCH (08:00)
[2018-09-20] MEDS: BUDESONIDE 0.5 MG/2 ML NEBU. NEB SCH ×2 (08:23→19:14)
[2018-09-20] MEDS: ALBUTEROL SULFATE 2.5 MG/3 ML NEBU. NEB SCH ×4 (08:23→19:14)
[2018-09-20] MEDS: DULoxetine HCL 30 MG CAPSULE.DR PO SCH ×2 (08:37→21:21)
[2018-09-20] MEDS: ONDANSETRON PF 4 MG/2 ML VIAL. IV PRN (08:38)
[2018-09-20] MEDS ORDERED: NON FORMULARY ITEM (Budesonide/Formoterol Fumarate (Symbicort 160-4.5 Mcg Inhaler) 2 PUFF) IH SCH (09:00)
--- NOTE | 2018-09-20 09:36 | PDOC2 ---
GI CONSULT Reason For Consult: Uncontrolled n/v HPI: HPI: 58 y/o female who we saw in 02/2018 for chronic abd pain, vomiting, dyspepsia, and diarrhea. Had wall thickening in descending and sigmoid colon on CT. + C Diff. Improved w/ vanco. Since then, has followed-up as outpt for testing as follows: Hep C negative 02/2018. Abd US 07/08/18: hepatic steatosis, no cholelithiasis or cholecystitis. PIPIDA 07/08/18: normal w/ GB EF 97%. EGD and colonoscopy 08/13/18: LA Grade A reflux esophagitis (no Johnson's on biopsy), normal stomach, normal duodenum, 7mm adenomatous sigmoid colon polyp, sigmoid diverticulosis, non-bleeding internal hemorrhoids. Was apparently doing better until 8 days ago - n/v recurred (sometimes food, sometimes bilious) with a "feeling" in her upper abdomen/central chest. Denies precipitating events. Unable to tolerate PO, noted decreased urine and stool output. Called EMS, was hypotensive, admitted through ER w/ hypokalemia and CATHY. She is eating eggs this morning and says this is the first solid food she has eaten in many days. The "feeling" has improved. Had some soft stools yesterday. Concerned w/ weight loss and ongoing symptoms. Takes Prilosec 40mg QD, Zofran "more than I'm supposed to," and Celebrex. Denies dysphagia, hematemesis, hematochezia, melena, diarrhea, and constipation. No pancreas history. CT noted mildly distended stomach and possible mild enteritis. PMH: PMH: COPD, GERD, colon polyp, diverticulosis, hemorrhoids tonsillectomy, left knee surgery x 4 FH: Family History: Cancer (mother - esophageal, breast, ?uterine) Social History: Smoke: 1 pack per day ALCOHOL: other (1 pint of vodka weeky) Drugs: Marijuana ROS: GEN: Denies fevers, chills, sweats HEENT: Denies blurred vision, sore throat CV: +chest pain RESP: +cough GI: Per HPI : Denies hematuria, dysuria ENDO: +weight changes NEURO: Denies confusion, dizziness MSK: Denies weakness, joint pain/swelling SKIN: Denies jaundice, pruritus Vitals: Vitals: Vital Signs Date Time Temp Pulse Resp B/P (MAP) Pulse Ox O2 Delivery O2 Flow Rate FiO2 09/20/18 08:27 94 Room Air 09/20/18 07:00 97.6 77 18 115/61 (79) 97.6 Labs: Labs: Laboratory Tests Test 09/19/18 14:04 09/19/18 15:18 09/19/18 16:15 09/19/18 17:00 White Blood Count 11.1 x10^3/uL (4.0-11.0) Red Blood Count 4.80 x10^6/uL (3.50-5.40) Hemoglobin 15.2 g/dL (12.0-15.5) Hematocrit 44.1 % (36.0-47.0) Mean Corpuscular Volume 92 fL (79-100) Mean Corpuscular Hemoglobin 32 pg (25-35) Mean Corpuscular Hemoglobin Concent 34 g/dL (31-37) Red Cell Distribution Width 16.3 % (11.5-14.5) Platelet Count 182 x10^3/uL (140-400) Neutrophils (%) (Auto) 77 % (31-73) Lymphocytes (%) (Auto) 12 % (24-48) Monocytes (%) (Auto) 10 % (0-9) Eosinophils (%) (Auto) 0 % (0-3) Basophils (%) (Auto) 0 % (0-3) Neutrophils # (Auto) 8.6 x10^3uL (1.8-7.7) Lymphocytes # (Auto) 1.4 x10^3/uL (1.0-4.8) Monocytes # (Auto) 1.1 x10^3/uL (0.0-1.1) Eosinophils # (Auto) 0.0 x10^3/uL (0.0-0.7) Basophils # (Auto) 0.0 x10^3/uL (0.0-0.2) Prothrombin Time 12.3 SEC (11.7-14.0) Prothromb Time International Ratio 0.9 (0.8-1.1) Sodium Level 131 mmol/L (136-145) Potassium Level 2.7 mmol/L (3.5-5.1) Chloride Level 89 mmol/L (98-107) Carbon Dioxide Level 25 mmol/L (21-32) Anion Gap 17 (6-14) Blood Urea Nitrogen 60 mg/dL (7-20) Creatinine 7.1 mg/dL (0.6-1.0) Estimated GFR (Cockcroft-Gault) 5.9 BUN/Creatinine Ratio 8 (6-20) Glucose Level 110 mg/dL (70-99) Lactic Acid Level 2.6 mmol/L (0.4-2.0) 1.3 mmol/L (0.4-2.0) Calcium Level 8.0 mg/dL (8.5-10.1) Phosphorus Level 6.9 mg/dL (2.6-4.7) Magnesium Level 1.7 mg/dL (1.8-2.4) Total Bilirubin 0.9 mg/dL (0.2-1.0) Aspartate Amino Transf (AST/SGOT) 20 U/L (15-37) Alanine Aminotransferase (ALT/SGPT) 28 U/L (14-59) Alkaline Phosphatase 67 U/L (46-116) Creatine Kinase 190 U/L (26-192) Troponin I Quantitative 0.028 ng/mL (0.000-0.055) Total Protein 7.4 g/dL (6.4-8.2) Albumin 3.7 g/dL (3.4-5.0) Albumin/Globulin Ratio 1.0 (1.0-1.7) Lipase 163 U/L (73-393) Ethyl Alcohol Level < 10 mg/dL (0-10) Urine Collection Type Unknown Urine Color [place] Urine Clarity Cloudy Urine pH 5.5 Urine Specific [place] 1.020 Urine Protein 100 mg/dL (NEG-TRACE) Urine Glucose (UA) Negative mg/dL (NEG) Urine Ketones (Stick) Negative mg/dL (NEG) Urine Blood Moderate (NEG) Urine Nitrite Negative (NEG) Urine Bilirubin Moderate (NEG) Urine Urobilinogen Dipstick 1.0 mg/dL (0.2 mg/dL) Urine Leukocyte Esterase Small (NEG) Urine RBC 0 /HPF (0-2) Urine WBC Occ /HPF (0-4) Urine Squamous Epithelial Cells Occ /LPF Urine Amorphous Sediment Present /HPF Urine Bacteria 0 /HPF (0-FEW) Urine Hyaline Casts Many /HPF Urine Opiates Screen Neg (NEG) Urine Methadone Screen Neg (NEG) Urine Barbiturates Neg (NEG) Urine Phencyclidine Screen Neg (NEG) Urine Amphetamine/Methamphetamine Neg (NEG) Urine Benzodiazepines Screen Neg (NEG) Urine Cocaine Screen Neg (NEG) Urine Cannabinoids Screen Pos (NEG) Urine Ethyl Alcohol Neg (NEG) O2 Saturation 89 % (92-99) Arterial Blood pH 7.36 (7.35-7.45) Arterial Blood pCO2 at Patient Temp 35 mmHg (35-46) Arterial Blood pO2 at Patient Temp 60 mmHg (75-108) Arterial Blood HCO3 19 mmol/L (21-28) Arterial Blood Base Excess -5 mmol/L (-3-3) FiO2 21 Test 09/19/18 17:16 09/20/18 04:05 Stool Occult Blood Negative (NEG) Sodium Level 139 mmol/L (136-145) Potassium Level 3.3 mmol/L (3.5-5.1) Chloride Level 104 mmol/L (98-107) Carbon Dioxide Level 22 mmol/L (21-32) Anion Gap 13 (6-14) Blood Urea Nitrogen 46 mg/dL (7-20) Creatinine 3.0 mg/dL (0.6-1.0) Estimated GFR (Cockcroft-Gault) 16.0 Glucose Level 98 mg/dL (70-99) Calcium Level 7.4 mg/dL (8.5-10.1) Allergies: Coded Allergies: No Known Drug Allergies (Unverified , 08/13/18) Medications: Current Medications Medications (Trade) Dose Ordered Sig/Mohan Route PRN Reason Start Time Stop Time Status Last Admin Dose Admin Sodium Chloride 1,000 ml @ 1,000 mls/hr Q1H IV 09/19/18 14:20 09/19/18 15:19 DC 09/19/18 14:51 Potassium Chloride (KCl Oral Soln) 40 meq 1X ONCE PO 09/19/18 15:15 09/19/18 15:16 DC 09/19/18 15:38 Ondansetron HCl (Zofran) 4 mg PRN Q8HRS PRN IV NAUSEA/VOMITING 09/19/18 15:15 09/20/18 15:14 09/20/18 08:38 Sodium Chloride 1,000 ml @ 250 mls/hr Q4H IV 09/19/18 15:10 09/20/18 15:09 09/20/18 08:42 Sodium Chloride 1,000 ml @ 100 mls/hr Q10H IV 09/19/18 17:15 09/20/18 03:22 Ondansetron HCl (Zofran Odt) 8 mg PRN Q6HRS PRN PO NAUSEA/VOMITING 09/19/18 17:15 09/19/18 18:05 Quetiapine Fumarate (SEROquel) 50 mg 1X ONCE PO 09/19/18 23:45 09/19/18 23:46 DC 09/19/18 23:52 Trazodone HCl (Desyrel) 100 mg 1X ONCE PO 09/19/18 23:45 09/19/18 23:46 DC 09/19/18 23:52 Budesonide (Pulmicort) 0.5 mg RTBID NEB 09/20/18 08:00 09/20/18 08:23 Albuterol Sulfate (Ventolin Neb Soln) 2.5 mg RTQID NEB 09/20/18 08:00 09/20/18 08:23 Potassium Chloride (Klor-Con) 40 meq 1X ONCE PO 09/20/18 07:45 09/20/18 07:46 DC 09/20/18 08:36 Duloxetine HCl (Cymbalta) 60 mg BID PO 09/20/18 09:00 09/20/18 08:37 Pantoprazole Sodium (Protonix) 40 mg DAILYAC PO 09/20/18 08:00 09/20/18 08:36 Imaging: Imaging: CXR IMPRESSION: No radiographic evidence of an acute cardiopulmonary process. CT A/P IMPRESSION: 1. Few fluid distended small bowel loops identified in the abdomen, nonspecific, mild enteritis is a possibility. 2. Sigmoid colon diverticulosis. 3. Hepatic steatosis. PE: GEN: NAD HEENT: Atraumatic, PERRL LUNGS: CTAB HEART: RRR ABD: NABS, S/ND/NT EXTREMITY: No edema SKIN: No rashes, no jaundice NEURO/PSYCH: A & O 3, tearful A/P: A/P: Hypotension, hypokalemia, CATHY - improving Recurrent n/v, epigastric/chest discomfort, weight loss GERD - on PPI CRC screen, h/o adenomatous colon polyp - UTD (08/2018) Diverticulosis, hemorrhoids H/o C Diff Hepatic steatosis NSAID use -- She wants a hamburger for lunch. Workup per HPI. GES tomorrow. ?component of cannabis hyperemesis Agree w/ PPI - will increase to BID for now. MAC KNOX September 20, 2018 09:36
[2018-09-20 11:00] VITALS: BP 97/56
[2018-09-20] MEDS: ONDANSETRON ODT 4 MG TAB.RAPDIS. PO PRN ×2 (12:38→17:44)
--- NOTE | 2018-09-20 12:44 | NUR ---
SS following for discharge planning. SS reviewed pt chart. Pt is from home and is currently on room air. No discharge needs noted at this time. SS will continue to follow for discharge planning.
[2018-09-20 15:00] VITALS: BP 102/57
[2018-09-20] MEDS: PANTOPRAZOLE 40 MG TABLET.DR. PO SCH (16:13)
[2018-09-20 19:50] VITALS: BP 120/62
--- NOTE | 2018-09-20 20:40 | NUR ---
Patient is vomiting, with diarrhea. Too soon for her Zofran. Patient is crying, and miserable. RN paged [employer] Dr Arellano. New order received.
[2018-09-20] MEDS: traZODone 100 MG TABLET. PO SCH (21:21)
[2018-09-20] MEDS: QUEtiapine 25 MG TABLET. PO SCH (21:21)
[2018-09-20] MEDS: METOCLOPRAMIDE HCL 10 MG/2 ML VIAL. IV PRN (21:22)
[2018-09-20 21:44] LABS: AMYLASE 43 U/L (25-115); LIPASE 181 U/L (73-393)
[2018-09-20 23:40] VITALS: BP 99/52
[2018-09-21 03:25] VITALS: BP 110/57
[2018-09-21 03:50] LABS: BASO % 0 % (0-3); EOS # 0.1 x10^3/uL (0.0-0.7); EOS % 1 % (0-3); HEMATOCRIT 36.4 % (36.0-47.0); LYMPH # 1.4 x10^3/uL (1.0-4.8); LYMPH % 22 % (24-48); MEAN CORPUSCULAR HEMOGLOBIN 31 pg (25-35); MEAN CORPUSCULAR HGB CONC 33 g/dL (31-37); MEAN CORPUSCULAR VOLUME 95 fL (79-100); MONO # 0.6 x10^3/uL (0.0-1.1); MONO % 9 % (0-9); NEUT # 4.5 x10^3uL (1.8-7.7); NEUT % 68 % (31-73); PLATELET COUNT 130 x10^3/uL (140-400); RED BLOOD COUNT 3.82 x10^6/uL (3.50-5.40); RED CELL DISTRIBUTION WIDTH 16.7 % (11.5-14.5); WHITE BLOOD COUNT 6.6 x10^3/uL (4.0-11.0)
[2018-09-21 04:20] LABS: ALBUMIN 2.6 g/dL (3.4-5.0); ALBUMIN/GLOBULIN RATIO 0.8 (1.0-1.7); CALCIUM 7.6 mg/dL (8.5-10.1); CREATININE 1.1 mg/dL (0.6-1.0); POTASSIUM 3.6 mmol/L (3.5-5.1); TOTAL BILIRUBIN 0.4 mg/dL (0.2-1.0); TOTAL PROTEIN 5.8 g/dL (6.4-8.2)
[2018-09-21 07:00] VITALS: BP 122/66
--- NOTE | 2018-09-21 07:01 | PDOC ---
SUBJECTIVE Subjective Pt states that she was doing a little bit better yesterday until around dinner time. Had eaten eggs for breakfast and a hamburger for lunch. Ate chicken fried steak for dinner, small bites. Feeling in her stomach and nausea started prior to eating. Was eating a few bites at a time and ended up vomiting. Discussed with pt in the future when she goes through these bouts of nausea and vomiting, keeping food light and bland for a minimum of 24-48 hours until nausea and vomiting has resolved. Pt requesting to start Ensure today after her GES. OBJECTIVE Vital Signs Vital Signs Date Time Temp Pulse Resp B/P (MAP) Pulse Ox O2 Delivery O2 Flow Rate FiO2 09/21/18 03:25 97.6 67 20 110/57 (74) 94 Room Air 97.6 09/20/18 23:40 98.3 74 18 99/52 (68) 94 Room Air 98.3 09/20/18 20:00 Room Air 09/20/18 19:50 98.6 73 20 120/62 (81) 98 Room Air 98.6 09/20/18 19:15 97 Room Air 09/20/18 16:26 Room Air 09/20/18 15:00 98.3 75 16 102/57 (72) 97 Room Air 98.3 09/20/18 12:13 Room Air 09/20/18 11:00 98.4 68 18 97/56 (70) 96 Room Air 98.4 09/20/18 08:27 94 Room Air 09/20/18 08:25 94 Room Air 09/20/18 08:00 Room Air 09/20/18 07:00 97.6 77 18 115/61 (79) 93 Room Air 97.6 I & O Intake and Output 09/21/18 07:00 Intake Total 630 ml Output Total 1600 ml Balance -970 ml Intake Oral 630 ml Output Urine Total 1600 ml # Bowel Movements 2 PHYSICAL EXAM Physical Exam GEN.: NAD. Alert and oriented. HEENT: Head is normocephalic, atraumatic NECK: Supple. LUNGS: CTAB, regular breathing rate and effort HEART: RRR, S1, S2 present. Peripheral pulses intact ABDOMEN: Soft, nontender. Positive bowel sounds. EXTREMITIES: Without any cyanosis. NEUROLOGIC: Normal speech, normal tone PSYCHIATRIC: Normal affect, normal mood. SKIN: No ulcerations ASSESSMENT/PLAN Assessment/Plan Pt is a 58yo CF admitted with hypotension 1)Hypotension- 2/2 dehydration from uncontrolled nausea and vomiting. Improved with IVF hydration. Pt currently has zofran po and Reglan IV available for nausea. GI following, planning on GES today. Will D/C IVF 2)Hx of hypertension- Lisinopril being held 3)CATHY- prerenal, continuing to improve with IVF hydration. 4)Hypokalemia- resolved 5)SIRS- with no current source of infection, resolved 6)COPD- had wheezing on admission, this has resolved. Breathing treatments available, CTM 7)Hyponatremia- resolved with IVF hydration 8)Lactic acidosis- resolved 9)Depression/Anxiety- pt continued on Seroquel and duloxetine 10)Thrombocytopenia- mild, CTM 11)PEM- moderate COMMENT Lab Laboratory Tests Test 09/21/18 03:10 White Blood Count 6.6 x10^3/uL (4.0-11.0) Red Blood Count 3.82 x10^6/uL (3.50-5.40) Hemoglobin 12.0 g/dL (12.0-15.5) Hematocrit 36.4 % (36.0-47.0) Mean Corpuscular Volume 95 fL (79-100) Mean Corpuscular Hemoglobin 31 pg (25-35) Mean Corpuscular Hemoglobin Concent 33 g/dL (31-37) Red Cell Distribution Width 16.7 % (11.5-14.5) Platelet Count 130 x10^3/uL (140-400) Neutrophils (%) (Auto) 68 % (31-73) Lymphocytes (%) (Auto) 22 % (24-48) Monocytes (%) (Auto) 9 % (0-9) Eosinophils (%) (Auto) 1 % (0-3) Basophils (%) (Auto) 0 % (0-3) Neutrophils # (Auto) 4.5 x10^3uL (1.8-7.7) Lymphocytes # (Auto) 1.4 x10^3/uL (1.0-4.8) Monocytes # (Auto) 0.6 x10^3/uL (0.0-1.1) Eosinophils # (Auto) 0.1 x10^3/uL (0.0-0.7) Basophils # (Auto) 0.0 x10^3/uL (0.0-0.2) Sodium Level 142 mmol/L (136-145) Potassium Level 3.6 mmol/L (3.5-5.1) Chloride Level 110 mmol/L (98-107) Carbon Dioxide Level 21 mmol/L (21-32) Anion Gap 11 (6-14) Blood Urea Nitrogen 26 mg/dL (7-20) Creatinine 1.1 mg/dL (0.6-1.0) Estimated GFR (Cockcroft-Gault) 51.0 BUN/Creatinine Ratio 24 (6-20) Glucose Level 108 mg/dL (70-99) Calcium Level 7.6 mg/dL (8.5-10.1) Total Bilirubin 0.4 mg/dL (0.2-1.0) Aspartate Amino Transf (AST/SGOT) 48 U/L (15-37) Alanine Aminotransferase (ALT/SGPT) 32 U/L (14-59) Alkaline Phosphatase 48 U/L (46-116) Total Protein 5.8 g/dL (6.4-8.2) Albumin 2.6 g/dL (3.4-5.0) Albumin/Globulin Ratio 0.8 (1.0-1.7) JULIUS MARIA MD September 21, 2018 07:01
[2018-09-21] MEDS: ALBUTEROL SULFATE 2.5 MG/3 ML NEBU. NEB SCH ×4 (08:00→19:54)
[2018-09-21] MEDS: DULoxetine HCL 30 MG CAPSULE.DR PO SCH ×2 (08:16→20:44)
--- NOTE | 2018-09-21 09:50 | PDOC ---
Objective: Objective: Reviewed w/ RN - tolerated PO yesterday until the evening, then vomited. Having loose stools. Was tearful throughout the day yesterday but better today. Reviewed primary note - ate eggs, a hamburger, chicken fried steak yesterday. Got IV Reglan last night. Vital Signs: Vital Signs Date Time Temp Pulse Resp B/P (MAP) Pulse Ox O2 Delivery O2 Flow Rate FiO2 09/21/18 08:00 Room Air 09/21/18 07:00 97.7 66 18 122/66 (84) 97 97.7 Labs: Laboratory Tests Test 09/21/18 03:10 White Blood Count 6.6 x10^3/uL Red Blood Count 3.82 x10^6/uL Hemoglobin 12.0 g/dL Hematocrit 36.4 % Mean Corpuscular Volume 95 fL Mean Corpuscular Hemoglobin 31 pg Mean Corpuscular Hemoglobin Concent 33 g/dL Red Cell Distribution Width 16.7 % Platelet Count 130 x10^3/uL Neutrophils (%) (Auto) 68 % Lymphocytes (%) (Auto) 22 % Monocytes (%) (Auto) 9 % Eosinophils (%) (Auto) 1 % Basophils (%) (Auto) 0 % Neutrophils # (Auto) 4.5 x10^3uL Lymphocytes # (Auto) 1.4 x10^3/uL Monocytes # (Auto) 0.6 x10^3/uL Eosinophils # (Auto) 0.1 x10^3/uL Basophils # (Auto) 0.0 x10^3/uL Sodium Level 142 mmol/L Potassium Level 3.6 mmol/L Chloride Level 110 mmol/L Carbon Dioxide Level 21 mmol/L Anion Gap 11 Blood Urea Nitrogen 26 mg/dL Creatinine 1.1 mg/dL Estimated GFR (Cockcroft-Gault) 51.0 BUN/Creatinine Ratio 24 Glucose Level 108 mg/dL Calcium Level 7.6 mg/dL Total Bilirubin 0.4 mg/dL Aspartate Amino Transf (AST/SGOT) 48 U/L Alanine Aminotransferase (ALT/SGPT) 32 U/L Alkaline Phosphatase 48 U/L Total Protein 5.8 g/dL Albumin 2.6 g/dL Albumin/Globulin Ratio 0.8 PE: GEN: NAD - in WC with transportation going to [facility] LUNGS: room air NEURO/PSYCH: A & O 3, smiling and waving A/P: Hypotension, CATHY - improved Recurrent n/v, epigastric/chest discomfort - h/o GERD, recent 'scopes and GB testing unrevealing, +marijuana Loose stools, h/o C Diff -- Await GES, try bland diet. Continue PPI. Stop marijuana. MAC KNOX September 21, 2018 09:50
[2018-09-21 10:50] VITALS: BP 127/77
[2018-09-21] MEDS: BUDESONIDE 0.5 MG/2 ML NEBU. NEB SCH ×2 (12:41→19:54)
--- NOTE | 2018-09-21 13:47 | RAD ---
Gastric Emptying Study 09/21/2018 Indication: Nausea, vomiting Procedure: Anterior and posterior projection static images are obtained over the stomach following oral administration of 2 mCi of 99 M technetium sulfur colloid in a solid meal (egg and toast). Time points include an immediate baseline, and 1, 2, 3, and 4 hours post ingestion. Findings: There is progressive emptying of the stomach on sequential images. Percentage retention at... One hour is 67% (normal 34.8-91%). Two hours 36% (normal 2.7-60%). Three hours 21% (normal 0.5-28%). Four hours 12% (normal 0-10%). Impression: Mildly elevated gastric retention at the 4 hour time point. In the appropriate setting, findings consistent with mildly delayed gastric emptying. Consensus Recommendations for Gastric Emptying Scintigraphy: A Joint Report of the [place] [employer]astro[employer] Society and the Society of Nuclear Medicine: J. Nucl. Med. Technol. July 2007 vol. 36 no. 1 44-54 Grading for severity of delayed GE based on the 4-h value: grade 1 (mild): 11?20% retention at 4 h grade 2 (moderate): 21?35% retention at 4 h grade 3 (severe): 36?50% retention at 4 h grade 4 (very severe): >50% retention at 4 h. Electronically signed by: Jose Francisco Kim MD (09/21/2018 1:44 PM) [facility]
[2018-09-21] MEDS: PANTOPRAZOLE 40 MG TABLET.DR. PO SCH ×2 (13:53→18:10)
[2018-09-21] MEDS: METOCLOPRAMIDE HCL 10 MG/2 ML VIAL. IV PRN (13:54)
[2018-09-21 14:56] VITALS: BP 138/75
[2018-09-21 19:30] VITALS: BP 139/87
[2018-09-21] MEDS: traZODone 100 MG TABLET. PO SCH (20:43)
[2018-09-21] MEDS: QUEtiapine 25 MG TABLET. PO SCH (20:43)
[2018-09-21 22:50] VITALS: BP 145/81
[2018-09-22 03:40] VITALS: BP 129/72
[2018-09-22 06:39] LABS: BASO % 1 % (0-3); EOS # 0.1 x10^3/uL (0.0-0.7); EOS % 2 % (0-3); HEMOGLOBIN 11.8 g/dL (12.0-15.5); LYMPH # 1.3 x10^3/uL (1.0-4.8); LYMPH % 18 % (24-48); MEAN CORPUSCULAR HEMOGLOBIN 32 pg (25-35); MEAN CORPUSCULAR HGB CONC 34 g/dL (31-37); MEAN CORPUSCULAR VOLUME 95 fL (79-100); MONO # 0.9 x10^3/uL (0.0-1.1); MONO % 12 % (0-9); NEUT # 5.1 x10^3uL (1.8-7.7); NEUT % 68 % (31-73); PLATELET COUNT 186 x10^3/uL (140-400); WHITE BLOOD COUNT 7.5 x10^3/uL (4.0-11.0)
[2018-09-22 07:27] VITALS: BP 155/84
[2018-09-22 07:32] LABS: ALBUMIN 2.7 g/dL (3.4-5.0); ALBUMIN/GLOBULIN RATIO 0.8 (1.0-1.7); CALCIUM 8.4 mg/dL (8.5-10.1); GFR 56.9; POTASSIUM 4.7 mmol/L (3.5-5.1); TOTAL BILIRUBIN 0.4 mg/dL (0.2-1.0); TOTAL PROTEIN 6.1 g/dL (6.4-8.2)
[2018-09-22] MEDS: DULoxetine HCL 30 MG CAPSULE.DR PO SCH (08:28)
[2018-09-22] MEDS: PANTOPRAZOLE 40 MG TABLET.DR. PO SCH (08:28)
[2018-09-22] MEDS ORDERED: ERYTHROMYCIN BASE 250 MG TABLET PO SCH (09:00)
[2018-09-22] MEDS: ALBUTEROL SULFATE 2.5 MG/3 ML NEBU. NEB SCH (09:28)
[2018-09-22] MEDS: BUDESONIDE 0.5 MG/2 ML NEBU. NEB SCH (09:28)
[2018-09-22 11:11] VITALS: BP 146/89
--- NOTE | 2018-09-22 13:27 | PDOC ---
Subjective: Subjective: Has been eating a lot (ate dinner yesterday, 11:00 p.m. turkey sandwich, "double eggs" this morning) without issue. Wants to go home. She needs meds sent to pharmacy because they are delivered to her. Objective: Objective: D/w RN - primary okay w/ DC if okay w/ GI. Vital Signs: Vital Signs Date Time Temp Pulse Resp B/P (MAP) Pulse Ox O2 Delivery O2 Flow Rate FiO2 09/22/18 12:09 100 Room Air 09/22/18 11:11 98.6 73 18 146/89 (108) 98.6 Labs: Laboratory Tests Test 09/22/18 05:33 White Blood Count 7.5 x10^3/uL Red Blood Count 3.70 x10^6/uL Hemoglobin 11.8 g/dL Hematocrit 35.0 % Mean Corpuscular Volume 95 fL Mean Corpuscular Hemoglobin 32 pg Mean Corpuscular Hemoglobin Concent 34 g/dL Red Cell Distribution Width 16.0 % Platelet Count 186 x10^3/uL Neutrophils (%) (Auto) 68 % Lymphocytes (%) (Auto) 18 % Monocytes (%) (Auto) 12 % Eosinophils (%) (Auto) 2 % Basophils (%) (Auto) 1 % Neutrophils # (Auto) 5.1 x10^3uL Lymphocytes # (Auto) 1.3 x10^3/uL Monocytes # (Auto) 0.9 x10^3/uL Eosinophils # (Auto) 0.1 x10^3/uL Basophils # (Auto) 0.0 x10^3/uL Sodium Level 144 mmol/L Potassium Level 4.7 mmol/L Chloride Level 107 mmol/L Carbon Dioxide Level 28 mmol/L Anion Gap 9 Blood Urea Nitrogen 21 mg/dL Creatinine 1.0 mg/dL Estimated GFR (Cockcroft-Gault) 56.9 BUN/Creatinine Ratio 21 Glucose Level 119 mg/dL Calcium Level 8.4 mg/dL Total Bilirubin 0.4 mg/dL Aspartate Amino Transf (AST/SGOT) 71 U/L Alanine Aminotransferase (ALT/SGPT) 81 U/L Alkaline Phosphatase 54 U/L Total Protein 6.1 g/dL Albumin 2.7 g/dL Albumin/Globulin Ratio 0.8 Imaging: GES 09/21 One hour is 67% (normal 34.8-91%). Two hours 36% (normal 2.7-60%). Three hours 21% (normal 0.5-28%). Four hours 12% (normal 0-10%). Impression: Mildly elevated gastric retention at the 4 hour time point. In the appropriate setting, findings consistent with mildly delayed gastric emptying. PE: GEN: NAD LUNGS: CTAB HEART: RRR ABD: NABS, S/ND/NT NEURO/PSYCH: A & O 3 A/P: Recurrent n/v, epigastric/chest discomfort - resolved, extensive GI workup w/ very slightly delayed gastric emptying as above -- DC per primary - recs to continue e-mycin. Would also stop marijuana. MAC KNOX September 22, 2018 13:27
[2018-09-22] MEDS ORDERED: ERYT250T14 PO (14:59)
[2018-09-22 15:34] VITALS: BP 160/89
--- NOTE | 2018-09-22 16:14 | NUR ---
Discharge Note: [facility] Discharge instructions and discharge home medications reviewed with Patient and a copy given. All questions have been answered and understanding verbalized. The following instructions and handouts were given: gastroparesis and abd pain Discontinued iv lines and catheter intact. Patient discharged to home with self-care via private vehicle.
--- NOTE | 2018-10-04 10:57 | PDOC3 ---
Discharge Summary FINAL DIAGNOSIS Problems Medical Problems: (1) Acute renal failure Status: Acute (2) Hyponatremia Status: Acute (3) Hypotension Status: Acute (4) Nausea and vomiting Status: Acute (5) SIRS (systemic inflammatory response syndrome) Status: Acute (6) Tobacco abuse Status: Acute (7) Tobacco abuse counseling Status: Acute Brief Hospital Course Ms. Maldonado is a 58 old [sex] who presented with [ ] Discharge Medications Current Medications Sodium Chloride 1,000 ml @ 1,000 mls/hr Q1H IV Last administered on 09/19/18at 14:51; Start 09/19/18 at 14:20; Stop 09/19/18 at 15:19; Status DC Sodium Chloride 1,000 ml @ 1,000 mls/hr 1X ONCE IV ; Start 09/19/18 at 15:15; Stop 09/19/18 at 16:14; Status DC Potassium Chloride (KCl Oral Soln) 40 meq 1X ONCE PO Last administered on 09/19/18at 15:38; Start 09/19/18 at 15:15; Stop 09/19/18 at 15:16; Status DC Ondansetron HCl (Zofran) 4 mg PRN Q8HRS PRN IV NAUSEA/VOMITING Last administered on 09/20/18at 08:38; Start 09/19/18 at 15:15; Stop 09/20/18 at 15:14; Status DC Sodium Chloride 1,000 ml @ 250 mls/hr Q4H IV Last administered on 09/20/18at 08:42; Start 09/19/18 at 15:10; Stop 09/20/18 at 09:35; Status DC Sodium Chloride 1,000 ml @ 100 mls/hr Q10H IV Last administered on 09/20/18at 16:11; Start 09/19/18 at 17:15; Stop 09/21/18 at 07:03; Status DC Ondansetron HCl (Zofran Odt) 8 mg PRN Q6HRS PRN PO NAUSEA/VOMITING Last administered on 09/20/18at 17:44; Start 09/19/18 at 17:15; Stop 09/22/18 at 16:58; Status DC Albuterol Sulfate (Ventolin Neb Soln) 2.5 mg PRN DAILY PRN INH SHORTNESS OF BREATH; Start 09/19/18 at 23:15; Stop 09/22/18 at 16:58; Status DC Trazodone HCl (Desyrel) 100 mg HS PO Last administered on 09/21/18at 20:43; Start 09/20/18 at 21:00; Stop 09/22/18 at 16:58; Status DC Non-Formulary Medication (Budesonide/ Formoterol Fumarate (Symbicort 160-4.5 Mcg Inhaler)) 2 puff BID IH ; Start 09/20/18 at 09:00; Status UNV Quetiapine Fumarate (SEROquel) 50 mg HS PO Last administered on 09/21/18at 20:43; Start 09/20/18 at 21:00; Stop 09/22/18 at 16:58; Status DC Quetiapine Fumarate (SEROquel) 50 mg 1X ONCE PO Last administered on 09/19/18at 23:52; Start 09/19/18 at 23:45; Stop 09/19/18 at 23:46; Status DC Trazodone HCl (Desyrel) 100 mg 1X ONCE PO Last administered on 09/19/18at 23:52; Start 09/19/18 at 23:45; Stop 09/19/18 at 23:46; Status DC Budesonide (Pulmicort) 0.5 mg RTBID NEB Last administered on 09/22/18 09:28; Start 09/20/18 at 08:00; Stop 09/22/18 at 16:58; Status DC Albuterol Sulfate (Ventolin Neb Soln) 2.5 mg RTQID NEB Last administered on 09/22/18at 09:28; Start 09/20/18 at 08:00; Stop 09/22/18 at 16:58; Status DC Potassium Chloride (Klor-Con) 40 meq 1X ONCE PO Last administered on 09/20/18at 08:36; Start 09/20/18 at 07:45; Stop 09/20/18 at 07:46; Status DC Duloxetine HCl (Cymbalta) 60 mg BID PO Last administered on 09/22/18 08:28; Start 09/20/18 at 09:00; Stop 09/22/18 at 16:58; Status DC Pantoprazole Sodium (Protonix) 40 mg DAILYAC PO Last administered on 09/20/18at 08:36; Start 09/20/18 at 08:00; Stop 09/20/18 at 09:34; Status DC Pantoprazole Sodium (Protonix) 40 mg BIDAC PO Last administered on 09/22/18at 08:28; Start 09/20/18 at 16:30; Stop 09/22/18 at 16:58; Status DC Metoclopramide HCl (Reglan Vial) 5 mg PRN Q6HRS PRN IV NAUSEA/VOMITING Last administered on 09/21/18at 13:54; Start 09/20/18 at 21:00; Stop 09/21/18 at 16:04; Status DC Erythromycin (E-Mycin) 250 mg DAILY PO Last administered on 09/22/18at 08:27; Start 09/22/18 at 09:00; Stop 09/22/18 at 16:58; Status DC Active Scripts Active Erythromycin (Erythromycin Base) 250 Mg Tablet 250 Mg PO DAILY 30 Days Reported Symbicort 160-4.5 Mcg Inhaler (Budesonide/Formoterol Fumarate) 10.2 Gm Hfa.aer.ad 2 Puff IH BID Trazodone Hcl 100 Mg Tablet 100 Mg PO HS Cymbalta (Duloxetine Hcl) 60 Mg Capsule. 1 Cap PO BID Lisinopril 20 Mg Tablet 1 Tab PO DAILY Seroquel (Quetiapine Fumarate) 50 Mg Tablet 50 Mg PO HS Ondansetron Odt (Ondansetron) 4 Mg Tab.rapdis 8 Mg PO BID PRN Proair Hfa Inhaler (Albuterol Sulfate) 8.5 Gm Hfa.aer.ad 2 Puff INH DAILY PRN Omeprazole 40 Mg Capsule. 1 Cap PO DAILY Allergies Allergies Coded Allergies Type Severity Reaction Last Updated Verified No Known Drug Allergies 08/13/18 JULIUS Fu MD Oct 04, 2018 10:57
== END 2018-09-22 16:00 | disposition home or self-care (01) | DRG 683 ==
LOC: ER 14:04 → 2 SOUTH 15:02
PROVIDERS: ADMIT Family Medicine; ATTEND Family Medicine
DX: N17.9 Acute kidney failure, unspecified (principal); R65.10 Systemic inflammatory response syndrome (SIRS) of non-infectious origin without acute organ dysfunction; E87.1 Hypo-osmolality and hyponatremia; E87.2 Acidosis; E86.0 Dehydration; E87.6 Hypokalemia; I95.9 Hypotension, unspecified; D69.6 Thrombocytopenia, unspecified; F17.210 Nicotine dependence, cigarettes, uncomplicated; F32.9 Major depressive disorder, single episode, unspecified; F41.9 Anxiety disorder, unspecified; G89.29 Other chronic pain; I10 Essential (primary) hypertension; J44.9 Chronic obstructive pulmonary disease, unspecified; K21.9 Gastro-esophageal reflux disease without esophagitis; K57.30 Diverticulosis of large intestine without perforation or abscess without bleeding; K63.5 Polyp of colon; K76.0 Fatty (change of) liver, not elsewhere classified; Z96.659 Presence of unspecified artificial knee joint; Z80.0 Family history of malignant neoplasm of digestive organs; Z80.3 Family history of malignant neoplasm of breast; F12.90 Cannabis use, unspecified, uncomplicated; K21.0 Gastro-esophageal reflux disease with esophagitis; Z79.899 Other long term (current) drug therapy; Z90.49 Acquired absence of other specified parts of digestive tract
CPT/HCPCS: 36415; 36600; 71045; 74176; 78264; 80048; 80053; 80307; 81001; 82150; 82274; 82550; 82805; 83605; 83690; 83735; 84100; 84484; 85025; 85610; 87040; 87086; 93005; 94640; 94760; 96360; A9541; G0480; J2405; J2765; J7030; J7613; J7626; Q0162; 99285-25

== ENCOUNTER 2019-01-12 11:44 | Inpatient (IN) | payer MEDICAID, OTHER ==
[~2019-01-12] VITALS: Ht 154.9 cm; Wt 63.0 kg
[~2019-01-12 11:44] MED LIST changes: +ALBU1.25 NEB; +DULO60CA6 PO; +ERYT250T14 PO; +LISI-334 PO; +QUET50TA79 PO; +TRAZ-86 PO
[2019-01-12] MEDS ORDERED: IV NORMAL SALINE 1000ML BAG 1,000 ML IV SCH (12:31)
--- NOTE | 2019-01-12 12:40 | PHYS DOC ---
Past Medical History Past Medical History: Asthma, COPD, Hypertension, Other Additional Past Medical Histor: chronic N/V seen by Dr. Suarez at [facility] Past Surgical History: Tonsillectomy, Other Additional Past Surgical Histo: L knee, infertility sx Alcohol Use: Heavy Drug Use: Marijuana Adult General Chief Complaint Chief Complaint: ABDOMINAL PAIN HPI HPI Patient is a 58 year old female who presents with chronic nausea and vomiting. Patient states she's not been able to keep down fluids or food. Patient states she has not been already done any fluids since Thursday. Patient states she has not been able to eat any food for the last week. Patient states she's been diagnosed with gastroparesis. Patient states has not gotten any better. She seen Dr. Roberson for this. Patient states she is not taken any of her medications for the last 3 days because of this. Patient states now she is having cramping in her hands, upper rib cages, feet and legs. Patient rates her cramping/sharp abdominal pain an 8 out of 10. Patient is very nauseated and dry heaving in the room. Patient also has a history of acute renal failure, hyponatremia, Sirs, COPD, smoking, hypertension. Patient states that she is are he taking Zofran 8 mg today and she has been taking it but she is still vomiting. Patient states she is probably taking more of it that she supposed to. Patient medications are Cymbalta, omeprazole, Celebrex, Seroquel, erythromycin, lisinopril, Zofran. Review of Systems Review of Systems Constitutional: Denies fever or chills [] GI: abdominal pain, nausea, vomiting, denies bloody stools or diarrhea [] Musculoskeletal: Muscle cramps. Denies back pain or joint pain [] All other systems were reviewed and found to be within normal limits, except as documented in this note. Current Medications Current Medications Current Medications Medications (Trade) Dose Ordered Sig/Mohan Start Time Stop Time Status Last Admin Dose Admin Famotidine (Pepcid Vial) 20 mg 1X ONCE 01/12/19 12:45 01/12/19 12:46 DC 01/12/19 13:20 20 MG Fentanyl Citrate (Fentanyl 2ml Vial) 50 mcg 1X ONCE 01/12/19 12:45 01/12/19 12:46 DC 01/12/19 13:09 50 MCG Prochlorperazine Edisylate (Compazine) 10 mg 1X ONCE 01/12/19 12:45 01/12/19 12:46 DC 01/12/19 13:09 10 MG Sodium Chloride 1,000 ml @ 1,000 mls/hr Q1H 01/12/19 12:31 01/12/19 13:30 DC 01/12/19 12:57 1,000 MLS/HR Allergies Allergies Allergies Coded Allergies Type Severity Reaction Last Updated Verified No Known Drug Allergies 08/13/18 No Physical Exam Physical Exam Constitutional: Well developed, well nourished, no acute distress, non-toxic appearance. [] Eyes: PERRLA, EOMI, conjunctiva normal, no discharge. [] Cardiovascular:Heart rate Tachy regular rhythm, no murmur [] Lungs & Thorax: Bilateral breath sounds clear to auscultation [] Abdomen: Bowel sounds normal, soft, RUQ, LUQ tenderness, no masses, no pulsatile masses. [] Skin: Warm, dry, no erythema, no rash. [] Back: No tenderness, no CVA tenderness. [] Extremities: No tenderness, no cyanosis, no clubbing, ROM intact, no edema. [] Neurologic: Alert and oriented X 3, normal motor function, normal sensory function, no focal deficits noted. [] Psychologic: Anxious, Affect normal, judgement normal, mood normal. [] Current Patient Data Vital Signs Vital Signs Date Time Temp Pulse Resp B/P (MAP) Pulse Ox O2 Delivery O2 Flow Rate FiO2 01/12/19 13:09 16 96 Room Air 01/12/19 12:47 99.1 102 138/87 (104) 99.1 Lab Values Laboratory Tests Test 01/12/19 12:02 01/12/19 12:45 Urine Collection Type Unknown Urine Color Faviola Urine Clarity Cloudy Urine pH 5.0 Urine Specific [place] 1.025 Urine Protein 100 mg/dL (NEG-TRACE) Urine Glucose (UA) Negative mg/dL (NEG) Urine Ketones (Stick) Trace mg/dL (NEG) Urine Blood Negative (NEG) Urine Nitrite Negative (NEG) Urine Bilirubin Large (NEG) Urine Urobilinogen Dipstick 1.0 mg/dL (0.2 mg/dL) Urine Leukocyte Esterase Moderate (NEG) Urine RBC 3-5 /HPF (0-2) Urine WBC 1-4 /HPF (0-4) Urine Squamous Epithelial Cells Mod /LPF Urine Amorphous Sediment Present /HPF Urine Bacteria Few /HPF (0-FEW) Urine Hyaline Casts Many /HPF Urine Mucus Marked /LPF Urine Opiates Screen Neg (NEG) Urine Methadone Screen Neg (NEG) Urine Barbiturates Neg (NEG) Urine Phencyclidine Screen Neg (NEG) Urine Amphetamine/Methamphetamine Neg (NEG) Urine Benzodiazepines Screen Neg (NEG) Urine Cocaine Screen Neg (NEG) Urine Cannabinoids Screen Pos (NEG) Urine Ethyl Alcohol Neg (NEG) White Blood Count 8.4 x10^3/uL (4.0-11.0) Red Blood Count 4.93 x10^6/uL (3.50-5.40) Hemoglobin 15.9 g/dL (12.0-15.5) H Hematocrit 46.5 % (36.0-47.0) Mean Corpuscular Volume 94 fL (79-100) Mean Corpuscular Hemoglobin 32 pg (25-35) Mean Corpuscular Hemoglobin Concent 34 g/dL (31-37) Red Cell Distribution Width 14.6 % (11.5-14.5) H Platelet Count 331 x10^3/uL (140-400) Neutrophils (%) (Auto) 70 % (31-73) Lymphocytes (%) (Auto) 19 % (24-48) L Monocytes (%) (Auto) 10 % (0-9) H Eosinophils (%) (Auto) 0 % (0-3) Basophils (%) (Auto) 1 % (0-3) Neutrophils # (Auto) 5.9 x10^3/uL (1.8-7.7) Lymphocytes # (Auto) 1.6 x10^3/uL (1.0-4.8) Monocytes # (Auto) 0.8 x10^3/uL (0.0-1.1) Eosinophils # (Auto) 0.0 x10^3/uL (0.0-0.7) Basophils # (Auto) 0.0 x10^3/uL (0.0-0.2) Sodium Level 136 mmol/L (136-145) Potassium Level 4.2 mmol/L (3.5-5.1) Chloride Level 94 mmol/L (98-107) L Carbon Dioxide Level 28 mmol/L (21-32) Anion Gap 14 (6-14) Blood Urea Nitrogen 30 mg/dL (7-20) H Creatinine 2.6 mg/dL (0.6-1.0) H Estimated GFR (Cockcroft-Gault) 18.9 BUN/Creatinine Ratio 12 (6-20) Glucose Level 131 mg/dL (70-99) H Lactic Acid Level 1.7 mmol/L (0.4-2.0) Calcium Level 10.4 mg/dL (8.5-10.1) H Total Bilirubin 0.8 mg/dL (0.2-1.0) Aspartate Amino Transferase (AST) 27 U/L (15-37) Alanine Aminotransferase (ALT) 24 U/L (14-59) Alkaline Phosphatase 79 U/L (46-116) Troponin I Quantitative < 0.017 ng/mL (0.000-0.055) Total Protein 9.1 g/dL (6.4-8.2) H Albumin 4.2 g/dL (3.4-5.0) Albumin/Globulin Ratio 0.9 (1.0-1.7) L Lipase 241 U/L (73-393) Laboratory Tests 01/12/19 12:45 Laboratory Tests 01/12/19 12:45 EKG EKG Sinus Rhythm and no STEMI[] Interpretation Time: [address] Benson Radiology/Procedures Radiology/Procedures [] Impressions: [facility] [address] [place] [address] IMAGING REPORT Signed PATIENT: BRITNI RAZA ACCOUNT: [id number] : 1960 LOCATION: ER AGE: 58 SEX: F EXAM STATUS: REG ER ORD. PHYSICIAN: MAIRA BENNETT APRN REASON: nausea, vomiting, pain PROCEDURE: CT ABDOMEN PELVIS WO CONTRAST CT Abdomen and Pelvis without contrast History: Nausea, vomiting, pain Technique: Noncontrast CT imaging was performed of the abdomen and pelvis. Multiplanar images are reviewed. Exposure: One or more of the following individualized dose reduction techniques were utilized for this examination: 1. Automated exposure control 2. Adjustment of the mA and/or kV according to patient size 3. Use of iterative reconstruction technique. Comparison: September 19, 2018 Findings: There is no urolithiasis or hydronephrosis. There is a small hypodense lesion superior right kidney about 1 cm, density measurements suggestive of cyst 10 Hounsfield units. Accurate evaluation of abdominal visceral organs is limited without intravenous contrast. Gallbladder is present without obvious intraluminal abnormality by CT. There is no obvious abnormality of the spleen, liver, or pancreas. There is no adrenal nodularity. Accurate evaluation of bowel is limited without oral contrast. Bowel is not significantly dilated. There are some nonspecific air-fluid levels in segments of small bowel. No free air or significant free fluid is identified. There is again moderate to severe sigmoid diverticulosis, to lesser degree of the descending colon. There may be a degree of sigmoid colonic wall thickening although poorly evaluated without oral contrast and incompletely distended during exam. There is some gas distention of rectum. There is scattered calcified plaque of the abdominal aorta and right iliac artery. 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 There is again bony deformity of the lateral aspect of the right inferior pubic ramus likely due to previous trauma. There is mild dextroscoliosis centered near the thoracolumbar junction. Impression: 1. There is colonic diverticulosis greatest of the sigmoid colon, difficult to exclude sigmoid colonic wall thickening as could be seen with diverticulitis in the appropriate clinical setting. Electronically signed by: Shannon Schwartz MD (01/12/2019 1:43 PM) [id number] DICTATED and SIGNED BY: SHANNON SCHWARTZ MD DATE: 01/12/19 1343 [facility] [address] [place] [address] IMAGING REPORT Signed PATIENT: BRITNI RAZA ACCOUNT: [id number] : 1960 LOCATION: ER AGE: 58 SEX: F EXAM STATUS: REG ER ORD. PHYSICIAN: MAIRA BENNETT APRN REASON: upper abd pain PROCEDURE: PORTABLE CHEST 1V PORTABLE CHEST 1V History: Upper abdominal pain. Comparison: October 04, 2018. Findings: No consolidation or pleural effusion. Normal heart size. Left midlung calcified granuloma. Chronic right posterior fourth rib fracture. Bilateral acromioclavicular DJD. Impression: 1. No acute cardiopulmonary process. Electronically signed by: Evgeny Cooper DO (01/12/2019 1:17 PM) [facility] DICTATED and SIGNED BY: EVGENY COOPER DO DATE: 01/12/19 2452 Course & Med Decision Making Course & Med Decision Making Patient is a 58 year old female who presents with chronic nausea and vomiting. Patient states she's not been able to keep down fluids or food. Patient states she has not been already done any fluids since Thursday. Patient states she has not been able to eat any food for the last week. Patient states she's been diagnosed with gastroparesis. Patient states has not gotten any better. She seen Dr. Roberson for this. Patient states she is not taken any of her medications for the last 3 days because of this. Patient states now she is having cramping in her hands, upper rib cages, feet and legs. Patient rates her cramping/sharp abdominal pain an 8 out of 10. Patient is very nauseated and dry heaving in the room. Patient also has a history of acute renal failure, hyponatremia, Sirs, COPD, smoking, hypertension. Patient states that she is are he taking Zofran 8 mg today and she has been taking it but she is still vomiting. Patient states she is probably taking more of it that she supposed to. Patient medications are Cymbalta, omeprazole, Celebrex, Seroquel, erythromycin, lisinopril, Zofran. Right upper and left upper quadrant tenderness with palpation. Abdomen is otherwise soft. Lungs are clear to auscultation in all lobes. Alert and diego ented. Speaks in full clear sentences. PERRLA. Patient denies numbness or tingling, flank pain, headache, chest pain, shortness of air, fevers, diarrhea, constipation. No extremity swelling. Ambulatory with a steady gait. No CVA tenderness. Skin pink warm and dry. Patient denies any blood in her vomitus or stools. CT ABD PELV 1. There is colonic diverticulosis greatest of the sigmoid colon, difficult to exclude sigmoid colonic wall thickening as could be seen with diverticulitis in the appropriate clinical setting. BUN elevated at 30 and creatinine elevated at 2.6 which is increased from September 22, 2018. Spoken to Dr. Anguiano and told him of the results for this patient. He states to treat the patient with Zosyn and I will consult GI and nephrology. Dragon Disclaimer Dragon Disclaimer This electronic medical record was generated, in whole or in part, using a voice recognition dictation system. Departure Departure Impression: Primary Impression: Urinary tract infection Disposition: ADMITTED INPATIENT Admitting Physician: SHARYN Condition: STABLE Referrals: JULIUS MARIA MD (PCP) Problem Qualifiers Primary Impression: Urinary tract infection Urinary tract infection type: acute cystitis Hematuria presence: without hematuria Qualified Codes: N30.00 - Acute cystitis without hematuria MAIRA BENNETT CADDY/CADDIE SUPERVISOR Jan 12, 2019 12:40
[2019-01-12] MEDS ORDERED: FAMOTIDINE 20 MG/2 ML VIAL IVP ONE (12:45)
[2019-01-12] MEDS ORDERED: fentaNYL PF VIAL 100 MCG/2 ML VIAL IV ONE (12:45)
[2019-01-12] MEDS ORDERED: PROCHLORPERAZINE 10 MG/2 ML VIAL. IV ONE (12:45)
[2019-01-12 12:58] LABS: BASO % 1 % (0-3); EOS % 0 % (0-3); HEMATOCRIT 46.5 % (36.0-47.0); HEMOGLOBIN 15.9 g/dL (12.0-15.5); LYMPH # 1.6 x10^3/uL (1.0-4.8); LYMPH % 19 % (24-48); MEAN CORPUSCULAR HEMOGLOBIN 32 pg (25-35); MEAN CORPUSCULAR HGB CONC 34 g/dL (31-37); MEAN CORPUSCULAR VOLUME 94 fL (79-100); MONO # 0.8 x10^3/uL (0.0-1.1); MONO % 10 % (0-9); NEUT # 5.9 x10^3/uL (1.8-7.7); NEUT % 70 % (31-73); PLATELET COUNT 331 x10^3/uL (140-400); RED BLOOD COUNT 4.93 x10^6/uL (3.50-5.40); RED CELL DISTRIBUTION WIDTH 14.6 % (11.5-14.5); WHITE BLOOD COUNT 8.4 x10^3/uL (4.0-11.0)
[2019-01-12 13:07] LABS: CALCIUM 10.4 mg/dL (8.5-10.1); CREATININE 2.6 mg/dL (0.6-1.0); GFR 18.9; POTASSIUM 4.2 mmol/L (3.5-5.1)
[2019-01-12 13:12] LABS: ALBUMIN 4.2 g/dL (3.4-5.0); ALBUMIN/GLOBULIN RATIO 0.9 (1.0-1.7); TOTAL BILIRUBIN 0.8 mg/dL (0.2-1.0); TOTAL PROTEIN 9.1 g/dL (6.4-8.2)
--- NOTE | 2019-01-12 13:14 | EKG ---
[facility] [address] [place] [address] Test Date: 2019-01-12 Test Time: 12:52:53 Pat Name: BRITNI RAZA Department: Room: Gender: F [employer] Operator: : 1960 Requested By: MAIRA BENNETT Order Number: [id number] Reading MD: Measurements Intervals [place] Rate: 100 P: -28 NC: 118 QRS: 53 QRSD: 72 T: 56 QT: 326 QTc: 423 Interpretive Statements SINUS RHYTHM OTHERWISE NORMAL ECG RI6.01 No previous ECG available for comparison
[2019-01-12 13:15] LABS: BILIRUBIN,URINE LARGE (NEG); CLARITY,URINE CLOUDY; COLOR,URINE AMBER; NITRITE,URINE NEGATIVE (NEG); PROTEIN,URINE 100 mg/dL (NEG-TRACE)
--- NOTE | 2019-01-12 13:20 | RAD ---
PORTABLE CHEST 1V History: Upper abdominal pain. Comparison: October 04, 2018. Findings: No consolidation or pleural effusion. Normal heart size. Left midlung calcified granuloma. Chronic right posterior fourth rib fracture. Bilateral acromioclavicular DJD. Impression: 1. No acute cardiopulmonary process. Electronically signed by: Evgeny Romano DO (01/12/2019 1:17 PM) [facility]
[2019-01-12 13:22] LABS: AMPHETAMINE/METHAMPHETAMINE NEG (NEG); BARBITURATES NEG (NEG); BENZODIAZEPINES NEG (NEG); CANNABINOIDS POS (NEG); COCAINE NEG (NEG); METHADONE NEG (NEG); OPIATES NEG (NEG); PHENCYCLIDINE NEG (NEG)
[2019-01-12 13:34] LABS: HYALINE CASTS, URINE MANY /HPF; SQUAMOUS EPITHELIAL CELL,UR MOD /LPF
[2019-01-12 13:35] LABS: AMORPHOUS SEDIMENT,UR PRESENT /HPF; BACTERIA,URINE FEW /HPF (0-FEW)
--- NOTE | 2019-01-12 13:46 | RAD ---
CT Abdomen and Pelvis without contrast History: Nausea, vomiting, pain Technique: Noncontrast CT imaging was performed of the abdomen and pelvis. Multiplanar images are reviewed. Exposure: One or more of the following individualized dose reduction techniques were utilized for this examination: 1. Automated exposure control 2. Adjustment of the mA and/or kV according to patient size 3. Use of iterative reconstruction technique. Comparison: September 19, 2018 Findings: There is no urolithiasis or hydronephrosis. There is a small hypodense lesion superior right kidney about 1 cm, density measurements suggestive of cyst 10 Hounsfield units. Accurate evaluation of abdominal visceral organs is limited without intravenous contrast. Gallbladder is present without obvious intraluminal abnormality by CT. There is no obvious abnormality of the spleen, liver, or pancreas. There is no adrenal nodularity. Accurate evaluation of bowel is limited without oral contrast. Bowel is not significantly dilated. There are some nonspecific air-fluid levels in segments of small bowel. No free air or significant free fluid is identified. There is again moderate to severe sigmoid diverticulosis, to lesser degree of the descending colon. There may be a degree of sigmoid colonic wall thickening although poorly evaluated without oral contrast and incompletely distended during exam. There is some gas distention of rectum. There is scattered calcified plaque of the abdominal aorta and right iliac artery. 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 There is again bony deformity of the lateral aspect of the right inferior pubic ramus likely due to previous trauma. There is mild dextroscoliosis centered near the thoracolumbar junction. Impression: 1. There is colonic diverticulosis greatest of the sigmoid colon, difficult to exclude sigmoid colonic wall thickening as could be seen with diverticulitis in the appropriate clinical setting. Electronically signed by: Germain Glover MD (01/12/2019 1:43 PM) [facility]
[2019-01-12] MEDS ORDERED: ACETAMINOPHEN 325 MG TABLET. PO PRN (15:00)
[2019-01-12] MEDS ORDERED: ONDANSETRON PF 4 MG/2 ML VIAL. IV PRN (15:00)
[2019-01-12] MEDS ORDERED: fentaNYL PF VIAL 100 MCG/2 ML VIAL IV PRN (15:00)
[2019-01-12] MEDS ORDERED: PIP/TAZO PER PHARMACY MC PRN (15:00)
[2019-01-12] MEDS ORDERED: PROCHLORPERAZINE 10 MG/2 ML VIAL. IV PRN (15:00)
[2019-01-12] MEDS ORDERED: PIPERACILLIN/TAZOBACTAM 2.25 GM in IV NORMAL SALINE 50ML 50 ML IV ONE (15:15)
--- NOTE | 2019-01-12 16:07 | PDOC2 ---
GI CONSULT Reason For Consult: Diverticulitis HPI: HPI: 58 y/o female who we have seen several times for chronic abd pain, vomiting, and dyspepsia H/o C Diff treated w/ vanco. CT 02/2018: that time showed wall thickening in descending and sigmoid colon. Hep C negative 02/2018. Abd US 07/2018: hepatic steatosis, no cholelithiasis or cholecystitis. PIPIDA 07/2018: normal w/ GB EF 97%. EGD and colonoscopy 08/2018: LA Grade A reflux esophagitis (no Johnson's on biopsy), normal stomach, normal duodenum, 7mm adneomatous polyp in sigmoid colon, sigmoid diverticulosis, non-bleeding internal hemorrhoids. CT 09/2018: mildly distended stomach and possible mild enteritis. GES 09/2018: 12% gastric retention at 4 hours c/w mildly delayed gastric emptying. Takes pantoprazole QD, e-mycin 250mg QD, and Zofran PRN. Also takes Celebrex. Intermittent abd pain and vomiting since we have last seen. This time ill since Thursday - no precipitating events. Can't tell me what she throws up - crying and saying "I just can't eat and can't drink water." Has "nausea pain" in epigastrium tracking to LUQ, hasn't stooled in a few days because not eating. Clothes fit differently so assumes weight loss. Makes her feel better to sit in a really hot bath. No hematemesis, hematochezia, melena. No dysphagia/odynophagia. PMH: PMH: COPD, GERD, adenomatous colon polyp, diverticulosis, hemorrhoids, gastroparesis tonsillectomy, left knee surgery x 4 FH: Family History: Cancer (mother - esophageal, breast, ?uterine) Social History: Smoke: 1 pack per day ALCOHOL: other (1 pint of vodka weekly - less recently) Drugs: Marijuana ROS: GEN: Denies fevers, chills, sweats HEENT: Denies blurred vision, sore throat CV: Denies chest pain RESP: +cough GI: Per HPI : Denies hematuria, dysuria ENDO: +weight loss NEURO: Denies confusion, dizziness MSK: +chronic knee pain SKIN: Denies jaundice, pruritus Vitals: Vitals: Vital Signs Date Time Temp Pulse Resp B/P (MAP) Pulse Ox O2 Delivery O2 Flow Rate FiO2 01/12/19 13:09 16 96 Room Air 01/12/19 13:00 118 122/80 (94) 96.0 01/12/19 12:47 99.1 99.1 Labs: Labs: Laboratory Tests Test 01/12/19 12:02 01/12/19 12:45 Urine Collection Type Unknown Urine Color Faviola Urine Clarity Cloudy Urine pH 5.0 Urine Specific [place] 1.025 Urine Protein 100 mg/dL (NEG-TRACE) Urine Glucose (UA) Negative mg/dL (NEG) Urine Ketones (Stick) Trace mg/dL (NEG) Urine Blood Negative (NEG) Urine Nitrite Negative (NEG) Urine Bilirubin Large (NEG) Urine Urobilinogen Dipstick 1.0 mg/dL (0.2 mg/dL) Urine Leukocyte Esterase Moderate (NEG) Urine RBC 3-5 /HPF (0-2) Urine WBC 1-4 /HPF (0-4) Urine Squamous Epithelial Cells Mod /LPF Urine Amorphous Sediment Present /HPF Urine Bacteria Few /HPF (0-FEW) Urine Hyaline Casts Many /HPF Urine Mucus Marked /LPF Urine Opiates Screen Neg (NEG) Urine Methadone Screen Neg (NEG) Urine Barbiturates Neg (NEG) Urine Phencyclidine Screen Neg (NEG) Urine Amphetamine/Methamphetamine Neg (NEG) Urine Benzodiazepines Screen Neg (NEG) Urine Cocaine Screen Neg (NEG) Urine Cannabinoids Screen Pos (NEG) Urine Ethyl Alcohol Neg (NEG) White Blood Count 8.4 x10^3/uL (4.0-11.0) Red Blood Count 4.93 x10^6/uL (3.50-5.40) Hemoglobin 15.9 g/dL (12.0-15.5) Hematocrit 46.5 % (36.0-47.0) Mean Corpuscular Volume 94 fL (79-100) Mean Corpuscular Hemoglobin 32 pg (25-35) Mean Corpuscular Hemoglobin Concent 34 g/dL (31-37) Red Cell Distribution Width 14.6 % (11.5-14.5) Platelet Count 331 x10^3/uL (140-400) Neutrophils (%) (Auto) 70 % (31-73) Lymphocytes (%) (Auto) 19 % (24-48) Monocytes (%) (Auto) 10 % (0-9) Eosinophils (%) (Auto) 0 % (0-3) Basophils (%) (Auto) 1 % (0-3) Neutrophils # (Auto) 5.9 x10^3/uL (1.8-7.7) Lymphocytes # (Auto) 1.6 x10^3/uL (1.0-4.8) Monocytes # (Auto) 0.8 x10^3/uL (0.0-1.1) Eosinophils # (Auto) 0.0 x10^3/uL (0.0-0.7) Basophils # (Auto) 0.0 x10^3/uL (0.0-0.2) Sodium Level 136 mmol/L (136-145) Potassium Level 4.2 mmol/L (3.5-5.1) Chloride Level 94 mmol/L (98-107) Carbon Dioxide Level 28 mmol/L (21-32) Anion Gap 14 (6-14) Blood Urea Nitrogen 30 mg/dL (7-20) Creatinine 2.6 mg/dL (0.6-1.0) Estimated GFR (Cockcroft-Gault) 18.9 BUN/Creatinine Ratio 12 (6-20) Glucose Level 131 mg/dL (70-99) Lactic Acid Level 1.7 mmol/L (0.4-2.0) Calcium Level 10.4 mg/dL (8.5-10.1) Total Bilirubin 0.8 mg/dL (0.2-1.0) Aspartate Amino Transf (AST/SGOT) 27 U/L (15-37) Alanine Aminotransferase (ALT/SGPT) 24 U/L (14-59) Alkaline Phosphatase 79 U/L (46-116) Troponin I Quantitative < 0.017 ng/mL (0.000-0.055) Total Protein 9.1 g/dL (6.4-8.2) Albumin 4.2 g/dL (3.4-5.0) Albumin/Globulin Ratio 0.9 (1.0-1.7) Lipase 241 U/L (73-393) Allergies: Coded Allergies: No Known Drug Allergies (Unverified , 08/13/18) Medications: Current Medications Medications (Trade) Dose Ordered Sig/Mohan Route PRN Reason Start Time Stop Time Status Last Admin Dose Admin Sodium Chloride 1,000 ml @ 1,000 mls/hr Q1H IV 01/12/19 12:31 01/12/19 13:30 DC 01/12/19 12:57 Fentanyl Citrate (Fentanyl 2ml Vial) 50 mcg 1X ONCE IV 01/12/19 12:45 01/12/19 12:46 DC 01/12/19 13:09 Prochlorperazine Edisylate (Compazine) 10 mg 1X ONCE IV 01/12/19 12:45 01/12/19 12:46 DC 01/12/19 13:09 Famotidine (Pepcid Vial) 20 mg 1X ONCE IVP 01/12/19 12:45 01/12/19 12:46 DC 01/12/19 13:20 Piperacillin Sod/ Tazobactam Sod 2.25 gm/Sodium Chloride 50 ml @ 100 mls/hr 1X ONCE IV 01/12/19 15:15 01/12/19 15:44 DC 01/12/19 15:31 Imaging: Imaging: CXR Impression: 1. No acute cardiopulmonary process. CT A/P w/o contrast Findings: There is no urolithiasis or hydronephrosis. There is a small hypodense lesion superior right kidney about 1 cm, density measurements suggestive of cyst 10 Hounsfield units. Accurate evaluation of abdominal visceral organs is limited without intravenous contrast. Gallbladder is present without obvious intraluminal abnormality by CT. There is no obvious abnormality of the spleen, liver, or pancreas. There is no adrenal nodularity. Accurate evaluation of bowel is limited without oral contrast. Bowel is not significantly dilated. There are some nonspecific air-fluid levels in segments of small bowel. No free air or significant free fluid is identified. There is again moderate to severe sigmoid diverticulosis, to lesser degree of the descending colon. There may be a degree of sigmoid colonic wall thickening although poorly evaluated without oral contrast and incompletely distended during exam. There is some gas distention of rectum. There is scattered calcified plaque of the abdominal aorta and right iliac artery. 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 There is again bony deformity of the lateral aspect of the right inferior pubic ramus likely due to previous trauma. There is mild dextroscoliosis centered near the thoracolumbar junction. Impression: 1. There is colonic diverticulosis greatest of the sigmoid colon, difficult to exclude sigmoid colonic wall thickening as could be seen with diverticulitis in the appropriate clinical setting. PE: GEN: NAD HEENT: Atraumatic, PERRL LUNGS: CTAB HEART: tachycardic ABD: NABS, S/ND, epigastric to LUQ discomfort - not really noted in LLQ though has diffuse discomfort but exam difficult w/ crying EXTREMITY: No edema SKIN: No rashes, no jaundice NEURO/PSYCH: A & O �3, sobbing A/P: A/P: Recurrent n/v, abd pain, weight loss CATHY, ?UTI Abnormal CT - diverticulosis - "difficult to exclude sigmoid colonic wall thickening" GERD - Grade A reflux on EGD this year Mildly delayed gastric emptying CRC screen, h/o adenomatous polyp - UTD Diverticulosis, hemorrhoids H/o C Diff Hepatic steatosis Chronic pain, NSAID use +marijuana -- Not sure significance of CT - symptoms seem more upper GI than lower - ER has started IV atbx. IV PPI for now - has been on e-mycin 250mg QD as outpt - will review this w/ Dr. Henderson - ?give along w/ other antibiotic - prolonged QT risk/interaction w/ other meds - Reglan trial not pursued in the past due to possible side effects. Has had lots of workup over the past year (per HPI) - hasn't had UGI/SBS - probably couldn't tolerate right now w/ vomiting. ?marijuana contributing MAC KNOX Jan 12, 2019 16:07
[2019-01-12] MEDS ORDERED: LIDO:MAALOX 1:1 20 ML SINGLE DOSE. PO PRN (16:15)
[2019-01-12 16:40] VITALS: BP 127/82
--- NOTE | 2019-01-12 17:50 | NUR ---
PATIENT ARRIVES ON THE UNIT PER CART, ADMISSION COMPLETED, PATIENT ALERT AND VERBALLY RESPONSIVE, PERSONAL BELONGINGS ACCOUNTED FOR AND DOCUMENTED IN COMPUTER CHARTING, PATIENTS' HOME MEDICATIONS SENT TO THE PHARMACY PER THIS [facility], PATIENT ON CLEAR LIQUID DIET AT THIS TIME BUT SHOULD BE NPO AT MIDNIGHT FOR SMALL BOWEL SERIES ON 01/13/19.
[2019-01-12 19:30] VITALS: BP 99/66
--- NOTE | 2019-01-12 22:09 | HP ---
ADMIT DATE: 01/12/2019 CHIEF COMPLAINT: Abdominal pain, nausea, vomiting. HISTORY OF PRESENT ILLNESS: The patient is a pleasant middle-aged female who has chronic nausea, vomiting. She actually has gastroparesis. She states she sees Dr. Henderson quite a bit, but they have not been able to get her symptoms under control. Once again, she has intractable nausea, vomiting, abdominal pain. It is in the epigastric region, rated at 10/10 now, she is tearful. While in the ER, we scanned her. She also has diverticulitis and acute renal failure with creatinine of 2.6. She also has a UTI. I discussed the case with ER physician. We are going to admit the patient and consult GI and give her IV antibiotics, fluids. PAST MEDICAL HISTORY: Gastroparesis, COPD, asthma, hypertension, tonsillectomy, left knee surgery, infertility surgery, marijuana use. ALLERGIES: None. FAMILY HISTORY: Diabetes. SOCIAL HISTORY: She does not drink. She does smoke. Uses marijuana. MEDICATIONS: Reviewed, please refer to the [facility]AD. REVIEW OF SYSTEMS: GENERAL: No history of weight change, weakness or fevers. SKIN: No bruising, hair changes or rashes. EYES: No blurred, double or loss of vision. NOSE AND THROAT: No history of nosebleeds, hoarseness or sore throat. HEART: No history of palpitations, chest pain or shortness of breath on exertion. LUNGS: Denies cough, hemoptysis, wheezing or shortness of breath. GASTROINTESTINAL: She complains of epigastric pain, nausea and vomiting. GENITOURINARY: No history of frequency, urgency, hesitancy or nocturia. NEUROLOGIC: Denies history of numbness, tingling, tremor or weakness. PSYCHIATRIC: No history of panic, anxiety or depression. ENDOCRINE: No history of heat or cold intolerance, polyuria or polydipsia. EXTREMITIES: Denies muscle weakness, joint pain, pain on walking or stiffness. PHYSICAL EXAMINATION: VITALS: Within normal limits and are stable. GENERAL: No apparent distress. Alert and oriented. HEENT: Head is normocephalic, atraumatic, pupils were equally round and reactive to light and accommodation. NECK: Supple, no JVD, no thyromegaly was noted. LUNGS: Clear to auscultation in all lung cortes without rhonchi or wheezing. HEART: RRR, S1, S2 present. Peripheral pulses intact, no obvious murmurs were noted. ABDOMEN: Soft, nontender. Positive bowel sounds no organomegaly, normal bowel sounds. EXTREMITIES: Without any cyanosis, clubbing, or edema. Pedal pulses intact, Homans sign is negative. NEUROLOGIC: Normal speech, normal tone. A & O x3, moves all extremities, no obvious focal deficits. PSYCHIATRIC: She is crying. SKIN: No ulcerations or rashes, good skin turgor, no jaundice. VASCULAR: Good capillary refill, neurovascular bundle appears to be intact. HEENT: No history stiffness. LABORATORY DATA: Creatinine is 2.6. White count is 8.4. CAT scan shows some possible diverticulitis. ASSESSMENT AND PLAN: Nausea, vomiting, abdominal pain, diverticulitis, acute renal failure. The patient has been admitted. We will consult Gastrointestinal, consult Nephrology. IV antibiotics, IV fluids, p.r.n. antiemetics, home meds, deep venous thrombosis prophylaxis. Full code. TORSTEN AGUILERA DO DR: JASON/danica JOB#: [id number] / [id number]
[2019-01-12 23:30] VITALS: BP 118/85
[2019-01-13] MEDS: PIPERACILLIN/TAZOBACTAM 2.25 GM in IV NORMAL SALINE 50ML 50 ML IV SCH ×4 (00:03→18:40)
[2019-01-13] MEDS: IV NORMAL SALINE 1000ML BAG 1,000 ML IV SCH ×3 (00:09→23:32)
[2019-01-13 03:26] VITALS: BP 108/69
[2019-01-13 03:53] LABS: HEMATOCRIT 41.1 % (36.0-47.0); RED BLOOD COUNT 4.33 x10^6/uL (3.50-5.40); RED CELL DISTRIBUTION WIDTH 14.7 % (11.5-14.5); WHITE BLOOD COUNT 6.6 x10^3/uL (4.0-11.0)
[2019-01-13 04:05] LABS: ALBUMIN 3.3 g/dL (3.4-5.0); ALBUMIN/GLOBULIN RATIO 0.8 (1.0-1.7); CALCIUM 9.2 mg/dL (8.5-10.1); CREATININE 1.3 mg/dL (0.6-1.0); GFR 42.1; POTASSIUM 3.8 mmol/L (3.5-5.1); TOTAL BILIRUBIN 0.7 mg/dL (0.2-1.0); TOTAL PROTEIN 7.4 g/dL (6.4-8.2)
[2019-01-13 07:00] VITALS: BP 127/85
[2019-01-13] MEDS ORDERED: PANTOPRAZOLE IV PUSH 40 MG VIAL. IVP SCH (07:30)
[2019-01-13] MEDS ORDERED: BARIUM SULFATE 60% 355 ML SUSP PO ONE (07:45)
[2019-01-13] MEDS ORDERED: ALPRAZolam 0.5 MG TABLET PO ONE (09:15)
[2019-01-13] MEDS ORDERED: ALBUTEROL SULFATE 2.5 MG/3 ML NEBU. INH PRN ×2 (09:15→09:18)
[2019-01-13] MEDS ORDERED: LISINOPRIL 20 MG TABLET PO SCH (09:30)
[2019-01-13] MEDS: DULoxetine HCL 30 MG CAPSULE.DR PO SCH ×2 (09:37→21:29)
--- NOTE | 2019-01-13 09:42 | PDOC ---
Objective: Vital Signs: Vital Signs Date Time Temp Pulse Resp B/P (MAP) Pulse Ox O2 Delivery O2 Flow Rate FiO2 01/13/19 08:00 Room Air 01/13/19 07:00 98.4 94 16 127/85 (99) 99 98.4 01/12/19 13:00 96.0 Labs: Laboratory Tests Test 01/12/19 12:02 01/12/19 12:45 01/13/19 03:25 Urine Collection Type Unknown Urine Color [place] Urine Clarity Cloudy Urine pH 5.0 Urine Specific [place] 1.025 Urine Protein 100 mg/dL Urine Glucose (UA) Negative mg/dL Urine Ketones (Stick) Trace mg/dL Urine Blood Negative Urine Nitrite Negative Urine Bilirubin Large Urine Urobilinogen Dipstick 1.0 mg/dL Urine Leukocyte Esterase Moderate Urine RBC 3-5 /HPF Urine WBC 1-4 /HPF Urine Squamous Epithelial Cells Mod /LPF Urine Amorphous Sediment Present /HPF Urine Bacteria Few /HPF Urine Hyaline Casts Many /HPF Urine Mucus Marked /LPF Urine Opiates Screen Neg Urine Methadone Screen Neg Urine Barbiturates Neg Urine Phencyclidine Screen Neg Urine Amphetamine/Methamphetamine Neg Urine Benzodiazepines Screen Neg Urine Cocaine Screen Neg Urine Cannabinoids Screen Pos Urine Ethyl Alcohol Neg White Blood Count 8.4 x10^3/uL 6.6 x10^3/uL Red Blood Count 4.93 x10^6/uL 4.33 x10^6/uL Hemoglobin 15.9 g/dL 14.0 g/dL Hematocrit 46.5 % 41.1 % Mean Corpuscular Volume 94 fL 95 fL Mean Corpuscular Hemoglobin 32 pg 32 pg Mean Corpuscular Hemoglobin Concent 34 g/dL 34 g/dL Red Cell Distribution Width 14.6 % 14.7 % Platelet Count 331 x10^3/uL 252 x10^3/uL Neutrophils (%) (Auto) 70 % Lymphocytes (%) (Auto) 19 % Monocytes (%) (Auto) 10 % Eosinophils (%) (Auto) 0 % Basophils (%) (Auto) 1 % Neutrophils # (Auto) 5.9 x10^3/uL Lymphocytes # (Auto) 1.6 x10^3/uL Monocytes # (Auto) 0.8 x10^3/uL Eosinophils # (Auto) 0.0 x10^3/uL Basophils # (Auto) 0.0 x10^3/uL Sodium Level 136 mmol/L 143 mmol/L Potassium Level 4.2 mmol/L 3.8 mmol/L Chloride Level 94 mmol/L 103 mmol/L Carbon Dioxide Level 28 mmol/L 30 mmol/L Anion Gap 14 10 Blood Urea Nitrogen 30 mg/dL 22 mg/dL Creatinine 2.6 mg/dL 1.3 mg/dL Estimated GFR (Cockcroft-Gault) 18.9 42.1 BUN/Creatinine Ratio 12 17 Glucose Level 131 mg/dL 98 mg/dL Lactic Acid Level 1.7 mmol/L Calcium Level 10.4 mg/dL 9.2 mg/dL Total Bilirubin 0.8 mg/dL 0.7 mg/dL Aspartate Amino Transf (AST/SGOT) 27 U/L 19 U/L Alanine Aminotransferase (ALT/SGPT) 24 U/L 19 U/L Alkaline Phosphatase 79 U/L 63 U/L Troponin I Quantitative < 0.017 ng/mL Total Protein 9.1 g/dL 7.4 g/dL Albumin 4.2 g/dL 3.3 g/dL Albumin/Globulin Ratio 0.9 0.8 Lipase 241 U/L PE: out of room for SBS A/P: Recurrent n/v and abd pain - previous GI workup per consult note 01/12/19 [facility] - better GERD, mildly delayed gastric emptying, +marijuana Abnormal CT - diverticulosis and "difficult to exclude sigmoid colonic wall th ickening" - on Zosyn per ER -- Await SBS. Continue PPI. MAC KNOX Jan 13, 2019 09:42
[2019-01-13] MEDS: ALBUTEROL SULFATE 2.5 MG/3 ML NEBU. NEB SCH ×3 (10:24→20:35)
[2019-01-13 11:00] VITALS: BP 102/62
--- NOTE | 2019-01-13 11:13 | PDOC ---
PROGRESS NOTES History of Present Illness History of Present Illness ASSESSMENT AND PLAN: Nausea, vomiting, abdominal pain, diverticulitis, acute colonic diverticulosis greatest of the sigmoid colon, difficult to exclude sigmoid colonic wall thickening as could be seen with diverticulitis renal failure. admitted. consult Gastroenterology consult Nephrology. IV antibiotics, IV fluids, p.r.n.antiemetics, home meds, deep venous thrombosis prophylaxis. Full code. 01/13 Chronic cholecystitis likely. Surgical consult for possible lap pily 38 min pt exam, chart review,> 50% of time spent with exam, chart review, pt care coordination Vitals Vitals Vital Signs Date Time Temp Pulse Resp B/P (MAP) Pulse Ox O2 Delivery O2 Flow Rate FiO2 01/13/19 10:26 96 Room Air 01/13/19 09:41 94 127/85 01/13/19 07:00 98.4 16 98.4 01/12/19 13:00 96.0 Physical Exam Physical Exam GENERAL: No apparent distress. Alert and oriented. HEENT: Head is normocephalic, atraumatic, pupils were equally round and reactive to light and accommodation. NECK: Supple, no JVD, no thyromegaly was noted. LUNGS: Clear to auscultation in all lung cortes without rhonchi or wheezing. HEART: RRR, S1, S2 present. Peripheral pulses intact, no obvious murmurs were noted. ABDOMEN: Soft, nontender. Positive bowel sounds no organomegaly, normal bowel sounds. EXTREMITIES: Without any cyanosis, clubbing, or edema. Pedal pulses intact, Homans sign is negative. NEUROLOGIC: Normal speech, normal tone. A & O x3, moves all extremities, no obvious focal deficits. PSYCHIATRIC: She is crying. SKIN: No ulcerations or rashes, good skin turgor, no jaundice. VASCULAR: Good capillary refill, neurovascular bundle appears to be intact. General: Oriented X3, Cooperative Heart: Regular rate Lungs: Clear Extremities: No cyanosis Labs LABS Examination: SMALL BOWEL SERIES History: Diverticulitis. Abdominal pain. Nausea and vomiting. Comparison/Correlation: CT abdomen and pelvis without contrast 01/12/2019 Findings: Captain'S Assistant view is unremarkable. Fluoroscopy was utilized for 1.3 minutes. 12 fluoroscopic images were acquired. Oral contrast was administered. On the initial image, large quantity of contrast is noted to distend the stomach. Contrast is noted throughout small bowel extending to the right lower quadrant. On the 20 minute image, contrast is noted within the proximal transverse colon. Spot compression imaging was performed. Fluoroscopic images were acquired. No suspicious filling defects. No evidence of stricture involving the right lower quadrant small bowel. Small bowel fold pattern is unremarkable. Impression: Rapid transit of contrast through the small bowel is evident. No suspicious filling defects or evidence of stricture. Electronically signed by: Elvis Romero MD (01/13/2019 11:16 AM) [facility] CT Abdomen and Pelvis without contrast History: Nausea, vomiting, pain Technique: Noncontrast CT imaging was performed of the abdomen and pelvis. Multiplanar images are reviewed. Exposure: One or more of the following individualized dose reduction techniques were utilized for this examination: 1. Automated exposure control 2. Adjustment of the mA and/or kV according to patient size 3. Use of iterative reconstruction technique. Comparison: September 19, 2018 Findings: There is no urolithiasis or hydronephrosis. There is a small hypodense lesion superior right kidney about 1 cm, density measurements suggestive of cyst 10 Hounsfield units. Accurate evaluation of abdominal visceral organs is limited without intravenous contrast. Gallbladder is present without obvious intraluminal abnormality by CT. There is no obvious abnormality of the spleen, liver, or pancreas. There is no adrenal nodularity. Accurate evaluation of bowel is limited without oral contrast. Bowel is not significantly dilated. There are some nonspecific air-fluid levels in segments of small bowel. No free air or significant free fluid is identified. There is again moderate to severe sigmoid diverticulosis, to lesser degree of the descending colon. There may be a degree of sigmoid colonic wall thickening although poorly evaluated without oral contrast and incompletely distended during exam. There is some gas distention of rectum. There is scattered calcified plaque of the abdominal aorta and right iliac artery. 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 There is again bony deformity of the lateral aspect of the right inferior pubic ramus likely due to previous trauma. There is mild dextroscoliosis centered near the thoracolumbar junction. Impression: 1. There is colonic diverticulosis greatest of the sigmoid colon, difficult to exclude sigmoid colonic wall thickening as could be seen with diverticulitis in the appropriate clinical setting. Electronically signed by: Germain Glover MD (01/12/2019 1:43 PM) [facility] Laboratory Tests Test 01/12/19 12:02 01/12/19 12:45 01/13/19 03:25 Urine Collection Type Unknown Urine Color Faviola Urine Clarity Cloudy Urine pH 5.0 Urine Specific [place] 1.025 Urine Protein 100 mg/dL (NEG-TRACE) Urine Glucose (UA) Negative mg/dL (NEG) Urine Ketones (Stick) Trace mg/dL (NEG) Urine Blood Negative (NEG) Urine Nitrite Negative (NEG) Urine Bilirubin Large (NEG) Urine Urobilinogen Dipstick 1.0 mg/dL (0.2 mg/dL) Urine Leukocyte Esterase Moderate (NEG) Urine RBC 3-5 /HPF (0-2) Urine WBC 1-4 /HPF (0-4) Urine Squamous Epithelial Cells Mod /LPF Urine Amorphous Sediment Present /HPF Urine Bacteria Few /HPF (0-FEW) Urine Hyaline Casts Many /HPF Urine Mucus Marked /LPF Urine Opiates Screen Neg (NEG) Urine Methadone Screen Neg (NEG) Urine Barbiturates Neg (NEG) Urine Phencyclidine Screen Neg (NEG) Urine Amphetamine/Methamphetamine Neg (NEG) Urine Benzodiazepines Screen Neg (NEG) Urine Cocaine Screen Neg (NEG) Urine Cannabinoids Screen Pos (NEG) Urine Ethyl Alcohol Neg (NEG) White Blood Count 8.4 x10^3/uL (4.0-11.0) 6.6 x10^3/uL (4.0-11.0) Red Blood Count 4.93 x10^6/uL (3.50-5.40) 4.33 x10^6/uL (3.50-5.40) Hemoglobin 15.9 g/dL (12.0-15.5) 14.0 g/dL (12.0-15.5) Hematocrit 46.5 % (36.0-47.0) 41.1 % (36.0-47.0) Mean Corpuscular Volume 94 fL (79-100) 95 fL (79-100) Mean Corpuscular Hemoglobin 32 pg (25-35) 32 pg (25-35) Mean Corpuscular Hemoglobin Concent 34 g/dL (31-37) 34 g/dL (31-37) Red Cell Distribution Width 14.6 % (11.5-14.5) 14.7 % (11.5-14.5) Platelet Count 331 x10^3/uL (140-400) 252 x10^3/uL (140-400) Neutrophils (%) (Auto) 70 % (31-73) Lymphocytes (%) (Auto) 19 % (24-48) Monocytes (%) (Auto) 10 % (0-9) Eosinophils (%) (Auto) 0 % (0-3) Basophils (%) (Auto) 1 % (0-3) Neutrophils # (Auto) 5.9 x10^3/uL (1.8-7.7) Lymphocytes # (Auto) 1.6 x10^3/uL (1.0-4.8) Monocytes # (Auto) 0.8 x10^3/uL (0.0-1.1) Eosinophils # (Auto) 0.0 x10^3/uL (0.0-0.7) Basophils # (Auto) 0.0 x10^3/uL (0.0-0.2) Sodium Level 136 mmol/L (136-145) 143 mmol/L (136-145) Potassium Level 4.2 mmol/L (3.5-5.1) 3.8 mmol/L (3.5-5.1) Chloride Level 94 mmol/L (98-107) 103 mmol/L (98-107) Carbon Dioxide Level 28 mmol/L (21-32) 30 mmol/L (21-32) Anion Gap 14 (6-14) 10 (6-14) Blood Urea Nitrogen 30 mg/dL (7-20) 22 mg/dL (7-20) Creatinine 2.6 mg/dL (0.6-1.0) 1.3 mg/dL (0.6-1.0) Estimated GFR (Cockcroft-Gault) 18.9 42.1 BUN/Creatinine Ratio 12 (6-20) 17 (6-20) Glucose Level 131 mg/dL (70-99) 98 mg/dL (70-99) Lactic Acid Level 1.7 mmol/L (0.4-2.0) Calcium Level 10.4 mg/dL (8.5-10.1) 9.2 mg/dL (8.5-10.1) Total Bilirubin 0.8 mg/dL (0.2-1.0) 0.7 mg/dL (0.2-1.0) Aspartate Amino Transf (AST/SGOT) 27 U/L (15-37) 19 U/L (15-37) Alanine Aminotransferase (ALT/SGPT) 24 U/L (14-59) 19 U/L (14-59) Alkaline Phosphatase 79 U/L (46-116) 63 U/L (46-116) Troponin I Quantitative < 0.017 ng/mL (0.000-0.055) Total Protein 9.1 g/dL (6.4-8.2) 7.4 g/dL (6.4-8.2) Albumin 4.2 g/dL (3.4-5.0) 3.3 g/dL (3.4-5.0) Albumin/Globulin Ratio 0.9 (1.0-1.7) 0.8 (1.0-1.7) Lipase 241 U/L (73-393) Assessment and Plan Assessmemt and Plan Problems Medical Problems: (1) Abdominal pain Status: Acute (2) Acute renal failure Status: Acute (3) Nausea & vomiting Status: Acute Comment Review of Relevant I have reviewed the following items eagle (where applicable) has been applied. Labs Laboratory Tests Test 01/12/19 12:02 01/12/19 12:45 01/13/19 03:25 Urine Collection Type Unknown Urine Color Faviola Urine Clarity Cloudy Urine pH 5.0 Urine Specific [place] 1.025 Urine Protein 100 mg/dL (NEG-TRACE) Urine Glucose (UA) Negative mg/dL (NEG) Urine Ketones (Stick) Trace mg/dL (NEG) Urine Blood Negative (NEG) Urine Nitrite Negative (NEG) Urine Bilirubin Large (NEG) Urine Urobilinogen Dipstick 1.0 mg/dL (0.2 mg/dL) Urine Leukocyte Esterase Moderate (NEG) Urine RBC 3-5 /HPF (0-2) Urine WBC 1-4 /HPF (0-4) Urine Squamous Epithelial Cells Mod /LPF Urine Amorphous Sediment Present /HPF Urine Bacteria Few /HPF (0-FEW) Urine Hyaline Casts Many /HPF Urine Mucus Marked /LPF Urine Opiates Screen Neg (NEG) Urine Methadone Screen Neg (NEG) Urine Barbiturates Neg (NEG) Urine Phencyclidine Screen Neg (NEG) Urine Amphetamine/Methamphetamine Neg (NEG) Urine Benzodiazepines Screen Neg (NEG) Urine Cocaine Screen Neg (NEG) Urine Cannabinoids Screen Pos (NEG) Urine Ethyl Alcohol Neg (NEG) White Blood Count 8.4 x10^3/uL (4.0-11.0) 6.6 x10^3/uL (4.0-11.0) Red Blood Count 4.93 x10^6/uL (3.50-5.40) 4.33 x10^6/uL (3.50-5.40) Hemoglobin 15.9 g/dL (12.0-15.5) 14.0 g/dL (12.0-15.5) Hematocrit 46.5 % (36.0-47.0) 41.1 % (36.0-47.0) Mean Corpuscular Volume 94 fL (79-100) 95 fL (79-100) Mean Corpuscular Hemoglobin 32 pg (25-35) 32 pg (25-35) Mean Corpuscular Hemoglobin Concent 34 g/dL (31-37) 34 g/dL (31-37) Red Cell Distribution Width 14.6 % (11.5-14.5) 14.7 % (11.5-14.5) Platelet Count 331 x10^3/uL (140-400) 252 x10^3/uL (140-400) Neutrophils (%) (Auto) 70 % (31-73) Lymphocytes (%) (Auto) 19 % (24-48) Monocytes (%) (Auto) 10 % (0-9) Eosinophils (%) (Auto) 0 % (0-3) Basophils (%) (Auto) 1 % (0-3) Neutrophils # (Auto) 5.9 x10^3/uL (1.8-7.7) Lymphocytes # (Auto) 1.6 x10^3/uL (1.0-4.8) Monocytes # (Auto) 0.8 x10^3/uL (0.0-1.1) Eosinophils # (Auto) 0.0 x10^3/uL (0.0-0.7) Basophils # (Auto) 0.0 x10^3/uL (0.0-0.2) Sodium Level 136 mmol/L (136-145) 143 mmol/L (136-145) Potassium Level 4.2 mmol/L (3.5-5.1) 3.8 mmol/L (3.5-5.1) Chloride Level 94 mmol/L (98-107) 103 mmol/L (98-107) Carbon Dioxide Level 28 mmol/L (21-32) 30 mmol/L (21-32) Anion Gap 14 (6-14) 10 (6-14) Blood Urea Nitrogen 30 mg/dL (7-20) 22 mg/dL (7-20) Creatinine 2.6 mg/dL (0.6-1.0) 1.3 mg/dL (0.6-1.0) Estimated GFR (Cockcroft-Gault) 18.9 42.1 BUN/Creatinine Ratio 12 (6-20) 17 (6-20) Glucose Level 131 mg/dL (70-99) 98 mg/dL (70-99) Lactic Acid Level 1.7 mmol/L (0.4-2.0) Calcium Level 10.4 mg/dL (8.5-10.1) 9.2 mg/dL (8.5-10.1) Total Bilirubin 0.8 mg/dL (0.2-1.0) 0.7 mg/dL (0.2-1.0) Aspartate Amino Transf (AST/SGOT) 27 U/L (15-37) 19 U/L (15-37) Alanine Aminotransferase (ALT/SGPT) 24 U/L (14-59) 19 U/L (14-59) Alkaline Phosphatase 79 U/L (46-116) 63 U/L (46-116) Troponin I Quantitative < 0.017 ng/mL (0.000-0.055) Total Protein 9.1 g/dL (6.4-8.2) 7.4 g/dL (6.4-8.2) Albumin 4.2 g/dL (3.4-5.0) 3.3 g/dL (3.4-5.0) Albumin/Globulin Ratio 0.9 (1.0-1.7) 0.8 (1.0-1.7) Lipase 241 U/L (73-393) Laboratory Tests Test 01/12/19 12:02 01/12/19 12:45 01/13/19 03:25 Urine Collection Type Unknown Urine Color Faviola Urine Clarity Cloudy Urine pH 5.0 Urine Specific [place] 1.025 Urine Protein 100 mg/dL (NEG-TRACE) Urine Glucose (UA) Negative mg/dL (NEG) Urine Ketones (Stick) Trace mg/dL (NEG) Urine Blood Negative (NEG) Urine Nitrite Negative (NEG) Urine Bilirubin Large (NEG) Urine Urobilinogen Dipstick 1.0 mg/dL (0.2 mg/dL) Urine Leukocyte Esterase Moderate (NEG) Urine RBC 3-5 /HPF (0-2) Urine WBC 1-4 /HPF (0-4) Urine Squamous Epithelial Cells Mod /LPF Urine Amorphous Sediment Present /HPF Urine Bacteria Few /HPF (0-FEW) Urine Hyaline Casts Many /HPF Urine Mucus Marked /LPF Urine Opiates Screen Neg (NEG) Urine Methadone Screen Neg (NEG) Urine Barbiturates Neg (NEG) Urine Phencyclidine Screen Neg (NEG) Urine Amphetamine/Methamphetamine Neg (NEG) Urine Benzodiazepines Screen Neg (NEG) Urine Cocaine Screen Neg (NEG) Urine Cannabinoids Screen Pos (NEG) Urine Ethyl Alcohol Neg (NEG) White Blood Count 8.4 x10^3/uL (4.0-11.0) 6.6 x10^3/uL (4.0-11.0) Red Blood Count 4.93 x10^6/uL (3.50-5.40) 4.33 x10^6/uL (3.50-5.40) Hemoglobin 15.9 g/dL (12.0-15.5) 14.0 g/dL (12.0-15.5) Hematocrit 46.5 % (36.0-47.0) 41.1 % (36.0-47.0) Mean Corpuscular Volume 94 fL (79-100) 95 fL (79-100) Mean Corpuscular Hemoglobin 32 pg (25-35) 32 pg (25-35) Mean Corpuscular Hemoglobin Concent 34 g/dL (31-37) 34 g/dL (31-37) Red Cell Distribution Width 14.6 % (11.5-14.5) 14.7 % (11.5-14.5) Platelet Count 331 x10^3/uL (140-400) 252 x10^3/uL (140-400) Neutrophils (%) (Auto) 70 % (31-73) Lymphocytes (%) (Auto) 19 % (24-48) Monocytes (%) (Auto) 10 % (0-9) Eosinophils (%) (Auto) 0 % (0-3) Basophils (%) (Auto) 1 % (0-3) Neutrophils # (Auto) 5.9 x10^3/uL (1.8-7.7) Lymphocytes # (Auto) 1.6 x10^3/uL (1.0-4.8) Monocytes # (Auto) 0.8 x10^3/uL (0.0-1.1) Eosinophils # (Auto) 0.0 x10^3/uL (0.0-0.7) Basophils # (Auto) 0.0 x10^3/uL (0.0-0.2) Sodium Level 136 mmol/L (136-145) 143 mmol/L (136-145) Potassium Level 4.2 mmol/L (3.5-5.1) 3.8 mmol/L (3.5-5.1) Chloride Level 94 mmol/L (98-107) 103 mmol/L (98-107) Carbon Dioxide Level 28 mmol/L (21-32) 30 mmol/L (21-32) Anion Gap 14 (6-14) 10 (6-14) Blood Urea Nitrogen 30 mg/dL (7-20) 22 mg/dL (7-20) Creatinine 2.6 mg/dL (0.6-1.0) 1.3 mg/dL (0.6-1.0) Estimated GFR (Cockcroft-Gault) 18.9 42.1 BUN/Creatinine Ratio 12 (6-20) 17 (6-20) Glucose Level 131 mg/dL (70-99) 98 mg/dL (70-99) Lactic Acid Level 1.7 mmol/L (0.4-2.0) Calcium Level 10.4 mg/dL (8.5-10.1) 9.2 mg/dL (8.5-10.1) Total Bilirubin 0.8 mg/dL (0.2-1.0) 0.7 mg/dL (0.2-1.0) Aspartate Amino Transf (AST/SGOT) 27 U/L (15-37) 19 U/L (15-37) Alanine Aminotransferase (ALT/SGPT) 24 U/L (14-59) 19 U/L (14-59) Alkaline Phosphatase 79 U/L (46-116) 63 U/L (46-116) Troponin I Quantitative < 0.017 ng/mL (0.000-0.055) Total Protein 9.1 g/dL (6.4-8.2) 7.4 g/dL (6.4-8.2) Albumin 4.2 g/dL (3.4-5.0) 3.3 g/dL (3.4-5.0) Albumin/Globulin Ratio 0.9 (1.0-1.7) 0.8 (1.0-1.7) Lipase 241 U/L (73-393) Medications Current Medications Sodium Chloride 1,000 ml @ 1,000 mls/hr Q1H IV Last administered on 01/12/19at 12:57; Start 01/12/19 at 12:31; Stop 01/12/19 at 13:30; Status DC Fentanyl Citrate (Fentanyl 2ml Vial) 50 mcg 1X ONCE IV Last administered on 01/12/19at 13:09; Start 01/12/19 at 12:45; Stop 01/12/19 at 12:46; Status DC Prochlorperazine Edisylate (Compazine) 10 mg 1X ONCE IV Last administered on 01/12/19at 13:09; Start 01/12/19 at 12:45; Stop 01/12/19 at 12:46; Status DC Famotidine (Pepcid Vial) 20 mg 1X ONCE IVP Last administered on 01/12/19at 13:20; Start 01/12/19 at 12:45; Stop 01/12/19 at 12:46; Status DC Piperacillin Sod/ Tazobactam Sod (Zosyn Per Pharmacy) 1 each PRN DAILY PRN MC SEE COMMENTS; Start 01/12/19 at 15:00 Ondansetron HCl (Zofran) 4 mg PRN Q8HRS PRN IV NAUSEA/VOMITING Last administered on 01/13/19at 09:41; Start 01/12/19 at 15:00; Stop 01/13/19 at 14:59 Fentanyl Citrate (Fentanyl 2ml Vial) 50 mcg PRN Q1HR PRN IV PAIN; Start 01/12/19 at 15:00; Stop 01/13/19 at 14:59 Acetaminophen (Tylenol) 650 mg PRN Q4HRS PRN PO FEVER; Start 01/12/19 at 15:00; Stop 01/13/19 at 14:59 Prochlorperazine Edisylate (Compazine) 10 mg PRN Q6HRS PRN IV NAUSEA, VOMITING (USE 2ND); Start 01/12/19 at 15:00 Piperacillin Sod/ Tazobactam Sod 2.25 gm/Sodium Chloride 50 ml @ 100 mls/hr 1X ONCE IV Last administered on 01/12/19at 15:31; Start 01/12/19 at 15:15; Stop 01/12/19 at 15:44; Status DC Piperacillin Sod/ Tazobactam Sod 2.25 gm/Sodium Chloride 50 ml @ 100 mls/hr Q6HRS IV Last administered on 01/13/19at 06:05; Start 01/13/19 at 00:00 Pantoprazole Sodium (PROTONIX VIAL for IV PUSH) 40 mg DAILYAC IVP ; Start 01/13/19 at 07:30 Multi-Ingredient Mouthwash/Gargle (Gi Cocktail) 20 ml PRN QID PRN PO abd pain; Start 01/12/19 at 16:15 Polyethylene Glycol (miraLAX PACKET) 17 gm DAILY PO ; Start 01/13/19 at 09:00 Sodium Chloride 1,000 ml @ 100 mls/hr Q10H IV Last administered on 01/13/19at 00:09; Start 01/13/19 at 00:15 Barium Sulfate (Liquid E-Z Paque) 710 ml 1X ONCE PO Last administered on 01/13/19at 08:31; Start 01/13/19 at 07:45; Stop 01/13/19 at 07:46; Status DC Alprazolam (Xanax) 0.5 mg 1X ONCE PO Last administered on 01/13/19at 09:41; Start 01/13/19 at 09:15; Stop 01/13/19 at 09:16; Status DC Albuterol Sulfate (Ventolin Neb Soln) 1 mg PRN Q4HRS PRN INH SHORTNESS OF BREATH; Start 01/13/19 at 09:15; Stop 01/13/19 at 09:18; Status DC Lisinopril (Prinivil) 20 mg DAILY PO Last administered on 01/13/19at 09:41; Start 01/13/19 at 09:30 Ondansetron HCl (Zofran Odt) 8 mg PRN BID PRN PO NAUSEA/VOMITING; Start 01/13/19 at 09:15 Trazodone HCl (Desyrel) 100 mg HS PO ; Start 01/13/19 at 21:00 Albuterol Sulfate (Ventolin Neb Soln) 2.5 mg RTQID NEB Last administered on 04/21at 10:24; Start 01/13/19 at 12:00 Duloxetine HCl (Cymbalta) 60 mg BID PO Last administered on 01/13/19at 09:41; Start 01/13/19 at 09:30 Non-Formulary Medication (Omeprazole ) 1 cap DAILY PO ; Start 01/14/19 at 09:00; Stop 01/13/19 at 09:12; Status DC Quetiapine Fumarate (SEROquel) 50 mg QHS PO ; Start 01/13/19 at 21:00 Albuterol Sulfate (Ventolin Neb Soln) 2.5 mg PRN Q4HRS PRN INH SHORTNESS OF BREATH; Start 01/13/19 at 09:18 Budesonide (Pulmicort) 0.5 mg RTBID NEB ; Start 01/13/19 at 20:00 Active Scripts Active Erythromycin (Erythromycin Base) 250 Mg Tablet 250 Mg PO DAILY 30 Days Reported Symbicort 160-4.5 Mcg Inhaler (Budesonide/Formoterol Fumarate) 10.2 Gm Hfa.aer.ad 2 Puff IH BID Trazodone Hcl 100 Mg Tablet 100 Mg PO HS Cymbalta (Duloxetine Hcl) 60 Mg Capsule. 1 Cap PO BID Lisinopril 20 Mg Tablet 1 Tab PO DAILY Seroquel (Quetiapine Fumarate) 50 Mg Tablet 50 Mg PO HS Ondansetron Odt (Ondansetron) 4 Mg Tab.rapdis 8 Mg PO BID PRN Proair Hfa Inhaler (Albuterol Sulfate) 8.5 Gm Hfa.aer.ad 2 Puff INH DAILY PRN Omeprazole 40 Mg Capsule. 1 Cap PO DAILY Vitals/I & O Vital Sign - Last 24 Hours 01/12/19 01/12/19 01/12/19 01/12/19 12:30 12:47 13:00 13:09 Temp 99.1 99.1 Pulse 94 102 118 Resp 20 20 20 16 B/P (MAP) 137/76 (96) 138/87 (104) 122/80 (94) Pulse Ox 94 96 O2 Delivery Room Air Room Air Room Air Room Air O2 Flow Rate 96.0 96.0 01/12/19 01/12/19 01/12/19 01/12/19 14:41 15:11 15:41 16:40 Temp 98.7 98.7 Pulse 84 62 82 79 Resp 18 18 18 18 B/P (MAP) 106/66 (79) 105/79 (88) 136/78 (97) 127/82 (97) Pulse Ox 95 95 95 94 O2 Delivery Room Air Room Air Room Air Room Air 01/12/19 01/12/19 01/12/19 01/12/19 17:40 19:30 20:56 23:30 Temp 98.4 98.6 98.4 98.6 Pulse 73 96 Resp 16 16 B/P (MAP) 99/66 (77) 118/85 (96) Pulse Ox 97 92 O2 Delivery Room Air Room Air Room Air Room Air 01/13/19 01/13/19 01/13/19 01/13/19 03:26 07:00 08:00 09:41 Temp 98.2 98.4 98.2 98.4 Pulse 69 94 94 Resp 16 16 B/P (MAP) 108/69 (82) 127/85 (99) 127/85 Pulse Ox 91 99 O2 Delivery Room Air Room Air Room Air 01/13/19 10:26 Pulse Ox 96 O2 Delivery Room Air Intake and Output 01/12/19 01/12/19 01/13/19 14:59 22:59 06:59 Intake Total 1470 ml 420 ml Balance 1470 ml 420 ml AMANDA OCHOA MD Jan 13, 2019 11:13
--- NOTE | 2019-01-13 11:19 | RAD ---
Examination: SMALL BOWEL SERIES History: Diverticulitis. Abdominal pain. Nausea and vomiting. Comparison/Correlation: CT abdomen and pelvis without contrast 01/12/2019 Findings: Manager Oncology view is unremarkable. Fluoroscopy was utilized for 1.3 minutes. 12 fluoroscopic images were acquired. Oral contrast was administered. On the initial image, large quantity of contrast is noted to distend the stomach. Contrast is noted throughout small bowel extending to the right lower quadrant. On the 20 minute image, contrast is noted within the proximal transverse colon. Spot compression imaging was performed. Fluoroscopic images were acquired. No suspicious filling defects. No evidence of stricture involving the right lower quadrant small bowel. Small bowel fold pattern is unremarkable. Impression: Rapid transit of contrast through the small bowel is evident. No suspicious filling defects or evidence of stricture. Electronically signed by: Elvis Romero MD (01/13/2019 11:16 AM) [facility]
--- NOTE | 2019-01-13 11:24 | PDOC2 ---
CONSULT Date of Consult Date of Consult DATE: 01/13/19 TIME: 11:20 Reason for Consult Reason for Consult: CATHY Referring Physician Referring Physician: WILLY Identification/Chief Complaint Chief Complaint N/V ABD PAIN Source Source: Chart review, Patient History of Present Illness Reason for Visit: THIS IS A 58 YR OLD WITH N/V AND ABD PAIN. UNABLE TO EAT OR DRINK. HAS HAD THIS PROBLEMS BEFORE. CR OF 2.6. NO CKD NOTED. NO HX REPORTED. 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 PT IS HEMODYNAMICALLY STABLE BELOW HX IS FROM GI 58 y/o female who we have seen several times for chronic abd pain, vomiting, and dyspepsia H/o C Diff treated w/ vanco. CT 02/2018: that time showed wall thickening in descending and sigmoid colon. Hep C negative 02/2018. Abd US 07/2018: hepatic steatosis, no cholelithiasis or cholecystitis. PIPIDA 07/2018: normal w/ GB EF 97%. EGD and colonoscopy 08/2018: LA Grade A reflux esophagitis (no Johnson's on biopsy), normal stomach, normal duodenum, 7mm adneomatous polyp in sigmoid colon, sigmoid diverticulosis, non-bleeding internal hemorrhoids. CT 09/2018: mildly distended stomach and possible mild enteritis. GES 09/2018: 12% gastric retention at 4 hours c/w mildly delayed gastric emptying. Takes pantoprazole QD, e-mycin 250mg QD, and Zofran PRN. Also takes Celebrex. Intermittent abd pain and vomiting since we have last seen. This time ill since Thursday - no precipitating events. Can't tell me what she throws up - crying and saying "I just can't eat and can't drink water." Has "nausea pain" in epigastrium tracking to LUQ, hasn't stooled in a few days because not eating. Clothes fit differently so assumes weight loss. Makes her feel better to sit in a really hot bath. No hematemesis, hematochezia, melena. No dysphagia/odynophagia. Past Medical History Cardiovascular: HTN Pulmonary: COPD GI: GERD Heme/Onc: No pertinent hx Hepatobiliary: No pertinent hx Psych: Anxiety, Depression Rheumatologic: No pertinent hx Infectious disease: No pertinent hx Renal/: No pertinent hx Endocrine: No pertinent hx Past Surgical History Past Surgical History: Total knee replacement, Tonsillectomy, Other Family History Family History: Cancer, Other Social History No ALCOHOL: none Drugs: Marijuana Lives: with Family Current Problem List Problem List Problems Medical Problems: (1) Abdominal pain Status: Acute (2) Acute renal failure Status: Acute (3) Nausea & vomiting Status: Acute Current Medications Current Medications Current Medications Sodium Chloride 1,000 ml @ 1,000 mls/hr Q1H IV Last administered on 01/12/19at 12:57; Start 01/12/19 at 12:31; Stop 01/12/19 at 13:30; Status DC Fentanyl Citrate (Fentanyl 2ml Vial) 50 mcg 1X ONCE IV Last administered on 01/12/19at 13:09; Start 01/12/19 at 12:45; Stop 01/12/19 at 12:46; Status DC Prochlorperazine Edisylate (Compazine) 10 mg 1X ONCE IV Last administered on 01/12/19at 13:09; Start 01/12/19 at 12:45; Stop 01/12/19 at 12:46; Status DC Famotidine (Pepcid Vial) 20 mg 1X ONCE IVP Last administered on 01/12/19at 13:20; Start 01/12/19 at 12:45; Stop 01/12/19 at 12:46; Status DC Piperacillin Sod/ Tazobactam Sod (Zosyn Per Pharmacy) 1 each PRN DAILY PRN MC SEE COMMENTS; Start 01/12/19 at 15:00 Ondansetron HCl (Zofran) 4 mg PRN Q8HRS PRN IV NAUSEA/VOMITING Last administered on 01/13/19at 09:41; Start 01/12/19 at 15:00; Stop 01/13/19 at 14:59 Fentanyl Citrate (Fentanyl 2ml Vial) 50 mcg PRN Q1HR PRN IV PAIN; Start 01/12/19 at 15:00; Stop 01/13/19 at 14:59 Acetaminophen (Tylenol) 650 mg PRN Q4HRS PRN PO FEVER; Start 01/12/19 at 15:00; Stop 01/13/19 at 14:59 Prochlorperazine Edisylate (Compazine) 10 mg PRN Q6HRS PRN IV NAUSEA, VOMITING (USE 2ND); Start 01/12/19 at 15:00 Piperacillin Sod/ Tazobactam Sod 2.25 gm/Sodium Chloride 50 ml @ 100 mls/hr 1X ONCE IV Last administered on 01/12/19at 15:31; Start 01/12/19 at 15:15; Stop 01/12/19 at 15:44; Status DC Piperacillin Sod/ Tazobactam Sod 2.25 gm/Sodium Chloride 50 ml @ 100 mls/hr Q6HRS IV Last administered on 01/13/19at 06:05; Start 01/13/19 at 00:00 Pantoprazole Sodium (PROTONIX VIAL for IV PUSH) 40 mg DAILYAC IVP ; Start 01/13/19 at 07:30 Multi-Ingredient Mouthwash/Gargle (Gi Cocktail) 20 ml PRN QID PRN PO abd pain; Start 01/12/19 at 16:15 Polyethylene Glycol (miraLAX PACKET) 17 gm DAILY PO ; Start 01/13/19 at 09:00 Sodium Chloride 1,000 ml @ 100 mls/hr Q10H IV Last administered on 01/13/19at 00:09; Start 01/13/19 at 00:15 Barium Sulfate (Liquid E-Z Paque) 710 ml 1X ONCE PO Last administered on 01/13/19at 08:31; Start 01/13/19 at 07:45; Stop 01/13/19 at 07:46; Status DC Alprazolam (Xanax) 0.5 mg 1X ONCE PO Last administered on 01/13/19at 09:41; Start 01/13/19 at 09:15; Stop 01/13/19 at 09:16; Status DC Albuterol Sulfate (Ventolin Neb Soln) 1 mg PRN Q4HRS PRN INH SHORTNESS OF BREATH; Start 01/13/19 at 09:15; Stop 01/13/19 at 09:18; Status DC Lisinopril (Prinivil) 20 mg DAILY PO Last administered on 01/13/19at 09:41; Start 01/13/19 at 09:30 Ondansetron HCl (Zofran Odt) 8 mg PRN BID PRN PO NAUSEA/VOMITING; Start 01/13/19 at 09:15 Trazodone HCl (Desyrel) 100 mg HS PO ; Start 01/13/19 at 21:00 Albuterol Sulfate (Ventolin Neb Soln) 2.5 mg RTQID NEB Last administered on 01/13/19at 10:24; Start 01/13/19 at 12:00 Duloxetine HCl (Cymbalta) 60 mg BID PO Last administered on 01/13/19at 09:41; Start 01/13/19 at 09:30 Non-Formulary Medication (Omeprazole ) 1 cap DAILY PO ; Start 01/14/19 at 09:00; Stop 01/13/19 at 09:12; Status DC Quetiapine Fumarate (SEROquel) 50 mg QHS PO ; Start 01/13/19 at 21:00 Albuterol Sulfate (Ventolin Neb Soln) 2.5 mg PRN Q4HRS PRN INH SHORTNESS OF BREATH; Start 01/13/19 at 09:18 Budesonide (Pulmicort) 0.5 mg RTBID NEB ; Start 01/13/19 at 20:00 Active Scripts Active Erythromycin (Erythromycin Base) 250 Mg Tablet 250 Mg PO DAILY 30 Days Reported Symbicort 160-4.5 Mcg Inhaler (Budesonide/Formoterol Fumarate) 10.2 Gm Hf a.aer.ad 2 Puff IH BID Trazodone Hcl 100 Mg Tablet 100 Mg PO HS Cymbalta (Duloxetine Hcl) 60 Mg Capsule. 1 Cap PO BID Lisinopril 20 Mg Tablet 1 Tab PO DAILY Seroquel (Quetiapine Fumarate) 50 Mg Tablet 50 Mg PO HS Ondansetron Odt (Ondansetron) 4 Mg Tab.rapdis 8 Mg PO BID PRN Proair Hfa Inhaler (Albuterol Sulfate) 8.5 Gm Hfa.aer.ad 2 Puff INH DAILY PRN Omeprazole 40 Mg Capsule. 1 Cap PO DAILY Allergies Allergies: Coded Allergies: No Known Drug Allergies (Unverified , 08/13/18) ROS General: YES: Fatigue, Malaise, Appetite PSYCHOLOGICAL ROS: YES: Anxiety Eyes: Yes Decreased vision HEENT: YES: Heacaches ALLERGY AND IMMUNOLOGY: YES: Seasonal Allergies Respiratory: YES: Cough Gastrointestinal: Yes Nausea, Yes Vomiting, Yes Abdominal Pain, Yes Diarrhea Genitourinary: YES Frequency Musculoskeletal: Yes Muscular Weakness Neurological: Yes Weakness Skin: Yes Dry Skin Physical Exam General: Alert, Oriented X3, Cooperative, No acute distress HEENT: Atraumatic, PERRLA, EOMI Lungs: Clear to auscultation, Normal air movement Heart: Regular rate, Normal S1, Normal S2 Abdomen: Normal bowel sounds, Soft Extremities: No clubbing, No cyanosis Skin: No breakdown Neuro: Normal speech, Sensation intact Psych/Mental Status: Mental status NL, Mood NL MUSCULOSKELETAL: No joint tenderness, No deformity, No swelling Vitals VITALS Vital Signs Date Time Temp Pulse Resp B/P (MAP) Pulse Ox O2 Delivery O2 Flow Rate FiO2 01/13/19 10:26 96 Room Air 01/13/19 09:41 94 127/85 01/13/19 07:00 98.4 16 98.4 01/12/19 13:00 96.0 Labs Labs Laboratory Tests Test 01/12/19 12:02 01/12/19 12:45 01/13/19 03:25 Urine Collection Type Unknown Urine Color [place] Urine Clarity Cloudy Urine pH 5.0 Urine Specific [place] 1.025 Urine Protein 100 mg/dL (NEG-TRACE) Urine Glucose (UA) Negative mg/dL (NEG) Urine Ketones (Stick) Trace mg/dL (NEG) Urine Blood Negative (NEG) Urine Nitrite Negative (NEG) Urine Bilirubin Large (NEG) Urine Urobilinogen Dipstick 1.0 mg/dL (0.2 mg/dL) Urine Leukocyte Esterase Moderate (NEG) Urine RBC 3-5 /HPF (0-2) Urine WBC 1-4 /HPF (0-4) Urine Squamous Epithelial Cells Mod /LPF Urine Amorphous Sediment Present /HPF Urine Bacteria Few /HPF (0-FEW) Urine Hyaline Casts Many /HPF Urine Mucus Marked /LPF Urine Opiates Screen Neg (NEG) Urine Methadone Screen Neg (NEG) Urine Barbiturates Neg (NEG) Urine Phencyclidine Screen Neg (NEG) Urine Amphetamine/Methamphetamine Neg (NEG) Urine Benzodiazepines Screen Neg (NEG) Urine Cocaine Screen Neg (NEG) Urine Cannabinoids Screen Pos (NEG) Urine Ethyl Alcohol Neg (NEG) White Blood Count 8.4 x10^3/uL (4.0-11.0) 6.6 x10^3/uL (4.0-11.0) Red Blood Count 4.93 x10^6/uL (3.50-5.40) 4.33 x10^6/uL (3.50-5.40) Hemoglobin 15.9 g/dL (12.0-15.5) 14.0 g/dL (12.0-15.5) Hematocrit 46.5 % (36.0-47.0) 41.1 % (36.0-47.0) Mean Corpuscular Volume 94 fL (79-100) 95 fL (79-100) Mean Corpuscular Hemoglobin 32 pg (25-35) 32 pg (25-35) Mean Corpuscular Hemoglobin Concent 34 g/dL (31-37) 34 g/dL (31-37) Red Cell Distribution Width 14.6 % (11.5-14.5) 14.7 % (11.5-14.5) Platelet Count 331 x10^3/uL (140-400) 252 x10^3/uL (140-400) Neutrophils (%) (Auto) 70 % (31-73) Lymphocytes (%) (Auto) 19 % (24-48) Monocytes (%) (Auto) 10 % (0-9) Eosinophils (%) (Auto) 0 % (0-3) Basophils (%) (Auto) 1 % (0-3) Neutrophils # (Auto) 5.9 x10^3/uL (1.8-7.7) Lymphocytes # (Auto) 1.6 x10^3/uL (1.0-4.8) Monocytes # (Auto) 0.8 x10^3/uL (0.0-1.1) Eosinophils # (Auto) 0.0 x10^3/uL (0.0-0.7) Basophils # (Auto) 0.0 x10^3/uL (0.0-0.2) Sodium Level 136 mmol/L (136-145) 143 mmol/L (136-145) Potassium Level 4.2 mmol/L (3.5-5.1) 3.8 mmol/L (3.5-5.1) Chloride Level 94 mmol/L (98-107) 103 mmol/L (98-107) Carbon Dioxide Level 28 mmol/L (21-32) 30 mmol/L (21-32) Anion Gap 14 (6-14) 10 (6-14) Blood Urea Nitrogen 30 mg/dL (7-20) 22 mg/dL (7-20) Creatinine 2.6 mg/dL (0.6-1.0) 1.3 mg/dL (0.6-1.0) Estimated GFR (Cockcroft-Gault) 18.9 42.1 BUN/Creatinine Ratio 12 (6-20) 17 (6-20) Glucose Level 131 mg/dL (70-99) 98 mg/dL (70-99) Lactic Acid Level 1.7 mmol/L (0.4-2.0) Calcium Level 10.4 mg/dL (8.5-10.1) 9.2 mg/dL (8.5-10.1) Total Bilirubin 0.8 mg/dL (0.2-1.0) 0.7 mg/dL (0.2-1.0) Aspartate Amino Transf (AST/SGOT) 27 U/L (15-37) 19 U/L (15-37) Alanine Aminotransferase (ALT/SGPT) 24 U/L (14-59) 19 U/L (14-59) Alkaline Phosphatase 79 U/L (46-116) 63 U/L (46-116) Troponin I Quantitative < 0.017 ng/mL (0.000-0.055) Total Protein 9.1 g/dL (6.4-8.2) 7.4 g/dL (6.4-8.2) Albumin 4.2 g/dL (3.4-5.0) 3.3 g/dL (3.4-5.0) Albumin/Globulin Ratio 0.9 (1.0-1.7) 0.8 (1.0-1.7) Lipase 241 U/L (73-393) Laboratory Tests Test 01/12/19 12:02 01/12/19 12:45 01/13/19 03:25 Urine Collection Type Unknown Urine Color [place] Urine Clarity Cloudy Urine pH 5.0 Urine Specific [place] 1.025 Urine Protein 100 mg/dL (NEG-TRACE) Urine Glucose (UA) Negative mg/dL (NEG) Urine Ketones (Stick) Trace mg/dL (NEG) Urine Blood Negative (NEG) Urine Nitrite Negative (NEG) Urine Bilirubin Large (NEG) Urine Urobilinogen Dipstick 1.0 mg/dL (0.2 mg/dL) Urine Leukocyte Esterase Moderate (NEG) Urine RBC 3-5 /HPF (0-2) Urine WBC 1-4 /HPF (0-4) Urine Squamous Epithelial Cells Mod /LPF Urine Amorphous Sediment Present /HPF Urine Bacteria Few /HPF (0-FEW) Urine Hyaline Casts Many /HPF Urine Mucus Marked /LPF Urine Opiates Screen Neg (NEG) Urine Methadone Screen Neg (NEG) Urine Barbiturates Neg (NEG) Urine Phencyclidine Screen Neg (NEG) Urine Amphetamine/Methamphetamine Neg (NEG) Urine Benzodiazepines Screen Neg (NEG) Urine Cocaine Screen Neg (NEG) Urine Cannabinoids Screen Pos (NEG) Urine Ethyl Alcohol Neg (NEG) White Blood Count 8.4 x10^3/uL (4.0-11.0) 6.6 x10^3/uL (4.0-11.0) Red Blood Count 4.93 x10^6/uL (3.50-5.40) 4.33 x10^6/uL (3.50-5.40) Hemoglobin 15.9 g/dL (12.0-15.5) 14.0 g/dL (12.0-15.5) Hematocrit 46.5 % (36.0-47.0) 41.1 % (36.0-47.0) Mean Corpuscular Volume 94 fL (79-100) 95 fL (79-100) Mean Corpuscular Hemoglobin 32 pg (25-35) 32 pg (25-35) Mean Corpuscular Hemoglobin Concent 34 g/dL (31-37) 34 g/dL (31-37) Red Cell Distribution Width 14.6 % (11.5-14.5) 14.7 % (11.5-14.5) Platelet Count 331 x10^3/uL (140-400) 252 x10^3/uL (140-400) Neutrophils (%) (Auto) 70 % (31-73) Lymphocytes (%) (Auto) 19 % (24-48) Monocytes (%) (Auto) 10 % (0-9) Eosinophils (%) (Auto) 0 % (0-3) Basophils (%) (Auto) 1 % (0-3) Neutrophils # (Auto) 5.9 x10^3/uL (1.8-7.7) Lymphocytes # (Auto) 1.6 x10^3/uL (1.0-4.8) Monocytes # (Auto) 0.8 x10^3/uL (0.0-1.1) Eosinophils # (Auto) 0.0 x10^3/uL (0.0-0.7) Basophils # (Auto) 0.0 x10^3/uL (0.0-0.2) Sodium Level 136 mmol/L (136-145) 143 mmol/L (136-145) Potassium Level 4.2 mmol/L (3.5-5.1) 3.8 mmol/L (3.5-5.1) Chloride Level 94 mmol/L (98-107) 103 mmol/L (98-107) Carbon Dioxide Level 28 mmol/L (21-32) 30 mmol/L (21-32) Anion Gap 14 (6-14) 10 (6-14) Blood Urea Nitrogen 30 mg/dL (7-20) 22 mg/dL (7-20) Creatinine 2.6 mg/dL (0.6-1.0) 1.3 mg/dL (0.6-1.0) Estimated GFR (Cockcroft-Gault) 18.9 42.1 BUN/Creatinine Ratio 12 (6-20) 17 (6-20) Glucose Level 131 mg/dL (70-99) 98 mg/dL (70-99) Lactic Acid Level 1.7 mmol/L (0.4-2.0) Calcium Level 10.4 mg/dL (8.5-10.1) 9.2 mg/dL (8.5-10.1) Total Bilirubin 0.8 mg/dL (0.2-1.0) 0.7 mg/dL (0.2-1.0) Aspartate Amino Transf (AST/SGOT) 27 U/L (15-37) 19 U/L (15-37) Alanine Aminotransferase (ALT/SGPT) 24 U/L (14-59) 19 U/L (14-59) Alkaline Phosphatase 79 U/L (46-116) 63 U/L (46-116) Troponin I Quantitative < 0.017 ng/mL (0.000-0.055) Total Protein 9.1 g/dL (6.4-8.2) 7.4 g/dL (6.4-8.2) Albumin 4.2 g/dL (3.4-5.0) 3.3 g/dL (3.4-5.0) Albumin/Globulin Ratio 0.9 (1.0-1.7) 0.8 (1.0-1.7) Lipase 241 U/L (73-393) Assessment/Plan Assessment/Plan IMP N/V/DIARRHEA ABD PAIN DEHYDRATION CATHY PLAN HYDRATION HOLD HER CHITO-I GI EVAL AND TX EXPECT RENAL RECOVERY WITH HYDRATION AVOID CELEBREX WILL FOLLOW AALIYAH BECKER MD Jan 13, 2019 11:24
[2019-01-13] MEDS: POLYETHYLENE GLYCOL 3350 17 GM PACKET. PO SCH (12:00)
[2019-01-13 15:00] VITALS: BP 120/73
[2019-01-13 18:47] VITALS: BP 135/75
[2019-01-13] MEDS: BUDESONIDE 0.5 MG/2 ML NEBU. NEB SCH (20:35)
[2019-01-13] MEDS: LACTOBACILLUS RHAMNOSUS GG 1 CAPSULE. PO SCH (21:29)
[2019-01-13] MEDS: QUEtiapine 25 MG TABLET. PO SCH (21:29)
[2019-01-13] MEDS: traZODone 100 MG TABLET. PO SCH (21:29)
[2019-01-13] MEDS ORDERED: fentaNYL PF VIAL 100 MCG/2 ML VIAL IV PRN (22:00)
[2019-01-13 23:25] VITALS: BP 85/52
[2019-01-13] MEDS ORDERED: IV NORMAL SALINE 1000ML BAG 1,000 ML IV ONE (23:45)
[2019-01-14] VITALS (7 sets, daily range): BP systolic 90–135; BP diastolic 52–79
[2019-01-14] MEDS: PIPERACILLIN/TAZOBACTAM 2.25 GM in IV NORMAL SALINE 50ML 50 ML IV SCH ×4 (00:14→17:14)
[2019-01-14] MEDS: IV NORMAL SALINE 1000ML BAG 1,000 ML IV SCH (00:34)
[2019-01-14 07:36] LABS: CALCIUM 8.5 mg/dL (8.5-10.1); CREATININE 0.8 mg/dL (0.6-1.0); GFR 73.7; POTASSIUM 3.7 mmol/L (3.5-5.1)
--- NOTE | 2019-01-14 07:48 | PDOC ---
PROGRESS NOTES History of Present Illness History of Present Illness ASSESSMENT AND PLAN: Nausea, vomiting, abdominal pain, diverticulitis, acute colonic diverticulosis greatest of the sigmoid colon, difficult to exclude sigmoid colonic wall thickening as could be seen with diverticulitis renal failure., IMPROVING extensive problems with endometriosis. admitted. consult Gastroenterology consult Nephrology. IV antibiotics, IV fluids, p.r.n.antiemetics, home meds, deep venous thrombosis prophylaxis. Full code. SURGERY FOLLOWING [employer] INTERFACE DEVELOPER CONSULTED 01/13 Chronic cholecystitis likely. Surgical consult for possible lap pily 36 min pt exam, chart review,> 50% of time spent with exam, chart review, pt care coordination Vitals Vitals Vital Signs Date Time Temp Pulse Resp B/P (MAP) Pulse Ox O2 Delivery O2 Flow Rate FiO2 01/14/19 07:00 98.5 68 20 124/71 (88) 97 Room Air 98.5 Physical Exam Physical Exam GENERAL: No apparent distress. Alert and oriented. HEENT: Head is normocephalic, atraumatic, pupils were equally round and reactive to light and accommodation. NECK: Supple, no JVD, no thyromegaly was noted. LUNGS: Clear to auscultation in all lung cortes without rhonchi or wheezing. HEART: RRR, S1, S2 present. Peripheral pulses intact, no obvious murmurs were noted. ABDOMEN: Soft, nontender. Positive bowel sounds no organomegaly, normal bowel sounds. EXTREMITIES: Without any cyanosis, clubbing, or edema. Pedal pulses intact, Homans sign is negative. NEUROLOGIC: Normal speech, normal tone. A & O x3, moves all extremities, no obvious focal deficits. PSYCHIATRIC: She is crying. SKIN: No ulcerations or rashes, good skin turgor, no jaundice. VASCULAR: Good capillary refill, neurovascular bundle appears to be intact. General: Alert, Oriented X3, Cooperative, No acute distress Heart: Regular rate Lungs: Clear Abdomen: Normal bowel sounds, Soft Extremities: No clubbing, No cyanosis Skin: No breakdown Labs LABS Laboratory Tests Test 01/14/19 06:45 Sodium Level 149 mmol/L (136-145) Potassium Level 3.7 mmol/L (3.5-5.1) Chloride Level 112 mmol/L (98-107) Carbon Dioxide Level 28 mmol/L (21-32) Anion Gap 9 (6-14) Blood Urea Nitrogen 13 mg/dL (7-20) Creatinine 0.8 mg/dL (0.6-1.0) Estimated GFR (Cockcroft-Gault) 73.7 Glucose Level 81 mg/dL (70-99) Calcium Level 8.5 mg/dL (8.5-10.1) Assessment and Plan Assessmemt and Plan Problems Medical Problems: (1) Abdominal pain Status: Acute (2) Acute renal failure Status: Acute (3) Nausea & vomiting Status: Acute Comment Review of Relevant I have reviewed the following items eagle (where applicable) has been applied. Labs Laboratory Tests Test 01/12/19 12:02 01/12/19 12:45 01/13/19 03:25 01/14/19 06:45 Urine Collection Type Unknown Urine Color Faviola Urine Clarity Cloudy Urine pH 5.0 Urine Specific [place] 1.025 Urine Protein 100 mg/dL (NEG-TRACE) Urine Glucose (UA) Negative mg/dL (NEG) Urine Ketones (Stick) Trace mg/dL (NEG) Urine Blood Negative (NEG) Urine Nitrite Negative (NEG) Urine Bilirubin Large (NEG) Urine Urobilinogen Dipstick 1.0 mg/dL (0.2 mg/dL) Urine Leukocyte Esterase Moderate (NEG) Urine RBC 3-5 /HPF (0-2) Urine WBC 1-4 /HPF (0-4) Urine Squamous Epithelial Cells Mod /LPF Urine Amorphous Sediment Present /HPF Urine Bacteria Few /HPF (0-FEW) Urine Hyaline Casts Many /HPF Urine Mucus Marked /LPF Urine Opiates Screen Neg (NEG) Urine Methadone Screen Neg (NEG) Urine Barbiturates Neg (NEG) Urine Phencyclidine Screen Neg (NEG) Urine Amphetamine/Methamphetamine Neg (NEG) Urine Benzodiazepines Screen Neg (NEG) Urine Cocaine Screen Neg (NEG) Urine Cannabinoids Screen Pos (NEG) Urine Ethyl Alcohol Neg (NEG) White Blood Count 8.4 x10^3/uL (4.0-11.0) 6.6 x10^3/uL (4.0-11.0) Red Blood Count 4.93 x10^6/uL (3.50-5.40) 4.33 x10^6/uL (3.50-5.40) Hemoglobin 15.9 g/dL (12.0-15.5) 14.0 g/dL (12.0-15.5) Hematocrit 46.5 % (36.0-47.0) 41.1 % (36.0-47.0) Mean Corpuscular Volume 94 fL (79-100) 95 fL (79-100) Mean Corpuscular Hemoglobin 32 pg (25-35) 32 pg (25-35) Mean Corpuscular Hemoglobin Concent 34 g/dL (31-37) 34 g/dL (31-37) Red Cell Distribution Width 14.6 % (11.5-14.5) 14.7 % (11.5-14.5) Platelet Count 331 x10^3/uL (140-400) 252 x10^3/uL (140-400) Neutrophils (%) (Auto) 70 % (31-73) Lymphocytes (%) (Auto) 19 % (24-48) Monocytes (%) (Auto) 10 % (0-9) Eosinophils (%) (Auto) 0 % (0-3) Basophils (%) (Auto) 1 % (0-3) Neutrophils # (Auto) 5.9 x10^3/uL (1.8-7.7) Lymphocytes # (Auto) 1.6 x10^3/uL (1.0-4.8) Monocytes # (Auto) 0.8 x10^3/uL (0.0-1.1) Eosinophils # (Auto) 0.0 x10^3/uL (0.0-0.7) Basophils # (Auto) 0.0 x10^3/uL (0.0-0.2) Sodium Level 136 mmol/L (136-145) 143 mmol/L (136-145) 149 mmol/L (136-145) Potassium Level 4.2 mmol/L (3.5-5.1) 3.8 mmol/L (3.5-5.1) 3.7 mmol/L (3.5-5.1) Chloride Level 94 mmol/L (98-107) 103 mmol/L (98-107) 112 mmol/L (98-107) Carbon Dioxide Level 28 mmol/L (21-32) 30 mmol/L (21-32) 28 mmol/L (21-32) Anion Gap 14 (6-14) 10 (6-14) 9 (6-14) Blood Urea Nitrogen 30 mg/dL (7-20) 22 mg/dL (7-20) 13 mg/dL (7-20) Creatinine 2.6 mg/dL (0.6-1.0) 1.3 mg/dL (0.6-1.0) 0.8 mg/dL (0.6-1.0) Estimated GFR (Cockcroft-Gault) 18.9 42.1 73.7 BUN/Creatinine Ratio 12 (6-20) 17 (6-20) Glucose Level 131 mg/dL (70-99) 98 mg/dL (70-99) 81 mg/dL (70-99) Lactic Acid Level 1.7 mmol/L (0.4-2.0) Calcium Level 10.4 mg/dL (8.5-10.1) 9.2 mg/dL (8.5-10.1) 8.5 mg/dL (8.5-10.1) Total Bilirubin 0.8 mg/dL (0.2-1.0) 0.7 mg/dL (0.2-1.0) Aspartate Amino Transf (AST/SGOT) 27 U/L (15-37) 19 U/L (15-37) Alanine Aminotransferase (ALT/SGPT) 24 U/L (14-59) 19 U/L (14-59) Alkaline Phosphatase 79 U/L (46-116) 63 U/L (46-116) Troponin I Quantitative < 0.017 ng/mL (0.000-0.055) Total Protein 9.1 g/dL (6.4-8.2) 7.4 g/dL (6.4-8.2) Albumin 4.2 g/dL (3.4-5.0) 3.3 g/dL (3.4-5.0) Albumin/Globulin Ratio 0.9 (1.0-1.7) 0.8 (1.0-1.7) Lipase 241 U/L (73-393) Laboratory Tests Test 01/14/19 06:45 Sodium Level 149 mmol/L (136-145) Potassium Level 3.7 mmol/L (3.5-5.1) Chloride Level 112 mmol/L (98-107) Carbon Dioxide Level 28 mmol/L (21-32) Anion Gap 9 (6-14) Blood Urea Nitrogen 13 mg/dL (7-20) Creatinine 0.8 mg/dL (0.6-1.0) Estimated GFR (Cockcroft-Gault) 73.7 Glucose Level 81 mg/dL (70-99) Calcium Level 8.5 mg/dL (8.5-10.1) Microbiology 01/12/19 Blood Culture - Preliminary, Resulted NO GROWTH AFTER 1 DAY 01/12/19 Urine Culture - Final, Complete 01/12/19 Urine Culture Result 1 ([facility]) - Final, Complete Medications Current Medications Sodium Chloride 1,000 ml @ 1,000 mls/hr Q1H IV Last administered on 01/12/19at 12:57; Start 01/12/19 at 12:31; Stop 01/12/19 at 13:30; Status DC Fentanyl Citrate (Fentanyl 2ml Vial) 50 mcg 1X ONCE IV Last administered on 01/12/19at 13:09; Start 01/12/19 at 12:45; Stop 01/12/19 at 12:46; Status DC Prochlorperazine Edisylate (Compazine) 10 mg 1X ONCE IV Last administered on 01/12/19at 13:09; Start 01/12/19 at 12:45; Stop 01/12/19 at 12:46; Status DC Famotidine (Pepcid Vial) 20 mg 1X ONCE IVP Last administered on 01/12/19at 13:20; Start 01/12/19 at 12:45; Stop 01/12/19 at 12:46; Status DC Piperacillin Sod/ Tazobactam Sod (Zosyn Per Pharmacy) 1 each PRN DAILY PRN MC SEE COMMENTS; Start 01/12/19 at 15:00 Ondansetron HCl (Zofran) 4 mg PRN Q8HRS PRN IV NAUSEA/VOMITING Last administere d on 01/13/19at 09:41; Start 01/12/19 at 15:00; Stop 01/13/19 at 14:59; Status DC Fentanyl Citrate (Fentanyl 2ml Vial) 50 mcg PRN Q1HR PRN IV PAIN; Start 01/12/19 at 15:00; Stop 01/13/19 at 14:59; Status DC Acetaminophen (Tylenol) 650 mg PRN Q4HRS PRN PO FEVER; Start 01/12/19 at 15:00; Stop 01/13/19 at 14:59; Status DC Prochlorperazine Edisylate (Compazine) 10 mg PRN Q6HRS PRN IV NAUSEA, VOMITING (USE 2ND) Last administered on 01/13/19at 22:01; Start 01/12/19 at 15:00 Piperacillin Sod/ Tazobactam Sod 2.25 gm/Sodium Chloride 50 ml @ 100 mls/hr 1X ONCE IV Last administered on 01/12/19at 15:31; Start 01/12/19 at 15:15; Stop 01/12/19 at 15:44; Status DC Piperacillin Sod/ Tazobactam Sod 2.25 gm/Sodium Chloride 50 ml @ 100 mls/hr Q6HRS IV Last administered on 01/14/19at 06:29; Start 01/13/19 at 00:00 Pantoprazole Sodium (PROTONIX VIAL for IV PUSH) 40 mg DAILYAC IVP Last administered on 01/13/19at 12:00; Start 01/13/19 at 07:30; Stop 01/13/19 at 15:46; Status DC Multi-Ingredient Mouthwash/Gargle (Gi Cocktail) 20 ml PRN QID PRN PO abd pain; Start 01/12/19 at 16:15 Polyethylene Glycol (miraLAX PACKET) 17 gm DAILY PO Last administered on 01/13/19at 12:00; Start 01/13/19 at 09:00 Sodium Chloride 1,000 ml @ 100 mls/hr Q10H IV Last administered on 01/14/19at 00:34; Start 01/13/19 at 00:15 Barium Sulfate (Liquid E-Z Paque) 710 ml 1X ONCE PO Last administered on 01/13/19at 08:31; Start 01/13/19 at 07:45; Stop 01/13/19 at 07:46; Status DC Alprazolam (Xanax) 0.5 mg 1X ONCE PO Last administered on 01/13/19at 09:41; Start 01/13/19 at 09:15; Stop 01/13/19 at 09:16; Status DC Albuterol Sulfate (Ventolin Neb Soln) 1 mg PRN Q4HRS PRN INH SHORTNESS OF BREATH; Start 01/13/19 at 09:15; Stop 01/13/19 at 09:18; Status DC Lisinopril (Prinivil) 20 mg DAILY PO Last administered on 01/13/19at 09:41; Start 01/13/19 at 09:30; Stop 01/13/19 at 11:25; Status DC Ondansetron HCl (Zofran Odt) 8 mg PRN BID PRN PO NAUSEA/VOMITING; Start 01/13/19 at 09:15 Trazodone HCl (Desyrel) 100 mg HS PO Last administered on 01/13/19 21:31; Start 01/13/19 at 21:00 Albuterol Sulfate (Ventolin Neb Soln) 2.5 mg RTQID NEB Last administered on 01/13/19 20:35; Start 01/13/19 at 12:00 Duloxetine HCl (Cymbalta) 60 mg BID PO Last administered on 01/13/19 21:31; Start 01/13/19 at 09:30 Non-Formulary Medication (Omeprazole ) 1 cap DAILY PO ; Start 01/14/19 at 09:00; Stop 01/13/19 at 09:12; Status DC Quetiapine Fumarate (SEROquel) 50 mg QHS PO Last administered on 01/13/19 21:31; Start 01/13/19 at 21:00 Albuterol Sulfate (Ventolin Neb Soln) 2.5 mg PRN Q4HRS PRN INH SHORTNESS OF BREATH; Start 01/13/19 at 09:18 Budesonide (Pulmicort) 0.5 mg RTBID NEB Last administered on 01/13/19at 20:35; Start 01/13/19 at 20:00 Lactobacillus Rhamnosus (Culturelle) 1 cap BID PO Last administered on 01/13/19 21:31; Start 01/13/19 at 21:00 Pantoprazole Sodium (Protonix) 40 mg DAILYAC PO ; Start 01/14/19 at 07:30 Fentanyl Citrate (Fentanyl 2ml Vial) 50 mcg PRN Q4HRS PRN IV SEVERE PAIN 7-10; Start 01/13/19 at 22:00; Stop 01/14/19 at 10:00 Sodium Chloride 1,000 ml @ 999 mls/hr 1X ONCE IV Last administered on 01/14/19at 00:14; Start 01/13/19 at 23:45; Stop 01/14/19 at 00:45; Status DC Active Scripts Active Erythromycin (Erythromycin Base) 250 Mg Tablet 250 Mg PO DAILY 30 Days Reported Symbicort 160-4.5 Mcg Inhaler (Budesonide/Formoterol Fumarate) 10.2 Gm Hfa.aer.ad 2 Puff IH BID Trazodone Hcl 100 Mg Tablet 100 Mg PO HS Cymbalta (Duloxetine Hcl) 60 Mg Capsule.dr [place] Cap PO BID Lisinopril 20 Mg Tablet 1 Tab PO DAILY Seroquel (Quetiapine Fumarate) 50 Mg Tablet 50 Mg PO HS Ondansetron Odt (Ondansetron) 4 Mg Tab.rapdis 8 Mg PO BID PRN Proair Hfa Inhaler (Albuterol Sulfate) 8.5 Gm Hfa.aer.ad 2 Puff INH DAILY PRN Omeprazole 40 Mg Capsule.dr [place] Cap PO DAILY Vitals/I & O Vital Sign - Last 24 Hours 01/13/19 01/13/19 01/13/19 01/13/19 08:00 09:41 10:26 11:00 Temp 98.2 98.2 Pulse 94 84 Resp 16 B/P (MAP) 127/85 102/62 (75) Pulse Ox 96 96 O2 Delivery Room Air Room Air Room Air 01/13/19 01/13/19 01/13/19 01/13/19 15:00 15:36 18:47 18:47 Temp 98.1 98.7 98.1 98.7 Pulse 78 58 Resp 18 20 B/P (MAP) 120/73 (89) 135/75 (95) Pulse Ox 96 96 O2 Delivery Room Air Room Air Room Air Room Air 01/13/19 01/13/19 01/14/19 01/14/19 20:36 23:25 03:25 07:00 Temp 98.2 98.5 98.5 98.2 98.5 98.5 Pulse 76 65 68 Resp 16 16 20 B/P (MAP) 85/52 (63) 90/52 (65) 124/71 (88) Pulse Ox 93 94 97 O2 Delivery Room Air Room Air Room Air Room Air Intake and Output 01/13/19 01/13/19 01/14/19 14:59 22:59 06:59 Intake Total 3290 ml Output Total 600 ml Balance 2690 ml AMANDA OCHOA MD Jan 14, 2019 07:48
--- NOTE | 2019-01-14 08:13 | PDOC2 ---
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 Symptoms have been worsening, however she can not relate how often. Develops epigastric pain, radiates to left side. Associated nausea and emesis, dehydration. Only alleviating factor is laying in warm tub with ice packs. Unable to keep anything down, attempted supper last night with emesis. SBFT normal, CT showed some questionable sigmoid wall thickening Previous US, [facility] normal in July Previous -[facility]--showed mildly delayed, previous endoscopy [place] Grade A reflux esophagitis (no Johnson's on biopsy), normal stomach, normal duodenum, 7mm adneomatous polyp in sigmoid colon, sigmoid diverticulosis, non-bleeding internal hemorrhoids very tearful, just wants fixed, issues "make me almost suicidal" Past Medical History Cardiovascular: HTN Pulmonary: COPD GI: GERD Heme/Onc: No pertinent hx Hepatobiliary: No pertinent hx Psych: Anxiety, Depression Rheumatologic: No pertinent hx Infectious disease: No pertinent hx Renal/: No pertinent hx Endocrine: No pertinent hx Past Surgical History Past Surgical History: Total knee replacement, Tonsillectomy Family History Family History: Cancer, Other Social History No ALCOHOL: none Drugs: Marijuana Lives: with Family Current Problem List Problem List Problems Medical Problems: (1) Abdominal pain Status: Acute (2) Acute renal failure Status: Acute (3) Nausea & vomiting Status: Acute Current Medications Current Medications Current Medications Sodium Chloride 1,000 ml @ 1,000 mls/hr Q1H IV Last administered on 01/12/19at 12:57; Start 01/12/19 at 12:31; Stop 01/12/19 at 13:30; Status DC Fentanyl Citrate (Fentanyl 2ml Vial) 50 mcg 1X ONCE IV Last administered on 01/12/19at 13:09; Start 01/12/19 at 12:45; Stop 01/12/19 at 12:46; Status DC Prochlorperazine Edisylate (Compazine) 10 mg 1X ONCE IV Last administered on 01/12/19at 13:09; Start 01/12/19 at 12:45; Stop 01/12/19 at 12:46; Status DC Famotidine (Pepcid Vial) 20 mg 1X ONCE IVP Last administered on 01/12/19at 1 3:20; Start 01/12/19 at 12:45; Stop 01/12/19 at 12:46; Status DC Piperacillin Sod/ Tazobactam Sod (Zosyn Per Pharmacy) 1 each PRN DAILY PRN MC SEE COMMENTS; Start 01/12/19 at 15:00 Ondansetron HCl (Zofran) 4 mg PRN Q8HRS PRN IV NAUSEA/VOMITING Last admi nistered on 01/13/19at 09:41; Start 01/12/19 at 15:00; Stop 01/13/19 at 14:59; Status DC Fentanyl Citrate (Fentanyl 2ml Vial) 50 mcg PRN Q1HR PRN IV PAIN; Start 01/12/19 at 15:00; Stop 01/13/19 at 14:59; Status DC Acetaminophen (Tylenol) 650 mg PRN Q4HRS PRN PO FEVER; Start 01/12/19 at 15:00; Stop 01/13/19 at 14:59; Status DC Prochlorperazine Edisylate (Compazine) 10 mg PRN Q6HRS PRN IV NAUSEA, VOMITING (USE 2ND) Last administered on 01/13/19at 22:01; Start 01/12/19 at 15:00 Piperacillin Sod/ Tazobactam Sod 2.25 gm/Sodium Chloride 50 ml @ 100 mls/hr 1X ONCE IV Last administered on 01/12/19at 15:31; Start 01/12/19 at 15:15; Stop 01/12/19 at 15:44; Status DC Piperacillin Sod/ Tazobactam Sod 2.25 gm/Sodium Chloride 50 ml @ 100 mls/hr Q6HRS IV Last administered on 01/14/19at 06:29; Start 01/13/19 at 00:00 Pantoprazole Sodium (PROTONIX VIAL for IV PUSH) 40 mg DAILYAC IVP Last adm inistered on 01/13/19at 12:00; Start 01/13/19 at 07:30; Stop 01/13/19 at 15:46; Status DC Multi-Ingredient Mouthwash/Gargle (Gi Cocktail) 20 ml PRN QID PRN PO abd pain; Start 01/12/19 at 16:15 Polyethylene Glycol (miraLAX PACKET) 17 gm DAILY PO Last administered on 01/13/19at 12:00; Start 01/13/19 at 09:00 Sodium Chloride 1,000 ml @ 100 mls/hr Q10H IV Last administered on 01/14/19at 00:34; Start 01/13/19 at 00:15 Barium Sulfate (Liquid E-Z Paque) 710 ml 1X ONCE PO Last administered on 01/13/19at 08:31; Start 01/13/19 at 07:45; Stop 01/13/19 at 07:46; Status DC Alprazolam (Xanax) 0.5 mg 1X ONCE PO Last administered on 01/13/19at 09:41; Start 01/13/19 at 09:15; Stop 01/13/19 at 09:16; Status DC Albuterol Sulfate (Ventolin Neb Soln) 1 mg PRN Q4HRS PRN INH SHORTNESS OF BREATH; Start 01/13/19 at 09:15; Stop 01/13/19 at 09:18; Status DC Lisinopril (Prinivil) 20 mg DAILY PO Last administered on 01/13/19at 09:41; Start 01/13/19 at 09:30; Stop 01/13/19 at 11:25; Status DC Ondansetron HCl (Zofran Odt) 8 mg PRN BID PRN PO NAUSEA/VOMITING; Start 01/13/19 at 09:15 Trazodone HCl (Desyrel) 100 mg HS PO Last administered on 01/13/19at 21:31; Start 01/13/19 at 21:00 Albuterol Sulfate (Ventolin Neb Soln) 2.5 mg RTQID NEB Last administered on 01/13/19at 20:35; Start 01/13/19 at 12:00 Duloxetine HCl (Cymbalta) 60 mg BID PO Last administered on 01/13/19 21:31; Start 01/13/19 at 09:30 Non-Formulary Medication (Omeprazole ) 1 cap DAILY PO ; Start 01/14/19 at 09:00; Stop 01/13/19 at 09:12; Status DC Quetiapine Fumarate (SEROquel) 50 mg QHS PO Last administered on 01/13/19at 21:31; Start 01/13/19 at 21:00 Albuterol Sulfate (Ventolin Neb Soln) 2.5 mg PRN Q4HRS PRN INH SHORTNESS OF BREATH; Start 01/13/19 at 09:18 Budesonide (Pulmicort) 0.5 mg RTBID NEB Last administered on 01/13/19at 20:35; Start 01/13/19 at 20:00 Lactobacillus Rhamnosus (Culturelle) 1 cap BID PO Last administered on 01/13/19at 21:31; Start 01/13/19 at 21:00 Pantoprazole Sodium (Protonix) 40 mg DAILYAC PO ; Start 01/14/19 at 07:30 Fentanyl Citrate (Fentanyl 2ml Vial) 50 mcg PRN Q4HRS PRN IV SEVERE PAIN 7-10; Start 01/13/19 at 22:00; Stop 01/14/19 at 10:00 Sodium Chloride 1,000 ml @ 999 mls/hr 1X ONCE IV Last administered on 01/14/19at 00:14; Start 01/13/19 at 23:45; Stop 01/14/19 at 00:45; Status DC Active Scripts Active Erythromycin (Erythromycin Base) 250 Mg Tablet 250 Mg PO DAILY 30 Days Reported Symbicort 160-4.5 Mcg Inhaler (Budesonide/Formoterol Fumarate) 10.2 Gm Hfa.aer.ad 2 Puff IH BID Trazodone Hcl 100 Mg Tablet 100 Mg PO HS Cymbalta (Duloxetine Hcl) 60 Mg Capsule.dr 1 Cap PO BID Lisinopril 20 Mg Tablet 1 Tab PO DAILY Seroquel (Quetiapine Fumarate) 50 Mg Tablet 50 Mg PO HS Ondansetron Odt (Ondansetron) 4 Mg Tab.rapdis 8 Mg PO BID PRN Proair Hfa Inhaler (Albuterol Sulfate) 8.5 Gm Hfa.aer.ad 2 Puff INH DAILY PRN Omeprazole 40 Mg Capsule.dr 1 Cap PO DAILY Allergies Allergies: Coded Allergies: No Known Drug Allergies (Unverified , 08/13/18) ROS General: YES: Fatigue, Appetite (loss); No: Chills PSYCHOLOGICAL ROS: YES: Anxiety, Depression Eyes: No Blurry vision, No Double vision HEENT: YES: Heacaches; No: Sore Throat Hematological and Lymphatic: No: Bleeding Problems, Blood Clots Respiratory: No: Cough, Shortness of breath Cardiovascular: No Chest Pain, No Palpitations Gastrointestinal: Yes Other (see hpi) Genitourinary: No Dysuria, No Hematuria Musculoskeletal: No Joint Pain, No Muscle Pain Neurological: No Impaired Coord/balance, No Numbness/Tingling Skin: No Pruritus, No Rash Physical Exam General: Alert, Oriented X3, Other (very tearful during exam) HEENT: PERRLA, Mucous membr. moist/pink Lungs: Clear to auscultation, Normal air movement Heart: Regular rate, Normal S1, Normal S2 Abdomen: Soft, No tenderness, Other (ND) Extremities: No clubbing, No cyanosis Skin: No rashes, No breakdown Neuro: Normal gait, Normal speech Psych/Mental Status: Mental status NL, Mood NL MUSCULOSKELETAL: No deformity, No swelling Vitals VITALS Vital Signs Date Time Temp Pulse Resp B/P (MAP) Pulse Ox O2 Delivery O2 Flow Rate FiO2 01/14/19 07:00 98.5 68 20 124/71 (88) 97 Room Air 98.5 Labs Labs Laboratory Tests Test 01/12/19 12:02 01/12/19 12:45 01/13/19 03:25 01/14/19 06:45 Urine Collection Type Unknown Urine Color [place] Urine Clarity Cloudy Urine pH 5.0 Urine Specific [place] 1.025 Urine Protein 100 mg/dL (NEG-TRACE) Urine Glucose (UA) Negative mg/dL (NEG) Urine Ketones (Stick) Trace mg/dL (NEG) Urine Blood Negative (NEG) Urine Nitrite Negative (NEG) Urine Bilirubin Large (NEG) Urine Urobilinogen Dipstick 1.0 mg/dL (0.2 mg/dL) Urine Leukocyte Esterase Moderate (NEG) Urine RBC 3-5 /HPF (0-2) Urine WBC 1-4 /HPF (0-4) Urine Squamous Epithelial Cells Mod /LPF Urine Amorphous Sediment Present /HPF Urine Bacteria Few /HPF (0-FEW) Urine Hyaline Casts Many /HPF Urine Mucus Marked /LPF Urine Opiates Screen Neg (NEG) Urine Methadone Screen Neg (NEG) Urine Barbiturates Neg (NEG) Urine Phencyclidine Screen Neg (NEG) Urine Amphetamine/Methamphetamine Neg (NEG) Urine Benzodiazepines Screen Neg (NEG) Urine Cocaine Screen Neg (NEG) Urine Cannabinoids Screen Pos (NEG) Urine Ethyl Alcohol Neg (NEG) White Blood Count 8.4 x10^3/uL (4.0-11.0) 6.6 x10^3/uL (4.0-11.0) Red Blood Count 4.93 x10^6/uL (3.50-5.40) 4.33 x10^6/uL (3.50-5.40) Hemoglobin 15.9 g/dL (12.0-15.5) 14.0 g/dL (12.0-15.5) Hematocrit 46.5 % (36.0-47.0) 41.1 % (36.0-47.0) Mean Corpuscular Volume 94 fL (79-100) 95 fL (79-100) Mean Corpuscular Hemoglobin 32 pg (25-35) 32 pg (25-35) Mean Corpuscular Hemoglobin Concent 34 g/dL (31-37) 34 g/dL (31-37) Red Cell Distribution Width 14.6 % (11.5-14.5) 14.7 % (11.5-14.5) Platelet Count 331 x10^3/uL (140-400) 252 x10^3/uL (140-400) Neutrophils (%) (Auto) 70 % (31-73) Lymphocytes (%) (Auto) 19 % (24-48) Monocytes (%) (Auto) 10 % (0-9) Eosinophils (%) (Auto) 0 % (0-3) Basophils (%) (Auto) 1 % (0-3) Neutrophils # (Auto) 5.9 x10^3/uL (1.8-7.7) Lymphocytes # (Auto) 1.6 x10^3/uL (1.0-4.8) Monocytes # (Auto) 0.8 x10^3/uL (0.0-1.1) Eosinophils # (Auto) 0.0 x10^3/uL (0.0-0.7) Basophils # (Auto) 0.0 x10^3/uL (0.0-0.2) Sodium Level 136 mmol/L (136-145) 143 mmol/L (136-145) 149 mmol/L (136-145) Potassium Level 4.2 mmol/L (3.5-5.1) 3.8 mmol/L (3.5-5.1) 3.7 mmol/L (3.5-5.1) Chloride Level 94 mmol/L (98-107) 103 mmol/L (98-107) 112 mmol/L (98-107) Carbon Dioxide Level 28 mmol/L (21-32) 30 mmol/L (21-32) 28 mmol/L (21-32) Anion Gap 14 (6-14) 10 (6-14) 9 (6-14) Blood Urea Nitrogen 30 mg/dL (7-20) 22 mg/dL (7-20) 13 mg/dL (7-20) Creatinine 2.6 mg/dL (0.6-1.0) 1.3 mg/dL (0.6-1.0) 0.8 mg/dL (0.6-1.0) Estimated GFR (Cockcroft-Gault) 18.9 42.1 73.7 BUN/Creatinine Ratio 12 (6-20) 17 (6-20) Glucose Level 131 mg/dL (70-99) 98 mg/dL (70-99) 81 mg/dL (70-99) Lactic Acid Level 1.7 mmol/L (0.4-2.0) Calcium Level 10.4 mg/dL (8.5-10.1) 9.2 mg/dL (8.5-10.1) 8.5 mg/dL (8.5-10.1) Total Bilirubin 0.8 mg/dL (0.2-1.0) 0.7 mg/dL (0.2-1.0) Aspartate Amino Transf (AST/SGOT) 27 U/L (15-37) 19 U/L (15-37) Alanine Aminotransferase (ALT/SGPT) 24 U/L (14-59) 19 U/L (14-59) Alkaline Phosphatase 79 U/L (46-116) 63 U/L (46-116) Troponin I Quantitative < 0.017 ng/mL (0.000-0.055) Total Protein 9.1 g/dL (6.4-8.2) 7.4 g/dL (6.4-8.2) Albumin 4.2 g/dL (3.4-5.0) 3.3 g/dL (3.4-5.0) Albumin/Globulin Ratio 0.9 (1.0-1.7) 0.8 (1.0-1.7) Lipase 241 U/L (73-393) Laboratory Tests Test 01/14/19 06:45 Sodium Level 149 mmol/L (136-145) Potassium Level 3.7 mmol/L (3.5-5.1) Chloride Level 112 mmol/L (98-107) Carbon Dioxide Level 28 mmol/L (21-32) Anion Gap 9 (6-14) Blood Urea Nitrogen 13 mg/dL (7-20) Creatinine 0.8 mg/dL (0.6-1.0) Estimated GFR (Cockcroft-Gault) 73.7 Glucose Level 81 mg/dL (70-99) Calcium Level 8.5 mg/dL (8.5-10.1) Assessment/Plan Assessment/Plan abdominal pain, chronic ? chronic cholecystitis symptoms, imaging has been unrevealing will have Dr Hutchinson review ANGELICA HUTCHINSON MD 01/14/19 0850: CONSULT Assessment/Plan Assessment/Plan Pt seen and examined. Agree with Liss Esteves's note Pt frustrated with health issues and lack of definitive findings. We discussed extensively etiology and possible therapy. Agree with GI possible benefit of laparoscopic exploration and cholecystectomy with cholangiogram. R/R/B/A d/w pt. Risks, including, but not limited to: bleeding, infection, damage to surrounding structures, risk of anesthesia, risk of open, risk of , and the possibility that this may not resolve her pain. She appears to understand, her questions are answered and she elects to proceed, although she will d/w other physicians and family first. Will tentatively schedule for 01/17 Pt reports previous extensive problems with endometriosis. Will ask for ribbon inker evaluation as well. Thanks for consult! BLU ESTEVES APRN Jan 14, 2019 08:13 ANGELICA HUTCHINSON MD Jan 14, 2019 08:50
[2019-01-14] MEDS: PANTOPRAZOLE 40 MG TABLET.DR. PO SCH (08:40)
[2019-01-14] MEDS: DULoxetine HCL 30 MG CAPSULE.DR PO SCH ×2 (08:40→20:32)
[2019-01-14] MEDS: ONDANSETRON ODT 4 MG TAB.RAPDIS. PO PRN (08:40)
[2019-01-14] MEDS: POLYETHYLENE GLYCOL 3350 17 GM PACKET. PO SCH ×2 (08:40→08:47)
[2019-01-14] MEDS: LACTOBACILLUS RHAMNOSUS GG 1 CAPSULE. PO SCH ×2 (08:40→20:32)
[2019-01-14] MEDS: BUDESONIDE 0.5 MG/2 ML NEBU. NEB SCH ×2 (08:57→20:55)
[2019-01-14] MEDS: ALBUTEROL SULFATE 2.5 MG/3 ML NEBU. NEB SCH ×4 (08:57→20:55)
[2019-01-14] MEDS ORDERED: NON FORMULARY ITEM (Omeprazole 1 CAP) PO SCH (09:00)
--- NOTE | 2019-01-14 10:14 | PDOC ---
Renal-Progress Notes Subjective Notes Notes NO NEW COMPLAINTS History of Present Illness Hx of present illness STABLE Vitals Vitals Vital Signs Date Time Temp Pulse Resp B/P (MAP) Pulse Ox O2 Delivery O2 Flow Rate FiO2 01/14/19 09:00 96 Room Air 01/14/19 07:00 98.5 68 20 124/71 (88) 98.5 Weight Weight [ ] I.O. Intake and Output Intake and Output 01/14/19 06:59 Intake Total 3290 ml Output Total 600 ml Balance 2690 ml Intake Oral 200 ml IV Total 3090 ml Output Urine Total 600 ml # Voids 5 # Bowel Movements 3 Labs Labs Laboratory Tests Test 01/14/19 06:45 Sodium Level 149 mmol/L (136-145) Potassium Level 3.7 mmol/L (3.5-5.1) Chloride Level 112 mmol/L (98-107) Carbon Dioxide Level 28 mmol/L (21-32) Anion Gap 9 (6-14) Blood Urea Nitrogen 13 mg/dL (7-20) Creatinine 0.8 mg/dL (0.6-1.0) Estimated GFR (Cockcroft-Gault) 73.7 Glucose Level 81 mg/dL (70-99) Calcium Level 8.5 mg/dL (8.5-10.1) Micro Micro Microbiology 01/12/19 Blood Culture - Preliminary, Resulted NO GROWTH AFTER 1 DAY 01/12/19 Urine Culture - Final, Complete 01/12/19 Urine Culture Result 1 ([facility]) - Final, Complete Review of Systems Constitutional: yes: weakness, alert Ears/Nose/Throat: Yes: no symptom reported Pulmonary: Yes no symptom reported Cardiovascular: Yes no symptom reported Gastrointestional: Yes: nausea, abdominal pain Genitourinary: Yes: no symptom reported Musculoskeletal: Yes: no symptom reported Skin: Yes no symptom reported Psychiatric/Neurological: Yes: no symptom reported Endocrine: Yes: no symptom reported Physical Exam General Appearance: no apparent distress Skin: warm Respiratory: bilateral CTA Heart: S1S2 Abdomen: bowel sounds present Genitourinary: bladder flat Extremities: pulses present Neurology: alert Assessment Assessment IMP N/V/DIARRHEA ABD PAIN DEHYDRATION CATHY-RESOLVED MILD HYPERNATREMIA PLAN HYDRATION-CHANGE TO HYPOTONIC SALINE HOLD HER CHITO-I AVOID CELEBREX WILL FOLLOW AALIYAH BECKER MD Jan 14, 2019 10:14
--- NOTE | 2019-01-14 10:30 | NUR ---
SW following pt for dc planning. Chart reviewed and pt lives at home. GI and nephrology following pt. No SW needs noted at this time. Will continue to follow pending dc needs.
[2019-01-14] MEDS: IV 1/2 NORMAL SALINE 1,000 ML IV SCH ×2 (10:39→20:15)
--- NOTE | 2019-01-14 12:13 | PDOC ---
Subjective: Subjective: Had a rough night - felt sick after eating dinner, then wanted jello overnight but "she wouldn't bring it," tolerated breakfast this morning. Really wants her gallbladder out - says had a good discussion w/ Dr. Hutchinson. Objective: Objective: Reviewed chart - possible cholecystectomy next week. D/w nurse - she has requested to take hot showers. Vital Signs: Vital Signs Date Time Temp Pulse Resp B/P (MAP) Pulse Ox O2 Delivery O2 Flow Rate FiO2 01/14/19 11:00 98.2 85 20 119/72 (88) 96 Room Air 98.2 Labs: Laboratory Tests Test 01/14/19 06:45 Sodium Level 149 mmol/L Potassium Level 3.7 mmol/L Chloride Level 112 mmol/L Carbon Dioxide Level 28 mmol/L Anion Gap 9 Blood Urea Nitrogen 13 mg/dL Creatinine 0.8 mg/dL Estimated GFR (Cockcroft-Gault) 73.7 Glucose Level 81 mg/dL Calcium Level 8.5 mg/dL URINE CULTURE Final Final report URINE CULTURE RES 1 Final No growth BLOOD CULTURE Preliminary NO GROWTH AFTER 1 DAY PE: GEN: NAD - walking from restroom to bed w/ IV pole LUNGS: room air NEURO/PSYCH: A & O �3 - less tearful today A/P: Recurrent n/v and abd pain GERD, mildly delayed gastric emptying, +marijuana -- Plans as above. Continue PPI. ?need for Deepali HENRIQUEZ-MAC DOVE Jan 14, 2019 12:13
[2019-01-14] MEDS ORDERED: ALPRAZolam 0.5 MG TABLET PO ONE (13:15)
[2019-01-14] MEDS: NICOTINE 21MG PATCH. TD PRN (17:14)
--- NOTE | 2019-01-14 18:02 | PDOC2 ---
CONSULT Date of Consult Date of Consult DATE: 01/14/19 TIME: 17:57 Reason for Consult Reason for Consult: Abd pain Referring Physician Referring Physician: Dr. Hutchinson Identification/Chief Complaint Chief Complaint Abd pain Source Source: Chart review, Patient History of Present Illness Reason for Visit: 58 y/o A1 presented to ED with c/o continuous upper abd pain that continued to worsen. The pain is worse with eating solids or liquids. LMP was 8 years ago. She is not on HRT. PT. reports night sweats. She has h/o gastritis. Past Medical History Cardiovascular: HTN Pulmonary: COPD GI: Diverticulosis, GERD Heme/Onc: No pertinent hx Hepatobiliary: No pertinent hx Psych: Anxiety, Depression Rheumatologic: No pertinent hx Infectious disease: No pertinent hx Renal/: No pertinent hx Endocrine: No pertinent hx Past Surgical History Past Surgical History: Total knee replacement, Tonsillectomy, Other (LPSC resection endometriosis, cannualization of mariah. fallopian tubes for fertility) Family History Family History: Cancer, Other Social History No ALCOHOL: none Drugs: Marijuana Lives: with Family Current Problem List Problem List Problems Medical Problems: (1) Abdominal pain Status: Acute (2) Acute renal failure Status: Acute (3) Nausea & vomiting Status: Acute Current Medications Current Medications Current Medications Sodium Chloride 1,000 ml @ 1,000 mls/hr Q1H IV Last administered on 01/12/19at 12:57; Start 01/12/19 at 12:31; Stop 01/12/19 at 13:30; Status DC Fentanyl Citrate (Fentanyl 2ml Vial) 50 mcg 1X ONCE IV Last administered on 01/12/19at 13:09; Start 01/12/19 at 12:45; Stop 01/12/19 at 12:46; Status DC Prochlorperazine Edisylate (Compazine) 10 mg 1X ONCE IV Last administered on 01/12/19at 13:09; Start 01/12/19 at 12:45; Stop 01/12/19 at 12:46; Status DC Famotidine (Pepcid Vial) 20 mg 1X ONCE IVP Last administered on 01/12/19at 13:20; Start 01/12/19 at 12:45; Stop 01/12/19 at 12:46; Status DC Piperacillin Sod/ Tazobactam Sod (Zosyn Per Pharmacy) 1 each PRN DAILY PRN MC SEE COMMENTS; Start 01/12/19 at 15:00 Ondansetron HCl (Zofran) 4 mg PRN Q8HRS PRN IV NAUSEA/VOMITING Last administered on 01/13/19at 09:41; Start 01/12/19 at 15:00; Stop 01/13/19 at 14:59; Status DC Fentanyl Citrate (Fentanyl 2ml Vial) 50 mcg PRN Q1HR PRN IV PAIN; Start 01/12/19 at 15:00; Stop 01/13/19 at 14:59; Status DC Acetaminophen (Tylenol) 650 mg PRN Q4HRS PRN PO FEVER; Start 01/12/19 at 15:00; Stop 01/13/19 at 14:59; Status DC Prochlorperazine Edisylate (Compazine) 10 mg PRN Q6HRS PRN IV NAUSEA, VOMITING (USE 2ND) Last administered on 01/13/19at 22:01; Start 01/12/19 at 15:00 Piperacillin Sod/ Tazobactam Sod 2.25 gm/Sodium Chloride 50 ml @ 100 mls/hr 1X ONCE IV Last administered on 01/12/19at 15:31; Start 01/12/19 at 15:15; Stop 01/12/19 at 15:44; Status DC Piperacillin Sod/ Tazobactam Sod 2.25 gm/Sodium Chloride 50 ml @ 100 mls/hr Q6HRS IV Last administered on 01/14/19at 17:14; Start 01/13/19 at 00:00 Pantoprazole Sodium (PROTONIX VIAL for IV PUSH) 40 mg DAILYAC IVP Last administered on 01/13/19at 12:00; Start 01/13/19 at 07:30; Stop 01/13/19 at 15:46; Status DC Multi-Ingredient Mouthwash/Gargle (Gi Cocktail) 20 ml PRN QID PRN PO abd pain; Start 01/12/19 at 16:15 Polyethylene Glycol (miraLAX PACKET) 17 gm DAILY PO Last administered on 01/13/19at 12:00; Start 01/13/19 at 09:00 Sodium Chloride 1,000 ml @ 100 mls/hr Q10H IV Last administered on 01/14/19at 00:34; Start 01/13/19 at 00:15; Stop 01/14/19 at 10:15; Status DC Barium Sulfate (Liquid E-Z Paque) 710 ml 1X ONCE PO Last administered on 01/13/19 08:31; Start 01/13/19 at 07:45; Stop 01/13/19 at 07:46; Status DC Alprazolam (Xanax) 0.5 mg 1X ONCE PO Last administered on 01/13/19 09:41; Start 01/13/19 at 09:15; Stop 01/13/19 at 09:16; Status DC Albuterol Sulfate (Ventolin Neb Soln) 1 mg PRN Q4HRS PRN INH SHORTNESS OF BREATH; Start 01/13/19 at 09:15; Stop 01/13/19 at 09:18; Status DC Lisinopril (Prinivil) 20 mg DAILY PO Last administered on 01/13/19 09:41; Start 01/13/19 at 09:30; Stop 01/13/19 at 11:25; Status DC Ondansetron HCl (Zofran Odt) 8 mg PRN BID PRN PO NAUSEA/VOMITING Last administered on 01/14/19 08:42; Start 01/13/19 at 09:15 Trazodone HCl (Desyrel) 100 mg HS PO Last administered on 01/13/19 21:31; Start 01/13/19 at 21:00 Albuterol Sulfate (Ventolin Neb Soln) 2.5 mg RTQID NEB Last administered on 01/14/19at 16:39; Start 01/13/19 at 12:00 Duloxetine HCl (Cymbalta) 60 mg BID PO Last administered on 01/14/19at 08:42; Start 01/13/19 at 09:30 Non-Formulary Medication (Omeprazole ) 1 cap DAILY PO ; Start 01/14/19 at 09:00; Stop 01/13/19 at 09:12; Status DC Quetiapine Fumarate (SEROquel) 50 mg QHS PO Last administered on 01/13/19at 21:31; Start 01/13/19 at 21:00 Albuterol Sulfate (Ventolin Neb Soln) 2.5 mg PRN Q4HRS PRN INH SHORTNESS OF BREATH; Start 01/13/19 at 09:18 Budesonide (Pulmicort) 0.5 mg RTBID NEB Last administered on 01/14/19at 08:57; Start 01/13/19 at 20:00 Lactobacillus Rhamnosus (Culturelle) 1 cap BID PO Last administered on 01/14/19at 08:42; Start 01/13/19 at 21:00 Pantoprazole Sodium (Protonix) 40 mg DAILYAC PO Last administered on 01/14/19at 08:42; Start 01/14/19 at 07:30 Fentanyl Citrate (Fentanyl 2ml Vial) 50 mcg PRN Q4HRS PRN IV SEVERE PAIN 7-10; Start 01/13/19 at 22:00; Stop 01/14/19 at 10:00; Status DC Sodium Chloride 1,000 ml @ 999 mls/hr 1X ONCE IV Last administered on 01/14/19at 00:14; Start 01/13/19 at 23:45; Stop 01/14/19 at 00:45; Status DC Sodium Chloride 1,000 ml @ 100 mls/hr Q10H IV Last administered on 01/14/19at 10:39; Start 01/14/19 at 10:15 Alprazolam (Xanax) 0.5 mg 1X ONCE PO Last administered on 01/14/19at 13:22; Start 01/14/19 at 13:15; Stop 01/14/19 at 13:16; Status DC Nicotine (Nicoderm Cq 21mg) 1 patch PRN DAILY PRN TD SMOKING CESSATION Last administered on 01/14/19at 17:14; Start 01/14/19 at 16:00 Active Scripts Active Erythromycin (Erythromycin Base) 250 Mg Tablet 250 Mg PO DAILY 30 Days Reported Symbicort 160-4.5 Mcg Inhaler (Budesonide/Formoterol Fumarate) 10.2 Gm Hfa.ae r.ad 2 Puff IH BID Trazodone Hcl 100 Mg Tablet 100 Mg PO HS Cymbalta (Duloxetine Hcl) 60 Mg Capsule.dr 1 Cap PO BID Lisinopril 20 Mg Tablet 1 Tab PO DAILY Seroquel (Quetiapine Fumarate) 50 Mg Tablet 50 Mg PO HS Ondansetron Odt (Ondansetron) 4 Mg Tab.rapdis 8 Mg PO BID PRN Proair Hfa Inhaler (Albuterol Sulfate) 8.5 Gm Hfa.aer.ad 2 Puff INH DAILY PRN Omeprazole 40 Mg Capsule. 1 Cap PO DAILY Allergies Allergies: Coded Allergies: No Known Drug Allergies (Unverified , 08/13/18) ROS General: YES: Night Sweats, Fatigue, Malaise, Appetite; No: Chills, Other PSYCHOLOGICAL ROS: YES: Anxiety; No: Behavioral Disorder, Concentration difficultie, Decreased libido, Depression, Disorientation, Hallucinations, Hostility, Irritablity, Memory difficulties, Mood Swings, Obsessive thoughts, Physical abuse, Sexual abuse, Sleep disturbances, Suicidal ideation, Other Eyes: No Blurry vision, No Decreased vision, No Double vision, No Dry eyes, No Excessive tearing, No Eye Pain, No Itchy Eyes, No Loss of vision, No Photophobia, No Scotomata, No Uses contacts, No Uses glasses, No Other ALLERGY AND IMMUNOLOGY: No: Hives, Insect Bite Sensitivity, Itchy/Watery Eyes, Nasal Congestion, Post Nasal Drip, Seasonal Allergies, Other Breast: No New/Changing Breast Lumps, No Nipple changes, No Nipple discharge, No Other Respiratory: No: Cough, Hemoptysis, Orthopnea, Pleuritic Pain, Shortness of breath, SOB with excertion, Sputum Changes, Stridor, Tachypnea, Wheezing, Other Cardiovascular: No Chest Pain, No Palpitations, No Orthopnea, No Paroxysmal Noc. Dyspnea, No Edema, No Lt Headedness, No Other Gastrointestinal: Yes Abdominal Pain Skin: No Dry Skin, No Eczema, No Hair Changes, No Lumps, No Mole Changes, No Mottling, No Nail Changes, No Pruritus, No Rash, No Skin Lesion Changes, No Other, No Acne Physical Exam General: Alert, Oriented X3, Cooperative HEENT: Atraumatic Lungs: Clear to auscultation Heart: Regular rate Abdomen: Normal bowel sounds, Soft, No masses, Other (upper abd tenderness to palpation. No rebound tenderness.) Psych/Mental Status: Mental status NL Vitals VITALS Vital Signs Date Time Temp Pulse Resp B/P (MAP) Pulse Ox O2 Delivery O2 Flow Rate FiO2 01/14/19 16:40 Room Air 01/14/19 15:00 98.1 73 20 118/69 (85) 99 98.1 Labs Labs Laboratory Tests Test 01/13/19 03:25 01/14/19 06:45 White Blood Count 6.6 x10^3/uL (4.0-11.0) Red Blood Count 4.33 x10^6/uL (3.50-5.40) Hemoglobin 14.0 g/dL (12.0-15.5) Hematocrit 41.1 % (36.0-47.0) Mean Corpuscular Volume 95 fL (79-100) Mean Corpuscular Hemoglobin 32 pg (25-35) Mean Corpuscular Hemoglobin Concent 34 g/dL (31-37) Red Cell Distribution Width 14.7 % (11.5-14.5) Platelet Count 252 x10^3/uL (140-400) Sodium Level 143 mmol/L (136-145) 149 mmol/L (136-145) Potassium Level 3.8 mmol/L (3.5-5.1) 3.7 mmol/L (3.5-5.1) Chloride Level 103 mmol/L (98-107) 112 mmol/L (98-107) Carbon Dioxide Level 30 mmol/L (21-32) 28 mmol/L (21-32) Anion Gap 10 (6-14) 9 (6-14) Blood Urea Nitrogen 22 mg/dL (7-20) 13 mg/dL (7-20) Creatinine 1.3 mg/dL (0.6-1.0) 0.8 mg/dL (0.6-1.0) Estimated GFR (Cockcroft-Gault) 42.1 73.7 BUN/Creatinine Ratio 17 (6-20) Glucose Level 98 mg/dL (70-99) 81 mg/dL (70-99) Calcium Level 9.2 mg/dL (8.5-10.1) 8.5 mg/dL (8.5-10.1) Total Bilirubin 0.7 mg/dL (0.2-1.0) Aspartate Amino Transf (AST/SGOT) 19 U/L (15-37) Alanine Aminotransferase (ALT/SGPT) 19 U/L (14-59) Alkaline Phosphatase 63 U/L (46-116) Total Protein 7.4 g/dL (6.4-8.2) Albumin 3.3 g/dL (3.4-5.0) Albumin/Globulin Ratio 0.8 (1.0-1.7) Laboratory Tests Test 01/14/19 06:45 Sodium Level 149 mmol/L (136-145) Potassium Level 3.7 mmol/L (3.5-5.1) Chloride Level 112 mmol/L (98-107) Carbon Dioxide Level 28 mmol/L (21-32) Anion Gap 9 (6-14) Blood Urea Nitrogen 13 mg/dL (7-20) Creatinine 0.8 mg/dL (0.6-1.0) Estimated GFR (Cockcroft-Gault) 73.7 Glucose Level 81 mg/dL (70-99) Calcium Level 8.5 mg/dL (8.5-10.1) Assessment/Plan Assessment/Plan A: Gastritis No evidence endometriosis or [employer] problems at this time P: Continue current care and f/u GI recommendations. Thank you for consult. THU FERNANDEZ Jr, MD Jan 14, 2019 18:02
[2019-01-14] MEDS: traZODone 100 MG TABLET. PO SCH (20:32)
[2019-01-14] MEDS: QUEtiapine 25 MG TABLET. PO SCH (20:32)
[2019-01-15] MEDS: IV 1/2 NORMAL SALINE 1,000 ML IV SCH ×2 (01:33→16:38)
[2019-01-15] MEDS: PIPERACILLIN/TAZOBACTAM 2.25 GM in IV NORMAL SALINE 50ML 50 ML IV SCH ×5 (01:34→23:10)
[2019-01-15 03:09] VITALS: BP 138/88
[2019-01-15 04:56] LABS: CALCIUM 8.8 mg/dL (8.5-10.1); CREATININE 0.7 mg/dL (0.6-1.0); GFR 85.9; MAGNESIUM 1.4 mg/dL (1.8-2.4); PHOSPHORUS 4.6 mg/dL (2.6-4.7); POTASSIUM 3.9 mmol/L (3.5-5.1)
[2019-01-15 07:00] VITALS: BP 158/96
--- NOTE | 2019-01-15 07:10 | PDOC ---
PROGRESS NOTES History of Present Illness History of Present Illness ASSESSMENT AND PLAN: Nausea, vomiting, abdominal pain, diverticulitis, acute colonic diverticulosis greatest of the sigmoid colon, difficult to exclude sigmoid colonic wall thickening as could be seen with diverticulitis renal failure., IMPROVING extensive problems with endometriosis. copd THC ABUSE HX admitted. consult Gastroenterology consult Nephrology. IV antibiotics, IV fluids, p.r.n.antiemetics, home meds, deep venous thrombosis prophylaxis. Full code. SURGERY FOLLOWING COMPLIANCE TESTER CONSULTED MIKEY DUNLAP 01/13 Chronic cholecystitis likely. Surgical consult for possible lap pily 01/17 28 min pt exam, chart review,> 50% of time spent with exam, chart review, pt care coordination Vitals Vitals Vital Signs Date Time Temp Pulse Resp B/P (MAP) Pulse Ox O2 Delivery O2 Flow Rate FiO2 01/15/19 03:09 98.2 71 20 138/88 (105) 97 Room Air 98.2 Physical Exam Physical Exam GENERAL: No apparent distress. Alert and oriented. HEENT: Head is normocephalic, atraumatic, pupils were equally round and reactive to light and accommodation. NECK: Supple, no JVD, no thyromegaly was noted. LUNGS: Clear to auscultation in all lung cortes without rhonchi or wheezing. HEART: RRR, S1, S2 present. Peripheral pulses intact, no obvious murmurs were noted. ABDOMEN: Soft, nontender. Positive bowel sounds no organomegaly, normal bowel sounds. EXTREMITIES: Without any cyanosis, clubbing, or edema. Pedal pulses intact, Homans sign is negative. NEUROLOGIC: Normal speech, normal tone. A & O x3, moves all extremities, no obvious focal deficits. PSYCHIATRIC: She is crying. SKIN: No ulcerations or rashes, good skin turgor, no jaundice. VASCULAR: Good capillary refill, neurovascular bundle appears to be intact. General: Alert, Oriented X3, Cooperative, No acute distress Heart: Regular rate, Normal S1 Lungs: Clear, Other (DIMINISHED) Abdomen: Normal bowel sounds, Soft, No masses, Other (upper abd tenderness to palpation. No rebound tenderness.) Extremities: No clubbing, No cyanosis, No edema Skin: No rashes, No breakdown Labs LABS PATIENT: BRITNI RAZA ACCT: [id number] LOC: [address] [place] [address] U: [id number] AGE/SX: 58/F ROOM: [facility] RE01/12/[address]: TORSTEN AGUILERA III, DO : 1960 BED: 1 DIS: STATUS: ADM IN TLOC: SPEC #: [id number] SVEN: 01/12/19 STATUS: RES REQ #: [id number] RECD: 01/12/19 [facility] DR: MAIRA BENNETT APRN SOURCE: BLOOD ENTR: 01/12/19-49[address] [facility] [address]: JULIUS MARIA MD SPDC: JENNI DAVEY MD,ADAM Dee MD ORDERED: BCULT Procedure Result BLOOD CULTURE Preliminary NO GROWTH AFTER 2 DAYS AGE/SX: 58/F ROOM: [facility] RE01/12/[address]: TORSTEN AGUILERA III, DO : 1960 BED: 1 DIS: STATUS: ADM IN TLOC: SPEC #: [id number] SVEN: 01/12/19 STATUS: COMP REQ #: [id number] RECD: 01/12/[address]: MAIRA BENNETT APRN SOURCE: VOID ENTR: 01/12/[address]: JULIUS MARIA MD SPDESC: NON,STAFF ORDERED: URINE CULTURE Procedure Result URINE CULTURE Final Final report URINE CULTURE RES 1 Final No growth Performed at: [facility] [address], [place], [place] [id number] Fleet Assistant: NILE Spain MD, Phone: [phone] CT Abdomen and Pelvis without contrast History: Nausea, vomiting, pain Technique: Noncontrast CT imaging was performed of the abdomen and pelvis. Multiplanar images are reviewed. Exposure: One or more of the following individualized dose reduction techniques were utilized for this examination: 1. Automated exposure control 2. Adjustment of the mA and/or kV according to patient size 3. Use of iterative reconstruction technique. Comparison: September 19, 2018 Findings: There is no urolithiasis or hydronephrosis. There is a small hypodense lesion superior right kidney about 1 cm, density measurements suggestive of cyst 10 Hounsfield units. Accurate evaluation of abdominal visceral organs is limited without intravenous contrast. Gallbladder is present without obvious intraluminal abnormality by CT. There is no obvious abnormality of the spleen, liver, or pancreas. There is no adrenal nodularity. Accurate evaluation of bowel is limited without oral contrast. Bowel is not significantly dilated. There are some nonspecific air-fluid levels in segments of small bowel. No free air or significant free fluid is identified. There is again moderate to severe sigmoid diverticulosis, to lesser degree of the descending colon. There may be a degree of sigmoid colonic wall thickening although poorly evaluated without oral contrast and incompletely distended during exam. There is some gas distention of rectum. There is scattered calcified plaque of the abdominal aorta and right iliac artery. 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 There is again bony deformity of the lateral aspect of the right inferior pubic ramus likely due to previous trauma. There is mild dextroscoliosis centered near the thoracolumbar junction. Impression: 1. There is colonic diverticulosis greatest of the sigmoid colon, difficult to exclude sigmoid colonic wall thickening as could be seen with diverticulitis in the appropriate clinical setting. Electronically signed by: Germain Glover MD (01/12/2019 1:43 PM) [id number] Laboratory Tests Test 01/15/19 04:05 Sodium Level 144 mmol/L (136-145) Potassium Level 3.9 mmol/L (3.5-5.1) Chloride Level 110 mmol/L (98-107) Carbon Dioxide Level 26 mmol/L (21-32) Anion Gap 8 (6-14) Blood Urea Nitrogen 13 mg/dL (7-20) Creatinine 0.7 mg/dL (0.6-1.0) Estimated GFR (Cockcroft-Gault) 85.9 Glucose Level 94 mg/dL (70-99) Calcium Level 8.8 mg/dL (8.5-10.1) Phosphorus Level 4.6 mg/dL (2.6-4.7) Magnesium Level 1.4 mg/dL (1.8-2.4) Assessment and Plan Assessmemt and Plan Problems Medical Problems: (1) Abdominal pain Status: Acute (2) Acute renal failure Status: Acute (3) Nausea & vomiting Status: Acute PAST MEDICAL HISTORY: Gastroparesis, COPD, asthma, hypertension, tonsillectomy, left knee surgery, infertility surgery, marijuana use. ALLERGIES: None. FAMILY HISTORY: Diabetes. SOCIAL HISTORY: She does not drink. She does smoke. Uses marijuana. Comment Review of Relevant I have reviewed the following items eagle (where applicable) has been applied. Labs Laboratory Tests Test 01/14/19 06:45 01/15/19 04:05 Sodium Level 149 mmol/L (136-145) 144 mmol/L (136-145) Potassium Level 3.7 mmol/L (3.5-5.1) 3.9 mmol/L (3.5-5.1) Chloride Level 112 mmol/L (98-107) 110 mmol/L (98-107) Carbon Dioxide Level 28 mmol/L (21-32) 26 mmol/L (21-32) Anion Gap 9 (6-14) 8 (6-14) Blood Urea Nitrogen 13 mg/dL (7-20) 13 mg/dL (7-20) Creatinine 0.8 mg/dL (0.6-1.0) 0.7 mg/dL (0.6-1.0) Estimated GFR (Cockcroft-Gault) 73.7 85.9 Glucose Level 81 mg/dL (70-99) 94 mg/dL (70-99) Calcium Level 8.5 mg/dL (8.5-10.1) 8.8 mg/dL (8.5-10.1) Phosphorus Level 4.6 mg/dL (2.6-4.7) Magnesium Level 1.4 mg/dL (1.8-2.4) Laboratory Tests Test 01/15/19 04:05 Sodium Level 144 mmol/L (136-145) Potassium Level 3.9 mmol/L (3.5-5.1) Chloride Level 110 mmol/L (98-107) Carbon Dioxide Level 26 mmol/L (21-32) Anion Gap 8 (6-14) Blood Urea Nitrogen 13 mg/dL (7-20) Creatinine 0.7 mg/dL (0.6-1.0) Estimated GFR (Cockcroft-Gault) 85.9 Glucose Level 94 mg/dL (70-99) Calcium Level 8.8 mg/dL (8.5-10.1) Phosphorus Level 4.6 mg/dL (2.6-4.7) Magnesium Level 1.4 mg/dL (1.8-2.4) Microbiology 01/12/19 Blood Culture - Preliminary, Resulted NO GROWTH AFTER 2 DAYS 01/12/19 Urine Culture - Final, Complete 01/12/19 Urine Culture Result 1 (KUSUM) - Final, Complete Medications Current Medications Sodium Chloride 1,000 ml @ 1,000 mls/hr Q1H IV Last administered on 01/12/19at 12:57; Start 01/12/19 at 12:31; Stop 01/12/19 at 13:30; Status DC Fentanyl Citrate (Fentanyl 2ml Vial) 50 mcg 1X ONCE IV Last administered on 01/12/19at 13:09; Start 01/12/19 at 12:45; Stop 01/12/19 at 12:46; Status DC Prochlorperazine Edisylate (Compazine) 10 mg 1X ONCE IV Last administered on 01/12/19at 13:09; Start 01/12/19 at 12:45; Stop 01/12/19 at 12:46; Status DC Famotidine (Pepcid Vial) 20 mg 1X ONCE IVP Last administered on 01/12/19at 13:20; Start 01/12/19 at 12:45; Stop 01/12/19 at 12:46; Status DC Piperacillin Sod/ Tazobactam Sod (Zosyn Per Pharmacy) 1 each PRN DAILY PRN MC SEE COMMENTS; Start 01/12/19 at 15:00 Ondansetron HCl (Zofran) 4 mg PRN Q8HRS PRN IV NAUSEA/VOMITING Last administered on 01/13/19at 09:41; Start 01/12/19 at 15:00; Stop 01/13/19 at 14:59; Status DC Fentanyl Citrate (Fentanyl 2ml Vial) 50 mcg PRN Q1HR PRN IV PAIN; Start 01/12/19 at 15:00; Stop 01/13/19 at 14:59; Status DC Acetaminophen (Tylenol) 650 mg PRN Q4HRS PRN PO FEVER; Start 01/12/19 at 15:00; Stop 01/13/19 at 14:59; Status DC Prochlorperazine Edisylate (Compazine) 10 mg PRN Q6HRS PRN IV NAUSEA, VOMITING (USE 2ND) Last administered on 01/13/19at 22:01; Start 01/12/19 at 15:00 Piperacillin Sod/ Tazobactam Sod 2.25 gm/Sodium Chloride 50 ml @ 100 mls/hr 1X ONCE IV Last administered on 01/12/19at 15:31; Start 01/12/19 at 15:15; Stop 01/12/19 at 15:44; Status DC Piperacillin Sod/ Tazobactam Sod 2.25 gm/Sodium Chloride 50 ml @ 100 mls/hr Q6HRS IV Last administered on 01/15/19at 06:00; Start 01/13/19 at 00:00 Pantoprazole Sodium (PROTONIX VIAL for IV PUSH) 40 mg DAILYAC IVP Last administered on 01/13/19at 12:00; Start 01/13/19 at 07:30; Stop 01/13/19 at 15:46; Status DC Multi-Ingredient Mouthwash/Gargle (Gi Cocktail) 20 ml PRN QID PRN PO abd pain; Start 01/12/19 at 16:15 Polyethylene Glycol (miraLAX PACKET) 17 gm DAILY PO Last administered on 01/13/19at 12:00; Start 01/13/19 at 09:00 Sodium Chloride 1,000 ml @ 100 mls/hr Q10H IV Last administered on 01/14/19 00:34; Start 01/13/19 at 00:15; Stop 01/14/19 at 10:15; Status DC Barium Sulfate (Liquid E-Z Paque) 710 ml 1X ONCE PO Last administered on 01/13/19at 08:31; Start 01/13/19 at 07:45; Stop 01/13/19 at 07:46; Status DC Alprazolam (Xanax) 0.5 mg 1X ONCE PO Last administered on 01/13/19at 09:41; Start 01/13/19 at 09:15; Stop 01/13/19 at 09:16; Status DC Albuterol Sulfate (Ventolin Neb Soln) 1 mg PRN Q4HRS PRN INH SHORTNESS OF BREATH; Start 01/13/19 at 09:15; Stop 01/13/19 at 09:18; Status DC Lisinopril (Prinivil) 20 mg DAILY PO Last administered on 01/13/19at 09:41; St art 01/13/19 at 09:30; Stop 01/13/19 at 11:25; Status DC Ondansetron HCl (Zofran Odt) 8 mg PRN BID PRN PO NAUSEA/VOMITING Last administered on 01/14/19 08:42; Start 01/13/19 at 09:15 Trazodone HCl (Desyrel) 100 mg HS PO Last administered on 01/14/19at 20:37; Start 01/13/19 at 21:00 Albuterol Sulfate (Ventolin Neb Soln) 2.5 mg RTQID NEB Last administered on 01/14/19at 20:55; Start 01/13/19 at 12:00 Duloxetine HCl (Cymbalta) 60 mg BID PO Last administered on 01/14/19at 20:37; Start 01/13/19 at 09:30 Non-Formulary Medication (Omeprazole ) 1 cap DAILY PO ; Start 01/14/19 at 09:00; Stop 01/13/19 at 09:12; Status DC Quetiapine Fumarate (SEROquel) 50 mg QHS PO Last administered on 01/14/19at 20:37; Start 01/13/19 at 21:00 Albuterol Sulfate (Ventolin Neb Soln) 2.5 mg PRN Q4HRS PRN INH SHORTNESS OF BREATH; Start 01/13/19 at 09:18 Budesonide (Pulmicort) 0.5 mg RTBID NEB Last administered on 01/14/19at 20:55; Start 01/13/19 at 20:00 Lactobacillus Rhamnosus (Culturelle) 1 cap BID PO Last administered on 01/14/19at 20:37; Start 01/13/19 at 21:00 Pantoprazole Sodium (Protonix) 40 mg DAILYAC PO Last administered on 01/14/19at 08:42; Start 01/14/19 at 07:30 Fentanyl Citrate (Fentanyl 2ml Vial) 50 mcg PRN Q4HRS PRN IV SEVERE PAIN 7-10; Start 01/13/19 at 22:00; Stop 01/14/19 at 10:00; Status DC Sodium Chloride 1,000 ml @ 999 mls/hr 1X ONCE IV Last administered on 01/14/19at 00:14; Start 01/13/19 at 23:45; Stop 01/14/19 at 00:45; Status DC Sodium Chloride 1,000 ml @ 100 mls/hr Q10H IV Last administered on 01/15/19at 01:34; Start 01/14/19 at 10:15 Alprazolam (Xanax) 0.5 mg 1X ONCE PO Last administered on 01/14/19at 13:22; Start 01/14/19 at 13:15; Stop 01/14/19 at 13:16; Status DC Nicotine (Nicoderm Cq 21mg) 1 patch PRN DAILY PRN TD SMOKING CESSATION Last administered on 01/14/19at 17:14; Start 01/14/19 at 16:00 Active Scripts Active Erythromycin (Erythromycin Base) 250 Mg Tablet 250 Mg PO DAILY 30 Days Reported Symbicort 160-4.5 Mcg Inhaler (Budesonide/Formoterol Fumarate) 10.2 Gm Hfa.aer.ad 2 Puff IH BID Trazodone Hcl 100 Mg Tablet 100 Mg PO HS Cymbalta (Duloxetine Hcl) 60 Mg Capsule.dr 1 Cap PO BID Lisinopril 20 Mg Tablet 1 Tab PO DAILY Seroquel (Quetiapine Fumarate) 50 Mg Tablet 50 Mg PO HS Ondansetron Odt (Ondansetron) 4 Mg Tab.rapdis 8 Mg PO BID PRN Proair Hfa Inhaler (Albuterol Sulfate) 8.5 Gm Hfa.aer.ad 2 Puff INH DAILY PRN Omeprazole 40 Mg Capsule. 1 Cap PO DAILY Vitals/I & O Vital Sign - Last 24 Hours 01/14/19 01/14/19 01/14/19 01/14/19 08:00 08:59 09:00 11:00 Temp 98.2 98.2 Pulse 85 Resp 20 B/P (MAP) 119/72 (88) Pulse Ox 96 96 96 O2 Delivery Room Air Room Air Room Air Room Air 01/14/19 01/14/19 01/14/19 01/14/19 12:32 15:00 16:40 19:00 Temp 98.1 98.9 98.1 98.9 Pulse 73 73 Resp 20 20 B/P (MAP) 118/69 (85) 125/79 (94) Pulse Ox 99 96 O2 Delivery Room Air Room Air Room Air Room Air 01/14/19 01/14/19 01/14/19 01/15/19 20:56 20:56 23:03 03:09 Temp 98.5 98.2 98.5 98.2 Pulse 87 71 Resp 20 20 B/P (MAP) 135/69 (91) 138/88 (105) Pulse Ox 97 97 91 97 O2 Delivery Room Air Room Air Room Air Room Air Intake and Output 01/14/19 01/14/19 01/15/19 14:59 22:59 06:59 Intake Total 300 ml 1304 ml Output Total 500 ml 200 ml Balance -200 ml 1104 ml AMANDA OCHOA MD Jan 15, 2019 07:10
[2019-01-15] MEDS ORDERED: METHYL SALICYLATE/MENTHOL TOPICAL OINTMENT 29GM TUBE. TP PRN (07:30)
[2019-01-15] MEDS: PANTOPRAZOLE 40 MG TABLET.DR. PO SCH (07:58)
[2019-01-15] MEDS: ONDANSETRON ODT 4 MG TAB.RAPDIS. PO PRN (07:58)
[2019-01-15] MEDS: ALBUTEROL SULFATE 2.5 MG/3 ML NEBU. NEB SCH ×4 (07:58→20:30)
[2019-01-15] MEDS: BUDESONIDE 0.5 MG/2 ML NEBU. NEB SCH ×2 (07:59→20:30)
[2019-01-15] MEDS: LACTOBACILLUS RHAMNOSUS GG 1 CAPSULE. PO SCH ×2 (08:14→20:47)
[2019-01-15] MEDS: DULoxetine HCL 30 MG CAPSULE.DR PO SCH ×2 (08:14→20:48)
[2019-01-15] MEDS: POLYETHYLENE GLYCOL 3350 17 GM PACKET. PO SCH (08:14)
[2019-01-15] MEDS: NICOTINE 21MG PATCH. TD PRN (09:39)
[2019-01-15 11:00] VITALS: BP 169/85
--- NOTE | 2019-01-15 11:28 | PDOC ---
G I PROGRESS NOTE Subjective Few complaints at present. Awaiting pily Thursday. Physical Exam Lungs clear. RRR Abdomen soft, not tender nor distended. Review of Relevant I have reviewed the following items eagle (where applicable) has been applied. Labs Laboratory Tests Test 01/14/19 06:45 01/15/19 04:05 Sodium Level 149 mmol/L (136-145) 144 mmol/L (136-145) Potassium Level 3.7 mmol/L (3.5-5.1) 3.9 mmol/L (3.5-5.1) Chloride Level 112 mmol/L (98-107) 110 mmol/L (98-107) Carbon Dioxide Level 28 mmol/L (21-32) 26 mmol/L (21-32) Anion Gap 9 (6-14) 8 (6-14) Blood Urea Nitrogen 13 mg/dL (7-20) 13 mg/dL (7-20) Creatinine 0.8 mg/dL (0.6-1.0) 0.7 mg/dL (0.6-1.0) Estimated GFR (Cockcroft-Gault) 73.7 85.9 Glucose Level 81 mg/dL (70-99) 94 mg/dL (70-99) Calcium Level 8.5 mg/dL (8.5-10.1) 8.8 mg/dL (8.5-10.1) Phosphorus Level 4.6 mg/dL (2.6-4.7) Magnesium Level 1.4 mg/dL (1.8-2.4) Laboratory Tests Test 01/15/19 04:05 Sodium Level 144 mmol/L (136-145) Potassium Level 3.9 mmol/L (3.5-5.1) Chloride Level 110 mmol/L (98-107) Carbon Dioxide Level 26 mmol/L (21-32) Anion Gap 8 (6-14) Blood Urea Nitrogen 13 mg/dL (7-20) Creatinine 0.7 mg/dL (0.6-1.0) Estimated GFR (Cockcroft-Gault) 85.9 Glucose Level 94 mg/dL (70-99) Calcium Level 8.8 mg/dL (8.5-10.1) Phosphorus Level 4.6 mg/dL (2.6-4.7) Magnesium Level 1.4 mg/dL (1.8-2.4) Microbiology 01/12/19 Blood Culture - Preliminary, Resulted NO GROWTH AFTER 2 DAYS 01/12/19 Urine Culture - Final, Complete 01/12/19 Urine Culture Result 1 (KUSUM) - Final, Complete Vitals/I & O Vital Sign - Last 24 Hours 01/14/19 01/14/19 01/14/19 01/14/19 12:32 15:00 16:40 19:00 Temp 98.1 98.9 98.1 98.9 Pulse 73 73 Resp 20 20 B/P (MAP) 118/69 (85) 125/79 (94) Pulse Ox 99 96 O2 Delivery Room Air Room Air Room Air Room Air 01/14/19 01/14/19 01/14/19 01/15/19 20:56 20:56 23:03 03:09 Temp 98.5 98.2 98.5 98.2 Pulse 87 71 Resp 20 20 B/P (MAP) 135/69 (91) 138/88 (105) Pulse Ox 97 97 91 97 O2 Delivery Room Air Room Air Room Air Room Air 01/15/19 01/15/19 07:00 08:00 Temp 98.5 98.5 Pulse 74 Resp 16 B/P (MAP) 158/96 (116) Pulse Ox 95 O2 Delivery Room Air Room Air Intake and Output 01/14/19 01/14/19 01/15/19 14:59 22:59 06:59 Intake Total 300 ml 1304 ml Output Total 500 ml 200 ml Balance -200 ml 1104 ml Problem List Problems Medical Problems: (1) Abdominal pain Status: Acute (2) Acute renal failure Status: Acute (3) Nausea & vomiting Status: Acute Assessment Diverticulitis, improved. N, V, likely multifactorial. Plan of Care: Continue current Tx, Mgmt Plan of Care Note Await pily. CAL SHERMAN MD Jan 15, 2019 11:28
[2019-01-15] MEDS ORDERED: MAGNESIUM SULFATE 2GM 50 ML IV ONE (12:30)
--- NOTE | 2019-01-15 12:49 | PDOC ---
Renal-Progress Notes Subjective Notes Notes NOTHING NEW History of Present Illness Hx of present illness NO CHANGE Vitals Vitals Vital Signs Date Time Temp Pulse Resp B/P (MAP) Pulse Ox O2 Delivery O2 Flow Rate FiO2 01/15/19 11:53 95 Room Air 01/15/19 11:00 98.5 65 12 169/85 (113) 98.5 Weight Weight [ ] I.O. Intake and Output Intake and Output 01/15/19 06:59 Intake Total 1604 ml Output Total 700 ml Balance 904 ml Intake Oral 300 ml IV Total 1304 ml Output Urine Total 700 ml # Voids 3 Labs Labs Laboratory Tests Test 01/15/19 04:05 Sodium Level 144 mmol/L (136-145) Potassium Level 3.9 mmol/L (3.5-5.1) Chloride Level 110 mmol/L (98-107) Carbon Dioxide Level 26 mmol/L (21-32) Anion Gap 8 (6-14) Blood Urea Nitrogen 13 mg/dL (7-20) Creatinine 0.7 mg/dL (0.6-1.0) Estimated GFR (Cockcroft-Gault) 85.9 Glucose Level 94 mg/dL (70-99) Calcium Level 8.8 mg/dL (8.5-10.1) Phosphorus Level 4.6 mg/dL (2.6-4.7) Magnesium Level 1.4 mg/dL (1.8-2.4) Micro Micro Microbiology 01/12/19 Blood Culture - Preliminary, Resulted NO GROWTH AFTER 2 DAYS 01/12/19 Urine Culture - Final, Complete 01/12/19 Urine Culture Result 1 (KUSUM) - Final, Complete Review of Systems Constitutional: yes: weakness, alert Ears/Nose/Throat: Yes: no symptom reported Pulmonary: Yes no symptom reported Cardiovascular: Yes no symptom reported Gastrointestional: Yes: nausea, abdominal pain Genitourinary: Yes: no symptom reported Musculoskeletal: Yes: no symptom reported Skin: Yes no symptom reported Psychiatric/Neurological: Yes: no symptom reported Endocrine: Yes: no symptom reported Physical Exam General Appearance: no apparent distress Skin: warm Respiratory: bilateral CTA Heart: S1S2 Abdomen: bowel sounds present Genitourinary: bladder flat Extremities: pulses present Neurology: alert Assessment Assessment IMP N/V/DIARRHEA ABD PAIN DEHYDRATION CATHY-RESOLVED MILD HYPERNATREMIA-IMPROVED PLAN CONT TO HER CHITO-I AVOID CELEBREX WILL SIGN OFF AALIYAH BECKER MD Jan 15, 2019 12:49
[2019-01-15 15:00] VITALS: BP 153/82
[2019-01-15 19:00] VITALS: BP 173/99
[2019-01-15] MEDS: traZODone 100 MG TABLET. PO SCH (20:47)
[2019-01-15] MEDS: QUEtiapine 25 MG TABLET. PO SCH (20:48)
[2019-01-15] MEDS ORDERED: LABETALOL 20 MG/4 ML DISP.SYRIN. IVP PRN (22:00)
[2019-01-15 22:57] VITALS: BP 155/86
[2019-01-15] MEDS: LISINOPRIL 20 MG TABLET PO SCH (23:09)
[2019-01-16] VITALS (7 sets, daily range): BP systolic 140–177; BP diastolic 82–96
[2019-01-16 05:09] LABS: BASO % 1 % (0-3); EOS # 0.2 x10^3/uL (0.0-0.7); EOS % 2 % (0-3); HEMATOCRIT 32.1 % (36.0-47.0); HEMOGLOBIN 10.9 g/dL (12.0-15.5); LYMPH # 1.5 x10^3/uL (1.0-4.8); LYMPH % 21 % (24-48); MEAN CORPUSCULAR HEMOGLOBIN 33 pg (25-35); MEAN CORPUSCULAR HGB CONC 34 g/dL (31-37); MEAN CORPUSCULAR VOLUME 96 fL (79-100); MONO # 0.7 x10^3/uL (0.0-1.1); MONO % 10 % (0-9); NEUT # 4.7 x10^3/uL (1.8-7.7); NEUT % 66 % (31-73); PLATELET COUNT 212 x10^3/uL (140-400); RED BLOOD COUNT 3.34 x10^6/uL (3.50-5.40); RED CELL DISTRIBUTION WIDTH 15.4 % (11.5-14.5); WHITE BLOOD COUNT 7.1 x10^3/uL (4.0-11.0)
[2019-01-16 05:35] LABS: ALBUMIN 2.6 g/dL (3.4-5.0); ALBUMIN/GLOBULIN RATIO 0.8 (1.0-1.7); CREATININE 0.8 mg/dL (0.6-1.0); GFR 73.7; POTASSIUM 3.8 mmol/L (3.5-5.1); TOTAL BILIRUBIN 0.2 mg/dL (0.2-1.0)
[2019-01-16] MEDS: IV 1/2 NORMAL SALINE 1,000 ML IV SCH ×3 (05:42→22:59)
[2019-01-16] MEDS: PIPERACILLIN/TAZOBACTAM 2.25 GM in IV NORMAL SALINE 50ML 50 ML IV SCH ×4 (05:42→23:00)
[2019-01-16] MEDS: PANTOPRAZOLE 40 MG TABLET.DR. PO SCH (06:58)
[2019-01-16] MEDS: ALBUTEROL SULFATE 2.5 MG/3 ML NEBU. NEB SCH ×4 (07:03→20:06)
--- NOTE | 2019-01-16 08:21 | PDOC ---
PROGRESS NOTES History of Present Illness History of Present Illness ASSESSMENT AND PLAN: Nausea, vomiting, abdominal pain, diverticulitis, acute colonic diverticulosis greatest of the sigmoid colon, difficult to exclude sigmoid colonic wall thickening as could be seen with diverticulitis renal failure., IMPROVING extensive problems with endometriosis. copd THC ABUSE HX admitted. consult Gastroenterology consult Nephrology. IV antibiotics, IV fluids, p.r.n.antiemetics, home meds, deep venous thrombosis prophylaxis. Full code. SURGERY FOLLOWING ASSESSMENT DIRECTOR CONSULTED MIKEY DUNLAP 01/13 Chronic cholecystitis likely. Surgical consult for possible lap pily 01/17 26 min pt exam, chart review,> 50% of time spent with exam, chart review, pt care coordination Vitals Vitals Vital Signs Date Time Temp Pulse Resp B/P (MAP) Pulse Ox O2 Delivery O2 Flow Rate FiO2 01/16/19 07:04 97 Room Air 01/16/19 06:41 98.5 83 17 147/82 (103) 98.5 Physical Exam Physical Exam GENERAL: No apparent distress. Alert and oriented. HEENT: Head is normocephalic, atraumatic, pupils were equally round and reactive to light and accommodation. NECK: Supple, no JVD, no thyromegaly was noted. LUNGS: Clear to auscultation in all lung cortes without rhonchi or wheezing. HEART: RRR, S1, S2 present. Peripheral pulses intact, no obvious murmurs were noted. ABDOMEN: Soft, nontender. Positive bowel sounds no organomegaly, normal bowel sounds. EXTREMITIES: Without any cyanosis, clubbing, or edema. Pedal pulses intact, Homans sign is negative. NEUROLOGIC: Normal speech, normal tone. A & O x3, moves all extremities, no obvious focal deficits. PSYCHIATRIC: She is crying. SKIN: No ulcerations or rashes, good skin turgor, no jaundice. VASCULAR: Good capillary refill, neurovascular bundle appears to be intact. General: Alert, Oriented X3, Cooperative, No acute distress Heart: Regular rate, Normal S1 Lungs: Clear, Other (DIMINISHED) Abdomen: Normal bowel sounds, Soft, No masses, Other (upper abd tenderness to palpation. No rebound tenderness.) Extremities: No clubbing, No cyanosis, No edema Skin: No rashes, No breakdown Labs LABS SPEC #: [id number] SVEN: 09/11 STATUS: COMP REQ #: [id number] RECD: 01/12/[address]: MAIRA BENNETT APRN SOURCE: VOID ENTR: 01/12/[address]: [facility] ORDERED: URINE CULTURE Procedure Result URINE CULTURE Final Final report URINE CULTURE RES 1 Final No growth Performed at: [address], [place], [place] [id number] [employer] Application Developer: NILE Spain MD, Phone: [phone] Laboratory Tests Test 01/16/19 04:00 White Blood Count 7.1 x10^3/uL (4.0-11.0) Red Blood Count 3.34 x10^6/uL (3.50-5.40) Hemoglobin 10.9 g/dL (12.0-15.5) Hematocrit 32.1 % (36.0-47.0) Mean Corpuscular Volume 96 fL (79-100) Mean Corpuscular Hemoglobin 33 pg (25-35) Mean Corpuscular Hemoglobin Concent 34 g/dL (31-37) Red Cell Distribution Width 15.4 % (11.5-14.5) Platelet Count 212 x10^3/uL (140-400) Neutrophils (%) (Auto) 66 % (31-73) Lymphocytes (%) (Auto) 21 % (24-48) Monocytes (%) (Auto) 10 % (0-9) Eosinophils (%) (Auto) 2 % (0-3) Basophils (%) (Auto) 1 % (0-3) Neutrophils # (Auto) 4.7 x10^3/uL (1.8-7.7) Lymphocytes # (Auto) 1.5 x10^3/uL (1.0-4.8) Monocytes # (Auto) 0.7 x10^3/uL (0.0-1.1) Eosinophils # (Auto) 0.2 x10^3/uL (0.0-0.7) Basophils # (Auto) 0.0 x10^3/uL (0.0-0.2) Sodium Level 148 mmol/L (136-145) Potassium Level 3.8 mmol/L (3.5-5.1) Chloride Level 111 mmol/L (98-107) Carbon Dioxide Level 31 mmol/L (21-32) Anion Gap 6 (6-14) Blood Urea Nitrogen 15 mg/dL (7-20) Creatinine 0.8 mg/dL (0.6-1.0) Estimated GFR (Cockcroft-Gault) 73.7 BUN/Creatinine Ratio 19 (6-20) Glucose Level 99 mg/dL (70-99) Calcium Level 9.0 mg/dL (8.5-10.1) Total Bilirubin 0.2 mg/dL (0.2-1.0) Aspartate Amino Transf (AST/SGOT) 67 U/L (15-37) Alanine Aminotransferase (ALT/SGPT) 68 U/L (14-59) Alkaline Phosphatase 55 U/L (46-116) Total Protein 6.0 g/dL (6.4-8.2) Albumin 2.6 g/dL (3.4-5.0) Albumin/Globulin Ratio 0.8 (1.0-1.7) Assessment and Plan Assessmemt and Plan Problems Medical Problems: (1) Abdominal pain Status: Acute (2) Acute renal failure Status: Acute (3) Nausea & vomiting Status: Acute Comment Review of Relevant I have reviewed the following items eagle (where applicable) has been applied. Labs Laboratory Tests Test 01/15/19 04:05 01/16/19 04:00 Sodium Level 144 mmol/L (136-145) 148 mmol/L (136-145) Potassium Level 3.9 mmol/L (3.5-5.1) 3.8 mmol/L (3.5-5.1) Chloride Level 110 mmol/L (98-107) 111 mmol/L (98-107) Carbon Dioxide Level 26 mmol/L (21-32) 31 mmol/L (21-32) Anion Gap 8 (6-14) 6 (6-14) Blood Urea Nitrogen 13 mg/dL (7-20) 15 mg/dL (7-20) Creatinine 0.7 mg/dL (0.6-1.0) 0.8 mg/dL (0.6-1.0) Estimated GFR (Cockcroft-Gault) 85.9 73.7 Glucose Level 94 mg/dL (70-99) 99 mg/dL (70-99) Calcium Level 8.8 mg/dL (8.5-10.1) 9.0 mg/dL (8.5-10.1) Phosphorus Level 4.6 mg/dL (2.6-4.7) Magnesium Level 1.4 mg/dL (1.8-2.4) White Blood Count 7.1 x10^3/uL (4.0-11.0) Red Blood Count 3.34 x10^6/uL (3.50-5.40) Hemoglobin 10.9 g/dL (12.0-15.5) Hematocrit 32.1 % (36.0-47.0) Mean Corpuscular Volume 96 fL (79-100) Mean Corpuscular Hemoglobin 33 pg (25-35) Mean Corpuscular Hemoglobin Concent 34 g/dL (31-37) Red Cell Distribution Width 15.4 % (11.5-14.5) Platelet Count 212 x10^3/uL (140-400) Neutrophils (%) (Auto) 66 % (31-73) Lymphocytes (%) (Auto) 21 % (24-48) Monocytes (%) (Auto) 10 % (0-9) Eosinophils (%) (Auto) 2 % (0-3) Basophils (%) (Auto) 1 % (0-3) Neutrophils # (Auto) 4.7 x10^3/uL (1.8-7.7) Lymphocytes # (Auto) 1.5 x10^3/uL (1.0-4.8) Monocytes # (Auto) 0.7 x10^3/uL (0.0-1.1) Eosinophils # (Auto) 0.2 x10^3/uL (0.0-0.7) Basophils # (Auto) 0.0 x10^3/uL (0.0-0.2) BUN/Creatinine Ratio 19 (6-20) Total Bilirubin 0.2 mg/dL (0.2-1.0) Aspartate Amino Transf (AST/SGOT) 67 U/L (15-37) Alanine Aminotransferase (ALT/SGPT) 68 U/L (14-59) Alkaline Phosphatase 55 U/L (46-116) Total Protein 6.0 g/dL (6.4-8.2) Albumin 2.6 g/dL (3.4-5.0) Albumin/Globulin Ratio 0.8 (1.0-1.7) Laboratory Tests Test 01/16/19 04:00 White Blood Count 7.1 x10^3/uL (4.0-11.0) Red Blood Count 3.34 x10^6/uL (3.50-5.40) Hemoglobin 10.9 g/dL (12.0-15.5) Hematocrit 32.1 % (36.0-47.0) Mean Corpuscular Volume 96 fL (79-100) Mean Corpuscular Hemoglobin 33 pg (25-35) Mean Corpuscular Hemoglobin Concent 34 g/dL (31-37) Red Cell Distribution Width 15.4 % (11.5-14.5) Platelet Count 212 x10^3/uL (140-400) Neutrophils (%) (Auto) 66 % (31-73) Lymphocytes (%) (Auto) 21 % (24-48) Monocytes (%) (Auto) 10 % (0-9) Eosinophils (%) (Auto) 2 % (0-3) Basophils (%) (Auto) 1 % (0-3) Neutrophils # (Auto) 4.7 x10^3/uL (1.8-7.7) Lymphocytes # (Auto) 1.5 x10^3/uL (1.0-4.8) Monocytes # (Auto) 0.7 x10^3/uL (0.0-1.1) Eosinophils # (Auto) 0.2 x10^3/uL (0.0-0.7) Basophils # (Auto) 0.0 x10^3/uL (0.0-0.2) Sodium Level 148 mmol/L (136-145) Potassium Level 3.8 mmol/L (3.5-5.1) Chloride Level 111 mmol/L (98-107) Carbon Dioxide Level 31 mmol/L (21-32) Anion Gap 6 (6-14) Blood Urea Nitrogen 15 mg/dL (7-20) Creatinine 0.8 mg/dL (0.6-1.0) Estimated GFR (Cockcroft-Gault) 73.7 BUN/Creatinine Ratio 19 (6-20) Glucose Level 99 mg/dL (70-99) Calcium Level 9.0 mg/dL (8.5-10.1) Total Bilirubin 0.2 mg/dL (0.2-1.0) Aspartate Amino Transf (AST/SGOT) 67 U/L (15-37) Alanine Aminotransferase (ALT/SGPT) 68 U/L (14-59) Alkaline Phosphatase 55 U/L (46-116) Total Protein 6.0 g/dL (6.4-8.2) Albumin 2.6 g/dL (3.4-5.0) Albumin/Globulin Ratio 0.8 (1.0-1.7) Microbiology 01/12/19 Blood Culture - Preliminary, Resulted NO GROWTH AFTER 3 DAYS 01/12/19 Urine Culture - Final, Complete 01/12/19 Urine Culture Result 1 ([facility]) - Final, Complete Medications Current Medications Sodium Chloride 1,000 ml @ 1,000 mls/hr Q1H IV Last administered on 01/12/19at 12:57; Start 01/12/19 at 12:31; Stop 01/12/19 at 13:30; Status DC Fentanyl Citrate (Fentanyl 2ml Vial) 50 mcg 1X ONCE IV Last administered on 01/12/19at 13:09; Start 01/12/19 at 12:45; Stop 01/12/19 at 12:46; Status DC Prochlorperazine Edisylate (Compazine) 10 mg 1X ONCE IV Last administered on 01/12/19at 13:09; Start 01/12/19 at 12:45; Stop 01/12/19 at 12:46; Status DC Famotidine (Pepcid Vial) 20 mg 1X ONCE IVP Last administered on 01/12/19at 13:20; Start 01/12/19 at 12:45; Stop 01/12/19 at 12:46; Status DC Piperacillin Sod/ Tazobactam Sod (Zosyn Per Pharmacy) 1 each PRN DAILY PRN MC SEE COMMENTS; Start 01/12/19 at 15:00 Ondansetron HCl (Zofran) 4 mg PRN Q8HRS PRN IV NAUSEA/VOMITING Last administered on 01/13/19at 09:41; Start 01/12/19 at 15:00; Stop 01/13/19 at 14:59; Status DC Fentanyl Citrate (Fentanyl 2ml Vial) 50 mcg PRN Q1HR PRN IV PAIN; Start 01/12/19 at 15:00; Stop 01/13/19 at 14:59; Status DC Acetaminophen (Tylenol) 650 mg PRN Q4HRS PRN PO FEVER; Start 01/12/19 at 15:00; Stop 01/13/19 at 14:59; Status DC Prochlorperazine Edisylate (Compazine) 10 mg PRN Q6HRS PRN IV NAUSEA, VOMITING (USE 2ND) Last administered on 01/13/19at 22:01; Start 01/12/19 at 15:00 Piperacillin Sod/ Tazobactam Sod 2.25 gm/Sodium Chloride 50 ml @ 100 mls/hr 1X ONCE IV Last administered on 01/12/19at 15:31; Start 01/12/19 at 15:15; Stop 01/12/19 at 15:44; Status DC Piperacillin Sod/ Tazobactam Sod 2.25 gm/Sodium Chloride 50 ml @ 100 mls/hr Q6HRS IV Last administered on 01/16/19at 05:43; Start 01/13/19 at 00:00 Pantoprazole Sodium (PROTONIX VIAL for IV PUSH) 40 mg DAILYAC IVP Last administered on 01/13/19 12:00; Start 01/13/19 at 07:30; Stop 01/13/19 at 15:46; Status DC Multi-Ingredient Mouthwash/Gargle (Gi Cocktail) 20 ml PRN QID PRN PO abd pain; Start 01/12/19 at 16:15 Polyethylene Glycol (miraLAX PACKET) 17 gm DAILY PO Last administered on 01/15/19at 08:16; Start 01/13/19 at 09:00 Sodium Chloride 1,000 ml @ 100 mls/hr Q10H IV Last administered on 01/14/19at 00:34; Start 01/13/19 at 00:15; Stop 01/14/19 at 10:15; Status DC Barium Sulfate (Liquid E-Z Paque) 710 ml 1X ONCE PO Last administered on 01/13 08:31; Start 01/13/19 at 07:45; Stop 01/13/19 at 07:46; Status DC Alprazolam (Xanax) 0.5 mg 1X ONCE PO Last administered on 01/13/19at 09:41; Start 01/13/19 at 09:15; Stop 01/13/19 at 09:16; Status DC Albuterol Sulfate (Ventolin Neb Soln) 1 mg PRN Q4HRS PRN INH SHORTNESS OF BREATH; Start 01/13/19 at 09:15; Stop 01/13/19 at 09:18; Status DC Lisinopril (Prinivil) 20 mg DAILY PO Last administered on 01/13/19at 09:41; Start 01/13/19 at 09:30; Stop 01/13/19 at 11:25; Status DC Ondansetron HCl (Zofran Odt) 8 mg PRN BID PRN PO NAUSEA/VOMITING Last administered on 01/15/19 07:59; Start 01/13/19 at 09:15 Trazodone HCl (Desyrel) 100 mg HS PO Last administered on 01/15/19 20:48; Start 01/13/19 at 21:00 Albuterol Sulfate (Ventolin Neb Soln) 2.5 mg RTQID NEB Last administered on 01/16/19at 07:03; Start 01/13/19 at 12:00 Duloxetine HCl (Cymbalta) 60 mg BID PO Last administered on 01/15/19 20:48; Start 01/13/19 at 09:30 Non-Formulary Medication (Omeprazole ) 1 cap DAILY PO ; Start 01/14/19 at 09:00; Stop 01/13/19 at 09:12; Status DC Quetiapine Fumarate (SEROquel) 50 mg QHS PO Last administered on 01/15/19at 20:48; Start 01/13/19 at 21:00 Albuterol Sulfate (Ventolin Neb Soln) 2.5 mg PRN Q4HRS PRN INH SHORTNESS OF BREATH; Start 01/13/19 at 09:18 Budesonide (Pulmicort) 0.5 mg RTBID NEB Last administered on 01/15/19 20:31; Start 01/13/19 at 20:00 Lactobacillus Rhamnosus (Culturelle) 1 cap BID PO Last administered on 01/15/19at 20:48; Start 01/13/19 at 21:00 Pantoprazole Sodium (Protonix) 40 mg DAILYAC PO Last administered on 01/16/19 06:59; Start 01/14/19 at 07:30 Fentanyl Citrate (Fentanyl 2ml Vial) 50 mcg PRN Q4HRS PRN IV SEVERE PAIN 7-10; Start 01/13/19 at 22:00; Stop 01/14/19 at 10:00; Status DC Sodium Chloride 1,000 ml @ 999 mls/hr 1X ONCE IV Last administered on 01/14/19at 00:14; Start 01/13/19 at 23:45; Stop 01/14/19 at 00:45; Status DC Sodium Chloride 1,000 ml @ 100 mls/hr Q10H IV Last administered on 01/16/19at 05:43; Start 01/14/19 at 10:15 Alprazolam (Xanax) 0.5 mg 1X ONCE PO Last administered on 01/14/19at 13:22; Start 01/14/19 at 13:15; Stop 01/14/19 at 13:16; Status DC Nicotine (Nicoderm Cq 21mg) 1 patch PRN DAILY PRN TD SMOKING CESSATION Last administered on 01/15/19at 09:39; Start 01/14/19 at 16:00 Multi-Ingredient Ointment (Analgesic [place]) 1 job PRN QID PRN TP MUSCLE PAIN Last administered on 01/15/19at 08:16; Start 01/15/19 at 07:30 Magnesium Sulfate 50 ml @ 25 mls/hr 1X ONCE IV Last administered on 01/15/19at 12:18; Start 01/15/19 at 12:30; Stop 01/15/19 at 14:29; Status DC Labetalol HCl (Normodyne Iv Push) 20 mg PRN Q2HR PRN IVP HYPERTENSION; Start 01/15/19 at 22:00 Lisinopril (Prinivil) 20 mg DAILY PO Last administered on 01/15/19at 23:11; Start 01/15/19 at 22:15 Fentanyl Citrate (Fentanyl 2ml Vial) 25 mcg PRN Q5MIN PRN IV MILD PAIN 1-3; Start 01/17/19 at 07:00; Stop 01/18/19 at 06:59 Fentanyl Citrate (Fentanyl 2ml Vial) 50 mcg PRN Q5MIN PRN IV MODERATE TO SEVERE PAIN; Start 01/17/19 at 07:00; Stop 01/18/19 at 06:59 Morphine Sulfate (Morphine Sulfate) 1 mg PRN Q10MIN PRN IV SEVERE PAIN 7-10; Start 01/17/19 at 07:00; Stop 01/18/19 at 06:59 Ringer's Solution 1,000 ml @ 30 mls/hr Q24H IV ; Start 01/17/19 at 07:00; Stop 01/17/19 at 18:59 Hydromorphone HCl (Dilaudid) 0.5 mg PRN Q10MIN PRN IV SEV PAIN, Second choice; Start 01/17/19 at 07:00; Stop 01/18/19 at 06:59 Prochlorperazine Edisylate (Compazine) 5 mg PACU PRN PRN IV NAUSEA, MRX1; Start 01/17/19 at 07:00; Stop 01/18/19 at 06:59 Heparin Sodium (Porcine) 1000 unit/Sodium Chloride 1,001 ml @ 1,001 mls/hr 1X ONCE IRR ; Start 01/17/19 at 06:00; Stop 01/17/19 at 06:59 Active Scripts Active Erythromycin (Erythromycin Base) 250 Mg Tablet 250 Mg PO DAILY 30 Days Reported Symbicort 160-4.5 Mcg Inhaler (Budesonide/Formoterol Fumarate) 10.2 Gm Hfa.aer.ad 2 Puff IH BID Trazodone Hcl 100 Mg Tablet 100 Mg PO HS Cymbalta (Duloxetine Hcl) 60 Mg Capsule.dr Burton Cap PO BID Lisinopril 20 Mg Tablet 1 Tab PO DAILY Seroquel (Quetiapine Fumarate) 50 Mg Tablet 50 Mg PO HS Ondansetron Odt (Ondansetron) 4 Mg Tab.rapdis 8 Mg PO BID PRN Proair Hfa Inhaler (Albuterol Sulfate) 8.5 Gm Hfa.aer.ad 2 Puff INH DAILY PRN Omeprazole 40 Mg Capsule.dr Burton Cap PO DAILY Vitals/I & O Vital Sign - Last 24 Hours 01/15/19 01/15/19 01/15/19 01/15/19 11:00 11:53 15:00 16:07 Temp 98.5 98.4 98.5 98.4 Pulse 65 83 Resp 12 16 B/P (MAP) 169/85 (113) 153/82 (105) Pulse Ox 98 95 96 96 O2 Delivery Room Air Room Air Room Air Room Air 01/15/19 01/15/19 01/15/19 01/15/19 19:00 20:05 20:31 22:57 Temp 98.1 98.5 98.1 98.5 Pulse 80 86 Resp 16 16 B/P (MAP) 173/99 (123) 155/86 (109) Pulse Ox 98 97 96 O2 Delivery Room Air Room Air Room Air Room Air 01/15/19 01/16/19 01/16/19 01/16/19 23:11 02:44 06:41 07:04 Temp 98.7 98.5 98.7 98.5 Pulse 86 87 83 Resp 16 17 B/P (MAP) 155/86 140/85 (103) 147/82 (103) Pulse Ox 95 94 97 O2 Delivery Room Air Room Air Room Air Intake and Output 01/15/19 01/15/19 01/16/19 14:59 22:59 06:59 Intake Total 220 ml 1587.3 ml Balance 220 ml 1587.3 ml AMANDA OCHOA MD Jan 16, 2019 08:21
[2019-01-16] MEDS: LISINOPRIL 20 MG TABLET PO SCH (08:52)
[2019-01-16] MEDS: LACTOBACILLUS RHAMNOSUS GG 1 CAPSULE. PO SCH ×2 (08:52→21:22)
[2019-01-16] MEDS: POLYETHYLENE GLYCOL 3350 17 GM PACKET. PO SCH (08:52)
[2019-01-16] MEDS: DULoxetine HCL 30 MG CAPSULE.DR PO SCH ×2 (08:53→21:22)
[2019-01-16] MEDS: NICOTINE 21MG PATCH. TD PRN (08:56)
[2019-01-16] MEDS: BUDESONIDE 0.5 MG/2 ML NEBU. NEB SCH ×2 (11:25→20:06)
[2019-01-16] MEDS: QUEtiapine 25 MG TABLET. PO SCH (21:22)
[2019-01-16] MEDS: traZODone 100 MG TABLET. PO SCH (21:22)
[2019-01-17] VITALS (14 sets, daily range): BP systolic 128–193; BP diastolic 69–101
[2019-01-17] MEDS ORDERED: HEPARIN 1,000 UNIT in IV NORMAL SALINE 1,000 ML for SURG PERIOP IRR ONE (06:00)
[2019-01-17] MEDS: PIPERACILLIN/TAZOBACTAM 2.25 GM in IV NORMAL SALINE 50ML 50 ML IV SCH ×4 (06:22→23:46)
[2019-01-17] MEDS ORDERED: IV RINGERS,LACTATED 1000ML 1,000 ML IV SCH (07:00)
[2019-01-17] MEDS ORDERED: PROCHLORPERAZINE 10 MG/2 ML VIAL. IV PRN (07:00)
[2019-01-17] MEDS ORDERED: fentaNYL PF VIAL 100 MCG/2 ML VIAL IV PRN ×2 (07:00)
[2019-01-17] MEDS ORDERED: MORPHINE SULFATE 2 MG/ML VIAL. IV PRN (07:00)
[2019-01-17] MEDS ORDERED: HYDROmorphone 2 MG/ML VIAL IV PRN (07:00)
[2019-01-17] MEDS: PANTOPRAZOLE 40 MG TABLET.DR. PO SCH (07:30)
[2019-01-17] MEDS ORDERED: BUPIVACAINE-EPI 0.5%-1:200000 MPF 30 ML VIAL. INJ ONE (07:45)
[2019-01-17] MEDS: BUDESONIDE 0.5 MG/2 ML NEBU. NEB SCH ×2 (07:59→20:33)
[2019-01-17] MEDS: ALBUTEROL SULFATE 2.5 MG/3 ML NEBU. NEB SCH ×4 (07:59→20:33)
[2019-01-17 08:43] LABS: BASO % 0 % (0-3); EOS # 0.2 x10^3/uL (0.0-0.7); EOS % 3 % (0-3); HEMATOCRIT 34.7 % (36.0-47.0); HEMOGLOBIN 11.6 g/dL (12.0-15.5); LYMPH # 1.1 x10^3/uL (1.0-4.8); LYMPH % 14 % (24-48); MEAN CORPUSCULAR HEMOGLOBIN 32 pg (25-35); MEAN CORPUSCULAR HGB CONC 33 g/dL (31-37); MEAN CORPUSCULAR VOLUME 96 fL (79-100); MONO # 0.9 x10^3/uL (0.0-1.1); MONO % 12 % (0-9); NEUT # 5.3 x10^3/uL (1.8-7.7); NEUT % 71 % (31-73); PLATELET COUNT 259 x10^3/uL (140-400); RED BLOOD COUNT 3.62 x10^6/uL (3.50-5.40); WHITE BLOOD COUNT 7.4 x10^3/uL (4.0-11.0)
--- NOTE | 2019-01-17 08:49 | PDOC ---
PROGRESS NOTES Chief Complaint Chief Complaint ASSESSMENT AND PLAN: DEHYDRATION CATHY - likely vasomotor nephropathy 2/2 poor PO intake - RESOLVED MILD HYPERNATREMIA-IMPROVED Nausea, vomiting Abdominal pain Diverticulitis, acute Colonic diverticulosis greatest of the sigmoid colon, difficult to exclude sigmoid colonic wall thickening as could be seen with diverticulitis Extensive problems with endometriosis history copd THC ABUSE HX admitted. consult Gastroenterology consult Nephrology. IV antibiotics, IV fluids, p.r.n.antiemetics, home meds, deep venous thrombosis prophylaxis. Full code. SURGERY FOLLOWING CHIEF ACCOUNTANT CONSULTED MIKEY DUNLAP History of Present Illness History of Present Illness Ms Maldonado is a 58 yo F with chronic intermittent abdominal pain with nausea and vomiting over the past 3 years, admitted for the same. 01/13 Chronic cholecystitis likely. Surgical consult for possible lap pily 01/17 26 min pt exam, chart review,> 50% of time spent with exam, chart review, pt care coordination Vitals Vitals Vital Signs Date Time Temp Pulse Resp B/P (MAP) Pulse Ox O2 Delivery O2 Flow Rate FiO2 01/17/19 08:04 95 Room Air 01/17/19 07:30 99.0 72 18 179/101 (127) 99.0 Physical Exam Physical Exam GENERAL: No apparent distress. Alert and oriented. HEENT: Head is normocephalic, atraumatic, pupils were equally round and reactive to light and accommodation. NECK: Supple, no JVD, no thyromegaly was noted. LUNGS: Clear to auscultation in all lung cortes without rhonchi or wheezing. HEART: RRR, S1, S2 present. Peripheral pulses intact, no obvious murmurs were noted. ABDOMEN: Soft, nontender. Positive bowel sounds no organomegaly, normal bowel sounds. EXTREMITIES: Without any cyanosis, clubbing, or edema. Pedal pulses intact, Homans sign is negative. NEUROLOGIC: Normal speech, normal tone. A & O x3, moves all extremities, no obvious focal deficits. PSYCHIATRIC: She is crying. SKIN: No ulcerations or rashes, good skin turgor, no jaundice. VASCULAR: Good capillary refill, neurovascular bundle appears to be intact. General: Alert, Oriented X3, Cooperative, No acute distress Heart: Regular rate, Normal S1 Lungs: Clear, Other (DIMINISHED) Abdomen: Normal bowel sounds, Soft, No masses, Other (upper abd tenderness to palpation. No rebound tenderness.) Extremities: No clubbing, No cyanosis, No edema Skin: No rashes, No breakdown Assessment and Plan Assessmemt and Plan Problems Medical Problems: (1) Abdominal pain Status: Acute (2) Acute renal failure Status: Acute (3) Nausea & vomiting Status: Acute Comment Review of Relevant I have reviewed the following items eagle (where applicable) has been applied. Labs Laboratory Tests Test 01/16/19 04:00 White Blood Count 7.1 x10^3/uL (4.0-11.0) Red Blood Count 3.34 x10^6/uL (3.50-5.40) Hemoglobin 10.9 g/dL (12.0-15.5) Hematocrit 32.1 % (36.0-47.0) Mean Corpuscular Volume 96 fL (79-100) Mean Corpuscular Hemoglobin 33 pg (25-35) Mean Corpuscular Hemoglobin Concent 34 g/dL (31-37) Red Cell Distribution Width 15.4 % (11.5-14.5) Platelet Count 212 x10^3/uL (140-400) Neutrophils (%) (Auto) 66 % (31-73) Lymphocytes (%) (Auto) 21 % (24-48) Monocytes (%) (Auto) 10 % (0-9) Eosinophils (%) (Auto) 2 % (0-3) Basophils (%) (Auto) 1 % (0-3) Neutrophils # (Auto) 4.7 x10^3/uL (1.8-7.7) Lymphocytes # (Auto) 1.5 x10^3/uL (1.0-4.8) Monocytes # (Auto) 0.7 x10^3/uL (0.0-1.1) Eosinophils # (Auto) 0.2 x10^3/uL (0.0-0.7) Basophils # (Auto) 0.0 x10^3/uL (0.0-0.2) Sodium Level 148 mmol/L (136-145) Potassium Level 3.8 mmol/L (3.5-5.1) Chloride Level 111 mmol/L (98-107) Carbon Dioxide Level 31 mmol/L (21-32) Anion Gap 6 (6-14) Blood Urea Nitrogen 15 mg/dL (7-20) Creatinine 0.8 mg/dL (0.6-1.0) Estimated GFR (Cockcroft-Gault) 73.7 BUN/Creatinine Ratio 19 (6-20) Glucose Level 99 mg/dL (70-99) Calcium Level 9.0 mg/dL (8.5-10.1) Total Bilirubin 0.2 mg/dL (0.2-1.0) Aspartate Amino Transf (AST/SGOT) 67 U/L (15-37) Alanine Aminotransferase (ALT/SGPT) 68 U/L (14-59) Alkaline Phosphatase 55 U/L (46-116) Total Protein 6.0 g/dL (6.4-8.2) Albumin 2.6 g/dL (3.4-5.0) Albumin/Globulin Ratio 0.8 (1.0-1.7) Microbiology 01/12/19 Blood Culture - Preliminary, Resulted NO GROWTH AFTER 4 DAYS 01/12/19 Urine Culture - Final, Complete 01/12/19 Urine Culture Result 1 ([facility]) - Final, Complete Medications Current Medications Sodium Chloride 1,000 ml @ 1,000 mls/hr Q1H IV Last administered on 01/12/19at 12:57; Start 01/12/19 at 12:31; Stop 01/12/19 at 13:30; Status DC Fentanyl Citrate (Fentanyl 2ml Vial) 50 mcg 1X ONCE IV Last administered on 01/12/19at 13:09; Start 01/12/19 at 12:45; Stop 01/12/19 at 12:46; Status DC Prochlorperazine Edisylate (Compazine) 10 mg 1X ONCE IV Last administered on 01/12/19at 13:09; Start 01/12/19 at 12:45; Stop 01/12/19 at 12:46; Status DC Famotidine (Pepcid Vial) 20 mg 1X ONCE IVP Last administered on 01/12/19at 13:20; Start 01/12/19 at 12:45; Stop 01/12/19 at 12:46; Status DC Piperacillin Sod/ Tazobactam Sod (Zosyn Per Pharmacy) 1 each PRN DAILY PRN MC SEE COMMENTS; Start 01/12/19 at 15:00 Ondansetron HCl (Zofran) 4 mg PRN Q8HRS PRN IV NAUSEA/VOMITING Last administered on 01/13/19at 09:41; Start 01/12/19 at 15:00; Stop 01/13/19 at 14:59; Status DC Fentanyl Citrate (Fentanyl 2ml Vial) 50 mcg PRN Q1HR PRN IV PAIN; Start 01/12/19 at 15:00; Stop 01/13/19 at 14:59; Status DC Acetaminophen (Tylenol) 650 mg PRN Q4HRS PRN PO FEVER; Start 01/12/19 at 15:00; Stop 01/13/19 at 14:59; Status DC Prochlorperazine Edisylate (Compazine) 10 mg PRN Q6HRS PRN IV NAUSEA, VOMITING (USE 2ND) Last administered on 01/13/19at 22:01; Start 01/12/19 at 15:00 Piperacillin Sod/ Tazobactam Sod 2.25 gm/Sodium Chloride 50 ml @ 100 mls/hr 1X ONCE IV Last administered on 01/12/19at 15:31; Start 01/12/19 at 15:15; Stop 01/12/19 at 15:44; Status DC Piperacillin Sod/ Tazobactam Sod 2.25 gm/Sodium Chloride 50 ml @ 100 mls/hr Q6HRS IV Last administered on 01/17/19at 06:23; Start 01/13/19 at 00:00 Pantoprazole Sodium (PROTONIX VIAL for IV PUSH) 40 mg DAILYAC IVP Last administered on 01/13/19at 12:00; Start 01/13/19 at 07:30; Stop 01/13/19 at 15:46; Status DC Multi-Ingredient Mouthwash/Gargle (Gi Cocktail) 20 ml PRN QID PRN PO abd pain; Start 01/12/19 at 16:15 Polyethylene Glycol (miraLAX PACKET) 17 gm DAILY PO Last administered on 01/16/19at 08:58; Start 01/13/19 at 09:00 Sodium Chloride 1,000 ml @ 100 mls/hr Q10H IV Last administered on 01/14/19at 00:34; Start 01/13/19 at 00:15; Stop 01/14/19 at 10:15; Status DC Barium Sulfate (Liquid E-Z Paque) 710 ml 1X ONCE PO Last administered on 01/13/19at 08:31; Start 01/13/19 at 07:45; Stop 01/13/19 at 07:46; Status DC Alprazolam (Xanax) 0.5 mg 1X ONCE PO Last administered on 01/13/19at 09:41; Start 01/13/19 at 09:15; Stop 01/13/19 at 09:16; Status DC Albuterol Sulfate (Ventolin Neb Soln) 1 mg PRN Q4HRS PRN INH SHORTNESS OF BREATH; Start 01/13/19 at 09:15; Stop 01/13/19 at 09:18; Status DC Lisinopril (Prinivil) 20 mg DAILY PO Last administered on 01/13/19at 09:41; Start 01/13/19 at 09:30; Stop 01/13/19 at 11:25; Status DC Ondansetron HCl (Zofran Odt) 8 mg PRN BID PRN PO NAUSEA/VOMITING Last administered on 01/15/19at 07:59; Start 01/13/19 at 09:15 Trazodone HCl (Desyrel) 100 mg HS PO Last administered on 01/16/19at 21:22; Start 01/13/19 at 21:00 Albuterol Sulfate (Ventolin Neb Soln) 2.5 mg RTQID NEB Last administered on at 08:02; Start 01/13/19 at 12:00 Duloxetine HCl (Cymbalta) 60 mg BID PO Last administered on 01/16/19at 21:22; Start 01/13/19 at 09:30 Non-Formulary Medication (Omeprazole ) 1 cap DAILY PO ; Start 01/14/19 at 09:00; Stop 01/13/19 at 09:12; Status DC Quetiapine Fumarate (SEROquel) 50 mg QHS PO Last administered on 01/16/19at 21:22; Start 01/13/19 at 21:00 Albuterol Sulfate (Ventolin Neb Soln) 2.5 mg PRN Q4HRS PRN INH SHORTNESS OF BREATH; Start 01/13/19 at 09:18 Budesonide (Pulmicort) 0.5 mg RTBID NEB Last administered on 01/17/19at 08:02; Start 01/13/19 at 20:00 Lactobacillus Rhamnosus (Culturelle) 1 cap BID PO Last administered on 01/16/19 21:22; Start 01/13/19 at 21:00 Pantoprazole Sodium (Protonix) 40 mg DAILYAC PO Last administered on 01/16/19at 06:59; Start 01/14/19 at 07:30 Fentanyl Citrate (Fentanyl 2ml Vial) 50 mcg PRN Q4HRS PRN IV SEVERE PAIN 7-10; Start 01/13/19 at 22:00; Stop 01/14/19 at 10:00; Status DC Sodium Chloride 1,000 ml @ 999 mls/hr 1X ONCE IV Last administered on 01/14/19at 00:14; Start 01/13/19 at 23:45; Stop 01/14/19 at 00:45; Status DC Sodium Chloride 1,000 ml @ 100 mls/hr Q10H IV Last administered on 01/16/19at 23:00; Start 01/14/19 at 10:15 Alprazolam (Xanax) 0.5 mg 1X ONCE PO Last administered on 01/14/19 13:22; S tart 01/14/19 at 13:15; Stop 01/14/19 at 13:16; Status DC Nicotine (Nicoderm Cq 21mg) 1 patch PRN DAILY PRN TD SMOKING CESSATION Last administered on 01/16/19 08:58; Start 01/14/19 at 16:00 Multi-Ingredient Ointment (Analgesic [place]) 1 job PRN QID PRN TP MUSCLE PAIN Last administered on 01/15/19 08:16; Start 01/15/19 at 07:30 Magnesium Sulfate 50 ml @ 25 mls/hr 1X ONCE IV Last administered on 01/15/19 12:18; Start 01/15/19 at 12:30; Stop 01/15/19 at 14:29; Status DC Labetalol HCl (Normodyne Iv Push) 20 mg PRN Q2HR PRN IVP HYPERTENSION Last administered on 01/16/19 14:14; Start 01/15/19 at 22:00 Lisinopril (Prinivil) 20 mg DAILY PO Last administered on 01/16/19 08:58; Start 01/15/19 at 22:15 Fentanyl Citrate (Fentanyl 2ml Vial) 25 mcg PRN Q5MIN PRN IV MILD PAIN 1-3; Start 01/17/19 at 07:00; Stop 01/18/19 at 06:59 Fentanyl Citrate (Fentanyl 2ml Vial) 50 mcg PRN Q5MIN PRN IV MODERATE TO SEVERE PAIN; Start 01/17/19 at 07:00; Stop 01/18/19 at 06:59 Morphine Sulfate (Morphine Sulfate) 1 mg PRN Q10MIN PRN IV SEVERE PAIN 7-10; Start 01/17/19 at 07:00; Stop 01/18/19 at 06:59 Ringer's Solution 1,000 ml @ 30 mls/hr Q24H IV ; Start 01/17/19 at 07:00; Stop 01/17/19 at 18:59 Hydromorphone HCl (Dilaudid) 0.5 mg PRN Q10MIN PRN IV SEV PAIN, Second choice; Start 01/17/19 at 07:00; Stop 01/18/19 at 06:59 Prochlorperazine Edisylate (Compazine) 5 mg PACU PRN PRN IV NAUSEA, MRX1; Start 01/17/19 at 07:00; Stop 01/18/19 at 06:59 Heparin Sodium (Porcine) 1000 unit/Sodium Chloride 1,001 ml @ 1,001 mls/hr 1X ONCE IRR ; Start 01/17/19 at 06:00; Stop 01/17/19 at 06:59; Status DC Lorazepam (Ativan Inj) 0.5 mg 1X ONCE IV Last administered on 01/16/19at 21:22; Start 01/16/19 at 21:15; Stop 01/16/19 at 21:16; Status DC Bupivacaine HCl/ Epinephrine Bitart (Sensorcain-Epi 0.5%-1:[id number] Mpf) 30 ml 1X ONCE INJ ; Start 01/17/19 at 07:45; Stop 01/17/19 at 07:46; Status DC Active Scripts Active Erythromycin (Erythromycin Base) 250 Mg Tablet 250 Mg PO DAILY 30 Days Reported Symbicort 160-4.5 Mcg Inhaler (Budesonide/Formoterol Fumarate) 10.2 Gm Hfa.aer.ad 2 Puff IH BID Trazodone Hcl 100 Mg Tablet 100 Mg PO HS Cymbalta (Duloxetine Hcl) 60 Mg Capsule.dr 1 Cap PO BID Lisinopril 20 Mg Tablet 1 Tab PO DAILY Seroquel (Quetiapine Fumarate) 50 Mg Tablet 50 Mg PO HS Ondansetron Odt (Ondansetron) 4 Mg Tab.rapdis 8 Mg PO BID PRN Proair Hfa Inhaler (Albuterol Sulfate) 8.5 Gm Hfa.aer.ad 2 Puff INH DAILY PRN Omeprazole 40 Mg Capsule. 1 Cap PO DAILY Vitals/I & O Vital Sign - Last 24 Hours 01/16/19 01/16/19 01/16/19 01/16/19 08:58 11:00 11:25 12:10 Temp 98.6 98.6 Pulse 83 71 70 Resp 20 B/P (MAP) 147/82 163/95 (117) 166/89 (114) Pulse Ox 97 97 O2 Delivery Room Air Room Air 01/16/19 01/16/19 01/16/19 01/16/19 14:14 15:00 15:10 19:00 Temp 98.5 99.2 98.5 99.2 Pulse 75 60 66 Resp 20 18 B/P (MAP) 166/86 163/96 (118) 177/94 (121) Pulse Ox 96 96 95 O2 Delivery Room Air Room Air Room Air 01/16/19 01/16/19 01/16/19 01/17/19 20:08 20:19 23:00 03:00 Temp 98.5 97.6 98.5 97.6 Pulse 75 70 Resp 16 16 B/P (MAP) 140/87 (104) 193/97 (129) Pulse Ox 94 92 O2 Delivery Room Air Room Air Room Air Room Air 01/17/19 01/17/19 01/17/19 01/17/19 03:51 07:30 08:00 08:04 Temp 99.0 99.0 Pulse 97 72 Resp 18 B/P (MAP) 154/97 (116) 179/101 (127) Pulse Ox 96 95 O2 Delivery Room Air Room Air Room Air Intake and Output 01/16/19 01/16/19 01/17/19 14:59 22:59 06:59 Intake Total 600 ml Output Total 200 ml 200 ml Balance -200 ml -200 ml 600 ml BELÉN JAMES MD Jan 17, 2019 08:49
[2019-01-17] MEDS: POLYETHYLENE GLYCOL 3350 17 GM PACKET. PO SCH (09:00)
[2019-01-17 09:33] LABS: ALBUMIN 2.9 g/dL (3.4-5.0); ALBUMIN/GLOBULIN RATIO 0.7 (1.0-1.7); CALCIUM 9.1 mg/dL (8.5-10.1); CREATININE 0.7 mg/dL (0.6-1.0); GFR 85.9; POTASSIUM 3.9 mmol/L (3.5-5.1); TOTAL BILIRUBIN 0.4 mg/dL (0.2-1.0); TOTAL PROTEIN 6.8 g/dL (6.4-8.2)
--- NOTE | 2019-01-17 10:25 | PDOC ---
Subjective: Subjective: Awaiting cholecystectomy. Biggest concern is not wanting a soft or bland diet. Wants regular food. So hungry that she's starting to feel epigastric discomfort again. Objective: Vital Signs: Vital Signs Date Time Temp Pulse Resp B/P (MAP) Pulse Ox O2 Delivery O2 Flow Rate FiO2 01/17/19 08:04 95 Room Air 01/17/19 07:30 99.0 72 18 179/101 (127) 99.0 Labs: Laboratory Tests Test 01/17/19 07:40 White Blood Count 7.4 x10^3/uL Red Blood Count 3.62 x10^6/uL Hemoglobin 11.6 g/dL Hematocrit 34.7 % Mean Corpuscular Volume 96 fL Mean Corpuscular Hemoglobin 32 pg Mean Corpuscular Hemoglobin Concent 33 g/dL Red Cell Distribution Width 15.0 % Platelet Count 259 x10^3/uL Neutrophils (%) (Auto) 71 % Lymphocytes (%) (Auto) 14 % Monocytes (%) (Auto) 12 % Eosinophils (%) (Auto) 3 % Basophils (%) (Auto) 0 % Neutrophils # (Auto) 5.3 x10^3/uL Lymphocytes # (Auto) 1.1 x10^3/uL Monocytes # (Auto) 0.9 x10^3/uL Eosinophils # (Auto) 0.2 x10^3/uL Basophils # (Auto) 0.0 x10^3/uL Sodium Level 145 mmol/L Potassium Level 3.9 mmol/L Chloride Level 107 mmol/L Carbon Dioxide Level 32 mmol/L Anion Gap 6 Blood Urea Nitrogen 11 mg/dL Creatinine 0.7 mg/dL Estimated GFR (Cockcroft-Gault) 85.9 BUN/Creatinine Ratio 16 Glucose Level 71 mg/dL Calcium Level 9.1 mg/dL Total Bilirubin 0.4 mg/dL Aspartate Amino Transf (AST/SGOT) 37 U/L Alanine Aminotransferase (ALT/SGPT) 63 U/L Alkaline Phosphatase 60 U/L Total Protein 6.8 g/dL Albumin 2.9 g/dL Albumin/Globulin Ratio 0.7 PE: GEN: NAD LUNGS: CTAB HEART: RRR ABD: S/ND/NT NEURO/PSYCH: A & O �3 A/P: Recurrent n/v and abd pain - better GERD, mildly delayed gastric emptying, +marijuana -- Plans for cholecystectomy - will follow. Defer diet to surgery - okay for regular diet per GI. MAC KNOX Jan 17, 2019 10:25
[2019-01-17] MEDS ORDERED: ONDANSETRON PF 4 MG/2 ML VIAL. ONE (10:47)
[2019-01-17] MEDS ORDERED: PROPOFOL 20 ML IV ONE (10:47)
[2019-01-17] MEDS ORDERED: ROCURONIUM 50 MG/5 ML VIAL. ONE (10:47)
[2019-01-17] MEDS ORDERED: DEXAMETHASONE SOD PHOS 4 MG/ML VIAL ONE (10:47)
[2019-01-17] MEDS ORDERED: LIDOCAINE 2% PF 5 ML VIAL. ONE (10:47)
[2019-01-17] MEDS ORDERED: SURGICEL HEMOSTAT 2X3 EACH. ONE (11:10)
[2019-01-17] MEDS ORDERED: IOHEXOL 300 MG/ML 50 ML VIAL. ONE (11:11)
[2019-01-17] MEDS ORDERED: BISACODYL 10 MG SUPP.RECT. ONE (11:11)
[2019-01-17] MEDS ORDERED: fentaNYL PF VIAL 100 MCG/2 ML VIAL ONE ×2 (12:14→12:51)
[2019-01-17] MEDS ORDERED: MIDAZOLAM HCL/PF 2 MG/2 ML VIAL. ONE (12:14)
--- NOTE | 2019-01-17 12:39 | PDOC ---
SURGICAL PROGRESS NOTE Subjective Pre-Op Note 58 yo F with abd pain, N/V TO OR for laparoscopic versus open exploration and cholecystectomy with cholangiogram. R/R/B/A d/w pt. Risks, including, but not limited to: bleeding, infection, damage to surrounding structures, risk of anesthesia, risk of open, risk of , and the possibility this may not resolve her pain. She appears to understand, her questions are answered and she elects to proceed. Vital Signs Vital Signs Date Time Temp Pulse Resp B/P (MAP) Pulse Ox O2 Delivery O2 Flow Rate FiO2 01/17/19 11:32 98.4 75 18 155/95 (115) 95 Room Air 98.4 I&O Intake and Output 01/17/19 07:00 Intake Total 600 ml Output Total 400 ml Balance 200 ml Intake Oral 600 ml Output Urine Total 400 ml # Voids 2 Labs Laboratory Tests Test 01/16/19 04:00 01/17/19 07:40 White Blood Count 7.1 x10^3/uL (4.0-11.0) 7.4 x10^3/uL (4.0-11.0) Red Blood Count 3.34 x10^6/uL (3.50-5.40) 3.62 x10^6/uL (3.50-5.40) Hemoglobin 10.9 g/dL (12.0-15.5) 11.6 g/dL (12.0-15.5) Hematocrit 32.1 % (36.0-47.0) 34.7 % (36.0-47.0) Mean Corpuscular Volume 96 fL (79-100) 96 fL (79-100) Mean Corpuscular Hemoglobin 33 pg (25-35) 32 pg (25-35) Mean Corpuscular Hemoglobin Concent 34 g/dL (31-37) 33 g/dL (31-37) Red Cell Distribution Width 15.4 % (11.5-14.5) 15.0 % (11.5-14.5) Platelet Count 212 x10^3/uL (140-400) 259 x10^3/uL (140-400) Neutrophils (%) (Auto) 66 % (31-73) 71 % (31-73) Lymphocytes (%) (Auto) 21 % (24-48) 14 % (24-48) Monocytes (%) (Auto) 10 % (0-9) 12 % (0-9) Eosinophils (%) (Auto) 2 % (0-3) 3 % (0-3) Basophils (%) (Auto) 1 % (0-3) 0 % (0-3) Neutrophils # (Auto) 4.7 x10^3/uL (1.8-7.7) 5.3 x10^3/uL (1.8-7.7) Lymphocytes # (Auto) 1.5 x10^3/uL (1.0-4.8) 1.1 x10^3/uL (1.0-4.8) Monocytes # (Auto) 0.7 x10^3/uL (0.0-1.1) 0.9 x10^3/uL (0.0-1.1) Eosinophils # (Auto) 0.2 x10^3/uL (0.0-0.7) 0.2 x10^3/uL (0.0-0.7) Basophils # (Auto) 0.0 x10^3/uL (0.0-0.2) 0.0 x10^3/uL (0.0-0.2) Sodium Level 148 mmol/L (136-145) 145 mmol/L (136-145) Potassium Level 3.8 mmol/L (3.5-5.1) 3.9 mmol/L (3.5-5.1) Chloride Level 111 mmol/L (98-107) 107 mmol/L (98-107) Carbon Dioxide Level 31 mmol/L (21-32) 32 mmol/L (21-32) Anion Gap 6 (6-14) 6 (6-14) Blood Urea Nitrogen 15 mg/dL (7-20) 11 mg/dL (7-20) Creatinine 0.8 mg/dL (0.6-1.0) 0.7 mg/dL (0.6-1.0) Estimated GFR (Cockcroft-Gault) 73.7 85.9 BUN/Creatinine Ratio 19 (6-20) 16 (6-20) Glucose Level 99 mg/dL (70-99) 71 mg/dL (70-99) Calcium Level 9.0 mg/dL (8.5-10.1) 9.1 mg/dL (8.5-10.1) Total Bilirubin 0.2 mg/dL (0.2-1.0) 0.4 mg/dL (0.2-1.0) Aspartate Amino Transf (AST/SGOT) 67 U/L (15-37) 37 U/L (15-37) Alanine Aminotransferase (ALT/SGPT) 68 U/L (14-59) 63 U/L (14-59) Alkaline Phosphatase 55 U/L (46-116) 60 U/L (46-116) Total Protein 6.0 g/dL (6.4-8.2) 6.8 g/dL (6.4-8.2) Albumin 2.6 g/dL (3.4-5.0) 2.9 g/dL (3.4-5.0) Albumin/Globulin Ratio 0.8 (1.0-1.7) 0.7 (1.0-1.7) Laboratory Tests Test 01/17/19 07:40 White Blood Count 7.4 x10^3/uL (4.0-11.0) Red Blood Count 3.62 x10^6/uL (3.50-5.40) Hemoglobin 11.6 g/dL (12.0-15.5) Hematocrit 34.7 % (36.0-47.0) Mean Corpuscular Volume 96 fL (79-100) Mean Corpuscular Hemoglobin 32 pg (25-35) Mean Corpuscular Hemoglobin Concent 33 g/dL (31-37) Red Cell Distribution Width 15.0 % (11.5-14.5) Platelet Count 259 x10^3/uL (140-400) Neutrophils (%) (Auto) 71 % (31-73) Lymphocytes (%) (Auto) 14 % (24-48) Monocytes (%) (Auto) 12 % (0-9) Eosinophils (%) (Auto) 3 % (0-3) Basophils (%) (Auto) 0 % (0-3) Neutrophils # (Auto) 5.3 x10^3/uL (1.8-7.7) Lymphocytes # (Auto) 1.1 x10^3/uL (1.0-4.8) Monocytes # (Auto) 0.9 x10^3/uL (0.0-1.1) Eosinophils # (Auto) 0.2 x10^3/uL (0.0-0.7) Basophils # (Auto) 0.0 x10^3/uL (0.0-0.2) Sodium Level 145 mmol/L (136-145) Potassium Level 3.9 mmol/L (3.5-5.1) Chloride Level 107 mmol/L (98-107) Carbon Dioxide Level 32 mmol/L (21-32) Anion Gap 6 (6-14) Blood Urea Nitrogen 11 mg/dL (7-20) Creatinine 0.7 mg/dL (0.6-1.0) Estimated GFR (Cockcroft-Gault) 85.9 BUN/Creatinine Ratio 16 (6-20) Glucose Level 71 mg/dL (70-99) Calcium Level 9.1 mg/dL (8.5-10.1) Total Bilirubin 0.4 mg/dL (0.2-1.0) Aspartate Amino Transf (AST/SGOT) 37 U/L (15-37) Alanine Aminotransferase (ALT/SGPT) 63 U/L (14-59) Alkaline Phosphatase 60 U/L (46-116) Total Protein 6.8 g/dL (6.4-8.2) Albumin 2.9 g/dL (3.4-5.0) Albumin/Globulin Ratio 0.7 (1.0-1.7) Problem List Problems Medical Problems: (1) Abdominal pain Status: Acute (2) Acute renal failure Status: Acute (3) Nausea & vomiting Status: Acute ANGELICA BOSS MD Jan 17, 2019 12:39
[2019-01-17] MEDS ORDERED: ESMOLOL 100 MG/10 ML VIAL. IVP ONE ×2 (12:43→12:58)
[2019-01-17] MEDS ORDERED: GLYCOPYRROLATE 1 MG/5 ML VIAL. ONE (12:52)
[2019-01-17] MEDS ORDERED: NEOSTIGMINE METHYLSULFATE 5 MG/5 ML SYRINGE. ONE (12:52)
[2019-01-17] MEDS ORDERED: FAMOTIDINE 20 MG/2 ML VIAL ONE (13:10)
[2019-01-17] MEDS ORDERED: SEVOFLURANE 31 TO 60 MINUTES. IH ONE (13:19)
--- NOTE | 2019-01-17 13:58 | RAD ---
EXAM: Intraoperative cholangiogram DATE: 01/17/2019 1:00 PM INDICATION: Cholangiograms, cholecystectomy, evaluate for duct stone. COMPARISON: No Prior FINDINGS/ IMPRESSION: 2 very limited intraoperative fluoroscopic views of the right upper quadrant submitted from the OR. Exam shows cholangiogram with cannulation of the common bile duct and associated opacification of the common bile duct. No definite filling defect is identified within the common bile duct. Subtle contrast extending retrograde likely portions of the common hepatic duct. Note, this does not constitute a diagnostic quality exam. Please see operative report for full details. Fluoroscopy time: 0.12 minutes Electronically signed by: Arnoldo Ballard MD (01/17/2019 1:55 PM) [facility]
[2019-01-17] MEDS ORDERED: IV NORMAL SALINE 1000ML BAG 1,000 ML IV SCH (14:36)
[2019-01-17] MEDS ORDERED: 0.9 % SODIUM CHLORIDE 10 ML DISP.SYRIN. IV PRN (14:45)
[2019-01-17] MEDS ORDERED: ONDANSETRON PF 4 MG/2 ML VIAL. IV PRN (14:45)
[2019-01-17] MEDS ORDERED: DEXTROSE 50% 25 GM / 50ML DISP.SYRIN. IV PRN (14:45)
[2019-01-17] MEDS ORDERED: IV DEXTROSE 5% 250 ML BAG. IV PRN (14:45)
[2019-01-17] MEDS ORDERED: NALOXONE 0.4 MG/ML VIAL. IV PRN (14:45)
--- NOTE | 2019-01-17 14:45 | PDOC4 ---
OPERATIVE NOTE Date: Date: Jan 17, 2019 Pre-Op Diagnosis: Abdominal pain Post-Op Diagnosis: chronic cholecystitis Procedure Performed: laparoscopic cholecystectomy with cholangiogram Surgeon: Aba Boss Anesthesia Type: GETA plus local Blood Loss: 50 Specimans Obtained: gallbladder Findings: chronic adhesions to gallbladder, no other pathology noted, normal appearing cholangiogram Complications: none Operative Note: After obtaining informed consent, patient was taken to OR, induced under GETA and prepped in the usual fashion. 5 mm port placed umbilical and RUQ, 12 port placed epigastric, all under laparoscopic guidance. Abdominal cavity was explored and otherwise unremarkable. Gallbladder grasped, adhesion taken down sharply. Gallbladder taken off fossa using cautery in a dome down fashion. Cystic artery ligated with clips. Cholangiogram obtained via cystic duct, as only remaining structures, and was normal. Cystic duct was divided and secured with hemolok and clips. Gallbladder placed in bag, delivered and sent to pathology for evaluation. Copious irrigation. No evidence of bleeding or other pathology. Ports removed without bleeding. Fascia repaired with 0 vicryl. Skin repaired with 4 0 monocryl. Dressing placed. Patient tolerated procedure well and sent to PACU in stable condition. All counts correct. Wound class is clean-contaminated. ANGELICA BOSS MD Jan 17, 2019 14:45
--- NOTE | 2019-01-17 14:54 | NUR ---
SW following pt. Pt is scheduled for lap pily today. No SW needs noted. Will continue to follow pending dc needs.
[2019-01-17] MEDS: LACTOBACILLUS RHAMNOSUS GG 1 CAPSULE. PO SCH ×2 (15:10→20:41)
[2019-01-17] MEDS: DULoxetine HCL 30 MG CAPSULE.DR PO SCH ×2 (15:10→20:42)
[2019-01-17] MEDS: LISINOPRIL 20 MG TABLET PO SCH (15:11)
[2019-01-17] MEDS: IV 1/2 NORMAL SALINE 1,000 ML IV SCH ×2 (15:14→18:15)
[2019-01-17] MEDS: HYDROcodone/APAP 5/325MG 1 TAB TABLET PO PRN ×2 (18:28→22:32)
[2019-01-17] MEDS: traZODone 100 MG TABLET. PO SCH (20:41)
[2019-01-17] MEDS: DOCUSATE SODIUM 100 MG CAPSULE. PO SCH (20:41)
[2019-01-17] MEDS: QUEtiapine 25 MG TABLET. PO SCH (20:44)
--- NOTE | 2019-01-17 22:38 | NUR ---
Some shadowing on dressings. Lap site X 4, dressing changed.
[2019-01-18] MEDS: IV 1/2 NORMAL SALINE 1,000 ML IV SCH (02:18)
[2019-01-18] MEDS: HYDROcodone/APAP 5/325MG 1 TAB TABLET PO PRN ×2 (02:22→06:33)
[2019-01-18 03:15] VITALS: BP 128/73
[2019-01-18] MEDS: PIPERACILLIN/TAZOBACTAM 2.25 GM in IV NORMAL SALINE 50ML 50 ML IV SCH (06:00)
[2019-01-18] MEDS: PANTOPRAZOLE 40 MG TABLET.DR. PO SCH (06:32)
[2019-01-18] MEDS: BUDESONIDE 0.5 MG/2 ML NEBU. NEB SCH (07:43)
[2019-01-18] MEDS: ALBUTEROL SULFATE 2.5 MG/3 ML NEBU. NEB SCH ×2 (07:43→11:47)
[2019-01-18 07:44] VITALS: BP 146/87
--- NOTE | 2019-01-18 08:17 | PDOC ---
SURGICAL PROGRESS NOTE Subjective tolerating diet pain improved epigastric incision sore Vital Signs Vital Signs Date Time Temp Pulse Resp B/P (MAP) Pulse Ox O2 Delivery O2 Flow Rate FiO2 01/18/19 07:45 97 Room Air 01/18/19 07:44 98.3 59 20 146/87 (106) 98.3 01/18/19 06:33 2.0 I&O Intake and Output 01/18/19 06:59 Intake Total 1220 ml Output Total 310 ml Balance 910 ml Intake Oral 520 ml IV Total 700 ml Output Urine Total 300 ml Estimated Blood Loss 10 ml # Voids 3 General: Alert, Oriented X3, Cooperative, No acute distress Abdomen: Soft, Other (mildly distended, lap dressings dry) Labs Laboratory Tests Test 01/17/19 07:40 White Blood Count 7.4 x10^3/uL (4.0-11.0) Red Blood Count 3.62 x10^6/uL (3.50-5.40) Hemoglobin 11.6 g/dL (12.0-15.5) Hematocrit 34.7 % (36.0-47.0) Mean Corpuscular Volume 96 fL (79-100) Mean Corpuscular Hemoglobin 32 pg (25-35) Mean Corpuscular Hemoglobin Concent 33 g/dL (31-37) Red Cell Distribution Width 15.0 % (11.5-14.5) Platelet Count 259 x10^3/uL (140-400) Neutrophils (%) (Auto) 71 % (31-73) Lymphocytes (%) (Auto) 14 % (24-48) Monocytes (%) (Auto) 12 % (0-9) Eosinophils (%) (Auto) 3 % (0-3) Basophils (%) (Auto) 0 % (0-3) Neutrophils # (Auto) 5.3 x10^3/uL (1.8-7.7) Lymphocytes # (Auto) 1.1 x10^3/uL (1.0-4.8) Monocytes # (Auto) 0.9 x10^3/uL (0.0-1.1) Eosinophils # (Auto) 0.2 x10^3/uL (0.0-0.7) Basophils # (Auto) 0.0 x10^3/uL (0.0-0.2) Sodium Level 145 mmol/L (136-145) Potassium Level 3.9 mmol/L (3.5-5.1) Chloride Level 107 mmol/L (98-107) Carbon Dioxide Level 32 mmol/L (21-32) Anion Gap 6 (6-14) Blood Urea Nitrogen 11 mg/dL (7-20) Creatinine 0.7 mg/dL (0.6-1.0) Estimated GFR (Cockcroft-Gault) 85.9 BUN/Creatinine Ratio 16 (6-20) Glucose Level 71 mg/dL (70-99) Calcium Level 9.1 mg/dL (8.5-10.1) Total Bilirubin 0.4 mg/dL (0.2-1.0) Aspartate Amino Transf (AST/SGOT) 37 U/L (15-37) Alanine Aminotransferase (ALT/SGPT) 63 U/L (14-59) Alkaline Phosphatase 60 U/L (46-116) Total Protein 6.8 g/dL (6.4-8.2) Albumin 2.9 g/dL (3.4-5.0) Albumin/Globulin Ratio 0.7 (1.0-1.7) Problem List Problems Medical Problems: (1) Abdominal pain Status: Acute (2) Acute renal failure Status: Acute (3) Nausea & vomiting Status: Acute Assessment/Plan s/p lorenzo thompson to [facility] from surgical pov FU 1-2 weeks script on chart BLU PETERSON APRN Jan 18, 2019 08:17
--- NOTE | 2019-01-18 09:17 | PDOC ---
PROGRESS NOTES Chief Complaint Chief Complaint ASSESSMENT AND PLAN: DEHYDRATION CATHY - likely vasomotor nephropathy 2/2 poor PO intake - RESOLVED MILD HYPERNATREMIA-IMPROVED Nausea, vomiting Abdominal pain Diverticulitis, acute Colonic diverticulosis greatest of the sigmoid colon, difficult to exclude sigmoid colonic wall thickening as could be seen with diverticulitis Extensive problems with endometriosis history copd THC ABUSE HX admitted. consult Gastroenterology consult Nephrology. IV antibiotics, IV fluids, p.r.n.antiemetics, home meds, deep venous thrombosis prophylaxis. Full code. SURGERY FOLLOWING COMMUNICATIONS ATTENDANT CONSULTED MIKEY DUNLAP History of Present Illness History of Present Illness Ms Maldonado is a 58 yo F with chronic intermittent abdominal pain with nausea and vomiting over the past 3 years, admitted for the same. 01/13 Chronic cholecystitis likely. Surgical consult for lap pily 01/17. Seen POD#1, walking the unit. tolerating diet, pain improved except for epigastric incision sore. She has not had a BM yet or passed flatus, ready to go home. Vitals Vitals Vital Signs Date Time Temp Pulse Resp B/P (MAP) Pulse Ox O2 Delivery O2 Flow Rate FiO2 01/18/19 08:39 97 Nasal Cannula 2.0 01/18/19 07:44 98.3 59 20 146/87 (106) 98.3 Physical Exam Physical Exam GENERAL: No apparent distress. Alert and oriented. HEENT: Head is normocephalic, atraumatic, pupils were equally round and reactive to light and accommodation. NECK: Supple, no JVD, no thyromegaly was noted. LUNGS: Clear to auscultation in all lung cortes without rhonchi or wheezing. HEART: RRR, S1, S2 present. Peripheral pulses intact, no obvious murmurs were noted. ABDOMEN: Soft, nontender. Positive bowel sounds no organomegaly, normal bowel sounds. EXTREMITIES: Without any cyanosis, clubbing, or edema. Pedal pulses intact, Homans sign is negative. NEUROLOGIC: Normal speech, normal tone. A & O x3, moves all extremities, no obvious focal deficits. PSYCHIATRIC: She is crying. SKIN: No ulcerations or rashes, good skin turgor, no jaundice. VASCULAR: Good capillary refill, neurovascular bundle appears to be intact. General: Alert, Oriented X3, Cooperative, No acute distress Heart: Regular rate, Normal S1 Lungs: Clear, Other (DIMINISHED) Abdomen: Soft, Other (mildly distended, lap dressings dry) Extremities: No clubbing, No cyanosis, No edema Skin: No rashes, No breakdown Assessment and Plan Assessmemt and Plan Problems Medical Problems: (1) Abdominal pain Status: Acute (2) Acute renal failure Status: Acute (3) Nausea & vomiting Status: Acute Comment Review of Relevant I have reviewed the following items eagle (where applicable) has been applied. Labs Laboratory Tests Test 01/17/19 07:40 White Blood Count 7.4 x10^3/uL (4.0-11.0) Red Blood Count 3.62 x10^6/uL (3.50-5.40) Hemoglobin 11.6 g/dL (12.0-15.5) Hematocrit 34.7 % (36.0-47.0) Mean Corpuscular Volume 96 fL (79-100) Mean Corpuscular Hemoglobin 32 pg (25-35) Mean Corpuscular Hemoglobin Concent 33 g/dL (31-37) Red Cell Distribution Width 15.0 % (11.5-14.5) Platelet Count 259 x10^3/uL (140-400) Neutrophils (%) (Auto) 71 % (31-73) Lymphocytes (%) (Auto) 14 % (24-48) Monocytes (%) (Auto) 12 % (0-9) Eosinophils (%) (Auto) 3 % (0-3) Basophils (%) (Auto) 0 % (0-3) Neutrophils # (Auto) 5.3 x10^3/uL (1.8-7.7) Lymphocytes # (Auto) 1.1 x10^3/uL (1.0-4.8) Monocytes # (Auto) 0.9 x10^3/uL (0.0-1.1) Eosinophils # (Auto) 0.2 x10^3/uL (0.0-0.7) Basophils # (Auto) 0.0 x10^3/uL (0.0-0.2) Sodium Level 145 mmol/L (136-145) Potassium Level 3.9 mmol/L (3.5-5.1) Chloride Level 107 mmol/L (98-107) Carbon Dioxide Level 32 mmol/L (21-32) Anion Gap 6 (6-14) Blood Urea Nitrogen 11 mg/dL (7-20) Creatinine 0.7 mg/dL (0.6-1.0) Estimated GFR (Cockcroft-Gault) 85.9 BUN/Creatinine Ratio 16 (6-20) Glucose Level 71 mg/dL (70-99) Calcium Level 9.1 mg/dL (8.5-10.1) Total Bilirubin 0.4 mg/dL (0.2-1.0) Aspartate Amino Transf (AST/SGOT) 37 U/L (15-37) Alanine Aminotransferase (ALT/SGPT) 63 U/L (14-59) Alkaline Phosphatase 60 U/L (46-116) Total Protein 6.8 g/dL (6.4-8.2) Albumin 2.9 g/dL (3.4-5.0) Albumin/Globulin Ratio 0.7 (1.0-1.7) Microbiology 01/12/19 Blood Culture - Final, Complete NO GROWTH AFTER 5 DAYS 01/12/19 Urine Culture - Final, Complete 01/12/19 Urine Culture Result 1 (KUS[facility]) - Final, Complete Medications Current Medications Sodium Chloride 1,000 ml @ 1,000 mls/hr Q1H IV Last administered on 01/12/19at 12:57; Start 01/12/19 at 12:31; Stop 01/12/19 at 13:30; Status DC Fentanyl Citrate (Fentanyl 2ml Vial) 50 mcg 1X ONCE IV Last administered on 01/12/19at 13:09; Start 01/12/19 at 12:45; Stop 01/12/19 at 12:46; Status DC Prochlorperazine Edisylate (Compazine) 10 mg 1X ONCE IV Last administered on 01/12/19at 13:09; Start 01/12/19 at 12:45; Stop 01/12/19 at 12:46; Status DC Famotidine (Pepcid Vial) 20 mg 1X ONCE IVP Last administered on 01/12/19at 13:20; Start 01/12/19 at 12:45; Stop 01/12/19 at 12:46; Status DC Piperacillin Sod/ Tazobactam Sod (Zosyn Per Pharmacy) 1 each PRN DAILY PRN MC SEE COMMENTS; Start 01/12/19 at 15:00 Ondansetron HCl (Zofran) 4 mg PRN Q8HRS PRN IV NAUSEA/VOMITING Last administered on 01/13/19at 09:41; Start 01/12/19 at 15:00; Stop 01/13/19 at 14:59; Status DC Fentanyl Citrate (Fentanyl 2ml Vial) 50 mcg PRN Q1HR PRN IV PAIN; Start 01/12/19 at 15:00; Stop 01/13/19 at 14:59; Status DC Acetaminophen (Tylenol) 650 mg PRN Q4HRS PRN PO FEVER; Start 01/12/19 at 15:00; Stop 01/13/19 at 14:59; Status DC Prochlorperazine Edisylate (Compazine) 10 mg PRN Q6HRS PRN IV NAUSEA, VOMITING (USE 2ND) Last administered on 01/13/19at 22:01; Start 01/12/19 at 15:00 Piperacillin Sod/ Tazobactam Sod 2.25 gm/Sodium Chloride 50 ml @ 100 mls/hr 1X ONCE IV Last administered on 01/12/19at 15:31; Start 01/12/19 at 15:15; Stop 01/12/19 at 15:44; Status DC Piperacillin Sod/ Tazobactam Sod 2.25 gm/Sodium Chloride 50 ml @ 100 mls/hr Q6HRS IV Last administered on 01/18/19at 06:00; Start 01/13/19 at 00:00 Pantoprazole Sodium (PROTONIX VIAL for IV PUSH) 40 mg DAILYAC IVP Last administered on 01/13/19at 12:00; Start 01/13/19 at 07:30; Stop 01/13/19 at 15:46; Status DC Multi-Ingredient Mouthwash/Gargle (Gi Cocktail) 20 ml PRN QID PRN PO abd pain; Start 01/12/19 at 16:15 Polyethylene Glycol (miraLAX PACKET) 17 gm DAILY PO Last administered on 01/16/19at 08:58; Start 01/13/19 at 09:00 Sodium Chloride 1,000 ml @ 100 mls/hr Q10H IV Last administered on 01/14/19at 00:34; Start 01/13/19 at 00:15; Stop 01/14/19 at 10:15; Status DC Barium Sulfate (Liquid E-Z Paque) 710 ml 1X ONCE PO Last administered on 01/13/19at 08:31; Start 01/13/19 at 07:45; Stop 01/13/19 at 07:46; Status DC Alprazolam (Xanax) 0.5 mg 1X ONCE PO Last administered on 01/13/19at 09:41; Start 01/13/19 at 09:15; Stop 01/13/19 at 09:16; Status DC Albuterol Sulfate (Ventolin Neb Soln) 1 mg PRN Q4HRS PRN INH SHORTNESS OF BREATH; Start 01/13/19 at 09:15; Stop 01/13/19 at 09:18; Status DC Lisinopril (Prinivil) 20 mg DAILY PO Last administered on 01/13/19at 09:41; Start 01/13/19 at 09:30; Stop 01/13/19 at 11:25; Status DC Ondansetron HCl (Zofran Odt) 8 mg PRN BID PRN PO NAUSEA/VOMITING Last administered on 01/15/19at 07:59; Start 01/13/19 at 09:15 Trazodone HCl (Desyrel) 100 mg HS PO Last administered on 01/17/19 20:42; Start 01/13/19 at 21:00 Albuterol Sulfate (Ventolin Neb Soln) 2.5 mg RTQID NEB Last administered on 07:43; Start 01/13/19 at 12:00 Duloxetine HCl (Cymbalta) 60 mg BID PO Last administered on 01/17/19at 20:42; Start 01/13/19 at 09:30 Non-Formulary Medication (Omeprazole ) 1 cap DAILY PO ; Start 01/14/19 at 09:00; Stop 01/13/19 at 09:12; Status DC Quetiapine Fumarate (SEROquel) 50 mg QHS PO Last administered on 01/17/19at 20:44; Start 01/13/19 at 21:00 Albuterol Sulfate (Ventolin Neb Soln) 2.5 mg PRN Q4HRS PRN INH SHORTNESS OF BREATH; Start 01/13/19 at 09:18 Budesonide (Pulmicort) 0.5 mg RTBID NEB Last administered on 01/18/19at 07:43; Start 01/13/19 at 20:00 Lactobacillus Rhamnosus (Culturelle) 1 cap BID PO Last administered on 01/17/19at 20:42; Start 01/13/19 at 21:00 Pantoprazole Sodium (Protonix) 40 mg DAILYAC PO Last administered on 01/18/19at 06:33; Start 01/14/19 at 07:30 Fentanyl Citrate (Fentanyl 2ml Vial) 50 mcg PRN Q4HRS PRN IV SEVERE PAIN 7-10; Start 01/13/19 at 22:00; Stop 01/14/19 at 10:00; Status DC Sodium Chloride 1,000 ml @ 999 mls/hr 1X ONCE IV Last administered on 01/14/19at 00:14; Start 01/13/19 at 23:45; Stop 01/14/19 at 00:45; Status DC Sodium Chloride 1,000 ml @ 100 mls/hr Q10H IV Last administered on 01/18/19at 02:18; Start 01/14/19 at 10:15 Alprazolam (Xanax) 0.5 mg 1X ONCE PO Last administered on 01/14/19at 13:22; S tart 01/14/19 at 13:15; Stop 01/14/19 at 13:16; Status DC Nicotine (Nicoderm Cq 21mg) 1 patch PRN DAILY PRN TD SMOKING CESSATION Last administered on 01/16/19at 08:58; Start 01/14/19 at 16:00 Multi-Ingredient Ointment (Analgesic [place]) 1 job PRN QID PRN TP MUSCLE PAIN Last administered on 01/15/19 08:16; Start 01/15/19 at 07:30 Magnesium Sulfate 50 ml @ 25 mls/hr 1X ONCE IV Last administered on 01/15/19at 12:18; Start 01/15/19 at 12:30; Stop 01/15/19 at 14:29; Status DC Labetalol HCl (Normodyne Iv Push) 20 mg PRN Q2HR PRN IVP HYPERTENSION Last administered on 01/16/19at 14:14; Start 01/15/19 at 22:00 Lisinopril (Prinivil) 20 mg DAILY PO Last administered on 01/17/19at 15:14; Start 01/15/19 at 22:15 Fentanyl Citrate (Fentanyl 2ml Vial) 25 mcg PRN Q5MIN PRN IV MILD PAIN 1-3; Start 01/17/19 at 07:00; Stop 01/18/19 at 06:59; Status DC Fentanyl Citrate (Fentanyl 2ml Vial) 50 mcg PRN Q5MIN PRN IV MODERATE TO SEVERE PAIN Last administered on 01/17/19at 14:20; Start 01/17/19 at 07:00; Stop 01/18/19 at 06:59; Status DC Morphine Sulfate (Morphine Sulfate) 1 mg PRN Q10MIN PRN IV SEVERE PAIN 7-10; Start 01/17/19 at 07:00; Stop 01/18/19 at 06:59; Status DC Ringer's Solution 1,000 ml @ 30 mls/hr Q24H IV Last administered on 01/17/19at 12:21; Start 01/17/19 at 07:00; Stop 01/17/19 at 18:59; Status DC Hydromorphone HCl (Dilaudid) 0.5 mg PRN Q10MIN PRN IV SEV PAIN, Second choice; Start 01/17/19 at 07:00; Stop 01/18/19 at 06:59; Status DC Prochlorperazine Edisylate (Compazine) 5 mg PACU PRN PRN IV NAUSEA, MRX1; Sta rt 01/17/19 at 07:00; Stop 01/18/19 at 06:59; Status DC Heparin Sodium (Porcine) 1000 unit/Sodium Chloride 1,001 ml @ 1,001 mls/hr 1X ONCE IRR Last administered on 01/17/19at 13:10; Start 01/17/19 at 06:00; Stop 01/17/19 at 06:59; Status DC Lorazepam (Ativan Inj) 0.5 mg 1X ONCE IV Last administered on 01/16/19at 21:22; Start 01/16/19 at 21:15; Stop 01/16/19 at 21:16; Status DC Bupivacaine HCl/ Epinephrine Bitart (Sensorcain-Epi 0.5%-1:562410 Mpf) 30 ml 1X ONCE INJ Last administered on 01/17/19at 13:28; Start 01/17/19 at 07:45; Stop 01/17/19 at 07:46; Status DC Propofol 20 ml @ As Directed STK-MED ONCE IV ; Start 01/17/19 at 10:47; Stop 01/17/19 at 10:47; Status DC Lidocaine HCl (Lidocaine Pf 2% Vial) 5 ml STK-MED ONCE .ROUTE ; Start 01/17/19 at 10:47; Stop 01/17/19 at 10:47; Status DC Dexamethasone Sodium Phosphate (Decadron) 4 mg STK-MED ONCE .ROUTE ; Start 01/17/19 at 10:47; Stop 01/17/19 at 10:47; Status DC Ondansetron HCl (Zofran) 4 mg STK-MED ONCE .ROUTE ; Start 01/17/19 at 10:47; Stop 01/17/19 at 10:47; Status DC Rocuronium [place] (Zemuron) 50 mg STK-MED ONCE .ROUTE ; Start 01/17/19 at 10:47; Stop 01/17/19 at 10:48; Status DC Cellulose (Surgicel Hemostat 2x3) 1 each STK-MED ONCE .ROUTE ; Start 01/17/19 at 11:10; Stop 01/17/19 at 11:11; Status DC Iohexol (Omnipaque 300 Mg/ml) 50 ml STK-MED ONCE .ROUTE ; Start 01/17/19 at 11:11; Stop 01/17/19 at 11:11; Status DC Bisacodyl (Dulcolax Supp) 10 mg STK-MED ONCE .ROUTE Last administered on 01/17/19at 13:33; Start 01/17/19 at 11:11; Stop 01/17/19 at 11:11; Status DC Fentanyl Citrate (Fentanyl 2ml Vial) 100 mcg STK-MED ONCE .ROUTE ; Start 01/17/19 at 12:14; Stop 01/17/19 at 12:15; Status DC Midazolam HCl (Versed) 2 mg STK-MED ONCE .ROUTE ; Start 01/17/19 at 12:14; Stop 01/17/19 at 12:15; Status DC Esmolol HCl (Brevibloc) 100 mg STK-MED ONCE IVP ; Start 01/17/19 at 12:43; Stop 01/17/19 at 12:44; Status DC Fentanyl Citrate (Fentanyl 2ml Vial) 100 mcg STK-MED ONCE .ROUTE ; Start 01/17/19 at 12:51; Stop 01/17/19 at 12:51; Status DC Neostigmine Methylsulfate (Neostigmine Methylsulfate) 5 mg STK-MED ONCE .ROUTE ; Start 01/17/19 at 12:52; Stop 01/17/19 at 12:53; Status DC Glycopyrrolate (Robinul) 1 mg STK-MED ONCE .ROUTE ; Start 01/17/19 at 12:52; Stop 01/17/19 at 12:53; Status DC Esmolol HCl (Brevibloc) 100 mg STK-MED ONCE IVP ; Start 01/17/19 at 12:58; Stop 01/17/19 at 12:58; Status DC Nicardipine HCl (Cardene) 25 mg STK-MED ONCE IV ; Start 01/17/19 at 13:00; Stop 01/17/19 at 13:00; Status DC Famotidine (Pepcid Vial) 20 mg STK-MED ONCE .ROUTE ; Start 01/17/19 at 13:10; Stop 01/17/19 at 13:10; Status DC Sevoflurane (Ultane) 30 ml STK-MED ONCE IH ; Start 01/17/19 at 13:19; Stop 01/17/19 at 13:19; Status DC Sodium Chloride (Normal Saline Flush) 3 ml QSHIFT PRN IV AFTER MEDS AND BLOOD DRAWS; Start 01/17/19 at 14:45 Dextrose (Dextrose 50%-Water Syringe) 12.5 gm PRN Q15MIN PRN IV SEE COMMENTS; Start 01/17/19 at 14:45 Dextrose 250 ml PRN Q15MIN PRN IV SEE COMMENTS; Start 01/17/19 at 14:45; Status UNV Acetaminophen/ Hydrocodone Bitart (Lortab 5/325) 1 tab PRN Q4HRS PRN PO MILD PAIN 1-3 Last administered on 01/18/19at 06:33; Start 01/17/19 at 14:45 Naloxone HCl (Narcan) 0.4 mg PRN Q2MIN PRN IV SEE INSTRUCTIONS; Start 01/17/19 at 14:45 Sodium Chloride 1,000 ml @ 25 mls/hr Q24H IV ; Start 01/17/19 at 14:36; Stop 01/17/19 at 16:57; Status DC Docusate Sodium (Colace) 100 mg BID PO Last administered on 01/17/19at 20:42; Start 01/17/19 at 21:00 Ondansetron HCl (Zofran) 4 mg PRN Q6HRS PRN IV NAUESA, 1ST CHOICE; Start 01/17/19 at 14:45 Active Scripts Active Erythromycin (Erythromycin Base) 250 Mg Tablet 250 Mg PO DAILY 30 Days Reported Symbicort 160-4.5 Mcg Inhaler (Budesonide/Formoterol Fumarate) 10.2 Gm Hfa.aer.ad 2 Puff IH BID Trazodone Hcl 100 Mg Tablet 100 Mg PO HS Cymbalta (Duloxetine Hcl) 60 Mg Capsule.dr [place] Cap PO BID Lisinopril 20 Mg Tablet 1 Tab PO DAILY Seroquel (Quetiapine Fumarate) 50 Mg Tablet 50 Mg PO HS Ondansetron Odt (Ondansetron) 4 Mg Tab.rapdis 8 Mg PO BID PRN Proair Hfa Inhaler (Albuterol Sulfate) 8.5 Gm Hfa.aer.ad 2 Puff INH DAILY PRN Omeprazole 40 Mg Capsule.dr Burton Cap PO DAILY Vitals/I & O Vital Sign - Last 24 Hours 01/17/19 01/17/19 01/17/19 01/17/19 11:32 12:13 13:34 13:34 Temp 98.4 98.4 98.1 98.4 98.4 98.1 Pulse 75 76 66 Resp 18 26 16 B/P (MAP) 155/95 (115) 176/104 134/74 Pulse Ox 95 95 100 O2 Delivery Room Air Room Air Simple Mask Mask O2 Flow Rate 10 10 01/17/19 01/17/19 01/17/19 01/17/19 13:47 14:00 14:13 14:20 Temp 97.8 97.8 Pulse 61 Resp 15 17 17 16 B/P (MAP) 141/79 161/89 148/85 Pulse Ox 100 98 95 98 O2 Delivery Simple Mask Room Air Nasal Cannula Nasal Cannula O2 Flow Rate 10 2 2.0 01/17/19 01/17/19 01/17/19 01/17/19 14:25 14:48 15:00 15:14 Temp 97.6 98.1 97.6 98.1 Pulse 64 61 61 64 Resp 15 20 B/P (MAP) 157/87 158/84 (108) 154/88 (110) 157/87 Pulse Ox 99 95 O2 Delivery Nasal Cannula Room Air O2 Flow Rate 2 01/17/19 01/17/19 01/17/19 01/17/19 15:14 15:15 15:30 15:45 Pulse 62 62 68 Resp 16 B/P (MAP) 148/88 (108) 147/96 (113) 134/69 (90) Pulse Ox 99 O2 Delivery Nasal Cannula O2 Flow Rate 2.0 01/17/19 01/17/19 01/17/19 01/17/19 16:00 16:19 16:30 17:00 Pulse 68 61 61 B/P (MAP) 144/84 (104) 151/79 (103) 143/84 (103) Pulse Ox 98 O2 Delivery Nasal Cannula O2 Flow Rate 2.0 01/17/19 01/17/19 01/17/19 01/17/19 18:29 19:52 20:00 20:36 Temp 98.4 98.4 Pulse 61 Resp 16 16 B/P (MAP) 149/75 (99) Pulse Ox 98 95 96 O2 Delivery Nasal Cannula Room Air Nasal Cannula Nasal Cannula O2 Flow Rate 2.0 2.0 2.0 01/17/19 01/17/19 01/17/19 01/17/19 20:36 22:32 22:34 23:46 Temp 98.3 98.3 Pulse 78 Resp 18 20 16 B/P (MAP) 128/79 (95) Pulse Ox 96 96 96 94 O2 Delivery Nasal Cannula Nasal Cannula Nasal Cannula Room Air O2 Flow Rate 2.0 2.0 2.0 01/18/19 01/18/19 01/18/19 01/18/19 02:20 02:22 03:15 06:02 Temp 98.1 98.1 Pulse 53 Resp 18 18 16 18 B/P (MAP) 128/73 (91) Pulse Ox 94 94 99 99 O2 Delivery Nasal Cannula Nasal Cannula Room Air Nasal Cannula O2 Flow Rate 2.0 2.0 2.0 01/18/19 01/18/19 01/18/19 01/18/19 06:33 07:44 07:45 08:39 Temp 98.3 98.3 Pulse 59 Resp 18 20 B/P (MAP) 146/87 (106) Pulse Ox 99 96 97 97 O2 Delivery Nasal Cannula Room Air Room Air Nasal Cannula O2 Flow Rate 2.0 2.0 Intake and Output 01/17/19 01/17/19 01/18/19 15:00 23:00 07:00 Intake Total 700 ml 320 ml 200 ml Output Total 310 ml Balance 390 ml 320 ml 200 ml BELÉN JAMES MD Jan 18, 2019 09:17
[2019-01-18] MEDS: DOCUSATE SODIUM 100 MG CAPSULE. PO SCH (09:26)
[2019-01-18] MEDS: LACTOBACILLUS RHAMNOSUS GG 1 CAPSULE. PO SCH (09:26)
[2019-01-18] MEDS: LISINOPRIL 20 MG TABLET PO SCH (09:27)
[2019-01-18] MEDS: DULoxetine HCL 30 MG CAPSULE.DR PO SCH (09:27)
[2019-01-18] MEDS: POLYETHYLENE GLYCOL 3350 17 GM PACKET. PO SCH (09:27)
--- NOTE | 2019-01-18 10:53 | PDOC3 ---
Discharge Summary Visit Information Date of Admission: Jan 12, 2019 Date of Discharge: Jan 18, 2019 Admitting Diagnosis: Intractable abdominal pain Final Diagnosis Problems Medical Problems: (1) Abdominal pain Status: Acute (2) Acute renal failure Status: Acute (3) Nausea & vomiting Status: Acute Brief Hospital Course Allergies Allergies Coded Allergies Type Severity Reaction Last Updated Verified No Known Drug Allergies 08/13/18 No Vital Signs Vital Signs Date Time Temp Pulse Resp B/P (MAP) Pulse Ox O2 Delivery O2 Flow Rate FiO2 01/18/19 09:27 59 146/87 01/18/19 08:39 97 Nasal Cannula 2.0 01/18/19 07:44 98.3 20 98.3 Lab Results Laboratory Tests Test 01/17/19 07:40 White Blood Count 7.4 x10^3/uL (4.0-11.0) Red Blood Count 3.62 x10^6/uL (3.50-5.40) Hemoglobin 11.6 g/dL (12.0-15.5) Hematocrit 34.7 % (36.0-47.0) Mean Corpuscular Volume 96 fL (79-100) Mean Corpuscular Hemoglobin 32 pg (25-35) Mean Corpuscular Hemoglobin Concent 33 g/dL (31-37) Red Cell Distribution Width 15.0 % (11.5-14.5) Platelet Count 259 x10^3/uL (140-400) Neutrophils (%) (Auto) 71 % (31-73) Lymphocytes (%) (Auto) 14 % (24-48) Monocytes (%) (Auto) 12 % (0-9) Eosinophils (%) (Auto) 3 % (0-3) Basophils (%) (Auto) 0 % (0-3) Neutrophils # (Auto) 5.3 x10^3/uL (1.8-7.7) Lymphocytes # (Auto) 1.1 x10^3/uL (1.0-4.8) Monocytes # (Auto) 0.9 x10^3/uL (0.0-1.1) Eosinophils # (Auto) 0.2 x10^3/uL (0.0-0.7) Basophils # (Auto) 0.0 x10^3/uL (0.0-0.2) Sodium Level 145 mmol/L (136-145) Potassium Level 3.9 mmol/L (3.5-5.1) Chloride Level 107 mmol/L (98-107) Carbon Dioxide Level 32 mmol/L (21-32) Anion Gap 6 (6-14) Blood Urea Nitrogen 11 mg/dL (7-20) Creatinine 0.7 mg/dL (0.6-1.0) Estimated GFR (Cockcroft-Gault) 85.9 BUN/Creatinine Ratio 16 (6-20) Glucose Level 71 mg/dL (70-99) Calcium Level 9.1 mg/dL (8.5-10.1) Total Bilirubin 0.4 mg/dL (0.2-1.0) Aspartate Amino Transf (AST/SGOT) 37 U/L (15-37) Alanine Aminotransferase (ALT/SGPT) 63 U/L (14-59) Alkaline Phosphatase 60 U/L (46-116) Total Protein 6.8 g/dL (6.4-8.2) Albumin 2.9 g/dL (3.4-5.0) Albumin/Globulin Ratio 0.7 (1.0-1.7) Brief Hospital Course Ms Maldonado is a 58 yo F with chronic intermittent abdominal pain with nausea and vomiting over the past 3 years, admitted for the same. Seen by general surgery, GI, Paper Conservator, nephrology. ultimately on 01/13 Chronic cholecystitis likely determined. Surgical consult for lap pily 01/17. Seen POD#1, walking the unit. tolerating diet, pain improved except for epigastric incision sore. She has not had a BM yet or passed flatus, ready to go home. 1-2 surgery follow up scheduled. ASSESSMENT AND PLAN: DEHYDRATION CATHY - likely vasomotor nephropathy 2/2 poor PO intake - RESOLVED MILD HYPERNATREMIA-IMPROVED Nausea, vomiting Abdominal pain Diverticulitis, acute Colonic diverticulosis greatest of the sigmoid colon, difficult to exclude sigmoid colonic wall thickening as could be seen with diverticulitis Extensive problems with endometriosis history copd THC ABUSE HX Greater than 30 minutes spent on d/c Discharge Information Condition at Discharge: Improved Follow Up: Weeks (1) Disposition/Orders: D/C to Home Scheduled Budesonide/Formoterol Fumarate (Symbicort 160-4.5 Mcg Inhaler) 10.2 Gm Hfa.aer.ad, 2 PUFF IH BID for asthma, COPD, #10.6 Ref 3 (Reported) Entered as Reported by: MARLENY POLANCO RN on 09/19/182246 Last Action: Converted on 01/13/19906 by AMINA CANO Duloxetine Hcl (Cymbalta) 60 Mg Capsule.dr, 1 CAP PO BID for depression, #90 Ref 3 (Reported) Entered as Reported by: PASTOR LEIGH on 09/19/181652 Last Action: Converted on 01/13/19906 by AMINA CANO Erythromycin Base (Erythromycin) 250 Mg Tablet, 250 MG PO DAILY for gastroparesis for 30 Days, #30 Prescribed by: JULIUS MARIA MD on 09/22/18 1459 Lisinopril (Lisinopril) 20 Mg Tablet, 1 TAB PO DAILY for htn, #30 Ref 5 (Reported) Entered as Reported by: PASTOR LEIGH on 09/19/181652 Last Action: Continued on 01/13/19906 by AMINA CANO Omeprazole (Omeprazole) 40 Mg Capsule.dr, 1 CAP PO DAILY, #30 Ref 3 (Reported) Entered as Reported by: MADALYN OVIEDO on 02/25/181803 Last Action: Converted on 01/13/19906 by AMINA CANO Quetiapine Fumarate (Seroquel) 50 Mg Tablet, 50 MG PO HS for sleep, (Reported) Entered as Reported by: GILES CASTAÑEDA on 08/13/18854 Last Action: Converted on 01/13/19906 by AMINA CANO Trazodone Hcl (Trazodone Hcl) 100 Mg Tablet, 100 MG PO HS for sleep, (Reported) Entered as Reported by: MARLENY POLANCO RN on 09/19/182246 Last Action: Continued on 01/13/19906 by AMINA CANO Scheduled PRN Albuterol Sulfate (Proair Hfa Inhaler) 8.5 Gm Hfa.aer.ad, 2 PUFF INH DAILY PRN for SHORTNESS OF BREATH, Ref 0 (Reported) Entered as Reported by: MADALYN OVIEDO on 02/25/181804 Last Action: Continued on 01/13/19906 by AMINA CANO Ondansetron (Ondansetron Odt) 4 Mg Tab.rapdis, 8 MG PO BID PRN for NAUSEA/VOMITING, (Reported) Entered as Reported by: Ronda Cross on 08/10/18 1401 Last Action: Continued on 01/13/19906 by BELÉN LINO MD Jan 18, 2019 10:53
[2019-01-18 11:20] VITALS: BP 139/67
--- NOTE | 2019-01-18 11:37 | PDOC ---
Subjective: Subjective: Feels good, ate "double eggs" this morning, happy to get to go home. Objective: Objective: Operative record reviewed - chronic cholecystitis. Vital Signs: Vital Signs Date Time Temp Pulse Resp B/P (MAP) Pulse Ox O2 Delivery O2 Flow Rate FiO2 01/18/19 11:20 98.2 69 20 139/67 (91) 96 Room Air 98.2 01/18/19 08:39 2.0 Labs: IOC 2 very limited intraoperative fluoroscopic views of the right upper quadrant submitted from the OR. Exam shows cholangiogram with cannulation of the common bile duct and associated opacification of the common bile duct. No definite filling defect is identified within the common bile duct. Subtle contrast extending retrograde likely portions of the common hepatic duct. Note, this does not constitute a diagnostic quality exam. Please see operative report for full details. PE: GEN: NAD - walking around room LUNGS: room air NEURO/PSYCH: A & O �3 A/P: Recurrent n/v and abd pain - better S/p cholecystectomy GERD, mildly delayed gastric emptying, +marijuana -- DC per primary. Follow-up w/ GI PRN. Continue PPI. MAC KNOX Jan 18, 2019 11:37
--- NOTE | 2019-01-18 13:18 | NUR ---
Discharge Note: BRITNI RAZA [address] [place] [address] Discharge instructions and discharge home medications reviewed with Patient and a copy given. All questions have been answered and understanding verbalized. The following instructions and handouts were given: FOLLOW UP INSTRUCTIONS, MEDICATION LISTS, AND ACTIVITY LEVELS. Discontinued lines and drains: Peripheral IV intact. Patient discharged to Home or Self Care with Family Member via Ambulation.
--- NOTE | 2019-01-19 09:07 | PATHOLOGY ---
[facility] Accession Number: [id number] . 01 Material submitted: . gallbladder - GALLBLADDER . 01 Clinical history: . Chronic cholecystitis . 02 Diagnosis: "Gallbladder", cholecystectomy: - Chronic cholecystitis. - Lymph node with hyperplasia. (CLW/db; 01/18/2019) LBQ 01/18/2019 1520 Local . 02 Electronically signed: . Danae Mckeon MD, Pathologist NPI- [id number] . 01 Gross description: . The specimen is received in formalin, labeled "Ngaey, Cherie, gallbladder", is intact, distended gallbladder measuring 10.4 cm in length and 4.0 cm in maximum diameter with a glistening, smooth and puentes purple serosa. A 1.5 x 0.5 x 0.3 cm soft lymph node is identified in the region of the gallbladder neck the lymph node is serially sectioned to show a hagan-pink homogeneous cut surface. The cystic duct is patent. The gallbladder lumen contains yellow-brown, viscous bile and no discrete calculi. The mucosa is hagan-brown and granular with no cholesterolosis. The wall is 0.1 cm in average thickness. Representatively submitted in A1. ([facility]; 01/17/2019) [facility] 01/17/2019 1940 Local . 02 Pathologist provided ICD-10: K81.1, R59.9 . 02 CPT . 652037 Specimen Comment: A courtesy copy of this report has been sent to Specimen Comment: [phone], . Specimen Comment: Report sent to / DR BENNETT Performed at: [address], [place], [place] [id number] MD Garfield Noel MD Phone: [phone] Performed at: [address] [id number] MD Luis Alberto Fajardo MD Phone: [phone]
== END 2019-01-18 13:15 | disposition home or self-care (01) | DRG 356 ==
LOC: ER 11:44 → 6 SOUTH 14:38
PROVIDERS: ADMIT Internal Medicine; ATTEND Internal Medicine
PROC: BF101ZZ Fluoroscopy of Bile Ducts using Low Osmolar Contrast (ICD-10-PCS; 2019-01-17)
PROC: 0FT44ZZ Resection of Gallbladder, Percutaneous Endoscopic Approach (ICD-10-PCS; principal; 2019-01-17 13:00)
DX: K57.32 Diverticulitis of large intestine without perforation or abscess without bleeding (principal); N17.0 Acute kidney failure with tubular necrosis; E87.0 Hyperosmolality and hypernatremia; N39.0 Urinary tract infection, site not specified; K81.1 Chronic cholecystitis; K31.84 Gastroparesis; E86.0 Dehydration; G89.29 Other chronic pain; I10 Essential (primary) hypertension; J44.9 Chronic obstructive pulmonary disease, unspecified; K21.9 Gastro-esophageal reflux disease without esophagitis; K29.70 Gastritis, unspecified, without bleeding; K82.8 Other specified diseases of gallbladder; N80.9 Endometriosis, unspecified; F32.9 Major depressive disorder, single episode, unspecified; F41.9 Anxiety disorder, unspecified; F12.10 Cannabis abuse, uncomplicated; F17.210 Nicotine dependence, cigarettes, uncomplicated; Z96.659 Presence of unspecified artificial knee joint; Z80.9 Family history of malignant neoplasm, unspecified; Z83.3 Family history of diabetes mellitus
CPT/HCPCS: 36415; 71045; 74176; 74250; 74300; 80048; 80053; 80307; 81001; 83605; 83690; 83735; 84100; 84484; 85025; 85027; 87040; 87086; 88304; 93005; 94640; 94760; 96361; 96365; 96375; A7015; C9113; J0780; J1100; J2001; J2060; J2250; J2405; J2543; J2704; J2710; J3010; J3475; J3490; J7030; J7120; J7613; J7626; Q0162; Q9967; 99285-25; G0378

== ENCOUNTER 2019-05-05 07:59 | Emergency (ER) | payer MEDICAID ==
[~2019-05-05] VITALS: Ht 154.9 cm; Wt 53.5 kg
[~2019-05-05 07:59] MED LIST changes: +OMEP40CA45 PO; -OMEP40CA5 PO; +TRAZ-123 PO; -TRAZ-86 PO
[2019-05-05] MEDS ORDERED: IV NORMAL SALINE 1000ML BAG 1,000 ML IV SCH (08:13)
[2019-05-05] MEDS ORDERED: ONDANSETRON PF 4 MG/2 ML VIAL. IV ONE (08:15)
[2019-05-05] MEDS: fentaNYL PF VIAL 100 MCG/2 ML VIAL IV PRN ×2 (08:31→10:27)
[2019-05-05 08:33] LABS: BASO # 0.1 x10^3/uL (0.0-0.2); BASO % 1 % (0-3); EOS # 0.1 x10^3/uL (0.0-0.7); EOS % 1 % (0-3); HEMATOCRIT 45.3 % (36.0-47.0); HEMOGLOBIN 15.4 g/dL (12.0-15.5); LYMPH % 17 % (24-48); MEAN CORPUSCULAR HEMOGLOBIN 31 pg (25-35); MEAN CORPUSCULAR HGB CONC 34 g/dL (31-37); MEAN CORPUSCULAR VOLUME 92 fL (79-100); MONO % 9 % (0-9); NEUT # 8.3 x10^3/uL (1.8-7.7); NEUT % 73 % (31-73); PLATELET COUNT 332 x10^3/uL (140-400); RED BLOOD COUNT 4.94 x10^6/uL (3.50-5.40); RED CELL DISTRIBUTION WIDTH 14.6 % (11.5-14.5); WHITE BLOOD COUNT 11.4 x10^3/uL (4.0-11.0)
--- NOTE | 2019-05-05 08:36 | PHYS DOC ---
Past Medical History Past Medical History: Asthma, COPD, Hypertension, Other Additional Past Medical Histor: chronic N/V seen by Dr. Suarez at [facility], CYCLIC VOMITING Past Surgical History: Cholecystectomy, Tonsillectomy, Other Additional Past Surgical Histo: L knee, infertility sx Alcohol Use: Heavy Drug Use: Marijuana Adult General Chief Complaint Chief Complaint: NAUSEA/VOMITING/DIARRHA HPI HPI Patient is a 58-year-old female who arrives via EMS with report of upper abdominal pain that has been ongoing since around . Patient did have cholecystectomy performed in February and she states that pain is gotten better for short period but then returned. She rates her pain as severe and states that she is just not able to tolerated any longer. Patient does report to a fever. She does admit to a cough no shortness of breath. She states that nothing is i mproving her symptoms. She also complains of some body aches and chills.[] Review of Systems Review of Systems Constitutional: Positive fever and chills [] Respiratory: Positive cough without shortness of breath [] Cardiovascular: No additional information not addressed in HPI [] GI: [place] of upper abdominal pain with nausea. Denies diarrhea [] Musculoskeletal: Complains of body aches/pain [] Integument: Denies rash or skin lesions [] Neurologic: Denies headache, focal weakness or sensory changes [] All other systems were reviewed and found to be within normal limits, except as documented in this note. Current Medications Current Medications Current Medications Medications (Trade) Dose Ordered Sig/Mohan Start Time Stop Time Status Last Admin Dose Admin Fentanyl Citrate (Fentanyl 2ml Vial) 25 mcg PRN Q15MIN PRN 05/05/19 08:15 05/05/19 12:22 DC 05/05/19 10:27 25 MCG Info (CONTRAST GIVEN -- Rx MONITORING) 1 each PRN DAILY PRN 05/05/19 10:00 05/05/19 12:22 DC Iohexol (Omnipaque 300 Mg/ml) 60 ml 1X ONCE 05/05/19 10:00 05/05/19 10:01 DC 05/05/19 10:44 60 ML Ondansetron HCl (Zofran) 4 mg 1X ONCE 05/05/19 08:15 05/05/19 08:20 DC 05/05/19 08:30 4 MG Potassium Chloride (Klor-Con) 40 meq 1X ONCE 05/05/19 10:30 05/05/19 10:31 DC 05/05/19 10:27 40 MEQ Sodium Chloride 1,000 ml @ 1,000 mls/hr Q1H 05/05/19 08:13 05/05/19 09:12 DC 05/05/19 08:29 1,000 MLS/HR Allergies Allergies Allergies Coded Allergies Type Severity Reaction Last Updated Verified No Known Drug Allergies 08/13/18 No Physical Exam Physical Exam Constitutional: Well developed, well nourished, tearful, in mild distress, non- toxic appearance. [] HENT: Normocephalic, atraumatic, bilateral external ears normal, oropharynx moist, no oral exudates, nose normal. [] Eyes: PERRLA, EOMI, conjunctiva normal, no discharge. [] Neck: Normal range of motion, no tenderness, supple. [] Cardiovascular: Tachycardic rate with regular rhythm[] Lungs & Thorax: Bilateral breath sounds clear to auscultation [] Abdomen: Bowel sounds normal, soft, with epigastric tenderness. [] Skin: Warm, dry, no erythema, no rash. [] Extremities: No tenderness, no cyanosis, no clubbing, ROM intact. [] Neurologic: Alert and oriented X 3, no focal deficits noted. [] Current Patient Data Vital Signs Vital Signs Date Time Temp Pulse Resp B/P (MAP) Pulse Ox O2 Delivery O2 Flow Rate FiO2 05/05/19 12:00 84 24 100 05/05/19 10:00 131/84 (100) 05/05/19 08:03 100.1 Room Air 100.1 Lab Values Laboratory Tests Test 05/05/19 08:15 05/05/19 08:30 05/05/19 10:31 White Blood Count 11.4 x10^3/uL (4.0-11.0) H Red Blood Count 4.94 x10^6/uL (3.50-5.40) Hemoglobin 15.4 g/dL (12.0-15.5) Hematocrit 45.3 % (36.0-47.0) Mean Corpuscular Volume 92 fL (79-100) Mean Corpuscular Hemoglobin 31 pg (25-35) Mean Corpuscular Hemoglobin Concent 34 g/dL (31-37) Red Cell Distribution Width 14.6 % (11.5-14.5) H Platelet Count 332 x10^3/uL (140-400) Neutrophils (%) (Auto) 73 % (31-73) Lymphocytes (%) (Auto) 17 % (24-48) L Monocytes (%) (Auto) 9 % (0-9) Eosinophils (%) (Auto) 1 % (0-3) Basophils (%) (Auto) 1 % (0-3) Neutrophils # (Auto) 8.3 x10^3/uL (1.8-7.7) H Lymphocytes # (Auto) 2.0 x10^3/uL (1.0-4.8) Monocytes # (Auto) 1.0 x10^3/uL (0.0-1.1) Eosinophils # (Auto) 0.1 x10^3/uL (0.0-0.7) Basophils # (Auto) 0.1 x10^3/uL (0.0-0.2) Sodium Level 134 mmol/L (136-145) L Potassium Level 3.1 mmol/L (3.5-5.1) L Chloride Level 94 mmol/L (98-107) L Carbon Dioxide Level 23 mmol/L (21-32) Anion Gap 17 (6-14) H Blood Urea Nitrogen 18 mg/dL (7-20) Creatinine 1.0 mg/dL (0.6-1.0) Estimated GFR (Cockcroft-Gault) 56.9 BUN/Creatinine Ratio 18 (6-20) Glucose Level 122 mg/dL (70-99) H Lactic Acid Level 1.5 mmol/L (0.4-2.0) Calcium Level 9.4 mg/dL (8.5-10.1) Total Bilirubin 0.9 mg/dL (0.2-1.0) Aspartate Amino Transferase (AST) 15 U/L (15-37) Alanine Aminotransferase (ALT) 15 U/L (14-59) Alkaline Phosphatase 73 U/L (46-116) Total Protein 8.3 g/dL (6.4-8.2) H Albumin 3.7 g/dL (3.4-5.0) Albumin/Globulin Ratio 0.8 (1.0-1.7) L Lipase 209 U/L (73-393) Influenza Type A Antigen Negative (NEGATIVE) Influenza Type B Antigen Negative (NEGATIVE) Urine Collection Type Unknown Urine Color [place] Urine Clarity Clear Urine pH 6.0 Urine Specific [place] 1.025 Urine Protein 30 mg/dL (NEG-TRACE) Urine Glucose (UA) Negative mg/dL (NEG) Urine Ketones (Stick) 40 mg/dL (NEG) Urine Blood Negative (NEG) Urine Nitrite Negative (NEG) Urine Bilirubin Large (NEG) Urine Urobilinogen Dipstick 1.0 mg/dL (0.2 mg/dL) Urine Leukocyte Esterase Moderate (NEG) Urine RBC 0 /HPF (0-2) Urine WBC 1-4 /HPF (0-4) Urine Squamous Epithelial Cells Many /LPF Urine Bacteria Few /HPF (0-FEW) Urine Hyaline Casts Many /HPF Urine Mucus Marked /LPF Laboratory Tests 05/05/19 08:15 Laboratory Tests 05/05/19 08:15 EKG EKG [] Radiology/Procedures Radiology/Procedures [] Impressions: PROCEDURE: CT ABD PELV W/ IV CONTRST ONLY CT scan abdomen and pelvis with contrast 05/05/2019 CLINICAL HISTORY: Abdominal pain and vomiting. Cholecystectomy in February of last year. TECHNIQUE: After the intravenous administration of 60 cc of Omnipaque 300 only, contiguous, 5 mm axial sections were obtained through abdomen and pelvis. One or more of the following individualized dose reduction techniques were utilized for this study: 1. Automated exposure control. 2. Adjustment of the mA and/or kV according to patient size. 3. Use of iterative reconstruction technique. FINDINGS: Comparison study is dated 01/12/2019. Images through the lung bases demonstrate patchy areas of atelectasis and/or infiltrate involving the left lower lobe. The liver parenchyma has a decreased attenuation consistent with fatty infiltration. The spleen, pancreas, adrenal glands and left kidney are within normal limits. A 1 cm rounded low-attenuation lesion is involving the superior pole of the right kidney. This likely represents a cyst. It is unchanged. Atherosclerotic calcification of the abdominal aorta is seen. The abdominal aorta tapers normally. Surgical clips are seen within the gallbladder fossa consistent with a cholecystectomy. No free fluid or free air is seen within the abdomen. There is no evidence of bowel obstruction. The appendix is partially visualized and is within normal limits. Images through the pelvis demonstrate the urinary bladder to be contracted. Calcifications are seen within the pelvis consistent with phleboliths. Diverticula are seen involving the sigmoid colon. No inflammatory changes are seen in the adjacent fat. No free fluid is noted. The osseous structures are unchanged. IMPRESSION: No acute abnormality is seen. Electronically signed by: John Norris MD (05/05/2019 11:26 AM) [facility] DICTATED and SIGNED BY: JOHN NORRIS MD DATE: 05/05/19 1126 Course & Med Decision Making Course & Med Decision Making Pertinent Labs and Imaging studies reviewed. (See chart for details) [] Dragon Disclaimer Dragon Disclaimer This electronic medical record was generated, in whole or in part, using a voice recognition dictation system. Departure Departure Impression: Primary Impression: Chronic abdominal pain Disposition: HOME, SELF-CARE Condition: STABLE Patient Instructions: Abdominal Pain, Chronic Pain, Chronic Pain Management Scripts Ondansetron (ONDANSETRON ODT) 4 Mg Tab.rapdis 1 TAB PO PRN Q6-8HRS PRN for NAUSEA, #15 TAB Prov: DARA MUELLER Jr. DO 05/05/19 Dicyclomine Hcl (DICYCLOMINE HCL) 10 Mg Capsule 10 MG PO QID PRN for abdominal pain, #20 CAP Prov: DARA MUELLER Jr. DO 05/05/19 DARA MUELLER Jr. DO May 05, 2019 08:36
--- NOTE | 2019-05-05 08:39 | RAD ---
CHEST AP ONLY 05/05/2019 8:16 AM INDICATION: Fever COMPARISON: 01/12/2019 TECHNIQUE: Portable frontal view of the chest is provided. FINDINGS: The cardiomediastinal silhouette is similar in appearance. There is a 5 mm calcified granuloma in the left upper lobe. Right apical pleural-parenchymal scarring is suspected. There is subsegmental atelectasis at the left lung base versus scarring. There are no significant pleural effusions. There is no pulmonary vascular congestion. No pneumothorax. Remote healed left posterior ninth rib fracture. IMPRESSION: 1. No new airspace consolidation. 2. Left basilar subsegmental atelectasis versus scarring. 3. Right apical pleural-parenchymal scarring versus parenchymal opacity. Finding appears similar to prior examination. Electronically signed by: Lashonda Padilla MD (05/05/2019 8:36 AM) [id number]
[2019-05-05 08:48] LABS: CALCIUM 9.4 mg/dL (8.5-10.1); GFR 56.9; POTASSIUM 3.1 mmol/L (3.5-5.1)
[2019-05-05 09:03] LABS: ALBUMIN 3.7 g/dL (3.4-5.0); ALBUMIN/GLOBULIN RATIO 0.8 (1.0-1.7); TOTAL BILIRUBIN 0.9 mg/dL (0.2-1.0); TOTAL PROTEIN 8.3 g/dL (6.4-8.2)
[2019-05-05 09:05] LABS: INFLUENZA A PATIENT NEGATIVE (NEGATIVE); INFLUENZA B PATIENT NEGATIVE (NEGATIVE)
[2019-05-05 10:00] VITALS: BP 131/84
[2019-05-05] MEDS ORDERED: CONTRAST GIVEN. MC PRN (10:00)
[2019-05-05] MEDS ORDERED: IOHEXOL 300 MG/ML 100ML VIAL. IV ONE (10:00)
[2019-05-05] MEDS ORDERED: POTASSIUM CHLORIDE 20 MEQ TABLET.ER. PO ONE (10:30)
[2019-05-05 10:47] LABS: BILIRUBIN,URINE LARGE (NEG); CLARITY,URINE CLEAR; COLOR,URINE AMBER; NITRITE,URINE NEGATIVE (NEG); PROTEIN,URINE 30 mg/dL (NEG-TRACE)
[2019-05-05 11:18] LABS: BACTERIA,URINE FEW /HPF (0-FEW); HYALINE CASTS, URINE MANY /HPF; RBC,URINE 0 /HPF (0-2); SQUAMOUS EPITHELIAL CELL,UR MANY /LPF
--- NOTE | 2019-05-05 11:29 | RAD ---
CT scan abdomen and pelvis with contrast 05/05/2019 CLINICAL HISTORY: Abdominal pain and vomiting. Cholecystectomy in February of last year. TECHNIQUE: After the intravenous administration of 60 cc of Omnipaque 300 only, contiguous, 5 mm axial sections were obtained through abdomen and pelvis. One or more of the following individualized dose reduction techniques were utilized for this study: 1. Automated exposure control. 2. Adjustment of the mA and/or kV according to patient size. 3. Use of iterative reconstruction technique. FINDINGS: Comparison study is dated 01/12/2019. Images through the lung bases demonstrate patchy areas of atelectasis and/or infiltrate involving the left lower lobe. The liver parenchyma has a decreased attenuation consistent with fatty infiltration. The spleen, pancreas, adrenal glands and left kidney are within normal limits. A 1 cm rounded low-attenuation lesion is involving the superior pole of the right kidney. This likely represents a cyst. It is unchanged. Atherosclerotic calcification of the abdominal aorta is seen. The abdominal aorta tapers normally. Surgical clips are seen within the gallbladder fossa consistent with a cholecystectomy. No free fluid or free air is seen within the abdomen. There is no evidence of bowel obstruction. The appendix is partially visualized and is within normal limits. Images through the pelvis demonstrate the urinary bladder to be contracted. Calcifications are seen within the pelvis consistent with phleboliths. Diverticula are seen involving the sigmoid colon. No inflammatory changes are seen in the adjacent fat. No free fluid is noted. The osseous structures are unchanged. IMPRESSION: No acute abnormality is seen. Electronically signed by: John Norris MD (05/05/2019 11:26 AM) [id number]
[2019-05-05] MEDS ORDERED: ONDA4TAB12 PO (11:38)
[2019-05-05] MEDS ORDERED: DICY10CA3 PO (11:38)
== END 2019-05-05 12:20 | disposition home or self-care (01) ==
LOC: ER 07:59
DX: G89.29 Other chronic pain (principal); R10.13 Epigastric pain; R11.2 Nausea with vomiting, unspecified; R05 Cough; J44.9 Chronic obstructive pulmonary disease, unspecified; I10 Essential (primary) hypertension; F10.20 Alcohol dependence, uncomplicated; Y90.9 Presence of alcohol in blood, level not specified; Z90.49 Acquired absence of other specified parts of digestive tract
CPT/HCPCS: 36415; 71045; 74177; 80053; 81001; 83605; 83690; 85025; 87040; 87086; 87804; 96361; 96374; 96375; 96376; 99285; J2405; J3010; J7030; Q9967